=== PATIENT | male | born 1945 | race Caucasian/White ===

== ENCOUNTER 2017-11-05 18:08 | Inpatient (IN) | payer MEDICARE, BC ==
--- NOTE | 2017-11-05 18:13 | ED ---
General Adult HPI - General Stated complaint: FALL FROM STANDING Time Seen by Provider: 11/05/17 18:11 Source: RN notes reviewed, old records reviewed Limitations: altered mental status - History of Present Illness Initial comments: This is a 72-year-old male to the ER for evaluation. Patient comes in evaluation for severe respiratory distress and unresponsiveness. Patient has no history of significant COPD not on home O2. Patient significantly hypoxic and becoming more altered - Related Data Home Medications Medication Instructions Recorded Confirmed Albuterol Sulfate [Proair Hfa] 2 puff INHALATION RT-QID 02/05/15 02/06/15 Aspirin 81 mg PO DAILY 02/05/15 02/06/15 Cholecalciferol [Vitamin D3] 400 unit PO DAILY 02/05/15 02/06/15 Furosemide 20 mg PO DAILY 02/05/15 02/06/15 Lisinopril 20 mg PO DAILY 02/05/15 02/06/15 Fluticasone/Salmeterol [Advair 1 puff INHALATION RT-BID 02/06/15 02/06/15 250-50 Diskus] Ipratropium-Albuterol Nebulize 3 ml INHALATION RT-TID 02/06/15 02/06/15 [Duoneb 0.5 mg-3 mg/3 ml Soln] Previous Rx's Medication Instructions Recorded Ensure Complete 1 can PO TID-W/MEALS liquid 02/17/15 Levofloxacin [Levaquin] 750 mg PO DAILY #10 tab 02/17/15 predniSONE 0 mg PO DIRECTED #30 tab 02/17/15 Allergies Allergy/AdvReac Type Severity Reaction Status Date / Time No Known Allergies Allergy Verified 11/05/17 18:27 Review of Systems ROS Statement: Those systems with pertinent positive or pertinent negative responses have been documented in the HPI. ROS Other: All systems not noted in ROS Statement are negative. Past Medical History Past Medical History: COPD, Hypertension Additional Past Medical History / Comment(s): emphysema, gout History of Any Multi-Drug Resistant Organisms: None Reported Past Surgical History: Unable to Obtain Additional Past Surgical History / Comment(s): hernia 2015, carpel tunnel, heart cath in the past Past Psychological History: No Psychological Hx Reported Smoking Status: Current every day smoker Past Alcohol Use History: Occasional Past Drug Use History: None Reported - Past Family History Mother Family Medical History: Coronary Artery Disease (CAD), Hyperlipidemia, Hypertension General Exam General appearance: alert, anxious, lethargic, obtunded, in distress Head exam: Present: atraumatic, normocephalic, normal inspection Eye exam: Present: normal appearance, PERRL, EOMI. Absent: scleral icterus, conjunctival injection, periorbital swelling ENT exam: Present: normal exam, mucous membranes moist Neck exam: Present: normal inspection. Absent: tenderness, meningismus, lymphadenopathy Respiratory exam: Present: normal lung sounds bilaterally. Absent: respiratory distress, wheezes, rales, rhonchi, stridor Cardiovascular Exam: Present: regular rate, normal rhythm, normal heart sounds. Absent: systolic murmur, diastolic murmur, rubs, gallop, clicks GI/Abdominal exam: Present: soft, normal bowel sounds. Absent: distended, tenderness, guarding, rebound, rigid Extremities exam: Present: normal inspection, full ROM, normal capillary refill. Absent: tenderness, pedal edema, joint swelling, calf tenderness Back exam: Present: normal inspection Neurological exam: Present: alert, oriented X3, CN II-XII intact Psychiatric exam: Present: normal affect, normal mood Skin exam: Present: warm, dry, intact, normal color. Absent: rash Course Vital Signs 11/05/17 11/05/17 11/05/17 18:23 18:33 18:34 Temperature 98.8 F Pulse Rate 104 H 88 Respiratory 28 H 26 H 24 Rate Blood Pressure 103/51 O2 Sat by Pulse 83 L Oximetry 11/05/17 11/05/17 11/05/17 18:40 18:45 18:54 Temperature Pulse Rate 89 92 Respiratory 23 26 H Rate Blood Pressure 99/76 O2 Sat by Pulse 95 97 Oximetry 11/05/17 18:59 Temperature Pulse Rate 98 Respiratory 18 Rate Blood Pressure O2 Sat by Pulse Oximetry - Reevaluation(s) Reevaluation #1: 11/05/17 19:39 Patient was placed on BiPAP for one hour, no clinical improvement, more so clinical deterioration and decreased level of responsiveness, decision is made to intubate patient Reevaluation #2: 11/05/17 19:40 Spoke with family at length regarding patient's significant morbidity and prognosis, questions are answered EKG Findings - EKG Comments: EKG Findings:: EKG shows sinus rhythm rate of 98, VT 160, QRS 134, QTC 487 Medical Decision Making - Medical Decision Making 69 female the ER with acute respiratory failure significant COPD hypercapnic respiratory failure, patient be admitted for ICU - Lab Data Result diagrams: 11/05/17 18:29 11/05/17 18:29 Lab Results 11/05/17 11/05/17 11/05/17 Range/Units 18:20 18:29 18:29 WBC 10.8 H (3.8-10.6) k/uL RBC 4.88 (4.30-5.90) m/uL Hgb 13.8 (13.0-17.5) gm/dL Hct 46.4 (39.0-53.0) % MCV 95.1 (80.0-100.0) fL MCH 28.3 (25.0-35.0) pg MCHC 29.7 L (31.0-37.0) g/dL RDW 13.5 (11.5-15.5) % Plt Count 227 (150-450) k/uL Neutrophils % 79 % Lymphocytes % 10 % Monocytes % 6 % Eosinophils % 2 % Basophils % 1 % Neutrophils # 8.5 H (1.3-7.7) k/uL Lymphocytes # 1.1 (1.0-4.8) k/uL Monocytes # 0.6 (0-1.0) k/uL Eosinophils # 0.2 (0-0.7) k/uL Basophils # 0.1 (0-0.2) k/uL Hypochromasia Moderate PT (9.0-12.0) sec INR (<1.2) APTT (22.0-30.0) sec Sodium (137-145) mmol/L Potassium (3.5-5.1) mmol/L Chloride (98-107) mmol/L Carbon Dioxide (22-30) mmol/L Anion Gap mmol/L BUN (9-20) mg/dL Creatinine (0.66-1.25) mg/dL Est GFR (CKD-EPI)AfAm (>60 ml/min/1.73 sqM) Est GFR (CKD-EPI)NonAf (>60 ml/min/1.73 sqM) Glucose (74-99) mg/dL POC Glucose (mg/dL) 94 (75-99) mg/dL POC Glu [employer] Super[employer] ID Armen Harrell Calcium (8.4-10.2) mg/dL Magnesium (1.6-2.3) mg/dL Total Bilirubin (0.2-1.3) mg/dL AST (17-59) U/L ALT (21-72) U/L Alkaline Phosphatase (38-126) U/L Total Creatine Kinase 488 H (55-170) U/L CK-MB (CK-2) 12.5 H* (0.0-2.4) ng/mL CK-MB (CK-2) Rel Index 2.6 Troponin I 0.022 (0.000-0.034) ng/mL NT-Pro-B Natriuret Pep pg/mL Total Protein (6.3-8.2) g/dL Albumin (3.5-5.0) g/dL 11/05/17 11/05/17 11/05/17 Range/Units 18:29 18:29 18:29 WBC (3.8-10.6) k/uL RBC (4.30-5.90) m/uL Hgb (13.0-17.5) gm/dL Hct (39.0-53.0) % MCV (80.0-100.0) fL MCH (25.0-35.0) pg MCHC (31.0-37.0) g/dL RDW (11.5-15.5) % Plt Count (150-450) k/uL Neutrophils % % Lymphocytes % % Monocytes % % Eosinophils % % Basophils % % Neutrophils # (1.3-7.7) k/uL Lymphocytes # (1.0-4.8) k/uL Monocytes # (0-1.0) k/uL Eosinophils # (0-0.7) k/uL Basophils # (0-0.2) k/uL Hypochromasia PT 10.8 (9.0-12.0) sec INR 1.1 (<1.2) APTT 24.4 (22.0-30.0) sec Sodium 138 (137-145) mmol/L Potassium 4.7 (3.5-5.1) mmol/L Chloride 104 (98-107) mmol/L Carbon Dioxide 24 (22-30) mmol/L Anion Gap 10 mmol/L BUN 40 H (9-20) mg/dL Creatinine 1.60 H (0.66-1.25) mg/dL Est GFR (CKD-EPI)AfAm 49 (>60 ml/min/1.73 sqM) Est GFR (CKD-EPI)NonAf 42 (>60 ml/min/1.73 sqM) Glucose 105 H (74-99) mg/dL POC Glucose (mg/dL) (75-99) mg/dL POC Glu [employer] Supervisor ID Calcium 8.3 L (8.4-10.2) mg/dL Magnesium 1.8 (1.6-2.3) mg/dL Total Bilirubin 0.5 (0.2-1.3) mg/dL AST 49 (17-59) U/L ALT 47 (21-72) U/L Alkaline Phosphatase 48 (38-126) U/L Total Creatine Kinase (55-170) U/L CK-MB (CK-2) (0.0-2.4) ng/mL CK-MB (CK-2) Rel Index Troponin I (0.000-0.034) ng/mL NT-Pro-B Natriuret Pep 1050 pg/mL Total Protein 6.4 (6.3-8.2) g/dL Albumin 3.5 (3.5-5.0) g/dL - Radiology Data Radiology results: report reviewed (CT brain C-spine negative chest x-ray positive for pneumonia), image reviewed Critical Care Time Critical Care Time: Yes Total Critical Care Time: 31 Disposition Clinical Impression: Community acquired pneumonia, Acute exacerbation of chronic obstructive airways disease, Acute respiratory failure Disposition: ADMITTED IP TO THIS HOSP Condition: Critical Is patient prescribed a controlled substance at d/c from ED?: No Referrals: Gallito Chu MD [Primary Care Provider] - 1-2 days
[2017-11-05] MEDS ORDERED: ALBUTEROL NEBULIZED 2.5 MG/3 ML INHALATION STA (18:19)
[2017-11-05] MEDS ORDERED: SODIUM CHLORIDE 0.9% 1,000 ML IV STA (18:19)
[2017-11-05] MEDS ORDERED: IPRATROPIUM 0.5 MG/2.5 ML NEBU INHALATION STA (18:19)
[2017-11-05] MEDS ORDERED: methylPREDNISolone SOD SUCCI 125 MG/2 ML VIAL IV STA (18:19)
[2017-11-05] MEDS ORDERED: NALOXONE 0.4 MG/ML 10 ML VIAL IVP STA (18:20)
[2017-11-05 18:29] LABS: Glucose,Whole Blood 94 mg/dL (75-99)
[2017-11-05 18:49] LABS: Basophils # (A) 0.1 k/uL (0-0.2); Basophils % (A) 1 %; Eosinophils # (A) 0.2 k/uL (0-0.7); Eosinophils % (A) 2 %; HCT 46.4 % (39.0-53.0); HGB 13.8 gm/dL (13.0-17.5); Hypochromasia Moderate; Lymphocytes # (A) 1.1 k/uL (1.0-4.8); Lymphocytes % (A) 10 %; MCH 28.3 pg (25.0-35.0); MCHC 29.7 g/dL (31.0-37.0); MCV 95.1 fL (80.0-100.0); Mean Platelet Volume 7.9; Monocytes # (A) 0.6 k/uL (0-1.0); Monocytes % (A) 6 %; Neutrophils # (A) 8.5 k/uL (1.3-7.7); Neutrophils % (A) 79 %; Platelet Count 227 k/uL (150-450); RBC 4.88 m/uL (4.30-5.90); RDW 13.5 % (11.5-15.5); WBC 10.8 k/uL (3.8-10.6)
[2017-11-05 19:04] LABS: Albumin 3.5 g/dL (3.5-5.0); Potassium 4.7 mmol/L (3.5-5.1); Total Protein 6.4 g/dL (6.3-8.2)
[2017-11-05 19:05] LABS: Calcium 8.3 mg/dL (8.4-10.2); Magnesium 1.8 mg/dL (1.6-2.3); Total Bilirubin 0.5 mg/dL (0.2-1.3)
[2017-11-05] MEDS ORDERED: SUCCINYLCHOLINE CHLORIDE 100 MG/5 ML SYR IV STA (19:12)
[2017-11-05] MEDS ORDERED: KETAMINE 10 MG/ML 20 ML VIAL IV STA (19:12)
[2017-11-05 19:16] LABS: Troponin I 0.022 ng/mL (0.000-0.034)
--- NOTE | 2017-11-05 19:19 | CT ---
EXAMINATION TYPE: CT brain alessio wo con DATE OF EXAM: 11/05/2017 COMPARISON: 02/12/2015 HISTORY: Fall. CT DLP: 1356.7 mGycm, Automated exposure control for dose reduction was used. CONTRAST: Patient injected with 0 mL of Isovue 300. CT of the brain is performed utilizing 3 mm thick sections through the posterior fossa and 3 mm thick sections through the remaining calvarium. Study is performed within 24 hours of arrival to the hospital. No abnormal hyperdensity is present to suggest an acute intracranial hemorrhage. No mass lesion is evident. No acute infarcts are evident. Ventricles and sulci are appropriate for the patient age. Paranasal sinuses and mastoid air cells within the [id number] are clear. IMPRESSIONS: 1. Normal CT brain. CT cervical spine. COMPARISON: None CT of the cervical spine is performed in the axial plane at 2 mm thick sections. Reconstructed image s in the coronal, and sagittal plane are reviewed on the computer. No acute fractures are evident. There is straightening of the cervical spine. Slight kyphosis may be present which could be positiona l. There is mild narrowing of disc height. Vertebral body heights are preserved. Anterior vertebral body spurring is present C4-C6. No spinal canal stenosis is evident. Foraminal narrowing is present uncovertebral joint hypertrophy. IMPRESSIONS: 1. Mild degenerative changes including mild foraminal narrowing from uncovertebral joint hypertrophy. 2. No acute osseous abnormality.
[2017-11-05] MEDS ORDERED: SUCCINYLCHOLINE CHLORIDE VIAL 200 MG/10 ML VIAL IV STA (19:25)
[2017-11-05 19:26] LABS: INR 1.1 (<1.2); Partial Thromboplastin Time 24.4 sec (22.0-30.0); Prothrombin Time 10.8 sec (9.0-12.0)
[2017-11-05 19:31] LABS: Creatine Kinase MB 12.5 ng/mL (0.0-2.4)
--- NOTE | 2017-11-05 19:35 | XR ---
EXAMINATION TYPE: XR chest 1V portable DATE OF EXAM: 11/05/2017 COMPARISON: 02/13/2015 INDICATION: Short of breath TECHNIQUE: Single frontal view of the chest is obtained. FINDINGS: The heart size is normal. The pulmonary vasculature is normal. Bibasilar infiltrates are present. Correlate for atelectasis and pneumonia. IMPRESSION: 1. Bibasilar infiltrates. Follow-up is recommended. Correlate for atelectasis and pneumonia.
[2017-11-05] MEDS ORDERED: MORPHINE SULFATE 4 MG/ML SYRINGE IV PRN (19:36)
[2017-11-05] MEDS ORDERED: NALOXONE 0.4 MG/ML 1 ML VIAL IV PRN (19:36)
[2017-11-05] MEDS ORDERED: PROPOFOL 1,000 MG in EMPTY BAG 1 BAG IV ONE (19:38)
[2017-11-05] MEDS ORDERED: LEVOFLOXACIN 750MG-D5W PMX 750 MG in DEXTROSE/WATER 1 150ML.BAG IVPB STA (19:41)
[2017-11-05] MEDS ORDERED: PIPERACILLIN-TAZOBACTAM 3.375 GM in DEXTROSE/WATER 1 50ML.BAG IVPB STA (19:41)
[2017-11-05] MEDS ORDERED: SODIUM CHLORIDE 0.9% 500 ML IV STA (19:41)
[2017-11-05] MEDS ORDERED: SODIUM CHLORIDE 0.9% 2,000 ML IV STA (19:41)
--- NOTE | 2017-11-05 19:51 | XR ---
EXAMINATION TYPE: XR chest 1V portable DATE OF EXAM: 11/05/2017 COMPARISON: 11/05/2017 INDICATION: Pain TECHNIQUE: Single frontal view of the chest is obtained. FINDINGS: The heart size is normal. The pulmonary vasculature is prominent. Mild increased lung markings appear to be present diffusely. Correlate for pulmonary edema Endotracheal tube tip is above the juan. Nasogastric tube transverses the thorax with tip in the le ft upper quadrant of the abdomen. IMPRESSION: 1. Prominent pulmonary vascular markings with increased lung markings. Correlate for early pulmonary edema. 2. Lines and catheters discussed above
[2017-11-05 20:08] LABS: ABG Base Excess -3.7 mmol/L; ABG HCO3 26 mmol/L (21-25); ABG Oxygen Saturation 99.8 % (94-97); ABG PO2 >400 mmHg (83-108); ABG TCO2 29 mmol/L (19-24)
[2017-11-05 20:09] LABS: ABG PCO2 87 mmHg (35-45); ABG PH 7.09 (7.35-7.45)
[2017-11-05 21:03] LABS: Appearance,Urine Clear (Clear); Bilirubin,Urine Negative (Negative); Blood,Urine Negative (Negative); Color,Urine Yellow; Glucose,Urine (UA) Negative (Negative); Ketones,Urine Negative (Negative); Leukocyte Esterase,Urine Negative (Negative); Nitrite,Urine Negative (Negative); Protein,Urine Trace (Negative); Specific Gravity,Urine 1.016 (1.001-1.035); Urobilinogen,Urine <2.0 mg/dL (<2.0)
[2017-11-05] MEDS: IPRATROPIUM-ALBUTEROL 3 ML NEB INHALATION SCH (21:12)
[2017-11-05 21:45] LABS: Glucose,Whole Blood 95 mg/dL (75-99)
[2017-11-05] MEDS ORDERED: NOREPINEPHRIN 4 MG-0.9% NS PMX 4 MG/250 ML ML IV ONE (21:45)
[2017-11-05] MEDS: NOREPINEPHRINE 4 MG in DEXTROSE 5% IN WATER 250 ML IV SCH ×2 (21:50)
[2017-11-05] MEDS ORDERED: SODIUM CHLORIDE 0.9% 2,000 ML IV ONE (22:04)
[2017-11-05 22:08] LABS: ABG Base Excess -4.2 mmol/L; ABG HCO3 25 mmol/L (21-25); ABG Oxygen Saturation 97.5 % (94-97); ABG PO2 105 mmHg (83-108); ABG TCO2 27 mmol/L (19-24)
[2017-11-05 22:13] LABS: ABG PH 7.14 (7.35-7.45)
[2017-11-05 22:14] LABS: ABG PCO2 74 mmHg (35-45)
[2017-11-06] MEDS: methylPREDNISolone SOD SUCCI 125 MG/2 ML VIAL IV SCH ×4 (00:26→17:47)
[2017-11-06] MEDS: DEXTROSE 5%-0.45% NACL 1,000 ML IV SCH ×2 (00:26→09:09)
[2017-11-06] MEDS: PROPOFOL 1,000 MG in EMPTY BAG 1 BAG IV SCH ×3 (00:42→11:42)
[2017-11-06 04:42] LABS: Basophils % (A) 0 %; Eosinophils % (A) 0 %; HCT 44.4 % (39.0-53.0); HGB 13.5 gm/dL (13.0-17.5); Hypochromasia Moderate; Lymphocytes # (A) 0.4 k/uL (1.0-4.8); Lymphocytes % (A) 4 %; MCH 28.8 pg (25.0-35.0); MCHC 30.4 g/dL (31.0-37.0); MCV 94.5 fL (80.0-100.0); Mean Platelet Volume 7.7; Monocytes # (A) 0.3 k/uL (0-1.0); Monocytes % (A) 3 %; Neutrophils # (A) 10.4 k/uL (1.3-7.7); Neutrophils % (A) 93 %; Platelet Count 188 k/uL (150-450); RDW 13.7 % (11.5-15.5); WBC 11.2 k/uL (3.8-10.6)
[2017-11-06 04:44] LABS: ABG Base Excess 0.9 mmol/L; ABG HCO3 28 mmol/L (21-25); ABG Oxygen Saturation 95.6 % (94-97); ABG PCO2 61 mmHg (35-45); ABG PH 7.27 (7.35-7.45); ABG PO2 74 mmHg (83-108); ABG TCO2 30 mmol/L (19-24)
[2017-11-06 04:52] LABS: Calcium 7.8 mg/dL (8.4-10.2); Magnesium 1.7 mg/dL (1.6-2.3); Phosphorus 4.9 mg/dL (2.5-4.5); Potassium 4.1 mmol/L (3.5-5.1); Total Bilirubin 0.4 mg/dL (0.2-1.3); Total Protein 5.6 g/dL (6.3-8.2)
[2017-11-06] MEDS: MAGNESIUM SULFATE-D5W PMX 1 GM in DEXTROSE/WATER 1 100ML.BAG IVPB SCH ×2 (06:30→09:08)
--- NOTE | 2017-11-06 06:37 | XR ---
EXAMINATION TYPE: XR chest 1V portable DATE OF EXAM: 11/06/2017 HISTORY: Tube placement. REFERENCE: Previous study dated 11/05/2017. FINDINGS: The patient's ET tube and NG tube remain in place, unchanged in appearance. The lungs are overinflated. The heart is not enlarged. There are increased interstitial markings. The re is bibasilar atelectasis. IMPRESSION: 1. COPD. 2. INCREASED INTERSTITIAL MARKINGS APPEAR TO BE WORSENING. PLEASE CORRELATE FOR CHF.
[2017-11-06] MEDS: IPRATROPIUM-ALBUTEROL 3 ML NEB INHALATION SCH ×4 (07:44→19:54)
[2017-11-06] MEDS: PIPERACILLIN-TAZOBACTAM 3.375 GM in DEXTROSE/WATER 1 50ML.BAG IVPB SCH ×2 (08:50→15:22)
[2017-11-06] MEDS ORDERED: ENOXAPARIN 40 MG/0.4 ML SYRINGE SQ SCH (09:00)
[2017-11-06] MEDS: PANTOPRAZOLE 40 MG/10 ML VIAL IV SCH (09:10)
[2017-11-06] MEDS: CHLORHEXIDINE GLUCONATE 15 ML CUP MUCOUS MEM SCH ×2 (09:10→20:05)
[2017-11-06 11:41] LABS: Glucose,Whole Blood 129 mg/dL (75-99)
[2017-11-06] MEDS ORDERED: SODIUM CHLORIDE 0.9% 500 ML IV ONE (12:02)
--- NOTE | 2017-11-06 13:40 | P.HPIM ---
History of Present Illness H&P Date: 11/06/17 This is a 72 years old male patient of Dr. Chu present with past medical history of hypertension, unknown diagnosis of COPD was last seen in 2014 when patient was intubated for 48 hours with similar presentation of unresponsiveness and hypoxic. Patient was intubated during that time and was found to have pulmonary congestion on the chest x-ray and was treated for community-acquired pneumonia. Patient is brought in today by family as patient was not doing well for the past 1 week he was found to be increasingly weak and lethargic. EMS was called , patient was found to be hypoxic in the low 70s though responsive. On presentation to the ER, patient was found to be in severe respiratory distress and nearly unresponsive was placed on BiPAP for one of our with no improvement and finally he was intubated. Labs obtained suggest a pH of 7.14 CO2 74 CO2 27 pO2 105 and 60% FiO2, WBC 11.2, B UN is 37 creatinine 1.4 decreased from 1.6. Baseline creatinines appear to be 1.1-1.2. Lactic acid on admission was 2.9 brought down to 1.5 postfluid resuscitation with 4 L. Chest x-ray suggested by basilar infiltrates with signs of congestion concerning for pulmonary edema from the fluid resuscitation. Patient is currently mechanically ventilated on 50% FiO2 managed by Dr. Logan and Dr. Jefferson. And appears to be in COPD exacerbation and initiated on Solu-Medrol 60 every 6. He received a dose of levofloxacin in the ER and Zosyn was continued. Patient will be started on broad-spectrum antibiotic including Zosyn and cefepime for dual coverage. Echocardiogram will be obtained. Previous echocardiogram from 2015 suggestive of EF of 50-55% with no wall or valvular abnormality. Patient is currently on 2 mics per minute of norepinephrine, is sedated on propofol. Patient does comprehend and follows command off sedation but gets agitated and tries to remove the tube when sedation is weaned off. Blood culture and urine cultures sent Review of Systems ROS unobtainable: due to endotracheal tube Past Medical History Past Medical History: COPD, Hypertension Additional Past Medical History / Comment(s): emphysema, gout History of Any Multi-Drug Resistant Organisms: None Reported Past Surgical History: Unable to Obtain Additional Past Surgical History / Comment(s): hernia 2015, carpel tunnel, heart cath in the past (clean) Past Psychological History: No Psychological Hx Reported Smoking Status: Former smoker Past Alcohol Use History: Occasional Past Drug Use History: None Reported - Past Family History Mother Family Medical History: Coronary Artery Disease (CAD), Hyperlipidemia, Hypertension Medications and Allergies Home Medications Medication Instructions Recorded Confirmed Type Albuterol Sulfate [Proair Hfa] 2 puff INHALATION RT-QID PRN 02/05/15 11/06/17 History Aspirin 81 mg PO DAILY 02/05/15 11/06/17 History Furosemide 40 mg PO DAILY 02/05/15 11/06/17 History Lisinopril 20 mg PO DAILY 02/05/15 11/06/17 History Ipratropium-Albuterol Nebulize 3 ml INHALATION RT-QID 02/06/15 11/06/17 History [Duoneb 0.5 mg-3 mg/3 ml Soln] Budesonide [Pulmicort] 0.5 mg INHALATION RT-BID 11/06/17 11/06/17 History Cholecalciferol [Vitamin D3] 1,000 unit PO DAILY 11/06/17 11/06/17 History Montelukast [Singulair] 10 mg PO HS 11/06/17 11/06/17 History Ubidecarenone [Co Q-10] 100 mg PO DAILY 11/06/17 11/06/17 History Allergies Allergy/AdvReac Type Severity Reaction Status Date / Time No Known Allergies Allergy Verified 11/05/17 18:27 Physical Exam Vitals: Vital Signs Temp Pulse Resp BP Pulse Ox 11/06/17 13:00 57 L 15 100/53 98 11/06/17 12:45 62 26 H 97 11/06/17 12:30 68 16 98 11/06/17 12:15 98 15 98 11/06/17 12:00 97.7 F 60 18 98 11/06/17 11:45 59 L 16 98 11/06/17 11:30 59 L 27 H 96 11/06/17 11:19 59 L 11/06/17 11:15 57 L 16 100 11/06/17 11:08 58 L 11/06/17 11:00 56 L 15 98 11/06/17 10:45 61 15 98 11/06/17 10:30 61 20 98 11/06/17 10:15 64 19 98 08/05/18 10:00 62 16 98 08/05/18 09:45 65 16 98 /05/18 09:30 51 L 21 99 /05/18 09:15 57 L 15 98 05/18 09:00 63 15 122/68 97 /05/18 08:45 55 L 16 98 //18 08:30 53 L 15 100 /05/18 08:15 53 L 16 100 //18 08:00 97.9 F 54 L 18 115/67 100 05/18 07:55 56 L 08/05/18 07:45 63 15 98 /05/18 07:30 59 L 16 133/67 98 /05/18 07:15 57 L 15 132/62 98 05/18 07:00 61 16 132/62 98 11/06/18 06:45 60 15 98 11/06/18 06:30 60 19 116/60 99 05/18 06:15 59 L 15 99 05/18 06:00 56 L 16 116/61 99 05/18 05:45 59 L 16 99 05/18 05:30 58 L 16 110/61 99 /05/18 05:15 58 L 21 98 /05/18 05:00 62 14 97 05/18 04:45 59 L 16 99 05/18 04:30 66 35 H 100/61 99 /05/18 04:15 60 21 99 /05/18 04:00 97.6 F 67 16 119/64 99 /05/18 03:45 60 16 98 /05/18 03:30 72 16 119/61 96 /05/18 03:15 65 17 97 /05/18 03:00 65 16 114/57 96 /05/18 02:45 66 16 97 /05/18 02:30 75 16 107/57 97 /05/18 02:15 82 12 115/69 97 /05/18 02:00 70 16 145/57 97 08/05/18 01:50 79 15 131/55 96 /05/18 01:40 77 16 136/63 97 08/05/18 01:30 73 21 135/64 97 08/05/18 01:20 71 21 119/64 97 08/05/18 01:10 79 15 113/65 94 L 11/06/17 01:00 84 15 117/64 97 11/06/17 00:50 85 16 96/57 97 11/06/17 00:40 76 16 124/64 97 11/06/17 00:30 90 16 110/70 94 L 11/06/17 00:20 81 15 119/61 96 11/06/17 00:10 102 H 14 121/65 96 11/06/17 00:00 97.5 F L 100 15 119/66 96 11/05/17 23:50 99 12 123/60 98 11/05/17 23:40 85 16 122/63 99 11/05/17 23:30 84 26 H 129/60 99 11/05/17 23:20 84 26 H 131/61 100 11/05/17 23:10 90 17 139/69 99 11/05/17 23:00 90 20 137/69 100 11/05/17 22:50 90 34 H 100 11/05/17 22:49 91 36 H 131/63 100 11/05/17 22:40 87 15 127/64 100 11/05/17 22:30 116 H 12 131/69 100 11/05/17 22:20 115 H 16 115/64 100 11/05/17 22:10 114 H 16 82/47 100 11/05/17 22:00 68 16 73/40 100 11/05/17 21:50 94.2 F L 71 16 64/38 100 11/05/17 21:40 74 16 71/39 100 11/05/17 21:30 72 18 87/47 11/05/17 21:25 83 21 11/05/17 21:24 79 16 82/49 100 11/05/17 21:18 98.9 F 76 16 103/53 100 11/05/17 21:15 82 16 72/43 99 11/05/17 20:00 83 16 96/50 100 11/05/17 19:45 81 16 126/60 100 11/05/17 19:41 15 11/05/17 19:32 80 17 93/50 98 11/05/17 19:07 87 18 11/05/17 18:59 98 18 11/05/17 18:54 92 26 H 99/76 97 11/05/17 18:45 89 23 11/05/17 18:40 95 08/04/18 18:34 24 11/05/17 18:33 88 26 H 11/05/17 18:23 98.8 F 104 H 28 H 103/51 83 L Intake and Output 11/05/17 11/06/17 11/06/17 22:59 06:59 14:59 Intake Total 5 3011.250 121.686 Output Total 1111 1075 Balance 5 1900.250 -953.314 Intake: IV 2750 Dextrose 5%-0.45% NaCl 1, 510 000 ml @ 85 mls/hr IV . [id number] SONY Rx#:[id number] Levofloxacin 750Mg-D5w 150 Pmx 750 mg In Dextrose/ Water 1 150ml.bag @ 100 mls/hr IVPB ONCE STA Rx#: [id number] Piperacillin-Tazobactam 3 50 .375 gm In Dextrose/Water 1 50ml.bag @ 12.5 mls/hr IVPB Q8HR SONY Rx#: [id number] Sodium Chloride 0.9% 2, 2040 000 ml @ 999 mls/hr IV . Q2H1M STA Rx#:[id number] Intake, IV Titration 5 261.250 121.686 Amount Norepinephrine 4 mg In 5 161.25 51.000 Dextrose 5% in Water 250 ml @ Titrate IV .Q0M SONY Rx#:[id number] Propofol 1,000 mg In 100.000 70.686 Empty Bag 1 bag @ Titrate IV .Q0M SONY Rx#: [id number] Output: Gastric Drainage 650 350 Urine 461 725 Other: Voiding Method Indwelling Catheter Indwelling Catheter Indwelling Catheter Weight 93.5 kg 93.5 kg 93.5 kg ABP, PAP, CO, CI - Last 8 Hours Arterial Blood Pressure 103/56 Arterial Blood Pressure 91/54 Arterial Blood Pressure 90/52 Arterial Blood Pressure 87/55 Arterial Blood Pressure 97/54 Arterial Blood Pressure 104/57 Arterial Blood Pressure 120/50 Arterial Blood Pressure 102/58 Arterial Blood Pressure 100/54 Arterial Blood Pressure 92/53 Arterial Blood Pressure 89/57 Arterial Blood Pressure 110/62 Arterial Blood Pressure 109/60 Arterial Blood Pressure 116/66 Arterial Blood Pressure 140/61 Arterial Blood Pressure 114/59 Arterial Blood Pressure 103/55 Arterial Blood Pressure 120/61 Arterial Blood Pressure 107/55 Arterial Blood Pressure 118/66 Arterial Blood Pressure 109/55 Arterial Blood Pressure 90/47 Arterial Blood Pressure 109/56 Arterial Blood Pressure 113/59 Arterial Blood Pressure 114/59 Arterial Blood Pressure 107/59 Arterial Blood Pressure 95/50 Arterial Blood Pressure 107/56 Arterial Blood Pressure 103/53 Arterial Blood Pressure 109/56 Arterial Blood Pressure 108/57 - Constitutional General appearance: average body habitus, no acute distress (Intubated) - EENT Eyes: PERRLA, no photophobia Ears: bilateral: normal - Neck Neck: no lymphadenopathy Carotids: bilateral: upstroke normal - Respiratory Respiratory: bilateral: diminished, dullness, rales, rhonchi, negative: wheezing - Cardiovascular Rhythm: regular Heart sounds: normal: S1, S2 Abnormal Heart Sounds: no systolic murmur, no diastolic murmur, no rub, no click foot Peripheral Edema: bilateral: 1+ dorsalis pedis Peripheral Pulses: bilateral: Normal - Gastrointestinal General gastrointestinal: distended, normal bowel sounds, soft - Integumentary Integumentary: no calor, no cellulitis, no cyanotic - Musculoskeletal Could not be assessed due to sedation - Psychiatric Could not be assessed due to sedation Results CBC & Chem 7: 11/06/17 04:32 11/06/17 04:32 Labs: Abnormal Lab Results - Last 24 Hours (Table) 11/05/17 11/05/17 11/05/17 Range/Units 18:29 18:29 18:29 WBC 10.8 H (3.8-10.6) k/uL MCHC 29.7 L (31.0-37.0) g/dL Neutrophils # 8.5 H (1.3-7.7) k/uL Lymphocytes # (1.0-4.8) k/uL ABG pH (7.35-7.45) ABG pCO2 (35-45) mmHg ABG pO2 (83-108) mmHg ABG HCO3 (21-25) mmol/L ABG Total CO2 (19-24) mmol/L ABG O2 Saturation (94-97) % BUN 40 H (9-20) mg/dL Creatinine 1.60 H (0.66-1.25) mg/dL Glucose 105 H (74-99) mg/dL POC Glucose (mg/dL) (75-99) mg/dL Plasma Lactic Acid Ernie (0.7-2.0) mmol/L Calcium 8.3 L (8.4-10.2) mg/dL Phosphorus (2.5-4.5) mg/dL Total Creatine Kinase 488 H (55-170) U/L CK-MB (CK-2) 12.5 H* (0.0-2.4) ng/mL Total Protein (6.3-8.2) g/dL Albumin (3.5-5.0) g/dL Urine Protein (Negative) 11/05/17 11/05/17 11/05/17 Range/Units 19:48 19:50 20:03 WBC (3.8-10.6) k/uL MCHC (31.0-37.0) g/dL Neutrophils # (1.3-7.7) k/uL Lymphocytes # (1.0-4.8) k/uL ABG pH 7.09 L* (7.35-7.45) ABG pCO2 87 H* (35-45) mmHg ABG pO2 >400 H (83-108) mmHg ABG HCO3 26 H (21-25) mmol/L ABG Total CO2 29 H (19-24) mmol/L ABG O2 Saturation 99.8 H (94-97) % BUN (9-20) mg/dL Creatinine (0.66-1.25) mg/dL Glucose (74-99) mg/dL POC Glucose (mg/dL) (75-99) mg/dL Plasma Lactic Acid Ernie 2.9 H* (0.7-2.0) mmol/L Calcium (8.4-10.2) mg/dL Phosphorus (2.5-4.5) mg/dL Total Creatine Kinase (55-170) U/L CK-MB (CK-2) (0.0-2.4) ng/mL Total Protein (6.3-8.2) g/dL Albumin (3.5-5.0) g/dL Urine Protein Trace H (Negative) 11/05/17 11/06/17 11/06/17 Range/Units 22:05 04:32 04:32 WBC 11.2 H (3.8-10.6) k/uL MCHC 30.4 L (31.0-37.0) g/dL Neutrophils # 10.4 H (1.3-7.7) k/uL Lymphocytes # 0.4 L (1.0-4.8) k/uL ABG pH 7.14 L* (7.35-7.45) ABG pCO2 74 H* (35-45) mmHg ABG pO2 (83-108) mmHg ABG HCO3 (21-25) mmol/L ABG Total CO2 27 H (19-24) mmol/L ABG O2 Saturation 97.5 H (94-97) % BUN 37 H (9-20) mg/dL Creatinine 1.40 H (0.66-1.25) mg/dL Glucose 135 H (74-99) mg/dL POC Glucose (mg/dL) (75-99) mg/dL Plasma Lactic Acid Ernie (0.7-2.0) mmol/L Calcium 7.8 L (8.4-10.2) mg/dL Phosphorus 4.9 H (2.5-4.5) mg/dL Total Creatine Kinase (55-170) U/L CK-MB (CK-2) (0.0-2.4) ng/mL Total Protein 5.6 L (6.3-8.2) g/dL Albumin 3.0 L (3.5-5.0) g/dL Urine Protein (Negative) 11/06/17 11/06/17 Range/Units 04:45 11:31 WBC (3.8-10.6) k/uL MCHC (31.0-37.0) g/dL Neutrophils # (1.3-7.7) k/uL Lymphocytes # (1.0-4.8) k/uL ABG pH 7.27 L (7.35-7.45) ABG pCO2 61 H (35-45) mmHg ABG pO2 74 L (83-108) mmHg ABG HCO3 28 H (21-25) mmol/L ABG Total CO2 30 H (19-24) mmol/L ABG O2 Saturation (94-97) % BUN (9-20) mg/dL Creatinine (0.66-1.25) mg/dL Glucose (74-99) mg/dL POC Glucose (mg/dL) 129 H (75-99) mg/dL Plasma Lactic Acid Ernie (0.7-2.0) mmol/L Calcium (8.4-10.2) mg/dL Phosphorus (2.5-4.5) mg/dL Total Creatine Kinase (55-170) U/L CK-MB (CK-2) (0.0-2.4) ng/mL Total Protein (6.3-8.2) g/dL Albumin (3.5-5.0) g/dL Urine Protein (Negative) Microbiology - Last 24 Hours (Table) 11/05/17 20:24 Sputum Culture - Preliminary Sputum Thrombosis Risk Factor Assmnt - DVT/VTE Prophylaxis DVT/VTE Prophylaxis: Pharmacologic Prophylaxis ordered - Choose All That Apply Each Factor Represents 1 point: Abnormal pulmonary function (COPD), Sepsis (< 1month), Swollen legs (current) Each Risk Factor Represents 2 Points: Age 61-74 years Thrombosis Risk Factor Assessment Total Risk Factor Score: 5 Thrombosis Risk Factor Assessment Level: High Risk Assessment and Plan Plan: 1. Acute hypoxic hypercapnic respiratory failure secondary to COPD exacerbation with possibility of underlying community-acquired bilateral pneumonia. Will continue with broad-spectrum antibiotic with cefepime and Zosyn , currently mechanically ventilated and is being managed by Dr. Logan from critical care medicine. Patient currently is receiving IV Solu-Medrol nebulized treatments and Pulmicort and DuoNeb along with IV antibiotics Sputum and sputum cultures has been sent here some pulmonary edema noted on chest x-rays. his NT proBNP is normal. Aspiration precautions maintained. Currently on norepinephrine 2. Lactic acidosis likely secondary to septic shock. Status post 4 L IV fluids. Continue broad-spectrum IV antibiotics. Lactic acid improved. Hold further IV fluids. 3. Hypercarbic respiratory failure secondary to COPD underlying obstructive sleep apnea cannot be excluded he is echocardiogram did not reveal any right ventricular systolic pressure abnormalityIn 2014. Repeat echocardiogram. 4. COPD exacerbation currently on IV Solu-Medrol and nebulized treatments 5. SIRS with suspected bilateral early pneumonic infiltrates 6. Current tobacco dependency and is a current tobacco smoker 7. Hypertension currentlon norepinephrine hold antihypertensive medications 8. Gout history 9. VTE prophylaxis is provided with heparin subcu 10. GI prophylaxis IV Protonix X CODE STATUS full Prognosis extremely guarded. Family aware. If no improvement seen in the next 24-48 hours
[2017-11-06] MEDS ORDERED: CEFEPIME 1 GM in SODIUM CHLORIDE 0.9% 50 ML IVPB SCH (14:00)
[2017-11-06 14:16] LABS: ABG Base Excess 4.4 mmol/L; ABG HCO3 31 mmol/L (21-25); ABG PCO2 65 mmHg (35-45); ABG PH 7.29 (7.35-7.45); ABG PO2 88 mmHg (83-108); ABG TCO2 33 mmol/L (19-24)
--- NOTE | 2017-11-06 17:23 | P.CNPUL ---
History of Present Illness Consult date: 11/06/17 Reason for consult: dyspnea, cough, COPD, hypoxemia Chief complaint: Increased shortness of breath with lethargy and altered mental status History of present illness: This patient sees send Diane Pyle for primary care activity has a history of severe COPD emphysema has prior history of the intubation about 3 years ago due to acute hypoxic and hypercapnic respirator failure and secondary altered mental status related to that, patient was brought into the emergency department with increasing shortness of breath going on for almost a week patient has been becoming more progressively weak tired and developed severe hypercapnia as noted into the arterial blood gas that was performed in the emergency department pH dropped down to 7.14, patient was very lethargic and poorly responsive in the emergency department was eventually intubated and placed on respirator patient also started on broad-spectrum antibiotics during evaluation patient was a noted to have a OG tube has some coffee-ground material which recently had changed from clear however patient is on DVT prophylaxis, patient was arousable opens eyes and follows simple commands have place patient on CPAP 5 pressure support of 5 and for half an hour arterial blood gas was checked fairly adequate ventilation and oxygenation oxygenation was noted and patient was successfully extubated, postextubation patient and requested a no CODE STATUS and do not want to go back on respirator encased respiratory status worsened Review of Systems ROS unobtainable: due to endotracheal tube, due to mental status All systems: negative Past Medical History Past Medical History: COPD, Hypertension Additional Past Medical History / Comment(s): emphysema, gout History of Any Multi-Drug Resistant Organisms: None Reported Past Surgical History: Unable to Obtain Additional Past Surgical History / Comment(s): hernia 2015, carpel tunnel, heart cath in the past (clean) Past Psychological History: No Psychological Hx Reported Smoking Status: Former smoker Past Alcohol Use History: Occasional Past Drug Use History: None Reported - Past Family History Mother Family Medical History: Coronary Artery Disease (CAD), Hyperlipidemia, Hypertension Medications and Allergies Home Medications Medication Instructions Recorded Confirmed Type Albuterol Sulfate [Proair Hfa] 2 puff INHALATION RT-QID PRN 02/05/15 11/06/17 History Aspirin 81 mg PO DAILY 02/05/15 11/06/17 History Furosemide 40 mg PO DAILY 02/05/15 11/06/17 History Lisinopril 20 mg PO DAILY 02/05/15 11/06/17 History Ipratropium-Albuterol Nebulize 3 ml INHALATION RT-QID 02/06/15 11/06/17 History [Duoneb 0.5 mg-3 mg/3 ml Soln] Budesonide [Pulmicort] 0.5 mg INHALATION RT-BID 11/06/17 11/06/17 History Cholecalciferol [Vitamin D3] 1,000 unit PO DAILY 11/06/17 11/06/17 History Montelukast [Singulair] 10 mg PO HS 11/06/17 11/06/17 History Ubidecarenone [Co Q-10] 100 mg PO DAILY 11/06/17 11/06/17 History Allergies Allergy/AdvReac Type Severity Reaction Status Date / Time No Known Allergies Allergy Verified 11/05/17 18:27 Physical Exam Vitals: Vital Signs Temp Pulse Resp BP Pulse Ox 11/06/17 16:54 85 11/06/17 16:42 95 11/06/17 16:41 83 11/06/17 16:30 75 28 H 99/58 94 L 11/06/17 16:15 64 31 H 96/56 100 11/06/17 16:00 97.6 F 66 21 110/58 99 11/06/17 15:45 66 25 H 111/63 100 11/06/17 15:43 23 11/06/17 15:30 69 24 112/58 100 11/06/17 15:15 81 23 122/58 100 11/06/17 15:00 77 24 124/64 100 11/06/17 14:45 75 20 136/64 99 11/06/17 14:30 79 33 H 134/66 99 11/06/17 14:15 77 33 H 125/62 98 11/06/17 14:00 74 27 H 110/61 98 11/06/17 13:45 66 22 104/55 97 11/06/17 13:30 64 18 106/76 97 11/06/17 13:15 58 L 16 109/57 98 11/06/17 13:00 57 L 15 100/53 98 11/06/17 12:45 62 26 H 97 11/06/17 12:30 68 16 98 11/06/17 12:15 98 15 98 11/06/17 12:00 97.7 F 60 18 98 08/05/18 11:45 59 L 16 98 18 11:30 59 L 27 H 96 11/06/17 11:19 59 L 11/06/17 11:15 57 L 16 100 11/06/17 11:08 58 L 11/06/17 11:00 56 L 15 98 11/06/17 10:45 61 15 98 05/18 10:30 61 20 98 11/06/17 10:15 64 19 98 11/06/17 10:00 62 16 98 11/06/17 09:45 65 16 98 11/06/17 09:30 51 L 21 99 11/06/17 09:15 57 L 15 98 11/06/17 09:00 63 15 122/68 97 11/06/17 08:45 55 L 16 98 11/06/17 08:30 53 L 15 100 11/06/17 08:15 53 L 16 100 11/06/17 08:00 97.9 F 54 L 18 115/67 100 11/06/17 07:55 56 L 11/06/17 07:45 63 15 98 11/06/17 07:30 59 L 16 133/67 98 11/06/17 07:15 57 L 15 132/62 98 0518 07:00 61 16 132/62 98 05 06:45 60 15 98 18 06:30 60 19 116/60 99 05/18 06:15 59 L 15 99 05/18 06:00 56 L 16 116/61 99 0518 05:45 59 L 16 99 18 05:30 58 L 16 110/61 99 0805/18 05:15 58 L 21 98 0518 05:00 62 14 97 05/18 04:45 59 L 16 99 05/18 04:30 66 35 H 100/61 99 05/18 04:15 60 21 99 05/18 04:00 97.6 F 67 16 119/64 99 /05/18 03:45 60 16 98 /05/18 03:30 72 16 119/61 96 /05/18 03:15 65 17 97 0805/18 03:00 65 16 114/57 96 05/18 02:45 66 16 97 08/05/18 02:30 75 16 107/57 97 11/06/17 02:15 82 12 115/69 97 11/06/17 02:00 70 16 145/57 97 11/06/17 01:50 79 15 131/55 96 11/06/17 01:40 77 16 136/63 97 11/06/17 01:30 73 21 135/64 97 11/06/17 01:20 71 21 119/64 97 11/06/17 01:10 79 15 113/65 94 L 11/06/17 01:00 84 15 117/64 97 11/06/17 00:50 85 16 96/57 97 11/06/17 00:40 76 16 124/64 97 11/06/17 00:30 90 16 110/70 94 L 11/06/17 00:20 81 15 119/61 96 11/06/17 00:10 102 H 14 121/65 96 11/06/17 00:00 97.5 F L 100 15 119/66 96 11/05/17 23:50 99 12 123/60 98 11/05/17 23:40 85 16 122/63 99 11/05/17 23:30 84 26 H 129/60 99 11/05/17 23:20 84 26 H 131/61 100 11/05/17 23:10 90 17 139/69 99 11/05/17 23:00 90 20 137/69 100 11/05/17 22:50 90 34 H 100 11/05/17 22:49 91 36 H 131/63 100 11/05/17 22:40 87 15 127/64 100 11/05/17 22:30 116 H 12 131/69 100 11/05/17 22:20 115 H 16 115/64 100 11/05/17 22:10 114 H 16 82/47 100 11/05/17 22:00 68 16 73/40 100 11/05/17 21:50 94.2 F L 71 16 64/38 100 11/05/17 21:40 74 16 71/39 100 11/05/17 21:30 72 18 87/47 11/05/17 21:25 83 21 11/05/17 21:24 79 16 82/49 100 11/05/17 21:18 98.9 F 76 16 103/53 100 11/05/17 21:15 82 16 72/43 99 11/05/17 20:00 83 16 96/50 100 11/05/17 19:45 81 16 126/60 100 11/05/17 19:41 15 11/05/17 19:32 80 17 93/50 98 11/05/17 19:07 87 18 11/05/17 18:59 98 18 11/05/17 18:54 92 26 H 99/76 97 11/05/17 18:45 89 23 11/05/17 18:40 95 11/05/17 18:34 24 11/05/17 18:33 88 26 H 11/05/17 18:23 98.8 F 104 H 28 H 103/51 83 L Intake and Output 11/06/17 11/06/17 11/06/17 06:59 14:59 22:59 Intake Total 3011.250 161.797 98.75 Output Total 1111 1250 610 Balance 1900.250 -1088.203 -511.25 Intake: IV 2750 80 Dextrose 5%-0.45% NaCl 1, 510 80 000 ml @ 85 mls/hr IV . [id number] SONY Rx#:[id number] Levofloxacin 750Mg-D5w 150 Pmx 750 mg In Dextrose/ Water 1 150ml.bag @ 100 mls/hr IVPB ONCE STA Rx#: [id number] Piperacillin-Tazobactam 3 50 .375 gm In Dextrose/Water 1 50ml.bag @ 12.5 mls/hr IVPB Q8HR SONY Rx#: [id number] Sodium Chloride 0.9% 2, 2040 000 ml @ 999 mls/hr IV . Q2H1M STA Rx#:[id number] Intake, IV Titration 261.250 161.797 18.75 Amount Norepinephrine 4 mg In 161.25 51.000 18.75 Dextrose 5% in Water 250 ml @ Titrate IV .Q0M SONY Rx#:[id number] Propofol 1,000 mg In 100.000 110.797 Empty Bag 1 bag @ Titrate IV .Q0M SONY Rx#: [id number] Output: Gastric Drainage 650 350 350 Urine 461 900 260 Other: Voiding Method Indwelling Catheter Indwelling Catheter Indwelling Catheter Weight 93.5 kg 93.5 kg 93.5 kg ABP, PAP, CO, CI - Last 8 Hours Arterial Blood Pressure 97/56 Arterial Blood Pressure 94/54 Arterial Blood Pressure 93/55 Arterial Blood Pressure 91/54 Arterial Blood Pressure 110/60 Arterial Blood Pressure 112/56 Arterial Blood Pressure 97/56 Arterial Blood Pressure 114/56 Arterial Blood Pressure 117/60 Arterial Blood Pressure 119/59 Arterial Blood Pressure 110/58 Arterial Blood Pressure 85/47 Arterial Blood Pressure 100/59 Arterial Blood Pressure 106/61 Arterial Blood Pressure 103/56 Arterial Blood Pressure 91/54 Arterial Blood Pressure 90/52 Arterial Blood Pressure 87/55 Arterial Blood Pressure 97/54 Arterial Blood Pressure 104/57 Arterial Blood Pressure 120/50 Arterial Blood Pressure 102/58 Arterial Blood Pressure 100/54 Arterial Blood Pressure 92/53 Arterial Blood Pressure 89/57 Arterial Blood Pressure 110/62 Arterial Blood Pressure 109/60 Arterial Blood Pressure 116/66 Arterial Blood Pressure 140/61 Arterial Blood Pressure 114/59 - Constitutional General appearance: average body habitus, no acute distress (Intubated) - EENT Eyes: PERRLA, no photophobia Ears: bilateral: normal - Neck Neck: no lymphadenopathy Carotids: bilateral: upstroke normal - Respiratory Respiratory: bilateral: diminished, dullness, rales, rhonchi, negative: wheezing - Cardiovascular Rhythm: regular Heart sounds: normal: S1, S2 Abnormal Heart Sounds: no systolic murmur, no diastolic murmur, no rub, no click foot Peripheral Edema: bilateral: 1+ dorsalis pedis Peripheral Pulses: bilateral: Normal - Gastrointestinal General gastrointestinal: distended, normal bowel sounds, soft - Integumentary Integumentary: no calor, no cellulitis, no cyanotic - Musculoskeletal Could not be assessed due to sedation - Psychiatric Could not be assessed due to sedation Results - Laboratory Findings CBC and BMP: 11/06/17 04:32 11/06/17 04:32 ABG ABG pH 7.29 (7.35-7.45) L 11/06/17 13:57 ABG pCO2 65 mmHg (35-45) H 11/06/17 13:57 ABG pO2 88 mmHg (83-108) 11/06/17 13:57 ABG O2 Saturation 97.0 % (94-97) 11/06/17 13:57 PT/INR, D-dimer PT 10.8 sec (9.0-12.0) 11/05/17 18:29 INR 1.1 (<1.2) 11/05/17 18:29 Abnormal lab findings: Abnormal Labs 11/05/17 11/05/17 11/05/17 18:29 18:29 18:29 WBC 10.8 H MCHC 29.7 L Neutrophils # 8.5 H Lymphocytes # ABG pH ABG pCO2 ABG pO2 ABG HCO3 ABG Total CO2 ABG O2 Saturation BUN 40 H Creatinine 1.60 H Glucose 105 H POC Glucose (mg/dL) Plasma Lactic Acid Ernie Calcium 8.3 L Phosphorus Total Creatine Kinase 488 H CK-MB (CK-2) 12.5 H* Total Protein Albumin Urine Protein 11/05/17 11/05/17 11/05/17 19:48 19:50 20:03 WBC MCHC Neutrophils # Lymphocytes # ABG pH 7.09 L* ABG pCO2 87 H* ABG pO2 >400 H ABG HCO3 26 H ABG Total CO2 29 H ABG O2 Saturation 99.8 H BUN Creatinine Glucose POC Glucose (mg/dL) Plasma Lactic Acid Ernie 2.9 H* Calcium Phosphorus Total Creatine Kinase CK-MB (CK-2) Total Protein Albumin Urine Protein Trace H 11/05/17 11/06/17 11/06/17 22:05 04:32 04:32 WBC 11.2 H MCHC 30.4 L Neutrophils # 10.4 H Lymphocytes # 0.4 L ABG pH 7.14 L* ABG pCO2 74 H* ABG pO2 ABG HCO3 ABG Total CO2 27 H ABG O2 Saturation 97.5 H BUN 37 H Creatinine 1.40 H Glucose 135 H POC Glucose (mg/dL) Plasma Lactic Acid Ernie Calcium 7.8 L Phosphorus 4.9 H Total Creatine Kinase CK-MB (CK-2) Total Protein 5.6 L Albumin 3.0 L Urine Protein 11/06/17 11/06/17 11/06/17 04:45 11:31 13:57 WBC MCHC Neutrophils # Lymphocytes # ABG pH 7.27 L 7.29 L ABG pCO2 61 H 65 H ABG pO2 74 L ABG HCO3 28 H 31 H ABG Total CO2 30 H 33 H ABG O2 Saturation BUN Creatinine Glucose POC Glucose (mg/dL) 129 H Plasma Lactic Acid Ernie Calcium Phosphorus Total Creatine Kinase CK-MB (CK-2) Total Protein Albumin Urine Protein - Diagnostic Findings Chest x-ray: report reviewed, image reviewed (Sputum positive for gram-positive cocci as well as gram-negative bacilli) Assessment and Plan Assessment: Acute hypoxic and hypercapnic history failure Altered mental status related his significant hypercapnia and acute respiratory acidosis Advanced COPD emphysema with prior history of intubation Severe lactic acidosis related to severe sepsis responded well with broad- spectrum antibiotics patient did require vasopressors have a successfully able to wean tapered off Hypertension hypertensive cardiovascular disease currently severely hypotensive related to above however anticipated blood pressure will improve once patient is being further and extubated Advanced gout Plan: Ventilator has been adjusted will put patient on CPAP and pressure support weaning trial are done patient arterial blood gas on weaning as well as weaning parameters reviewed and successfully extubated Broad-spectrum antibiotics IV steroids and bronchodilator DVT and peptic ulcer disease prophylaxis BiPAP as needed orders have been given will use a IPAP of 15 and EPAP of 5 with oxygen to keep saturation around 88-90% Further recommendations pending plan of care as per clinical response of the patient Critical care time spent 75 minutes Time with Patient: Greater than 30
[2017-11-06] MEDS: NOREPINEPHRINE 4 MG in DEXTROSE 5% IN WATER 250 ML IV SCH ×2 (18:44)
[2017-11-06] MEDS: BUDESONIDE 0.5 MG/2 ML NEBU INHALATION SCH (19:54)
[2017-11-06] MEDS ORDERED: LEVOFLOXACIN 750MG-D5W PMX 750 MG in DEXTROSE/WATER 1 150ML.BAG IVPB SCH (20:00)
[2017-11-06] MEDS: MONTELUKAST 10 MG TAB PO SCH (20:06)
[2017-11-06] MEDS: HEPARIN SODIUM,PORCINE 5,000 UNIT/ML 1 ML VIAL SQ SCH (20:06)
--- NOTE | 2017-11-06 20:49 | CONS ---
CONSULTATION Chuy Elenar is a 72-year-old patient of mine who I actively following in the outpatient setting, who apparently came into the ED because of severe respiratory distress. He was also unresponsive, subsequently was seen in the ER and intubated. PAST MEDICAL HISTORY: Positive for severe asthma with COPD, history of coronary artery disease, previous catheterization in the past, history of obstructive sleep apnea for which he has been noncompliant with CPAP. FAMILY HISTORY: Positive for coronary artery disease, hyperlipidemia, hypertension. SOCIAL HISTORY: Patient is a smoker. Does not drink alcohol excessively. MEDICATIONS: Prior to admission were CoQ10, Singulair, lisinopril, albuterol with ipratropium, Lasix, vitamin D3, Pulmicort, aspirin, albuterol sulfate in the form of ProAir HFA. REVIEW OF SYSTEMS: Positive for obesity. ALLERGIES: Patient has no known drug allergies. PHYSICAL EXAMINATION: Patient was lying in bed. He was deeply sedated with propofol. He is on a ventilator with the ET tube in place. Respiratory rate is 23, blood pressure 122/58, O2 saturation is 99% on 50% FiO2. HEENT reveals pupils that are equal. G-tube in place. Chest reveals decreased breath sounds. Prolonged expiration. No clear wheeze. Cardiovascular system reveals an S1, S2. No S3, no S4. No murmurs. Abdomen is soft. There is trace to 1+ pedal edema. ABG showed a pH of 7.29, pCO2 of 65, PO2 of 88, bicarb of 31, O2 saturation of 97% on 50% FiO2. Sodium is 139, potassium 4.1, chloride 105, bicarb 28, BUN 37, creatinine 1.4. IMPRESSION: At this time: 1. Acute respiratory failure. 2. Chronic obstructive pulmonary disease with acute exacerbation. 3. Obstructive sleep apnea. 4. Severe asthma. 5. Metabolic encephalopathy. 6. Possible aspiration-type pneumonia. At this point in time from a pulmonary standpoint. Keep the patient on Levaquin and Zosyn, have him seen by ID. Keep him on bronchodilators and aerosolized steroids. GI and DVT prophylaxis. Add the aerosolized steroids as well as montelukast in the hope of decreasing his need for systemic steroids. His prognosis at this time is guarded. Would attempt at this point to continue to resuscitate him with some fluids and wean off the Levophed that he has been on only a small dose. MMODL / IJN: [id number] /
[2017-11-07] MEDS: PIPERACILLIN-TAZOBACTAM 3.375 GM in DEXTROSE/WATER 1 50ML.BAG IVPB SCH ×4 (00:46→23:33)
[2017-11-07] MEDS: methylPREDNISolone SOD SUCCI 125 MG/2 ML VIAL IV SCH ×2 (00:46→06:03)
[2017-11-07 04:33] LABS: Basophils % (A) 0 %; Eosinophils % (A) 0 %; HGB 12.8 gm/dL (13.0-17.5); Hypochromasia Slight; Lymphocytes # (A) 0.3 k/uL (1.0-4.8); Lymphocytes % (A) 3 %; MCH 28.8 pg (25.0-35.0); MCHC 30.6 g/dL (31.0-37.0); MCV 94.1 fL (80.0-100.0); Mean Platelet Volume 8.9; Monocytes # (A) 0.6 k/uL (0-1.0); Monocytes % (A) 6 %; Neutrophils # (A) 8.8 k/uL (1.3-7.7); Neutrophils % (A) 90 %; Platelet Count 186 k/uL (150-450); RBC 4.46 m/uL (4.30-5.90); RDW 13.8 % (11.5-15.5); WBC 9.7 k/uL (3.8-10.6)
[2017-11-07] MEDS: DEXTROSE 5%-0.45% NACL 1,000 ML IV SCH ×2 (04:40→08:36)
[2017-11-07 04:52] LABS: Calcium 8.1 mg/dL (8.4-10.2); Magnesium 2.4 mg/dL (1.6-2.3); Phosphorus 2.9 mg/dL (2.5-4.5); Potassium 4.2 mmol/L (3.5-5.1)
[2017-11-07] MEDS: IPRATROPIUM-ALBUTEROL 3 ML NEB INHALATION SCH ×4 (07:07→18:42)
[2017-11-07] MEDS: BUDESONIDE 0.5 MG/2 ML NEBU INHALATION SCH ×2 (07:07→18:43)
--- NOTE | 2017-11-07 07:41 | CONS ---
CONSULTATION DATE OF SERVICE: 11/06/2017. REASON FOR CONSULTATION: Pneumonia. HISTORY OF PRESENT ILLNESS: The patient is a 72-year-old male who presented to the ER at [facility] yesterday afternoon with increasing shortness of breath and respiratory distress. Apparently symptoms have been going on for a day prior to presentation to hospital. The patient was in significant respiratory distress on presentation that he ended up getting intubated. The patient did have initial chest x-ray and pneumonia. The patient did not have any high-grade fever on presentation. Though his white count was slightly elevated at 10.8 to 11.2. Patient did have a blood culture drawn as well as sputum. He has been started on broad-spectrum antibiotic in form of cefepime and Levaquin in addition to the Zosyn as the patient did require pressor support. As of this afternoon the patient seemed to have woken up and wanted to be extubated. He has been extubated and has been on a nasal cannula oxygen. The patient has been breathing more comfortably. The patient denies significant chest pain. He did have some cough bringing up a mild amount of sputum. No hemoptysis. No nausea, vomiting and no abdominal pain and no diarrhea. The patient denies any choking on the food. REVIEW OF SYSTEMS: Constitutional: Positive for weakness but no high-grade fever. Eyes: No complaint. ENT no complaint. Respiratory as per HPI. Cardiovascular: No complaint. Genitourinary no complaint. Gastrointestinal: No complaint. Musculoskeletal no complaint. INTEGUMENTARY: No complaint. PSYCHOLOGICAL: No complaint. Neurologic no complaint. PAST MEDICAL HISTORY: COPD, hypertension, gout. PAST SURGICAL HISTORY: Hernia repair and heart catheterization and carpal tunnel release. SOCIAL HISTORY: Remote history of smoking. No drinking or no drug use. FAMILY HISTORY: Mother has history of coronary artery disease. ALLERGIES: No known drug allergies. MEDICATIONS: Include the patient is currently on Zosyn, Protonix, Narcan, morphine, Singulair, Solu- Medrol, Levofloxacin, cefepime, Pulmicort, and DuoNeb. EXAMINATION: Blood pressure is 104/59 with a pulse of 89, temperature is 98. He is currently 99% on BiPAP. General description is an elderly male lying in bed in no distress. No tachypnea or accessory muscles of respiration use. HEENT: Shows no pallor or scleral icterus. Oral mucosa membranes dry. No pharyngeal erythema or thrush. Neck trachea central. No thyromegaly. Lungs unlabored breathing with decreased breath sounds in the bases. No wheeze or crackles. Heart: S1, S2. Regular rate and rhythm. ABDOMEN: Soft, no tenderness. No guarding or rigidity. Extremities: No edema of the feet. Skin examination: No rash or mass palpable. Neurological: Patient is awake, alert, oriented times two. Mood and affect normal. LABS: Hemoglobin 13.5, white count of 11.2 with a BUN of 37 and creatinine 1.40. Sputum culture currently pending. Chest x-ray report with bilateral basilar infiltrate. DIAGNOSTIC IMPRESSION AND PLAN: Patient with acute respiratory failure which is likely multifactorial in this patient likely component of pneumonia with question of possible community acquired gram negative pneumonia. The patient has been successfully extubated and currently off the pressor support which he did require on presentation to the hospital. His white count was significantly elevated and no clinical elevated lactic acid. PLAN: 1. We will keep the patient on Zosyn and Levaquin. 2. Discontinue the cefepime as no need for coverage. 3. Depending on his clinical response as well as culture we will adjust her medications further if needed. Thank you for this consultation. We will follow this patient along with you. MMODL / IJN: [id number] /
--- NOTE | 2017-11-07 07:51 | XR ---
EXAMINATION TYPE: XR chest 1V portable DATE OF EXAM: 11/07/2017 Comparison: 11/06/2017 Clinical History: 72 year-old male shortness of breath Findings: Interval extubation and removal of NG tube. Hyperinflation with flattened hemidiaphragms. Overall int erstitial density show improvement from prior. Small pleural effusions with left basilar opacity amelia in. Impression: 1. COPD with improvement in the previous CHF. Mild pulmonary vascular congestion remains. 2. Residual small left greater than right pleural effusions with adjacent patchy left basilar atelect asis and/or infiltrate.
--- NOTE | 2017-11-07 09:03 | P.PN ---
Subjective Progress Note Date: 11/07/17 (Critical care time 35 minutes) Principal diagnosis: Acute hypoxic respirator failure with significant hypercapnia, bilateral pneumonia, severe sepsis and septic shock, end-stage lung disease secondary due to severe COPD emphysema altered mental status related to hypercapnic history failure, severe lactic acidosis, hypertension hypertensive cardiovascular disease, advanced gout 11/07/2017, patient seen eval reexamined during the rounds clinically patient is doing slightly better more awake and alert breathing more comfortably no evidence of active bleeding has been seen patient has been started on by mouth, patient has a line which revealed hypotension she has been on D5 normal saline which is being switched to normal saline with the cough pressure systolic blood pressure on 100 and then will DC the A-line and likely would DC the levo fed drip as well, patient remains on high flow oxygen of 6 L sats are mid to low 90s , he did require BiPAP support overnight 16/01 tolerated very well with oxygen of 50% care plan discussed with the patient as well as the family and the staff at length likely once patient remains off of pressors with fluid resuscitation can be stepdown to selective, chest x-ray reviewed by basilar infiltrate as well as small effusion my his labs are reviewed BUN/creatinine is improved to 29 and 1.1 from yesterday, chest x-ray reviewed, and has noted a small bilateral pleural effusion betas basal atelectasis and pneumonia noted more so on the right side compared to the left side, patient remains on bronchodilators and broad-spectrum antibiotics and IV steroids will start tapering down the steroids which Levaquin to by mouth continue Zosyn for now, blood cultures no growth so far sputum however revealed gram-positive cocci in clusters with some rare gram-negative bacilli final ID hours pending This patient sees send Dr. Jerry Wills for primary care activity has a history of severe COPD emphysema, pt. has prior history of the intubation about 3 years ago due to acute hypoxic and hypercapnic respirator failure and secondary altered mental status related to that, patient was brought into the emergency department with increasing shortness of breath going on for almost a week patient has been becoming more progressively weak tired and developed severe hypercapnia as noted into the arterial blood gas that was performed in the emergency department pH dropped down to 7.14, patient was very lethargic and poorly responsive in the emergency department was eventually intubated and placed on respirator patient also started on broad-spectrum antibiotics during evaluation patient was a noted to have a OG tube has some coffee-ground material which recently had changed from clear however patient is on DVT prophylaxis, patient was arousable opens eyes and follows simple commands have place patient on CPAP 5 pressure support of 5 and for half an hour arterial blood gas was checked fairly adequate ventilation and oxygenation oxygenation was noted and patient was successfully extubated, postextubation patient and requested a no CODE STATUS and do not want to go back on respirator encased respiratory status worsened Objective - Vital Signs Vital signs: Vital Signs Temp 97.3 F L 11/07/17 04:00 Pulse 82 11/07/17 07:26 Resp 18 11/07/17 07:00 BP 116/64 11/07/17 07:00 Pulse Ox 98 11/07/17 07:00 Intake & Output 11/06/17 11/07/17 11/07/17 18:59 06:59 18:59 Intake Total 220.511 3661.624 26.25 Output Total 2009 1090 Balance -1560.453 423.624 26.25 Weight 93.5 kg 98.9 kg Intake: IV 255 1120 Dextrose 5%-0.45% NaCl 1, 255 1020 000 ml @ 85 mls/hr IV . [id number] [facility] Rx#:[id number] Levofloxacin 750Mg-D5w 100 Pmx 750 mg In Dextrose/ Water 1 150ml.bag @ 100 mls/hr IVPB ONCE [facility] Rx#: [id number] Intake, IV Titration 194.547 153.624 26.25 Amount Norepinephrine 4 mg In 83.750 153.624 26.25 Dextrose 5% in Water 250 ml @ Titrate IV .Q0M [facility] Rx#:[id number] Propofol 1,000 mg In 110.797 Empty Bag 1 bag @ Titrate IV .Q0M [facility] Rx#: [id number] Oral 240 Output: Gastric Drainage 700 Urine 1310 1090 Other: Voiding Method Indwelling Catheter Indwelling Catheter ABP, PAP, CO, CI - Last Documented Arterial Blood Pressure 110/53 - Exam - Constitutional General appearance: average body habitus, no acute distress on high flow 6 L oxygen - EENT Eyes: PERRLA, no photophobia Ears: bilateral: normal - Neck Neck: no lymphadenopathy Carotids: bilateral: upstroke normal - Respiratory Respiratory: bilateral: diminished, dullness, rales, rhonchi, fine expiratory wheezing on fours expiration - Cardiovascular Rhythm: regular Heart sounds: normal: S1, S2 Abnormal Heart Sounds: no systolic murmur, no diastolic murmur, no rub, no click Peripheral Edema: Trace bilateral lower extremity pedal edema noted Peripheral Pulses: bilateral: Normal - Gastrointestinal General gastrointestinal: distended, normal bowel sounds, soft - Integumentary Integumentary: no calor, no cellulitis, no cyanotic - Musculoskeletal Moving all 4 extremity - Psychiatric Awake and alert good eye contact and stable mood - Labs CBC & Chem 7: 11/07/17 04:25 11/07/17 04:25 Labs: Abnormal Lab Results - Last 24 Hours (Table) 11/06/17 11/06/17 11/07/17 Range/Units 11:31 13:57 04:25 Hgb 12.8 L (13.0-17.5) gm/dL MCHC 30.6 L (31.0-37.0) g/dL Neutrophils # 8.8 H (1.3-7.7) k/uL Lymphocytes # 0.3 L (1.0-4.8) k/uL ABG pH 7.29 L (7.35-7.45) ABG pCO2 65 H (35-45) mmHg ABG HCO3 31 H (21-25) mmol/L ABG Total CO2 33 H (19-24) mmol/L Carbon Dioxide (22-30) mmol/L BUN (9-20) mg/dL Glucose (74-99) mg/dL POC Glucose (mg/dL) 129 H (75-99) mg/dL Calcium (8.4-10.2) mg/dL Magnesium (1.6-2.3) mg/dL 11/07/17 Range/Units 04:25 Hgb (13.0-17.5) gm/dL MCHC (31.0-37.0) g/dL Neutrophils # (1.3-7.7) k/uL Lymphocytes # (1.0-4.8) k/uL ABG pH (7.35-7.45) ABG pCO2 (35-45) mmHg ABG HCO3 (21-25) mmol/L ABG Total CO2 (19-24) mmol/L Carbon Dioxide 33 H (22-30) mmol/L BUN 29 H (9-20) mg/dL Glucose 162 H (74-99) mg/dL POC Glucose (mg/dL) (75-99) mg/dL Calcium 8.1 L (8.4-10.2) mg/dL Magnesium 2.4 H (1.6-2.3) mg/dL Microbiology - Last 24 Hours (Table) 11/05/17 20:48 Blood Culture - Preliminary Blood No Growth after 24 hours 11/05/17 20:24 Gram Stain - Preliminary Sputum Sputum Culture - Preliminary Assessment and Plan Assessment: Acute hypoxic and hypercapnic history failure, successfully weaned and extubated however continued to require high flow oxygen Altered mental status related his significant hypercapnia and acute respiratory acidosis progressively improving Mixed bacterial and/or or gram-negative bilateral basal pneumonia Advanced COPD emphysema with prior history of intubation Severe lactic acidosis related to severe sepsis responded well with broad- spectrum antibiotics patient did require vasopressors have a successfully able to wean tapered off, currently on 2 mics of levo fed anticipated with adjustment of fluid will, off of it will also DC the A-line and Naranjo's catheter Hypertension hypertensive cardiovascular disease currently severely hypotensive related to above however anticipated blood pressure will improve as noted above Advanced gout Plan: Currently patient is on BiPAP each night and when necessary during the day otherwise on high flow oxygen and BiPAP setting at 15/10 with 50% oxygen Broad- spectrum antibiotics IV steroids and bronchodilator DVT and peptic ulcer disease prophylaxis BiPAP as needed orders have been given will use a IPAP of 15 and EPAP of 10 with oxygen to keep saturation around 88-90% Further recommendations pending plan of care as per clinical response of the patient Once patient off of vasopressors E line removed and did does not require for more than 6 hours can be downgraded to either selective R MedSurg with remote telemetry Consult PT OT to increase activity as tolerated Critical care time spent 35 minutes Time with Patient: Greater than 30
[2017-11-07] MEDS: LEVOFLOXACIN 750 MG TAB PO SCH (09:11)
[2017-11-07] MEDS: HEPARIN SODIUM,PORCINE 5,000 UNIT/ML 1 ML VIAL SQ SCH ×2 (09:11→20:26)
[2017-11-07] MEDS: SODIUM CHLORIDE 0.9% 1,000 ML IV SCH ×2 (09:11→20:28)
[2017-11-07] MEDS: PANTOPRAZOLE 40 MG/10 ML VIAL IV SCH (09:20)
--- NOTE | 2017-11-07 10:50 | ECHOF ---
Referral Reason:r/o CHF MEASUREMENTS -------- HEIGHT: 177.8 cm WEIGHT: 98.9 kg BP: 108/64 RVIDd: 3.4 cm (< 3.3) IVSd: 1.1 cm (0.6 - 1.1) LVIDd: 4.2 cm (3.9 - 5.3) LVPWd: 1.1 cm (0.6 - 1.1) IVSs: 1.4 cm LVIDs: 2.7 cm LVPWs: 1.4 cm LA Diam: 3.0 cm (2.7 - 3.8) LAESV Index (A-L): 15.40 ml/m Ao Diam: 3.7 cm (2.0 - 3.7) AV Cusp: 2.4 cm (1.5 - 2.6) MV EXCURSION: 23.232 mm (> 18.000) MV EF SLOPE: 33 mm/s (70 - 150) EPSS: 0.3 cm MV E Syed: 0.86 m/s MV DecT: 260 ms MV A Syed: 0.75 m/s MV E/A Ratio: 1.15 RAP: 5.00 mmHg RVSP: 39.79 mmHg FINDINGS -------- Sinus rhythm. This was a technically adequate study. The left ventricular size is normal. There is borderline concentric left ventricular hypertrophy. Overall left ventricular systolic function is normal with, an EF between 60 - 65 %. The right ventricle is mildly enlarged. Normal LA size by volume 22+/-6 ml/m2. The right atrium is normal in size. The aortic valve is trileaflet and appears structurally normal. The mitral valve leaflets are mildly thickened. Mild tricuspid regurgitation present. There is mild pulmonary hypertension. The right ventricular systolic pressure, as measured by Doppler, is 39.79mmHg. The pulmonic valve was not well visualized. The aortic root size is normal. Normal inferior vena cava with normal inspiratory collapse consistent with estimated right atrial pre ssure of 5 mmHg. The inferior vena cava is mildly dilated. There is no pericardial effusion. CONCLUSIONS -------- 1. Sinus rhythm. 2. This was a technically adequate study. 3. The left ventricular size is normal. 4. There is borderline concentric left ventricular hypertrophy. 5. Overall left ventricular systolic function is normal with, an EF between 60 - 65 %. 6. The right ventricle is mildly enlarged. 7. Normal LA size by volume 22+/-6 ml/m2. 8. The right atrium is normal in size. 9. The aortic valve is trileaflet and appears structurally normal. 10. The mitral valve leaflets are mildly thickened. 11. Mild tricuspid regurgitation present. 12. There is mild pulmonary hypertension. 13. The right ventricular systolic pressure, as measured by Doppler, is 39.79mmHg. 14. The pulmonic valve was not well visualized. 15. The aortic root size is normal. 16. Normal inferior vena cava with normal inspiratory collapse consistent with estimated right atrial pressure of 5 mmHg. 17. The inferior vena cava is mildly dilated. 18. There is no pericardial effusion. COUNTER INSTALLER: Amy Still RDCS
[2017-11-07 12:01] LABS: Glucose,Whole Blood 182 mg/dL (75-99)
--- NOTE | 2017-11-07 12:13 | P.PN ---
Subjective Progress Note Date: 11/07/17 HPI: King Viveros is a 72-year-old patient of mine who I actively follow in the outpatient setting, who apparently came into the ED because of severe respiratory distress. He was also unresponsive, subsequently was seen in the ER and intubated Interval history: 11/07/2017. Patient is being seen examined and evaluated today on rounds. He is resting up in bed on 6 L of supplemental oxygen via nasal cannula. Patient did utilizes BiPAP overnight. His blood cultures have been positive for gram- positive bacteria. He did have pressors running throughout the night and were weaned off today about 7:30 this morning. He has been hemodynamically stable. Afebrile. Infectious disease also on consult. He continues on nebulizer treatments and steroids. He has had a good appetite, good urinary output. No further complaints. Echocardiogram reviewed EF between 60 and 65%, RVSP 39.79 Objective - Vital Signs Vital signs: Vital Signs Temp 97.3 F L 11/07/17 04:00 Pulse 88 11/07/17 11:48 Resp 18 11/07/17 07:00 BP 116/64 11/07/17 07:00 Pulse Ox 98 11/07/17 07:00 Intake & Output 11/06/17 11/07/17 11/07/17 18:59 06:59 18:59 Intake Total 303.605 0777.624 26.25 Output Total 2009 1090 Balance -1560.453 423.624 26.25 Weight 93.5 kg 98.9 kg Intake: IV 255 1120 Dextrose 5%-0.45% NaCl 1, 255 1020 000 ml @ 85 mls/hr IV . [id number] [facility] Rx#:[id number] Levofloxacin 750Mg-D5w 100 Pmx 750 mg In Dextrose/ Water 1 150ml.bag @ 100 mls/hr IVPB ONCE [facility] Rx#: [id number] Intake, IV Titration 194.547 153.624 26.25 Amount Norepinephrine 4 mg In 83.750 153.624 26.25 Dextrose 5% in Water 250 ml @ Titrate IV .Q0M [facility] Rx#:[id number] Propofol 1,000 mg In 110.797 Empty Bag 1 bag @ Titrate IV .Q0M [facility] Rx#: [id number] Oral 240 Output: Gastric Drainage 700 Urine 1310 1090 Other: Voiding Method Indwelling Catheter Indwelling Catheter ABP, PAP, CO, CI - Last Documented Arterial Blood Pressure 110/53 - Exam GENERAL EXAM: Alert, comfortable in no apparent distress. HEAD: Normocephalic. EYES: Normal reaction of pupils, equal size. NOSE: Clear with pink turbinates. THROAT: No erythema or exudates. NECK: No masses, no JVD. CHEST: No chest wall deformity. LUNGS: Equal air entry with no crackles, wheeze, rhonchi or dullness. Prolonged expiration CVS: S1 and S2 normal with no audible mumurs, regular rhythm. ABDOMEN: No hepatosplenomegaly, normal bowel sounds, no guarding or rigidity. EXTREMITIES: +1 edema noted, pedal pulses palpable. CENTRAL NERVOUS SYSTEM: No focal deficits, tone is normal in all 4 extremities. - Labs CBC & Chem 7: 11/07/17 04:25 11/07/17 04:25 Labs: Abnormal Lab Results - Last 24 Hours (Table) 11/06/17 11/07/17 11/07/17 Range/Units 13:57 04:25 04:25 Hgb 12.8 L (13.0-17.5) gm/dL MCHC 30.6 L (31.0-37.0) g/dL Neutrophils # 8.8 H (1.3-7.7) k/uL Lymphocytes # 0.3 L (1.0-4.8) k/uL ABG pH 7.29 L (7.35-7.45) ABG pCO2 65 H (35-45) mmHg ABG HCO3 31 H (21-25) mmol/L ABG Total CO2 33 H (19-24) mmol/L Carbon Dioxide 33 H (22-30) mmol/L BUN 29 H (9-20) mg/dL Glucose 162 H (74-99) mg/dL POC Glucose (mg/dL) (75-99) mg/dL Calcium 8.1 L (8.4-10.2) mg/dL Magnesium 2.4 H (1.6-2.3) mg/dL 11/07/17 Range/Units 11:59 Hgb (13.0-17.5) gm/dL MCHC (31.0-37.0) g/dL Neutrophils # (1.3-7.7) k/uL Lymphocytes # (1.0-4.8) k/uL ABG pH (7.35-7.45) ABG pCO2 (35-45) mmHg ABG HCO3 (21-25) mmol/L ABG Total CO2 (19-24) mmol/L Carbon Dioxide (22-30) mmol/L BUN (9-20) mg/dL Glucose (74-99) mg/dL POC Glucose (mg/dL) 182 H (75-99) mg/dL Calcium (8.4-10.2) mg/dL Magnesium (1.6-2.3) mg/dL Microbiology - Last 24 Hours (Table) 11/05/17 20:48 Blood Culture - Preliminary Blood No Growth after 24 hours 11/05/17 20:24 Gram Stain - Preliminary Sputum Sputum Culture - Preliminary Assessment and Plan Assessment: Assessment Acute hypoxic respiratory failure Acute exacerbation of COPD JOSE MARIA Severe chronic persistent asthma with acute exacerbation Metabolic encephalopathy Possible aspiration type pneumonia Sepsis with septic shock Hypotension Plan Medications have been reviewed and will be continued as ordered. Antibiotics and steroids as ordered Pressors have been weaned off Infectious disease on consult Continue with pulmonary hygiene, coughing and deep breathing exercises, and supportive care. Supplemental oxygen to maintain oxygen saturations of 92% or better. Continue nebulizer treatments. BiPAP at night and when necessary GI and DVT prophylaxis. Increase activity as tolerated, PT and OT We will continue to monitor labs/results and adjust treatment as necessary. Further recommendations pending. I performed an examination of the patient and discussed their management with the nurse practitioner. I have reviewed the nurse practitioner's note and agree with the documented findings and plan of care.
--- NOTE | 2017-11-07 14:57 | P.PN ---
Subjective Progress Note Date: 11/07/17 This is a 72 years old male patient of Dr. Chu present with past medical history of hypertension, unknown diagnosis of COPD was last seen in 2014 when patient was intubated for 48 hours with similar presentation of unresponsiveness and hypoxic. Patient was intubated during that time and was found to have pulmonary congestion on the chest x-ray and was treated for community-acquired pneumonia. Patient is brought in today by family as patient was not doing well for the past 1 week he was found to be increasingly weak and lethargic. EMS was called , patient was found to be hypoxic in the low 70s though responsive. On presentation to the ER, patient was found to be in severe respiratory distress and nearly unresponsive was placed on BiPAP for one of our with no improvement and finally he was intubated. Labs obtained suggest a pH of 7.14 CO2 74 CO2 27 pO2 105 and 60% FiO2, WBC 11.2, B UN is 37 creatinine 1.4 decreased from 1.6. Baseline creatinines appear to be 1.1-1.2. Lactic acid on admission was 2.9 brought down to 1.5 postfluid resuscitation with 4 L. Chest x-ray suggested by basilar infiltrates with signs of congestion concerning for pulmonary edema from the fluid resuscitation. Patient is currently mechanically ventilated on 50% FiO2 managed by Dr. Logan and Dr. Jefferson. And appears to be in COPD exacerbation and initiated on Solu-Medrol 60 every 6. He received a dose of levofloxacin in the ER and Zosyn was continued. Patient will be started on broad-spectrum antibiotic including Zosyn and cefepime for dual coverage. Echocardiogram will be obtained. Previous echocardiogram from 2015 suggestive of EF of 50-55% with no wall or valvular abnormality. Patient is currently on 2 mics per minute of norepinephrine, is sedated on propofol. Patient does comprehend and follows command off sedation but gets agitated and tries to remove the tube when sedation is weaned off. Blood culture and urine cultures sent 11/07: Patient remains in intensive care unit and is currently in no CODE STATUS. Norepinephrine is currently on hold. He is now on 6 L nasal cannula. Patient denies having any shortness of breath. He does have cough but denies sputum production. He denies any chest pain or abdominal pain. He denies any focalized extremity weakness. His is at the bedside and states that he has not been feeling well for about a month and very short of breath for the past few days. Echocardiogram reveals EF of 60-65% with borderline concentric left ventricular hypertrophy, mild tricuspid regurgitation, mild pulmonary hypertension. Patient is followed by multiple consultants including Dr. NATALYA Jefferson from pulmonary medicine, Dr. Chavez from infectious disease. Patient has been continued on Zosyn and Levaquin. Chest x-ray reveals COPD with improvement in the previous CHF. Mild pulmonary vascular congestion remains. Residual small left greater than right pleural effusions with adjacent patchy left basilar atelectasis and/or infiltrate. Serum culture is showing Pseudomonas species. Blood cultures no growth after 24 hours. Patient has been afebrile. Objective - Vital Signs Vital signs: Vital Signs Temp 97.3 F L 11/07/17 04:00 Pulse 82 11/07/17 07:26 Resp 18 11/07/17 07:00 BP 116/64 11/07/17 07:00 Pulse Ox 98 11/07/17 07:00 Intake & Output 11/06/17 11/07/17 11/07/17 18:59 06:59 18:59 Intake Total 989.082 5548.624 26.25 Output Total 2009 1090 Balance -1560.453 423.624 26.25 Weight 93.5 kg 98.9 kg Intake: IV 255 1120 Dextrose 5%-0.45% NaCl 1, 255 1020 000 ml @ 85 mls/hr IV . [id number] [facility] Rx#:[id number] Levofloxacin 750Mg-D5w 100 Pmx 750 mg In Dextrose/ Water 1 150ml.bag @ 100 mls/hr IVPB ONCE [facility] Rx#: [id number] Intake, IV Titration 194.547 153.624 26.25 Amount Norepinephrine 4 mg In 83.750 153.624 26.25 Dextrose 5% in Water 250 ml @ Titrate IV .Q0M [facility] Rx#:[id number] Propofol 1,000 mg In 110.797 Empty Bag 1 bag @ Titrate IV .Q0M [facility] Rx#: [id number] Oral 240 Output: Gastric Drainage 700 Urine 1310 1090 Other: Voiding Method Indwelling Catheter Indwelling Catheter ABP, PAP, CO, CI - Last Documented Arterial Blood Pressure 110/53 - Exam General appearance: average body habitus, no acute distress - EENT Eyes: PERRLA, no photophobia Ears: bilateral: normal - Neck Neck: no lymphadenopathy Carotids: bilateral: upstroke normal - Respiratory Respiratory: bilateral: diminished, dullness, rales, rhonchi, negative: wheezing - Cardiovascular Rhythm: regular Heart sounds: normal: S1, S2 Abnormal Heart Sounds: no systolic murmur, no diastolic murmur, no rub, no click foot Peripheral Edema: bilateral: 1+ dorsalis pedis Peripheral Pulses: bilateral: Normal - Gastrointestinal General gastrointestinal: distended, normal bowel sounds, soft - Integumentary Integumentary: no calor, no cellulitis, no cyanotic - Musculoskeletal Generalized weakness. No focal neuro deficits - Psychiatric Awake and alert. - Labs CBC & Chem 7: 11/07/17 04:25 11/07/17 04:25 Labs: Abnormal Lab Results - Last 24 Hours (Table) 11/06/17 11/06/17 11/07/17 Range/Units 11:31 13:57 04:25 Hgb 12.8 L (13.0-17.5) gm/dL MCHC 30.6 L (31.0-37.0) g/dL Neutrophils # 8.8 H (1.3-7.7) k/uL Lymphocytes # 0.3 L (1.0-4.8) k/uL ABG pH 7.29 L (7.35-7.45) ABG pCO2 65 H (35-45) mmHg ABG HCO3 31 H (21-25) mmol/L ABG Total CO2 33 H (19-24) mmol/L Carbon Dioxide (22-30) mmol/L BUN (9-20) mg/dL Glucose (74-99) mg/dL POC Glucose (mg/dL) 129 H (75-99) mg/dL Calcium (8.4-10.2) mg/dL Magnesium (1.6-2.3) mg/dL 11/07/17 Range/Units 04:25 Hgb (13.0-17.5) gm/dL MCHC (31.0-37.0) g/dL Neutrophils # (1.3-7.7) k/uL Lymphocytes # (1.0-4.8) k/uL ABG pH (7.35-7.45) ABG pCO2 (35-45) mmHg ABG HCO3 (21-25) mmol/L ABG Total CO2 (19-24) mmol/L Carbon Dioxide 33 H (22-30) mmol/L BUN 29 H (9-20) mg/dL Glucose 162 H (74-99) mg/dL POC Glucose (mg/dL) (75-99) mg/dL Calcium 8.1 L (8.4-10.2) mg/dL Magnesium 2.4 H (1.6-2.3) mg/dL Microbiology - Last 24 Hours (Table) 11/05/17 20:48 Blood Culture - Preliminary Blood No Growth after 24 hours 11/05/17 20:24 Gram Stain - Preliminary Sputum Sputum Culture - Preliminary Assessment and Plan Plan: 1. Acute hypoxic hypercapnic respiratory failure secondary to COPD exacerbation with possibility of underlying community-acquired bilateral pneumonia. Will continue with broad-spectrum antibiotic with Levaquin and Zosyn , consult with Dr. Shakir gill. Patient is followed by Dr. NATALYA Jefferson/Dr. Logan. critical care medicine. Patient currently is receiving IV Solu-Medrol, nebulized treatments and Pulmicort and DuoNeb along with IV antibiotics Sputum and sputum cultures has been sent here some pulmonary edema noted on chest x-rays. proBNP is normal. Aspiration precautions maintained. Currently on norepinephrine 2. Lactic acidosis likely secondary to septic shock. Status post IV fluids. Continue broad-spectrum IV antibiotics. Lactic acid improved. Hold further IV fluids. 3. Hypercarbic respiratory failure secondary to COPD underlying obstructive sleep apnea cannot be excluded he is echocardiogram did not reveal any right ventricular systolic pressure abnormalityIn 2015. Repeat echocardiogram. 4. COPD exacerbation currently on IV Solu-Medrol and nebulized treatments 5. Sepsis with septic shock secondary to probable gram-negative pneumonia. Continue Levaquin and Zosyn. 6. Current tobacco dependency and is a current tobacco smoker 7. Hypertension off norepinephrine hold antihypertensive medications 8. Gout history 9. VTE prophylaxis is provided with heparin subcu 10. GI prophylaxis IV Protonix CODE STATUS: NO CODE Discharge plan: To be determined Impression and plan of care have been directed as dictated by the signing physician. Ann-Marie Ortiz nurse practitioner acting as scribe for signing physician.
[2017-11-07] MEDS: methylPREDNISolone SOD SUCCI 40 MG/ML 1 ML VIAL IV SCH (15:36)
[2017-11-07 20:26] LABS: Glucose,Whole Blood 180 mg/dL (75-99)
[2017-11-07] MEDS: MONTELUKAST 10 MG TAB PO SCH (20:27)
[2017-11-07] MEDS: INSULIN ASPART 100 UNIT/ML 1 ML 10 ML VIAL SQ SCH (20:30)
--- NOTE | 2017-11-07 23:23 | PN ---
PROGRESS NOTE DATE OF SERVICE: 11/07/2017 REASON FOR FOLLOWUP: Pneumonia. INTERVAL HISTORY: The patient is currently afebrile. He is hemodynamically stable. His FiO2 is currently stable. Has been tolerating his tube feeds and no diarrhea. EXAMINATION: Blood pressure is 105/48 with a pulse of 83, temperature 98.2. General description is an elderly male lying in bed in no distress. RESPIRATORY SYSTEM: Unlabored breathing, clear to auscultation anteriorly. HEART: S1, S2. Regular rate and rhythm. ABDOMEN: Soft, no tenderness. LABS: Hemoglobin is 12, white count 9.7. Sputum culture showing Pseudomonas species. Blood culture have been negative. DIAGNOSTIC IMPRESSION AND PLAN: The patient with acute respiratory failure, which is likely multifactorial in a patient with possible component of pneumonia. Sputum showing a Pseudomonas species. The patient currently covered with Zosyn and Levaquin and will be continued while waiting for the culture to finalize. Continue supportive care. MMODL / IJN: [id number] /
[2017-11-08] MEDS: methylPREDNISolone SOD SUCCI 40 MG/ML 1 ML VIAL IV SCH ×4 (00:29→23:21)
[2017-11-08 05:01] LABS: Basophils % (A) 0 %; Eosinophils % (A) 0 %; HCT 42.8 % (39.0-53.0); HGB 12.5 gm/dL (13.0-17.5); Hypochromasia Marked; Lymphocytes # (A) 0.5 k/uL (1.0-4.8); Lymphocytes % (A) 5 %; MCH 28.4 pg (25.0-35.0); MCHC 29.2 g/dL (31.0-37.0); MCV 97.1 fL (80.0-100.0); Mean Platelet Volume 7.8; Monocytes # (A) 0.8 k/uL (0-1.0); Monocytes % (A) 7 %; Neutrophils # (A) 9.5 k/uL (1.3-7.7); Neutrophils % (A) 87 %; Platelet Count 160 k/uL (150-450); RBC 4.41 m/uL (4.30-5.90); RDW 13.6 % (11.5-15.5); WBC 10.9 k/uL (3.8-10.6)
[2017-11-08] MEDS: SODIUM CHLORIDE 0.9% 1,000 ML IV SCH ×3 (05:01→23:21)
[2017-11-08 05:12] LABS: Calcium 8.3 mg/dL (8.4-10.2); Magnesium 2.5 mg/dL (1.6-2.3); Potassium 4.7 mmol/L (3.5-5.1)
[2017-11-08 07:09] LABS: Glucose,Whole Blood 144 mg/dL (75-99)
[2017-11-08] MEDS: INSULIN ASPART 100 UNIT/ML 1 ML 10 ML VIAL SQ SCH ×4 (07:14→21:50)
[2017-11-08] MEDS: IPRATROPIUM-ALBUTEROL 3 ML NEB INHALATION SCH ×4 (08:05→20:27)
[2017-11-08] MEDS: PANTOPRAZOLE 40 MG/10 ML VIAL IV SCH (08:06)
[2017-11-08] MEDS: HEPARIN SODIUM,PORCINE 5,000 UNIT/ML 1 ML VIAL SQ SCH ×2 (08:06→21:50)
[2017-11-08] MEDS: LEVOFLOXACIN 750 MG TAB PO SCH (08:06)
[2017-11-08] MEDS: PIPERACILLIN-TAZOBACTAM 3.375 GM in DEXTROSE/WATER 1 50ML.BAG IVPB SCH ×3 (08:06→23:34)
[2017-11-08] MEDS: BUDESONIDE 0.5 MG/2 ML NEBU INHALATION SCH ×2 (08:10→20:27)
--- NOTE | 2017-11-08 09:53 | P.PN ---
Subjective Progress Note Date: 11/08/17 HPI: King Viveros is a 72-year-old patient of mine who I actively follow in the outpatient setting, who apparently came into the ED because of severe respiratory distress. He was also unresponsive, subsequently was seen in the ER and intubated Interval history: 11/07/2017- Patient is being seen examined and evaluated today on rounds. He is resting up in bed on 6 L of supplemental oxygen via nasal cannula. Patient did utilizes BiPAP overnight. His blood cultures have been positive for gram- positive bacteria. He did have pressors running throughout the night and were weaned off today about 7:30 this morning. He has been hemodynamically stable. Afebrile. Infectious disease also on consult. He continues on nebulizer treatments and steroids. He has had a good appetite, good urinary output. No further complaints. Echocardiogram reviewed EF between 60 and 65%, RVSP 39.79 11/08/17- patient is being seen examined and evaluated today on rounds. He is resting up in bed on BiPAP. He was on 6 L of high flow oxygen this morning however did develop some shortness of breath and was put on 10 L of high flow. The patient then wanted to take a nap therefore he was transitioned to BiPAP for his neck. His sputum is growing Pseudomonas. Infectious disease follows him. White count is 12.9. He has been making good urine, has had a good appetite. He is afebrile, he had no overnight events. He has no further complaints. All labs and reports have been reviewed Objective - Vital Signs Vital signs: Vital Signs Temp 96.2 F L 11/08/17 08:00 Pulse 78 11/08/17 09:00 Resp 22 11/08/17 09:00 BP 119/61 11/08/17 09:00 Pulse Ox 100 11/08/17 09:00 Intake & Output 11/07/17 11/08/17 11/08/17 18:59 06:59 18:59 Intake Total 676.25 1600 200 Output Total 755 1300 265 Balance -78.75 300 -65 Weight 98.9 kg 100.3 kg Intake: IV 650 1200 200 Piperacillin-Tazobactam 3 50 .375 gm In Dextrose/Water 1 50ml.bag @ 12.5 mls/hr IVPB Q8HR [facility] Rx#: [id number] Sodium Chloride 0.9% 1, 600 1200 200 000 ml @ 100 mls/hr IV . Q10H [facility] Rx#:[id number] Intake, IV Titration 26.25 Amount Norepinephrine 4 mg In 26.25 Dextrose 5% in Water 250 ml @ Titrate IV .Q0M [facility] Rx#:[id number] Oral 200 Blood Product 200 Output: Urine 755 1300 265 Other: Voiding Method Indwelling Catheter Indwelling Catheter Indwelling Catheter ABP, PAP, CO, CI - Last Documented Arterial Blood Pressure 90/41 - Exam GENERAL EXAM: Alert, comfortable in no apparent distress. HEAD: Normocephalic. EYES: Normal reaction of pupils, equal size. NOSE: Clear with pink turbinates. THROAT: No erythema or exudates. NECK: No masses, no JVD. CHEST: No chest wall deformity. LUNGS: Equal air entry with no crackles, wheeze, rhonchi or dullness. Prolonged expiration CVS: S1 and S2 normal with no audible mumurs, regular rhythm. ABDOMEN: No hepatosplenomegaly, normal bowel sounds, no guarding or rigidity. EXTREMITIES: +1 edema noted, pedal pulses palpable. CENTRAL NERVOUS SYSTEM: No focal deficits, tone is normal in all 4 extremities. - Labs CBC & Chem 7: 11/08/17 04:22 11/08/17 04:22 Labs: Abnormal Lab Results - Last 24 Hours (Table) 11/07/17 11/07/17 11/08/17 Range/Units 11:59 20:25 04:22 WBC 10.9 H (3.8-10.6) k/uL Hgb 12.5 L (13.0-17.5) gm/dL MCHC 29.2 L (31.0-37.0) g/dL Neutrophils # 9.5 H (1.3-7.7) k/uL Lymphocytes # 0.5 L (1.0-4.8) k/uL Carbon Dioxide (22-30) mmol/L BUN (9-20) mg/dL Glucose (74-99) mg/dL POC Glucose (mg/dL) 182 H 180 H (75-99) mg/dL Calcium (8.4-10.2) mg/dL Magnesium (1.6-2.3) mg/dL 11/08/17 11/08/17 Range/Units 04:22 06:58 WBC (3.8-10.6) k/uL Hgb (13.0-17.5) gm/dL MCHC (31.0-37.0) g/dL Neutrophils # (1.3-7.7) k/uL Lymphocytes # (1.0-4.8) k/uL Carbon Dioxide 33 H (22-30) mmol/L BUN 31 H (9-20) mg/dL Glucose 130 H (74-99) mg/dL POC Glucose (mg/dL) 144 H (75-99) mg/dL Calcium 8.3 L (8.4-10.2) mg/dL Magnesium 2.5 H (1.6-2.3) mg/dL Microbiology - Last 24 Hours (Table) 11/05/17 20:48 Blood Culture - Preliminary Blood No Growth after 48 hours 11/05/17 20:24 Gram Stain - Preliminary Sputum Sputum Culture - Preliminary Pseudomonas spec Assessment and Plan Assessment: Assessment Acute hypoxic respiratory failure Acute exacerbation of COPD JOSE MARIA Severe chronic persistent asthma with acute exacerbation Metabolic encephalopathy Possible aspiration type pneumonia Sepsis with septic shock Hypotension Plan Medications have been reviewed and will be continued as ordered. Antibiotics and steroids as ordered Infectious disease on consult Continue with pulmonary hygiene, coughing and deep breathing exercises, and supportive care. Supplemental oxygen to maintain oxygen saturations of 92% or better. Continue nebulizer treatments. BiPAP at night, with naps and when necessary GI and DVT prophylaxis. Increase activity as tolerated, PT and OT We will continue to monitor labs/results and adjust treatment as necessary. Further recommendations pending. I performed an examination of the patient and discussed their management with the nurse practitioner. I have reviewed the nurse practitioner's note and agree with the documented findings and plan of care.
--- NOTE | 2017-11-08 10:57 | XR ---
EXAMINATION TYPE: XR chest 1V portable DATE OF EXAM: 11/08/2017 COMPARISON: 11/07/2017 INDICATION: Shortness of breath TECHNIQUE: Single frontal view of the chest is obtained. FINDINGS: The heart size is normal. The pulmonary vasculature is normal. Bibasilar infiltrates are present. Small bilateral pleural effusions may be present IMPRESSION: 1. Bibasilar infiltrates. Correlate for pneumonia. 2. Small bilateral pleural effusions. 3. Findings are worsening from comparison.
[2017-11-08] MEDS ORDERED: methylPREDNISolone SOD SUCCI 125 MG/2 ML VIAL IV STA (11:54)
[2017-11-08 12:20] LABS: Glucose,Whole Blood 131 mg/dL (75-99)
--- NOTE | 2017-11-08 12:39 | P.PN ---
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 altered mental status related to hypercapnic history failure, severe lactic acidosis, hypertension hypertensive cardiovascular disease, advanced gout 11/08/2017, patient seen eval reexamined during the rounds family is present at bedside care plan discussed with the staff as well as family at length patient currently on BiPAP and FiO2 is gradually being titrated down hemodynamic status is improved chest x-ray from today reviewed by basilar atelectasis versus infiltrate patient is on broad-spectrum antibiotics, sputum cultures are positive for Pseudomonas blood cultures no growth, review of the laboratory data reviewed white cell count is down to 10,900 with stable hemoglobin, will DC the Naranjo's catheter patient is being planned for transfer to the stepdown unit, would recommend to continue BiPAP machine each night and when necessary during the day and titrate oxygen down minimum of 88% 11/07/2017, patient seen eval reexamined during the rounds clinically patient is doing slightly better more awake and alert breathing more comfortably no evidence of active bleeding has been seen patient has been started on by mouth, patient has a line which revealed hypotension she has been on D5 normal saline which is being switched to normal saline with the cough pressure systolic blood pressure on 100 and then will DC the A-line and likely would DC the levo fed drip as well, patient remains on high flow oxygen of 6 L sats are mid to low 90s , he did require BiPAP support overnight 16/01 tolerated very well with oxygen of 50% care plan discussed with the patient as well as the family and the staff at length likely once patient remains off of pressors with fluid resuscitation can be stepdown to selective, chest x-ray reviewed by gold infiltrate as well as small effusion my his labs are reviewed BUN/creatinine is improved to 29 and 1.1 from yesterday, chest x-ray reviewed, and has noted a small bilateral pleural effusion betas basal atelectasis and pneumonia noted more so on the right side compared to the left side, patient remains on bronchodilators and broad-spectrum antibiotics and IV steroids will start tapering down the steroids which Levaquin to by mouth continue Zosyn for now, blood cultures no growth so far sputum however revealed gram-positive cocci in clusters with some rare gram-negative bacilli final ID hours pending This patient sees send Dr. Jerry Wills for primary care activity has a history of severe COPD emphysema, pt. has prior history of the intubation about 3 years ago due to acute hypoxic and hypercapnic respirator failure and secondary altered mental status related to that, patient was brought into the emergency department with increasing shortness of breath going on for almost a week patient has been becoming more progressively weak tired and developed severe hypercapnia as noted into the arterial blood gas that was performed in the emergency department pH dropped down to 7.14, patient was very lethargic and poorly responsive in the emergency department was eventually intubated and placed on respirator patient also started on broad-spectrum antibiotics during evaluation patient was a noted to have a OG tube has some coffee-ground material which recently had changed from clear however patient is on DVT prophylaxis, patient was arousable opens eyes and follows simple commands have place patient on CPAP 5 pressure support of 5 and for half an hour arterial blood gas was checked fairly adequate ventilation and oxygenation oxygenation was noted and patient was successfully extubated, postextubation patient and requested a no CODE STATUS and do not want to go back on respirator encased respiratory status worsened Objective - Vital Signs Vital signs: Vital Signs Temp 96.2 F L 11/08/17 12:00 Pulse 86 11/08/17 12:29 Resp 28 H 11/08/17 12:00 BP 103/62 11/08/17 12:00 Pulse Ox 99 11/08/17 12:00 Intake & Output 11/07/17 11/08/17 11/08/17 18:59 06:59 18:59 Intake Total 676.25 1600 650 Output Total 755 1300 550 Balance -78.75 300 100 Weight 98.9 kg 100.3 kg Intake: IV 650 1200 650 Piperacillin-Tazobactam 3 50 50 .375 gm In Dextrose/Water 1 50ml.bag @ 12.5 mls/hr IVPB Q8HR [facility] Rx#: [id number] Sodium Chloride 0.9% 1, 600 1200 600 000 ml @ 100 mls/hr IV . Q10H [facility] Rx#:[id number] Intake, IV Titration 26.25 Amount Norepinephrine 4 mg In 26.25 Dextrose 5% in Water 250 ml @ Titrate IV .Q0M [facility] Rx#:[id number] Oral 200 Blood Product 200 Output: Urine 755 1300 550 Other: Voiding Method Indwelling Catheter Indwelling Catheter Indwelling Catheter ABP, PAP, CO, CI - Last Documented Arterial Blood Pressure 90/41 - Exam - Constitutional General appearance: average body habitus, no acute distress on BiPAP with supplemental oxygen - EENT Eyes: PERRLA, no photophobia Ears: bilateral: normal - Neck Neck: no lymphadenopathy Carotids: bilateral: upstroke normal - Respiratory Respiratory: bilateral: diminished, dullness, rales, rhonchi, fine expiratory wheezing on fours expiration - Cardiovascular Rhythm: regular Heart sounds: normal: S1, S2 Abnormal Heart Sounds: no systolic murmur, no diastolic murmur, no rub, no click Peripheral Edema: Trace bilateral lower extremity pedal edema noted Peripheral Pulses: bilateral: Normal - Gastrointestinal General gastrointestinal: distended, normal bowel sounds, soft - Integumentary Integumentary: no calor, no cellulitis, no cyanotic - Musculoskeletal Moving all 4 extremity - Psychiatric Awake and alert good eye contact and stable mood - Labs CBC & Chem 7: 11/08/17 04:22 11/08/17 04:22 Labs: Abnormal Lab Results - Last 24 Hours (Table) 11/07/17 11/08/17 11/08/17 Range/Units 20:25 04:22 04:22 WBC 10.9 H (3.8-10.6) k/uL Hgb 12.5 L (13.0-17.5) gm/dL MCHC 29.2 L (31.0-37.0) g/dL Neutrophils # 9.5 H (1.3-7.7) k/uL Lymphocytes # 0.5 L (1.0-4.8) k/uL Carbon Dioxide 33 H (22-30) mmol/L BUN 31 H (9-20) mg/dL Glucose 130 H (74-99) mg/dL POC Glucose (mg/dL) 180 H (75-99) mg/dL Calcium 8.3 L (8.4-10.2) mg/dL Magnesium 2.5 H (1.6-2.3) mg/dL 11/08/17 11/08/17 Range/Units 06:58 12:19 WBC (3.8-10.6) k/uL Hgb (13.0-17.5) gm/dL MCHC (31.0-37.0) g/dL Neutrophils # (1.3-7.7) k/uL Lymphocytes # (1.0-4.8) k/uL Carbon Dioxide (22-30) mmol/L BUN (9-20) mg/dL Glucose (74-99) mg/dL POC Glucose (mg/dL) 144 H 131 H (75-99) mg/dL Calcium (8.4-10.2) mg/dL Magnesium (1.6-2.3) mg/dL Microbiology - Last 24 Hours (Table) 11/05/17 20:24 Gram Stain - Final Sputum Sputum Culture - Preliminary Pseudomonas aeruginosa 11/05/17 20:48 Blood Culture - Preliminary Blood No Growth after 48 hours Assessment and Plan Assessment: Acute hypoxic and hypercapnic history failure, successfully weaned and extubated however continued to require high flow oxygen, which is gradually being titrated down will aim for saturation are 80% of oxygen recommend to continue BiPAP each night and when necessary during the day with current setting Altered mental status related his significant hypercapnia and acute respiratory acidosis progressively improving Mixed bacterial and/or or gram-negative bilateral basal pneumonia Pseudomonas pneumonia Advanced COPD emphysema with prior history of intubation Severe lactic acidosis related to severe sepsis responded well with broad- spectrum antibiotics patient did require vasopressors have a successfully able to wean tapered off, currently on 2 mics of levo fed anticipated with adjustment of fluid will, off of it will also DC Naranjo's catheter Hypertension hypertensive cardiovascular disease currently severely hypotensive related to above however anticipated blood pressure will improve as noted above Advanced gout Plan: Currently patient is on BiPAP each night and when necessary during the day otherwise on high flow oxygen and BiPAP setting at 15/10 with 50% oxygen Broad- spectrum antibiotics IV steroids and bronchodilator DVT and peptic ulcer disease prophylaxis BiPAP as needed orders have been given will use a IPAP of 15 and EPAP of 10 with oxygen to keep saturation around 88-90% Further recommendations pending plan of care as per clinical response of the patient Once patient off of vasopressors E line removed and did does not require for more than 6 hours can be downgraded to either selective R MedSurg with remote telemetry Consult PT OT to increase activity as tolerated Patient can be moved out of the ICU from critical care standpoint we'll sign off , we'll be available as needed arise Time with Patient: Greater than 30
--- NOTE | 2017-11-08 15:52 | P.PN ---
Subjective Progress Note Date: 11/08/17 This is a 72 years old male patient of Dr. Chu present with past medical history of hypertension, unknown diagnosis of COPD was last seen in 2014 when patient was intubated for 48 hours with similar presentation of unresponsiveness and hypoxic. Patient was intubated during that time and was found to have pulmonary congestion on the chest x-ray and was treated for community-acquired pneumonia. Patient is brought in today by family as patient was not doing well for the past 1 week he was found to be increasingly weak and lethargic. EMS was called , patient was found to be hypoxic in the low 70s though responsive. On presentation to the ER, patient was found to be in severe respiratory distress and nearly unresponsive was placed on BiPAP for one of our with no improvement and finally he was intubated. Labs obtained suggest a pH of 7.14 CO2 74 CO2 27 pO2 105 and 60% FiO2, WBC 11.2, B UN is 37 creatinine 1.4 decreased from 1.6. Baseline creatinines appear to be 1.1-1.2. Lactic acid on admission was 2.9 brought down to 1.5 postfluid resuscitation with 4 L. Chest x-ray suggested by basilar infiltrates with signs of congestion concerning for pulmonary edema from the fluid resuscitation. Patient is currently mechanically ventilated on 50% FiO2 managed by Dr. Logan and Dr. Jefferson. And appears to be in COPD exacerbation and initiated on Solu-Medrol 60 every 6. He received a dose of levofloxacin in the ER and Zosyn was continued. Patient will be started on broad-spectrum antibiotic including Zosyn and cefepime for dual coverage. Echocardiogram will be obtained. Previous echocardiogram from 2015 suggestive of EF of 50-55% with no wall or valvular abnormality. Patient is currently on 2 mics per minute of norepinephrine, is sedated on propofol. Patient does comprehend and follows command off sedation but gets agitated and tries to remove the tube when sedation is weaned off. Blood culture and urine cultures sent 11/07: Patient remains in intensive care unit and is currently in no CODE STATUS. Norepinephrine is currently on hold. He is now on 6 L nasal cannula. Patient denies having any shortness of breath. He does have cough but denies sputum production. He denies any chest pain or abdominal pain. He denies any focalized extremity weakness. His is at the bedside and states that he has not been feeling well for about a month and very short of breath for the past few days. Echocardiogram reveals EF of 60-65% with borderline concentric left ventricular hypertrophy, mild tricuspid regurgitation, mild pulmonary hypertension. Patient is followed by multiple consultants including Dr. NATALYA Jefferson from pulmonary medicine, Dr. Chavez from infectious disease. Patient has been continued on Zosyn and Levaquin. Chest x-ray reveals COPD with improvement in the previous CHF. Mild pulmonary vascular congestion remains. Residual small left greater than right pleural effusions with adjacent patchy left basilar atelectasis and/or infiltrate. Serum culture is showing Pseudomonas species. Blood cultures no growth after 24 hours. Patient has been afebrile. 11/08: Patient has been using either high flow oxygen 10 L or BiPAP. His states he was feeling weak and not feeling well and he was placed back on BiPAP by nursing. His pulse ox is 99 200%. Patient's respirations are labored. ABGs been ordered. Hemoglobin is stable at 12.5. Creatinine is 1.16. Sputum cultures positive for Pseudomonas pansensitive and patient is currently on Zosyn and Levaquin. He is continued on Solu-Medrol which is a 40 mg IV every 8 hours and one additional dose of 60 added for today. Objective - Vital Signs Vital signs: Vital Signs Temp 96.2 F L 11/08/17 12:00 Pulse 88 11/08/17 12:00 Resp 28 H 11/08/17 12:00 BP 103/62 11/08/17 12:00 Pulse Ox 99 11/08/17 12:00 Intake & Output 11/07/17 11/08/17 11/08/17 18:59 06:59 18:59 Intake Total 676.25 1600 650 Output Total 755 1300 550 Balance -78.75 300 100 Weight 98.9 kg 100.3 kg Intake: IV 650 1200 650 Piperacillin-Tazobactam 3 50 50 .375 gm In Dextrose/Water 1 50ml.bag @ 12.5 mls/hr IVPB Q8HR [facility] Rx#: [id number] Sodium Chloride 0.9% 1, 600 1200 600 000 ml @ 100 mls/hr IV . Q10H [facility] Rx#:[id number] Intake, IV Titration 26.25 Amount Norepinephrine 4 mg In 26.25 Dextrose 5% in Water 250 ml @ Titrate IV .Q0M [facility] Rx#:[id number] Oral 200 Blood Product 200 Output: Urine 755 1300 550 Other: Voiding Method Indwelling Catheter Indwelling Catheter Indwelling Catheter ABP, PAP, CO, CI - Last Documented Arterial Blood Pressure 90/41 - Exam General appearance: average body habitus, mild acute distress - EENT Eyes: PERRLA, no photophobia Ears: bilateral: normal - Neck Neck: no lymphadenopathy Carotids: bilateral: upstroke normal - Respiratory Respiratory: bilateral: diminished, dullness, rales, rhonchi, negative: wheezing - Cardiovascular Rhythm: regular Heart sounds: normal: S1, S2 Abnormal Heart Sounds: no systolic murmur, no diastolic murmur, no rub, no click foot Peripheral Edema: bilateral: 1+ dorsalis pedis Peripheral Pulses: bilateral: Normal - Gastrointestinal General gastrointestinal: distended, normal bowel sounds, soft - Integumentary Integumentary: no calor, no cellulitis, no cyanotic - Musculoskeletal Generalized weakness. No focal neuro deficits - Psychiatric Awake and alert. - Labs CBC & Chem 7: 11/08/17 04:22 11/08/17 04:22 Labs: Abnormal Lab Results - Last 24 Hours (Table) 11/07/17 11/08/17 11/08/17 Range/Units 20:25 04:22 04:22 WBC 10.9 H (3.8-10.6) k/uL Hgb 12.5 L (13.0-17.5) gm/dL MCHC 29.2 L (31.0-37.0) g/dL Neutrophils # 9.5 H (1.3-7.7) k/uL Lymphocytes # 0.5 L (1.0-4.8) k/uL Carbon Dioxide 33 H (22-30) mmol/L BUN 31 H (9-20) mg/dL Glucose 130 H (74-99) mg/dL POC Glucose (mg/dL) 180 H (75-99) mg/dL Calcium 8.3 L (8.4-10.2) mg/dL Magnesium 2.5 H (1.6-2.3) mg/dL 11/08/17 Range/Units 06:58 WBC (3.8-10.6) k/uL Hgb (13.0-17.5) gm/dL MCHC (31.0-37.0) g/dL Neutrophils # (1.3-7.7) k/uL Lymphocytes # (1.0-4.8) k/uL Carbon Dioxide (22-30) mmol/L BUN (9-20) mg/dL Glucose (74-99) mg/dL POC Glucose (mg/dL) 144 H (75-99) mg/dL Calcium (8.4-10.2) mg/dL Magnesium (1.6-2.3) mg/dL Microbiology - Last 24 Hours (Table) 11/05/17 20:24 Gram Stain - Final Sputum Sputum Culture - Preliminary Pseudomonas aeruginosa 11/05/17 20:48 Blood Culture - Preliminary Blood No Growth after 48 hours Assessment and Plan Plan: 1. Acute hypoxic hypercapnic respiratory failure secondary to COPD exacerbation with pseudomonas pneumonia. Will continue with broad-spectrum antibiotic with Levaquin and Zosyn, consult with Dr. Aquilino gill. Patient is followed by Dr. NATALYA Jefferson/Dr. Logan. critical care medicine. Patient currently is receiving IV Solu-Medrol and additional dose given, nebulized treatments and Pulmicort and DuoNeb along with IV antibiotics Sputum and sputum cultures has been sent here some pulmonary edema noted on chest x-rays. proBNP is normal. Aspiration precautions maintained. Currently off norepinephrine. Plan to keep pulse ox between 88-90% 2. Lactic acidosis likely secondary to septic shock. Status post IV fluids. Continue broad-spectrum IV antibiotics. Lactic acid improved. 3. Hypercarbic respiratory failure secondary to COPD underlying obstructive sleep apnea cannot be excluded he is echocardiogram did not reveal any right ventricular systolic pressure abnormalityIn 2014. Repeat echocardiogram. 4. COPD exacerbation currently on IV Solu-Medrol and nebulized treatments 5. Sepsis with septic shock secondary to Pseudomonas pneumonia. Continue Levaquin and Zosyn. 6. Current tobacco dependency and is a current tobacco smoker 7. Hypertension off norepinephrine hold antihypertensive medications 8. Gout history 9. VTE prophylaxis is provided with heparin subcu 10. GI prophylaxis IV Protonix CODE STATUS: NO CODE Discharge plan: To be determined Impression and plan of care have been directed as dictated by the signing physician. Ann-Marie Ortiz nurse practitioner acting as scribe for signing physician.
[2017-11-08 17:11] LABS: Glucose,Whole Blood 122 mg/dL (75-99)
[2017-11-08 21:46] LABS: Glucose,Whole Blood 161 mg/dL (75-99)
[2017-11-08] MEDS: MONTELUKAST 10 MG TAB PO SCH (21:50)
--- NOTE | 2017-11-09 05:42 | PN ---
PROGRESS NOTE DATE OF SERVICE: 11/08/2017 REASON FOR FOLLOWUP: Pseudomonas pneumonia. INTERVAL HISTORY: The patient is afebrile. He has been breathing comfortably. Denies significant chest pain or cough. . No abdominal pain. No nausea, vomiting, or any diarrhea. PHYSICAL EXAMINATION: On examination, blood pressure 114/65 with a pulse of 76, temperature 98. He is 92% on 8 L nasal cannula. General description is an elderly male up in the bed in no distress. RESPIRATORY SYSTEM: Unlabored breathing with decreased breath sounds. No wheeze. HEART: S1, S2. Regular rate and rhythm. ABDOMEN: Soft, no tenderness. LABS: Hemoglobin is 12.5, white count 10.9. BUN of 31, creatinine 1.16. DIAGNOSTIC IMPRESSION AND PLAN: Patient with Pseudomonas aeruginosa pneumonia in a patient who did have acute respiratory failure. Patient is showing clinical improvement slowly. Will continue with Levaquin and Zosyn at this point, adjusting antibiotic further based on clinical response. Continue with supportive care. MMODL / IJN: [id number] /
[2017-11-09 06:00] LABS: Glucose,Whole Blood 95 mg/dL (75-99)
[2017-11-09] MEDS: INSULIN ASPART 100 UNIT/ML 1 ML 10 ML VIAL SQ SCH ×4 (06:01→21:33)
[2017-11-09] MEDS: IPRATROPIUM-ALBUTEROL 3 ML NEB INHALATION SCH ×4 (07:35→20:47)
[2017-11-09] MEDS: BUDESONIDE 0.5 MG/2 ML NEBU INHALATION SCH ×2 (07:35→20:47)
[2017-11-09] MEDS: methylPREDNISolone SOD SUCCI 40 MG/ML 1 ML VIAL IV SCH ×3 (09:37→23:24)
[2017-11-09] MEDS: PANTOPRAZOLE 40 MG/10 ML VIAL IV SCH (09:37)
[2017-11-09] MEDS: LEVOFLOXACIN 750 MG TAB PO SCH (09:37)
[2017-11-09] MEDS: HEPARIN SODIUM,PORCINE 5,000 UNIT/ML 1 ML VIAL SQ SCH ×2 (09:38→20:57)
[2017-11-09] MEDS ORDERED: FUROSEMIDE 10 MG/ML 10 ML VIAL IV STA ×2 (09:39→14:13)
--- NOTE | 2017-11-09 09:47 | P.PN ---
Subjective Progress Note Date: 11/09/17 HPI: King Viveros is a 72-year-old patient of mine who I actively follow in the outpatient setting, who apparently came into the ED because of severe respiratory distress. He was also unresponsive, subsequently was seen in the ER and intubated Interval history: 11/07/2017- Patient is being seen examined and evaluated today on rounds. He is resting up in bed on 6 L of supplemental oxygen via nasal cannula. Patient did utilizes BiPAP overnight. His blood cultures have been positive for gram- positive bacteria. He did have pressors running throughout the night and were weaned off today about 7:30 this morning. He has been hemodynamically stable. Afebrile. Infectious disease also on consult. He continues on nebulizer treatments and steroids. He has had a good appetite, good urinary output. No further complaints. Echocardiogram reviewed EF between 60 and 65%, RVSP 39.79 11/08/17- patient is being seen examined and evaluated today on rounds. He is resting up in bed on BiPAP. He was on 6 L of high flow oxygen this morning however did develop some shortness of breath and was put on 10 L of high flow. The patient then wanted to take a nap therefore he was transitioned to BiPAP for his neck. His sputum is growing Pseudomonas. Infectious disease follows him. White count is 12.9. He has been making good urine, has had a good appetite. He is afebrile, he had no overnight events. He has no further complaints. All labs and reports have been reviewed 11/09/17- patient is being seen examined and evaluated today on rounds. He is resting up in bed on BiPAP. Apparently the patient did utilizes BiPAP overnight he was trialed on 8 L of high flow oxygen this morning however he did get quite tachypnic and required being placed back on the BiPAP. We will get a stat chest x-ray. He does have some bibasilar crackles we'll also give him a 1 time dose of Lasix. Of note he also did receive an extra dose of Solu-Medrol yesterday. Objective - Vital Signs Vital signs: Vital Signs Temp 97.3 F L 11/09/17 04:05 Pulse 100 11/09/17 07:50 Resp 20 11/09/17 04:05 BP 100/62 11/09/17 04:05 Pulse Ox 98 11/09/17 04:05 Intake & Output 11/08/17 11/09/17 11/09/17 18:59 06:59 18:59 Intake Total 1150 Output Total 870 1100 Balance 280 -1100 Weight 100.3 kg 101.2 kg Intake: IV 1150 Piperacillin-Tazobactam 3 50 .375 gm In Dextrose/Water 1 50ml.bag @ 12.5 mls/hr IVPB Q8HR [facility] Rx#: [id number] Sodium Chloride 0.9% 1, 1100 000 ml @ 100 mls/hr IV . Q10H [facility] Rx#:[id number] Output: Urine 870 1100 Other: Voiding Method Indwelling Catheter Indwelling Catheter ABP, PAP, CO, CI - Last Documented Arterial Blood Pressure 90/41 - Exam GENERAL EXAM: Alert, comfortable in no apparent distress. HEAD: Normocephalic. EYES: Normal reaction of pupils, equal size. NOSE: Clear with pink turbinates. THROAT: No erythema or exudates. NECK: No masses, no JVD. CHEST: No chest wall deformity. LUNGS: Lungs noted to be diminished bilaterally with some expiratory wheezing and bibasilar crackles CVS: S1 and S2 normal with no audible mumurs, regular rhythm. ABDOMEN: No hepatosplenomegaly, normal bowel sounds, no guarding or rigidity. EXTREMITIES: +1-2 edema noted, pedal pulses palpable. CENTRAL NERVOUS SYSTEM: No focal deficits, tone is normal in all 4 extremities. - Labs CBC & Chem 7: 11/08/17 04:22 11/08/17 04:22 Labs: Abnormal Lab Results - Last 24 Hours (Table) 11/08/17 11/08/17 11/08/17 Range/Units 12:19 17:08 21:44 POC Glucose (mg/dL) 131 H 122 H 161 H (75-99) mg/dL Microbiology - Last 24 Hours (Table) 11/05/17 20:24 Gram Stain - Final Sputum Sputum Culture - Final Pseudomonas aeruginosa 11/05/17 20:48 Blood Culture - Preliminary Blood No Growth after 72 hours Assessment and Plan Assessment: Assessment Acute hypoxic respiratory failure Acute exacerbation of COPD JOSE MARIA Severe chronic persistent asthma with acute exacerbation Metabolic encephalopathy Pseudomonas pneumonia Sepsis with septic shock Hypotension Component of cor pulmonale Plan Medications have been reviewed and will be continued as ordered. Stat chest x-ray Lasix 1 dose now Antibiotics and steroids as ordered Infectious disease on consult Continue with pulmonary hygiene, coughing and deep breathing exercises, and supportive care. Supplemental oxygen to maintain oxygen saturations of 92% or better. Continue nebulizer treatments. BiPAP at night, with naps and when necessary GI and DVT prophylaxis. Increase activity as tolerated, PT and OT We will continue to monitor labs/results and adjust treatment as necessary. Further recommendations pending. I performed an examination of the patient and discussed their management with the nurse practitioner. I have reviewed the nurse practitioner's note and agree with the documented findings and plan of care.
--- NOTE | 2017-11-09 10:05 | XR ---
EXAMINATION TYPE: XR chest 1V portable DATE OF EXAM: 11/09/2017 Comparison: 11/08/2017 Clinical History: 72-year-old male SOB Findings: Heart mildly enlarged. Relative upper lung lucencies. Persistent interstitial densities with increasi ng patchy mid and lower lung densities. Small pleural effusions persist. Impression: 1. Correlate for CHF with slight interval worsening interstitial pulmonary edema. Background COPD. 2. Small pleural effusions with adjacent atelectasis and/or consolidation persists.
[2017-11-09 11:16] LABS: Basophils % (A) 0 %; Eosinophils % (A) 0 %; HCT 46.3 % (39.0-53.0); HGB 13.6 gm/dL (13.0-17.5); Hypochromasia Marked; Lymphocytes % (A) 8 %; MCH 29.2 pg (25.0-35.0); MCHC 29.4 g/dL (31.0-37.0); MCV 99.4 fL (80.0-100.0); Mean Platelet Volume 7.5; Monocytes % (A) 8 %; Neutrophils # (A) 10.2 k/uL (1.3-7.7); Neutrophils % (A) 82 %; Platelet Count 153 k/uL (150-450); RBC 4.65 m/uL (4.30-5.90); RDW 13.7 % (11.5-15.5); WBC 12.4 k/uL (3.8-10.6)
[2017-11-09 11:25] LABS: Albumin 2.8 g/dL (3.5-5.0); Calcium 8.4 mg/dL (8.4-10.2); Potassium 4.8 mmol/L (3.5-5.1); Total Bilirubin 0.3 mg/dL (0.2-1.3); Total Protein 5.4 g/dL (6.3-8.2)
--- NOTE | 2017-11-09 11:25 | CDI ---
Last Revision, March 2017 Documentation Clarification Form Date: 11/09/2017 11:10:29 AM From: Janae OharaAliceaNALINI, CCDS Admit Date: 11/05/2017 7:39:00 PM Patient Name: Chuy Viveros Visit Number: [id number] Discharge Date: ATTENTION: The Clinical Documentation Specialists (CDI) and [facility] Coding Staff appreciate your assistance in clarifying documentation. Please respond to the clarification below the line at the bottom and electronically sign. The CDI & [facility] Coding staff will review the response and follow-up if needed. Please note: Queries are made part of the Legal Health Record. If you have any questions, please contact the author of this message via ITS. Jose Nesbitt MD: 72 yo male, admit from ER with respiratory distress & unresponsiveness, hypoxic & altered mental status. Admitted with Acute hypoxic & hypercapnic respiratory failure secondary to COPD exacerbation with possible community acquired bilateral pneumonia. History/Risk Factors: Severe asthma with COPD, previous hospitalization requiring intubation; CAD, JOSE MARIA with noncompliant CPAP, Hyperlipidemia & Hypertension. Smoker. Clinical Indicators: VS: T 98.8, P 104^, R 28^ (SOB, labored), BP 103/51, PO 83 RA, put on BiPAP BNP: 1050 Echocardiogram Results 11/07: EF 60-65% systolic wnl, Mild TR, mild pulm hypertension. Chest X Ray 11/05: Bibasilar infiltrates, early pulmonary edema. 11/06: Correlate for CHF. 11/07: COPD w/improvement in previous CHF, mild pulmonary vascular congestion remains. 11/08: Small bilateral pleural effusions. 11/09: Correlate for CHF w/slight worsening pulmonary edema. Treatment: Albuterol INH, IV Solumedrol, IV fl 100, IV Levaquin, IV Zosyn, IV Lasix started 11/09 In your professional opinion, can you please clarify the acuity and type of CHF if known? Systolic Heart Failure: o Acute o Chronic o Acute on Chronic Diastolic Heart Failure: o Acute o Chronic o Acute on Chronic Systolic & Diastolic Heart Failure: o Acute o Chronic o Acute on Chronic Heart Failure Unable to Determine Other, please specify Please continue to document in your progress notes and discharge summary in order to capture severity of illness and risk of mortality. Include clinical findings that support your diagnosis. MTDD
[2017-11-09] MEDS: PIPERACILLIN-TAZOBACTAM 3.375 GM in DEXTROSE/WATER 1 50ML.BAG IVPB SCH ×3 (11:35→23:24)
[2017-11-09] MEDS: SODIUM CHLORIDE 0.9% 1,000 ML IV SCH (11:37)
[2017-11-09 11:48] LABS: Glucose,Whole Blood 86 mg/dL (75-99)
[2017-11-09 14:42] LABS: ABG Base Excess 5.7 mmol/L; ABG HCO3 34 mmol/L (21-25); ABG Oxygen Saturation 97.2 % (94-97); ABG PO2 86 mmHg (83-108); ABG TCO2 36 mmol/L (19-24)
[2017-11-09 14:51] LABS: ABG PCO2 86 mmHg (35-45)
[2017-11-09 16:25] LABS: Glucose,Whole Blood 109 mg/dL (75-99)
--- NOTE | 2017-11-09 16:35 | P.PN ---
Subjective Progress Note Date: 11/09/17 This is a 72 years old male patient of Dr. Chu present with past medical history of hypertension, unknown diagnosis of COPD was last seen in 2014 when patient was intubated for 48 hours with similar presentation of unresponsiveness and hypoxic. Patient was intubated during that time and was found to have pulmonary congestion on the chest x-ray and was treated for community-acquired pneumonia. Patient is brought in today by family as patient was not doing well for the past 1 week he was found to be increasingly weak and lethargic. EMS was called , patient was found to be hypoxic in the low 70s though responsive. On presentation to the ER, patient was found to be in severe respiratory distress and nearly unresponsive was placed on BiPAP for one of our with no improvement and finally he was intubated. Labs obtained suggest a pH of 7.14 CO2 74 CO2 27 pO2 105 and 60% FiO2, WBC 11.2, B UN is 37 creatinine 1.4 decreased from 1.6. Baseline creatinines appear to be 1.1-1.2. Lactic acid on admission was 2.9 brought down to 1.5 postfluid resuscitation with 4 L. Chest x-ray suggested by basilar infiltrates with signs of congestion concerning for pulmonary edema from the fluid resuscitation. Patient is currently mechanically ventilated on 50% FiO2 managed by Dr. Logan and Dr. Jefferson. And appears to be in COPD exacerbation and initiated on Solu-Medrol 60 every 6. He received a dose of levofloxacin in the ER and Zosyn was continued. Patient will be started on broad-spectrum antibiotic including Zosyn and cefepime for dual coverage. Echocardiogram will be obtained. Previous echocardiogram from 2015 suggestive of EF of 50-55% with no wall or valvular abnormality. Patient is currently on 2 mics per minute of norepinephrine, is sedated on propofol. Patient does comprehend and follows command off sedation but gets agitated and tries to remove the tube when sedation is weaned off. Blood culture and urine cultures sent 11/07: Patient remains in intensive care unit and is currently in no CODE STATUS. Norepinephrine is currently on hold. He is now on 6 L nasal cannula. Patient denies having any shortness of breath. He does have cough but denies sputum production. He denies any chest pain or abdominal pain. He denies any focalized extremity weakness. His is at the bedside and states that he has not been feeling well for about a month and very short of breath for the past few days. Echocardiogram reveals EF of 60-65% with borderline concentric left ventricular hypertrophy, mild tricuspid regurgitation, mild pulmonary hypertension. Patient is followed by multiple consultants including Dr. NATALYA Jefferson from pulmonary medicine, Dr. Chavez from infectious disease. Patient has been continued on Zosyn and Levaquin. Chest x-ray reveals COPD with improvement in the previous CHF. Mild pulmonary vascular congestion remains. Residual small left greater than right pleural effusions with adjacent patchy left basilar atelectasis and/or infiltrate. Serum culture is showing Pseudomonas species. Blood cultures no growth after 24 hours. Patient has been afebrile. 11/08: Patient has been using either high flow oxygen 10 L or BiPAP. His states he was feeling weak and not feeling well and he was placed back on BiPAP by nursing. His pulse ox is 99 200%. Patient's respirations are labored. ABGs been ordered. Hemoglobin is stable at 12.5. Creatinine is 1.16. Sputum cultures positive for Pseudomonas pansensitive and patient is currently on Zosyn and Levaquin. He is continued on Solu-Medrol which is a 40 mg IV every 8 hours and one additional dose of 60 added for today. 11/09: Patient has been transferred out of the intensive care unit. He remains on high flow oxygen at 8 L and pulse oxing 98%. Blood pressure is on the lower side. Repeat chest x-ray shows correlate for heart failure with slight interval worsening interstitial pulmonary edema. Background COPD. Small pleural effusions with adjacent atelectasis and or consolidation persists. Patient was given 1 dose of IV Lasix 60 mg this morning. We will stop IV fluids. A repeat dose of Lasix 60 mg this afternoon and patient will be started on 40 mg IV every 12 hours to start tonight. Patient was on O2 by nasal cannula for about one and half hours and had return to CPAP. Dr. Rolle is following. He is currently on Levaquin and Zosyn. Pseudomonas in the sputum. He remains on Solu-Medrol 40 mg IV every 8 hours. ABGs show pH 7.20, pCO2 86, pO2 86, bicarbonate of 34, total CO2 36, O2 saturation 97.2. Patient is to maintain pulse ox around 90% only. Objective - Vital Signs Vital signs: Vital Signs Temp 97.3 F L 11/09/17 04:05 Pulse 100 11/09/17 07:50 Resp 20 11/09/17 04:05 BP 100/62 11/09/17 04:05 Pulse Ox 98 11/09/17 04:05 Intake & Output 11/08/17 11/09/17 11/09/17 18:59 06:59 18:59 Intake Total 1150 Output Total 870 1100 Balance 280 -1100 Weight 100.3 kg 101.2 kg Intake: IV 1150 Piperacillin-Tazobactam 3 50 .375 gm In Dextrose/Water 1 50ml.bag @ 12.5 mls/hr IVPB Q8HR [facility] Rx#: [id number] Sodium Chloride 0.9% 1, 1100 000 ml @ 100 mls/hr IV . Q10H [facility] Rx#:[id number] Output: Urine 870 1100 Other: Voiding Method Indwelling Catheter Indwelling Catheter ABP, PAP, CO, CI - Last Documented Arterial Blood Pressure 90/41 - Exam General appearance: average body habitus, mild acute distress - EENT Eyes: PERRLA, no photophobia Ears: bilateral: normal - Neck Neck: no lymphadenopathy Carotids: bilateral: upstroke normal - Respiratory Respiratory: bilateral: diminished, dullness, rales, rhonchi, negative: wheezing - Cardiovascular Rhythm: regular Heart sounds: normal: S1, S2 Abnormal Heart Sounds: no systolic murmur, no diastolic murmur, no rub, no click foot Peripheral Edema: bilateral: 1+ dorsalis pedis Peripheral Pulses: bilateral: Normal - Gastrointestinal General gastrointestinal: distended, normal bowel sounds, soft - Integumentary Integumentary: no calor, no cellulitis, no cyanotic - Musculoskeletal Generalized weakness. No focal neuro deficits - Psychiatric Awake and alert. - Labs CBC & Chem 7: 11/09/17 10:33 11/09/17 10:33 Labs: Abnormal Lab Results - Last 24 Hours (Table) 11/08/17 11/08/17 11/08/17 Range/Units 12:19 17:08 21:44 POC Glucose (mg/dL) 131 H 122 H 161 H (75-99) mg/dL Microbiology - Last 24 Hours (Table) 11/05/17 20:24 Gram Stain - Final Sputum Sputum Culture - Final Pseudomonas aeruginosa 11/05/17 20:48 Blood Culture - Preliminary Blood No Growth after 72 hours Assessment and Plan Plan: 1. Acute hypoxic hypercapnic respiratory failure secondary to COPD exacerbation with pseudomonas pneumonia. Continue Levaquin and Zosyn, consult with Dr. Aquilino gill. Patient is followed by Dr. NATALYA Jefferson/Dr. Logan. critical care medicine. Patient currently is receiving IV Solu-Medrol and additional dose given, nebulized treatments and Pulmicort and DuoNeb along with IV antibiotics Sputum culture positive for Pseudomonas. Aspiration precautions maintained. Currently off norepinephrine. Plan to keep pulse ox between 88-90% 2. Lactic acidosis likely secondary to septic shock. Status post IV fluids. Continue broad-spectrum IV antibiotics. Lactic acid improved. 3. Hypercarbic respiratory failure secondary to COPD underlying obstructive sleep apnea cannot be excluded he is echocardiogram did not reveal any right ventricular systolic pressure abnormalityIn 2014. Repeat echocardiogram. 4. COPD exacerbation currently on IV Solu-Medrol and nebulized treatments 5. Sepsis with septic shock secondary to Pseudomonas pneumonia. Continue Levaquin and Zosyn. 6. Acute diastolic heart failure secondary to fluid overload. IV fluids stopped. Patient to receive 2 doses of Lasix 60 mg IV push then start 40 mg twice daily. 7. Current tobacco dependency and is a current tobacco smoker 8. Hypertension off norepinephrine hold antihypertensive medications 9. Gout history 10. VTE prophylaxis is provided with heparin subcu 11. GI prophylaxis IV Protonix CODE STATUS: FULL CODE Discharge plan: Home with [facility] Impression and plan of care have been directed as dictated by the signing physician. Ann-Marie Ortiz nurse practitioner acting as scribe for signing physician.
[2017-11-09] MEDS: MONTELUKAST 10 MG TAB PO SCH (20:57)
[2017-11-09 21:18] LABS: Glucose,Whole Blood 123 mg/dL (75-99)
[2017-11-09] MEDS: FUROSEMIDE 10 MG/ML 4 ML VIAL IV SCH (21:56)
--- NOTE | 2017-11-09 23:13 | PN ---
PROGRESS NOTE DATE OF SERVICE: 11/09/2017. REASON FOR FOLLOWUP: Pseudomonas pneumonia. INTERVAL HISTORY: The patient is currently afebrile. He has been breathing more comfortably. Denies significant chest pain. Cough is decreased in intensity. No abdominal pain. No diarrhea. EXAMINATION: Blood pressure is 141/82 with a pulse of 90, temperature 97. He is 97% on 2L nasal cannula. General description is an elderly male lying in bed in no distress. RESPIRATORY SYSTEM: Unlabored breathing with decreased intensity breath sounds in the base, with no wheeze. HEART: S1, S2. Regular rate and rhythm. ABDOMEN: Soft. No tenderness. LABS: Hemoglobin is 13, white count of 12.4. BUN of 38, creatinine 1.25. DIAGNOSTIC IMPRESSION AND PLAN: Patient with Pseudomonas aeruginosa pneumonia, currently on Zosyn that will be continued, watching his clinical course closely to determine discharge antibiotic. Continue with supportive care. MMODL / IJN: [id number] /
[2017-11-10 05:57] LABS: Glucose,Whole Blood 125 mg/dL (75-99)
[2017-11-10] MEDS: INSULIN ASPART 100 UNIT/ML 1 ML 10 ML VIAL SQ SCH ×3 (06:57→17:31)
[2017-11-10] MEDS: PIPERACILLIN-TAZOBACTAM 3.375 GM in DEXTROSE/WATER 1 50ML.BAG IVPB SCH ×2 (08:12→15:21)
[2017-11-10] MEDS: methylPREDNISolone SOD SUCCI 40 MG/ML 1 ML VIAL IV SCH ×2 (08:12→15:21)
[2017-11-10] MEDS: LEVOFLOXACIN 750 MG TAB PO SCH (08:13)
[2017-11-10] MEDS: HEPARIN SODIUM,PORCINE 5,000 UNIT/ML 1 ML VIAL SQ SCH ×2 (08:13→20:11)
[2017-11-10] MEDS: PANTOPRAZOLE 40 MG TABLET PO SCH (08:13)
[2017-11-10] MEDS: FUROSEMIDE 10 MG/ML 4 ML VIAL IV SCH ×2 (08:13→20:11)
[2017-11-10] MEDS: IPRATROPIUM-ALBUTEROL 3 ML NEB INHALATION SCH ×4 (08:31→19:52)
[2017-11-10] MEDS: BUDESONIDE 0.5 MG/2 ML NEBU INHALATION SCH (08:31)
[2017-11-10 10:10] LABS: Basophils % (A) 0 %; Eosinophils % (A) 0 %; HCT 46.6 % (39.0-53.0); HGB 14.1 gm/dL (13.0-17.5); Hypochromasia Marked; Lymphocytes # (A) 0.5 k/uL (1.0-4.8); Lymphocytes % (A) 5 %; MCH 29.3 pg (25.0-35.0); MCHC 30.2 g/dL (31.0-37.0); MCV 97.1 fL (80.0-100.0); Mean Platelet Volume 7.5; Monocytes # (A) 0.7 k/uL (0-1.0); Monocytes % (A) 8 %; Neutrophils # (A) 7.3 k/uL (1.3-7.7); Neutrophils % (A) 85 %; Platelet Count 139 k/uL (150-450); RDW 13.6 % (11.5-15.5); WBC 8.6 k/uL (3.8-10.6)
--- NOTE | 2017-11-10 10:13 | P.PN ---
Subjective Progress Note Date: 11/10/17 HPI: King Viveros is a 72-year-old patient of mine who I actively follow in the outpatient setting, who apparently came into the ED because of severe respiratory distress. He was also unresponsive, subsequently was seen in the ER and intubated Interval history: 11/07/2017- Patient is being seen examined and evaluated today on rounds. He is resting up in bed on 6 L of supplemental oxygen via nasal cannula. Patient did utilizes BiPAP overnight. His blood cultures have been positive for gram- positive bacteria. He did have pressors running throughout the night and were weaned off today about 7:30 this morning. He has been hemodynamically stable. Afebrile. Infectious disease also on consult. He continues on nebulizer treatments and steroids. He has had a good appetite, good urinary output. No further complaints. Echocardiogram reviewed EF between 60 and 65%, RVSP 39.79 11/08/17- patient is being seen examined and evaluated today on rounds. He is resting up in bed on BiPAP. He was on 6 L of high flow oxygen this morning however did develop some shortness of breath and was put on 10 L of high flow. The patient then wanted to take a nap therefore he was transitioned to BiPAP for his neck. His sputum is growing Pseudomonas. Infectious disease follows him. White count is 12.9. He has been making good urine, has had a good appetite. He is afebrile, he had no overnight events. He has no further complaints. All labs and reports have been reviewed 11/09/17- patient is being seen examined and evaluated today on rounds. He is resting up in bed on BiPAP. Apparently the patient did utilizes BiPAP overnight he was trialed on 8 L of high flow oxygen this morning however he did get quite tachypnic and required being placed back on the BiPAP. We will get a stat chest x-ray. He does have some bibasilar crackles we'll also give him a 1 time dose of Lasix. Of note he also did receive an extra dose of Solu-Medrol yesterday. 11/10/17- patient is being seen examined and evaluated today on the selective care unit. He is resting in bed sleeping on BiPAP. He is easily arousable. He states that he was on high flow nasal cannula for breakfast and tolerated that for a short period of time before wanting to go back on the BiPAP. The patient did receive 2 doses of Lasix 60 mg yesterday, he has had approximately 2000 ML's output in the last 24 hours. His current BiPAP settings are IPAP of 15 and EPAP of 10 with an FiO2 of 50%. He continues with antibiotics and steroids as well. Overall the patient states he feels slightly better today than yesterday. We will trial the patient off of the BiPAP again for lunchtime. Continue with gentle diuresis. Daily weights and monitor his I&O's Objective - Vital Signs Vital signs: Vital Signs Temp 97.5 F L 11/10/17 08:00 Pulse 100 11/10/17 08:55 Resp 30 H 11/10/17 08:00 BP 116/61 11/10/17 08:00 Pulse Ox 97 11/10/17 08:00 Intake & Output 11/09/17 11/10/17 11/10/17 18:59 06:59 18:59 Intake Total 135 750 0 Output Total 2150 850 300 Balance -2014 Weight 99 kg Intake: IV 750 Piperacillin-Tazobactam 3 50 .375 gm In Dextrose/Water 1 50ml.bag @ 12.5 mls/hr IVPB Q8HR SONY Rx#: [id number] Sodium Chloride 0.9% 1, 700 000 ml @ 100 mls/hr IV . Q10H SONY Rx#:[id number] Oral 135 0 Output: Urine 2150 850 300 Other: Voiding Method Indwelling Catheter Urinal Urinal # Voids 1 # Bowel Movements 0 ABP, PAP, CO, CI - Last Documented Arterial Blood Pressure 90/41 - Exam GENERAL EXAM: Alert, comfortable in no apparent distress. HEAD: Normocephalic. EYES: Normal reaction of pupils, equal size. NOSE: Clear with pink turbinates. THROAT: No erythema or exudates. NECK: No masses, no JVD. CHEST: No chest wall deformity. LUNGS: Lungs noted to be diminished bilaterally with some expiratory wheezing and bibasilar crackles, improving CVS: S1 and S2 normal with no audible mumurs, regular rhythm. ABDOMEN: No hepatosplenomegaly, normal bowel sounds, no guarding or rigidity. EXTREMITIES: +1-2 edema noted, pedal pulses palpable. CENTRAL NERVOUS SYSTEM: No focal deficits, tone is normal in all 4 extremities. - Labs CBC & Chem 7: 11/09/17 10:33 11/09/17 10:33 Labs: Abnormal Lab Results - Last 24 Hours (Table) 11/09/17 11/09/17 11/09/17 Range/Units 10:33 10:33 14:38 WBC 12.4 H (3.8-10.6) k/uL MCHC 29.4 L (31.0-37.0) g/dL Neutrophils # 10.2 H (1.3-7.7) k/uL ABG pH 7.20 L* (7.35-7.45) ABG pCO2 86 H* (35-45) mmHg ABG HCO3 34 H (21-25) mmol/L ABG Total CO2 36 H (19-24) mmol/L ABG O2 Saturation 97.2 H (94-97) % Carbon Dioxide 34 H (22-30) mmol/L BUN 38 H (9-20) mg/dL POC Glucose (mg/dL) (75-99) mg/dL Total Protein 5.4 L (6.3-8.2) g/dL Albumin 2.8 L (3.5-5.0) g/dL 11/09/17 11/09/17 11/10/17 Range/Units 16:24 20:57 05:56 WBC (3.8-10.6) k/uL MCHC (31.0-37.0) g/dL Neutrophils # (1.3-7.7) k/uL ABG pH (7.35-7.45) ABG pCO2 (35-45) mmHg ABG HCO3 (21-25) mmol/L ABG Total CO2 (19-24) mmol/L ABG O2 Saturation (94-97) % Carbon Dioxide (22-30) mmol/L BUN (9-20) mg/dL POC Glucose (mg/dL) 109 H 123 H 125 H (75-99) mg/dL Total Protein (6.3-8.2) g/dL Albumin (3.5-5.0) g/dL Microbiology - Last 24 Hours (Table) 11/05/17 20:48 Blood Culture - Preliminary Blood No Growth after 96 hours 11/05/17 20:24 Gram Stain - Final Sputum Sputum Culture - Final Pseudomonas aeruginosa Assessment and Plan Assessment: Assessment Acute hypoxic respiratory failure with hypercapnia Acute exacerbation of COPD JOSE MARIA Severe chronic persistent asthma with acute exacerbation Metabolic encephalopathy Pseudomonas pneumonia Sepsis with septic shock Hypotension Component of cor pulmonale Acute diastolic heart failure secondary to fluid overload Small bilateral pleural effusions Plan Medications have been reviewed and will be continued as ordered. Today's labs currently pending Gentle diuresis Lasix 40 mg every 12 hours Antibiotics and steroids as ordered Infectious disease on consult Continue with pulmonary hygiene, coughing and deep breathing exercises, and supportive care. Supplemental oxygen to maintain oxygen saturations of 92% or better. Continue nebulizer treatments. Pulmicort increased to 1 mg BiPAP at night, with naps and when necessary, wean FiO2 as tolerated GI and DVT prophylaxis. Increase activity as tolerated, PT and OT We will continue to monitor labs/results and adjust treatment as necessary. Further recommendations pending. I performed an examination of the patient and discussed their management with the nurse practitioner. I have reviewed the nurse practitioner's note and agree with the documented findings and plan of care.
[2017-11-10 10:17] LABS: Calcium 8.6 mg/dL (8.4-10.2); Potassium 4.3 mmol/L (3.5-5.1); Total Bilirubin 0.4 mg/dL (0.2-1.3); Total Protein 5.4 g/dL (6.3-8.2)
[2017-11-10 12:00] LABS: Glucose,Whole Blood 110 mg/dL (75-99)
--- NOTE | 2017-11-10 14:22 | P.PN ---
Subjective Progress Note Date: 11/10/17 This is a 72 years old male patient of Dr. Chu present with past medical history of hypertension, unknown diagnosis of COPD was last seen in 2014 when patient was intubated for 48 hours with similar presentation of unresponsiveness and hypoxic. Patient was intubated during that time and was found to have pulmonary congestion on the chest x-ray and was treated for community-acquired pneumonia. Patient is brought in today by family as patient was not doing well for the past 1 week he was found to be increasingly weak and lethargic. EMS was called , patient was found to be hypoxic in the low 70s though responsive. On presentation to the ER, patient was found to be in severe respiratory distress and nearly unresponsive was placed on BiPAP for one of our with no improvement and finally he was intubated. Labs obtained suggest a pH of 7.14 CO2 74 CO2 27 pO2 105 and 60% FiO2, WBC 11.2, B UN is 37 creatinine 1.4 decreased from 1.6. Baseline creatinines appear to be 1.1-1.2. Lactic acid on admission was 2.9 brought down to 1.5 postfluid resuscitation with 4 L. Chest x-ray suggested by basilar infiltrates with signs of congestion concerning for pulmonary edema from the fluid resuscitation. Patient is currently mechanically ventilated on 50% FiO2 managed by Dr. Logan and Dr. Jefferson. And appears to be in COPD exacerbation and initiated on Solu-Medrol 60 every 6. He received a dose of levofloxacin in the ER and Zosyn was continued. Patient will be started on broad-spectrum antibiotic including Zosyn and cefepime for dual coverage. Echocardiogram will be obtained. Previous echocardiogram from 2015 suggestive of EF of 50-55% with no wall or valvular abnormality. Patient is currently on 2 mics per minute of norepinephrine, is sedated on propofol. Patient does comprehend and follows command off sedation but gets agitated and tries to remove the tube when sedation is weaned off. Blood culture and urine cultures sent 11/07: Patient remains in intensive care unit and is currently in no CODE STATUS. Norepinephrine is currently on hold. He is now on 6 L nasal cannula. Patient denies having any shortness of breath. He does have cough but denies sputum production. He denies any chest pain or abdominal pain. He denies any focalized extremity weakness. His is at the bedside and states that he has not been feeling well for about a month and very short of breath for the past few days. Echocardiogram reveals EF of 60-65% with borderline concentric left ventricular hypertrophy, mild tricuspid regurgitation, mild pulmonary hypertension. Patient is followed by multiple consultants including Dr. NATALYA Jefferson from pulmonary medicine, Dr. Chavez from infectious disease. Patient has been continued on Zosyn and Levaquin. Chest x-ray reveals COPD with improvement in the previous CHF. Mild pulmonary vascular congestion remains. Residual small left greater than right pleural effusions with adjacent patchy left basilar atelectasis and/or infiltrate. Serum culture is showing Pseudomonas species. Blood cultures no growth after 24 hours. Patient has been afebrile. 11/08: Patient has been using either high flow oxygen 10 L or BiPAP. His states he was feeling weak and not feeling well and he was placed back on BiPAP by nursing. His pulse ox is 99 200%. Patient's respirations are labored. ABGs been ordered. Hemoglobin is stable at 12.5. Creatinine is 1.16. Sputum cultures positive for Pseudomonas pansensitive and patient is currently on Zosyn and Levaquin. He is continued on Solu-Medrol which is a 40 mg IV every 8 hours and one additional dose of 60 added for today. 11/09: Patient has been transferred out of the intensive care unit. He remains on high flow oxygen at 8 L and pulse oxing 98%. Blood pressure is on the lower side. Repeat chest x-ray shows correlate for heart failure with slight interval worsening interstitial pulmonary edema. Background COPD. Small pleural effusions with adjacent atelectasis and or consolidation persists. Patient was given 1 dose of IV Lasix 60 mg this morning. We will stop IV fluids. A repeat dose of Lasix 60 mg this afternoon and patient will be started on 40 mg IV every 12 hours to start tonight. Patient was on O2 by nasal cannula for about one and half hours and had return to CPAP. Dr. Rolle is following. He is currently on Levaquin and Zosyn. Pseudomonas in the sputum. He remains on Solu-Medrol 40 mg IV every 8 hours. ABGs show pH 7.20, pCO2 86, pO2 86, bicarbonate of 34, total CO2 36, O2 saturation 97.2. Patient is to maintain pulse ox around 90% only. 11/10: Patient is tolerating being off BiPAP for only about an hour and a half before meals. His CO2 this morning is 41. He was added and Lasix yesterday with good urine output and weight is down 2 kg. BUN is 44 and creatinine 1.40. We'll plan to continue Lasix 40 mg IV every 12 hours. Objective - Vital Signs Vital signs: Vital Signs Temp 97.5 F L 11/10/17 08:00 Pulse 100 11/10/17 08:55 Resp 30 H 11/10/17 08:00 BP 116/61 11/10/17 08:00 Pulse Ox 97 11/10/17 08:00 Intake & Output 11/09/17 11/10/17 11/10/17 18:59 06:59 18:59 Intake Total 135 750 0 Output Total 2150 850 300 Balance -2014 Weight 99 kg Intake: IV 750 Piperacillin-Tazobactam 3 50 .375 gm In Dextrose/Water 1 50ml.bag @ 12.5 mls/hr IVPB Q8HR SONY Rx#: [id number] Sodium Chloride 0.9% 1, 700 000 ml @ 100 mls/hr IV . Q10H SONY Rx#:[id number] Oral 135 0 Output: Urine 2150 850 300 Other: Voiding Method Indwelling Catheter Urinal Urinal # Voids 1 # Bowel Movements 0 ABP, PAP, CO, CI - Last Documented Arterial Blood Pressure 90/41 - Exam General appearance: average body habitus, mild acute distress - EENT Eyes: PERRLA, no photophobia Ears: bilateral: normal - Neck Neck: no lymphadenopathy Carotids: bilateral: upstroke normal - Respiratory Respiratory: bilateral: diminished, dullness, rales, rhonchi, negative: wheezing - Cardiovascular Rhythm: regular Heart sounds: normal: S1, S2 Abnormal Heart Sounds: no systolic murmur, no diastolic murmur, no rub, no click foot Peripheral Edema: bilateral: 1+ dorsalis pedis Peripheral Pulses: bilateral: Normal - Gastrointestinal General gastrointestinal: distended, normal bowel sounds, soft - Integumentary Integumentary: no calor, no cellulitis, no cyanotic - Musculoskeletal Generalized weakness. No focal neuro deficits - Psychiatric Awake and alert. - Labs CBC & Chem 7: 11/10/17 09:45 11/10/17 09:45 Labs: Abnormal Lab Results - Last 24 Hours (Table) 11/09/17 11/09/17 11/09/17 Range/Units 10:33 10:33 14:38 WBC 12.4 H (3.8-10.6) k/uL MCHC 29.4 L (31.0-37.0) g/dL Plt Count (150-450) k/uL Neutrophils # 10.2 H (1.3-7.7) k/uL Lymphocytes # (1.0-4.8) k/uL ABG pH 7.20 L* (7.35-7.45) ABG pCO2 86 H* (35-45) mmHg ABG HCO3 34 H (21-25) mmol/L ABG Total CO2 36 H (19-24) mmol/L ABG O2 Saturation 97.2 H (94-97) % Chloride (98-107) mmol/L Carbon Dioxide 34 H (22-30) mmol/L BUN 38 H (9-20) mg/dL Creatinine (0.66-1.25) mg/dL Glucose (74-99) mg/dL POC Glucose (mg/dL) (75-99) mg/dL Alkaline Phosphatase (38-126) U/L Total Protein 5.4 L (6.3-8.2) g/dL Albumin 2.8 L (3.5-5.0) g/dL 11/09/17 11/09/17 11/10/17 Range/Units 16:24 20:57 05:56 WBC (3.8-10.6) k/uL MCHC (31.0-37.0) g/dL Plt Count (150-450) k/uL Neutrophils # (1.3-7.7) k/uL Lymphocytes # (1.0-4.8) k/uL ABG pH (7.35-7.45) ABG pCO2 (35-45) mmHg ABG HCO3 (21-25) mmol/L ABG Total CO2 (19-24) mmol/L ABG O2 Saturation (94-97) % Chloride (98-107) mmol/L Carbon Dioxide (22-30) mmol/L BUN (9-20) mg/dL Creatinine (0.66-1.25) mg/dL Glucose (74-99) mg/dL POC Glucose (mg/dL) 109 H 123 H 125 H (75-99) mg/dL Alkaline Phosphatase (38-126) U/L Total Protein (6.3-8.2) g/dL Albumin (3.5-5.0) g/dL 11/10/17 11/10/17 Range/Units 09:45 09:45 WBC (3.8-10.6) k/uL MCHC 30.2 L (31.0-37.0) g/dL Plt Count 139 L (150-450) k/uL Neutrophils # (1.3-7.7) k/uL Lymphocytes # 0.5 L (1.0-4.8) k/uL ABG pH (7.35-7.45) ABG pCO2 (35-45) mmHg ABG HCO3 (21-25) mmol/L ABG Total CO2 (19-24) mmol/L ABG O2 Saturation (94-97) % Chloride 97 L (98-107) mmol/L Carbon Dioxide 41 H* (22-30) mmol/L BUN 44 H (9-20) mg/dL Creatinine 1.40 H (0.66-1.25) mg/dL Glucose 124 H (74-99) mg/dL POC Glucose (mg/dL) (75-99) mg/dL Alkaline Phosphatase 36 L (38-126) U/L Total Protein 5.4 L (6.3-8.2) g/dL Albumin 3.0 L (3.5-5.0) g/dL Microbiology - Last 24 Hours (Table) 11/05/17 20:48 Blood Culture - Preliminary Blood No Growth after 96 hours 11/05/17 20:24 Gram Stain - Final Sputum Sputum Culture - Final Pseudomonas aeruginosa Assessment and Plan Plan: 1. Acute hypoxic hypercapnic respiratory failure secondary to COPD exacerbation with pseudomonas pneumonia. Continue Levaquin and Zosyn, consult with Dr. Aquilino gill. Patient is followed by Dr. NATALYA Jefferson/Dr. Logan. critical care medicine. Patient currently is receiving IV Solu-Medrol and additional dose given, nebulized treatments and Pulmicort and DuoNeb along with IV antibiotics Sputum culture positive for Pseudomonas. Aspiration precautions maintained. Currently off norepinephrine. Plan to keep pulse ox between 88-90% 2. Lactic acidosis likely secondary to septic shock. Status post IV fluids. Continue broad-spectrum IV antibiotics. Lactic acid improved. 3. Hypercarbic respiratory failure secondary to COPD underlying obstructive sleep apnea cannot be excluded he is echocardiogram did not reveal any right ventricular systolic pressure abnormalityIn 2015. Repeat echocardiogram. 4. COPD exacerbation currently on IV Solu-Medrol and nebulized treatments 5. Sepsis with septic shock secondary to Pseudomonas pneumonia. Continue Levaquin and Zosyn. 6. Acute diastolic heart failure secondary to fluid overload. IV fluids stopped. Patient to receive 2 doses of Lasix 60 mg IV push then start 40 mg twice daily. 7. Current tobacco dependency and is a current tobacco smoker 8. Hypertension off norepinephrine hold antihypertensive medications 9. Gout history 10. VTE prophylaxis is provided with heparin subcu 11. GI prophylaxis IV Protonix CODE STATUS: FULL CODE Discharge plan: Home with [facility] care Impression and plan of care have been directed as dictated by the signing physician. Ann-Marie Ortiz nurse practitioner acting as scribe for signing physician.
--- NOTE | 2017-11-10 15:32 | PN ---
PROGRESS NOTE DATE OF SERVICE: 11/10/2017 REASON FOR FOLLOWUP: Pseudomonas aeruginosa pneumonia. INTERVAL HISTORY: The patient is currently afebrile. He seems to be breathing comfortably, but still requiring BiPAP. Denies having any chest pain. No abdominal pain and no diarrhea. PHYSICAL EXAMINATION: Blood pressure is 104/54 with a pulse of 90, temperature of 98. He is 96% on 8 L high- flow oxygen. General description is an elderly male, up in the bed in no distress. RESPIRATORY SYSTEM: Unlabored breathing with decreased breath sounds in the base, with no wheeze. HEART: S1, S2. Regular rate and rhythm. ABDOMEN: Soft, no tenderness. LABS: Hemoglobin is 14.1, white count of 8.6, BUN of 44, creatinine is 1.40. DIAGNOSTIC IMPRESSION AND PLAN: Patient with Pseudomonas aeruginosa pneumonia. Patient at this time will continue with Zosyn, will switch over the Levaquin to Cipro for better pseudomonas coverage and if the patient continues may be able to finish therapy with oral antibiotic. Continue supportive care. MMODL / IJN: [id number] /
[2017-11-10 17:03] LABS: Glucose,Whole Blood 154 mg/dL (75-99)
[2017-11-10] MEDS: BUDESONIDE 1 MG/2 ML NEBU INHALATION SCH (19:52)
[2017-11-10] MEDS: CIPROFLOXACIN HCL 500 MG TAB PO SCH (20:11)
[2017-11-10] MEDS: MONTELUKAST 10 MG TAB PO SCH (20:11)
[2017-11-10 21:09] LABS: Glucose,Whole Blood 162 mg/dL (75-99)
[2017-11-11] MEDS: PIPERACILLIN-TAZOBACTAM 3.375 GM in DEXTROSE/WATER 1 50ML.BAG IVPB SCH ×4 (00:43→23:13)
[2017-11-11] MEDS: methylPREDNISolone SOD SUCCI 40 MG/ML 1 ML VIAL IV SCH ×4 (00:44→23:13)
[2017-11-11] MEDS: INSULIN ASPART 100 UNIT/ML 1 ML 10 ML VIAL SQ SCH ×5 (00:44→21:01)
[2017-11-11 05:55] LABS: Glucose,Whole Blood 141 mg/dL (75-99)
[2017-11-11] MEDS: PANTOPRAZOLE 40 MG TABLET PO SCH (06:55)
[2017-11-11] MEDS: FUROSEMIDE 10 MG/ML 4 ML VIAL IV SCH ×2 (08:08→20:11)
[2017-11-11] MEDS: HEPARIN SODIUM,PORCINE 5,000 UNIT/ML 1 ML VIAL SQ SCH ×2 (08:09→20:11)
[2017-11-11] MEDS: CIPROFLOXACIN HCL 500 MG TAB PO SCH ×2 (08:09→20:11)
[2017-11-11] MEDS: IPRATROPIUM-ALBUTEROL 3 ML NEB INHALATION SCH ×4 (08:33→19:31)
[2017-11-11] MEDS: BUDESONIDE 1 MG/2 ML NEBU INHALATION SCH ×2 (08:33→19:31)
--- NOTE | 2017-11-11 09:36 | P.PN ---
Subjective Progress Note Date: 11/11/17 HPI: King Viveros is a 72-year-old patient of mine who I actively follow in the outpatient setting, who apparently came into the ED because of severe respiratory distress. He was also unresponsive, subsequently was seen in the ER and intubated Interval history: 11/07/2017- Patient is being seen examined and evaluated today on rounds. He is resting up in bed on 6 L of supplemental oxygen via nasal cannula. Patient did utilizes BiPAP overnight. His blood cultures have been positive for gram- positive bacteria. He did have pressors running throughout the night and were weaned off today about 7:30 this morning. He has been hemodynamically stable. Afebrile. Infectious disease also on consult. He continues on nebulizer treatments and steroids. He has had a good appetite, good urinary output. No further complaints. Echocardiogram reviewed EF between 60 and 65%, RVSP 39.79 11/08/17- patient is being seen examined and evaluated today on rounds. He is resting up in bed on BiPAP. He was on 6 L of high flow oxygen this morning however did develop some shortness of breath and was put on 10 L of high flow. The patient then wanted to take a nap therefore he was transitioned to BiPAP for his neck. His sputum is growing Pseudomonas. Infectious disease follows him. White count is 12.9. He has been making good urine, has had a good appetite. He is afebrile, he had no overnight events. He has no further complaints. All labs and reports have been reviewed 11/09/17- patient is being seen examined and evaluated today on rounds. He is resting up in bed on BiPAP. Apparently the patient did utilizes BiPAP overnight he was trialed on 8 L of high flow oxygen this morning however he did get quite tachypnic and required being placed back on the BiPAP. We will get a stat chest x-ray. He does have some bibasilar crackles we'll also give him a 1 time dose of Lasix. Of note he also did receive an extra dose of Solu-Medrol yesterday. 11/10/17- patient is being seen examined and evaluated today on the selective care unit. He is resting in bed sleeping on BiPAP. He is easily arousable. He states that he was on high flow nasal cannula for breakfast and tolerated that for a short period of time before wanting to go back on the BiPAP. The patient did receive 2 doses of Lasix 60 mg yesterday, he has had approximately 2000 ML's output in the last 24 hours. His current BiPAP settings are IPAP of 15 and EPAP of 10 with an FiO2 of 50%. He continues with antibiotics and steroids as well. Overall the patient states he feels slightly better today than yesterday. We will trial the patient off of the BiPAP again for lunchtime. Continue with gentle diuresis. Daily weights and monitor his I&O's 11/11/17-patient is being seen examined and evaluated today on rounds. He is resting up in bed on 7 L high flow nasal cannula. He states his breathing is at significant currently improving however is not at baseline. He has been responding well to the Lasix. Continue to wean down his oxygen as tolerated, increase activity as tolerated. Work with PT and OT. Objective - Vital Signs Vital signs: Vital Signs Temp 97.1 F L 11/11/17 08:00 Pulse 80 11/11/17 08:46 Resp 28 H 11/11/17 08:00 BP 111/61 11/11/17 08:00 Pulse Ox 96 11/11/17 08:00 Intake & Output 11/10/17 11/11/17 11/11/17 18:59 06:59 18:59 Intake Total 410 290 Output Total 1999 1250 600 Balance -1590 -960 -600 Weight 95.8 kg Intake: Intake, IV Titration 50 50 Amount Piperacillin-Tazobactam 3 50 50 .375 gm In Dextrose/Water 1 50ml.bag @ 12.5 mls/hr IVPB Q8HR [facility] Rx#: [id number] Oral 360 240 Output: Urine 1999 1250 600 Other: Voiding Method Urinal Urinal Urinal ABP, PAP, CO, CI - Last Documented Arterial Blood Pressure 90/41 - Exam GENERAL EXAM: Alert, comfortable in no apparent distress. HEAD: Normocephalic. EYES: Normal reaction of pupils, equal size. NOSE: Clear with pink turbinates. THROAT: No erythema or exudates. NECK: No masses, no JVD. CHEST: No chest wall deformity. LUNGS: Lungs noted to be diminished bilaterally with some expiratory wheezing, improving CVS: S1 and S2 normal with no audible mumurs, regular rhythm. ABDOMEN: No hepatosplenomegaly, normal bowel sounds, no guarding or rigidity. EXTREMITIES: +1-2 edema noted, pedal pulses palpable. CENTRAL NERVOUS SYSTEM: No focal deficits, tone is normal in all 4 extremities. - Labs CBC & Chem 7: 11/10/17 09:45 11/10/17 09:45 Labs: Abnormal Lab Results - Last 24 Hours (Table) 11/10/17 11/10/17 11/10/17 Range/Units 09:45 09:45 11:59 MCHC 30.2 L (31.0-37.0) g/dL Plt Count 139 L (150-450) k/uL Lymphocytes # 0.5 L (1.0-4.8) k/uL Chloride 97 L (98-107) mmol/L Carbon Dioxide 41 H* (22-30) mmol/L BUN 44 H (9-20) mg/dL Creatinine 1.40 H (0.66-1.25) mg/dL Glucose 124 H (74-99) mg/dL POC Glucose (mg/dL) 110 H (75-99) mg/dL Alkaline Phosphatase 36 L (38-126) U/L Total Protein 5.4 L (6.3-8.2) g/dL Albumin 3.0 L (3.5-5.0) g/dL 11/10/17 11/10/17 11/11/17 Range/Units 16:55 21:06 05:53 MCHC (31.0-37.0) g/dL Plt Count (150-450) k/uL Lymphocytes # (1.0-4.8) k/uL Chloride (98-107) mmol/L Carbon Dioxide (22-30) mmol/L BUN (9-20) mg/dL Creatinine (0.66-1.25) mg/dL Glucose (74-99) mg/dL POC Glucose (mg/dL) 154 H 162 H 141 H (75-99) mg/dL Alkaline Phosphatase (38-126) U/L Total Protein (6.3-8.2) g/dL Albumin (3.5-5.0) g/dL Microbiology - Last 24 Hours (Table) 11/05/17 20:48 Blood Culture - Preliminary Blood No Growth after 120 hours Assessment and Plan Assessment: Assessment Acute hypoxic respiratory failure with hypercapnia Acute exacerbation of COPD JOSE MARIA Severe chronic persistent asthma with acute exacerbation Metabolic encephalopathy Pseudomonas pneumonia Sepsis with septic shock Hypotension Component of cor pulmonale Acute diastolic heart failure secondary to fluid overload Small bilateral pleural effusions Plan Medications have been reviewed and will be continued as ordered. Gentle diuresis Lasix 40 mg every 12 hours Antibiotics and steroids as ordered Infectious disease on consult Continue with pulmonary hygiene, coughing and deep breathing exercises, and supportive care. Supplemental oxygen to maintain oxygen saturations of 92% or better. Continue nebulizer treatments. Pulmicort increased to 1 mg BiPAP at night, with naps and when necessary, wean FiO2 as tolerated GI and DVT prophylaxis. Initiate and encourage incentive spirometer Increase activity as tolerated, PT and OT We will continue to monitor labs/results and adjust treatment as necessary. Further recommendations pending. I performed an examination of the patient and discussed their management with the nurse practitioner. I have reviewed the nurse practitioner's note and agree with the documented findings and plan of care.
[2017-11-11 11:53] LABS: Glucose,Whole Blood 106 mg/dL (75-99)
[2017-11-11 12:03] LABS: Albumin 3.1 g/dL (3.5-5.0); Calcium 8.7 mg/dL (8.4-10.2); Potassium 4.4 mmol/L (3.5-5.1); Total Bilirubin 0.7 mg/dL (0.2-1.3); Total Protein 5.6 g/dL (6.3-8.2)
--- NOTE | 2017-11-11 14:36 | P.PN ---
Subjective Progress Note Date: 11/11/17 This is a 72 years old male patient of Dr. Chu present with past medical history of hypertension, unknown diagnosis of COPD was last seen in 2014 when patient was intubated for 48 hours with similar presentation of unresponsiveness and hypoxic. Patient was intubated during that time and was found to have pulmonary congestion on the chest x-ray and was treated for community-acquired pneumonia. Patient is brought in today by family as patient was not doing well for the past 1 week he was found to be increasingly weak and lethargic. EMS was called , patient was found to be hypoxic in the low 70s though responsive. On presentation to the ER, patient was found to be in severe respiratory distress and nearly unresponsive was placed on BiPAP for one of our with no improvement and finally he was intubated. Labs obtained suggest a pH of 7.14 CO2 74 CO2 27 pO2 105 and 60% FiO2, WBC 11.2, B UN is 37 creatinine 1.4 decreased from 1.6. Baseline creatinines appear to be 1.1-1.2. Lactic acid on admission was 2.9 brought down to 1.5 postfluid resuscitation with 4 L. Chest x-ray suggested by basilar infiltrates with signs of congestion concerning for pulmonary edema from the fluid resuscitation. Patient is currently mechanically ventilated on 50% FiO2 managed by Dr. Logan and Dr. Jefferson. And appears to be in COPD exacerbation and initiated on Solu-Medrol 60 every 6. He received a dose of levofloxacin in the ER and Zosyn was continued. Patient will be started on broad-spectrum antibiotic including Zosyn and cefepime for dual coverage. Echocardiogram will be obtained. Previous echocardiogram from 2015 suggestive of EF of 50-55% with no wall or valvular abnormality. Patient is currently on 2 mics per minute of norepinephrine, is sedated on propofol. Patient does comprehend and follows command off sedation but gets agitated and tries to remove the tube when sedation is weaned off. Blood culture and urine cultures sent 11/07: Patient remains in intensive care unit and is currently in no CODE STATUS. Norepinephrine is currently on hold. He is now on 6 L nasal cannula. Patient denies having any shortness of breath. He does have cough but denies sputum production. He denies any chest pain or abdominal pain. He denies any focalized extremity weakness. His is at the bedside and states that he has not been feeling well for about a month and very short of breath for the past few days. Echocardiogram reveals EF of 60-65% with borderline concentric left ventricular hypertrophy, mild tricuspid regurgitation, mild pulmonary hypertension. Patient is followed by multiple consultants including Dr. NATALYA Jefferson from pulmonary medicine, Dr. Chavez from infectious disease. Patient has been continued on Zosyn and Levaquin. Chest x-ray reveals COPD with improvement in the previous CHF. Mild pulmonary vascular congestion remains. Residual small left greater than right pleural effusions with adjacent patchy left basilar atelectasis and/or infiltrate. Serum culture is showing Pseudomonas species. Blood cultures no growth after 24 hours. Patient has been afebrile. 11/08: Patient has been using either high flow oxygen 10 L or BiPAP. His states he was feeling weak and not feeling well and he was placed back on BiPAP by nursing. His pulse ox is 99 200%. Patient's respirations are labored. ABGs been ordered. Hemoglobin is stable at 12.5. Creatinine is 1.16. Sputum cultures positive for Pseudomonas pansensitive and patient is currently on Zosyn and Levaquin. He is continued on Solu-Medrol which is a 40 mg IV every 8 hours and one additional dose of 60 added for today. 11/09: Patient has been transferred out of the intensive care unit. He remains on high flow oxygen at 8 L and pulse oxing 98%. Blood pressure is on the lower side. Repeat chest x-ray shows correlate for heart failure with slight interval worsening interstitial pulmonary edema. Background COPD. Small pleural effusions with adjacent atelectasis and or consolidation persists. Patient was given 1 dose of IV Lasix 60 mg this morning. We will stop IV fluids. A repeat dose of Lasix 60 mg this afternoon and patient will be started on 40 mg IV every 12 hours to start tonight. Patient was on O2 by nasal cannula for about one and half hours and had return to CPAP. Dr. Rolle is following. He is currently on Levaquin and Zosyn. Pseudomonas in the sputum. He remains on Solu-Medrol 40 mg IV every 8 hours. ABGs show pH 7.20, pCO2 86, pO2 86, bicarbonate of 34, total CO2 36, O2 saturation 97.2. Patient is to maintain pulse ox around 90% only. 11/10: Patient is tolerating being off BiPAP for only about an hour and a half before meals. His CO2 this morning is 41. He was added and Lasix yesterday with good urine output and weight is down 2 kg. BUN is 44 and creatinine 1.40. We'll plan to continue Lasix 40 mg IV every 12 hours. 11/11: Dr. Rolle has recommended continue Zosyn and switch Levaquin to ciprofloxacin. Patient has been afebrile. He has been on BiPAP alternating with high flow oxygen at 6-8 L. lungs sounds are improved today. Patient is hoping for discharge over the weekend. Most likely patient will be here until Tuesday. Patient does not have home oxygen which will be needed at discharge. Objective - Vital Signs Vital signs: Vital Signs Temp 97.1 F L 11/11/17 08:00 Pulse 80 11/11/17 08:46 Resp 28 H 11/11/17 08:00 BP 111/61 11/11/17 08:00 Pulse Ox 96 11/11/17 08:00 Intake & Output 11/10/17 11/11/17 11/11/17 18:59 06:59 18:59 Intake Total 410 290 Output Total 1999 1250 600 Balance -1590 -960 -600 Weight 95.8 kg Intake: Intake, IV Titration 50 50 Amount Piperacillin-Tazobactam 3 50 50 .375 gm In Dextrose/Water 1 50ml.bag @ 12.5 mls/hr IVPB Q8HR [facility] Rx#: [id number] Oral 360 240 Output: Urine 1999 1250 600 Other: Voiding Method Urinal Urinal Urinal ABP, PAP, CO, CI - Last Documented Arterial Blood Pressure 90/41 - Exam General appearance: average body habitus, mild acute distress - EENT Eyes: PERRLA, no photophobia Ears: bilateral: normal - Neck Neck: no lymphadenopathy Carotids: bilateral: upstroke normal - Respiratory Respiratory: bilateral: diminished, dullness, rales, rhonchi, negative: wheezing - Cardiovascular Rhythm: regular Heart sounds: normal: S1, S2 Abnormal Heart Sounds: no systolic murmur, no diastolic murmur, no rub, no click foot Peripheral Edema: bilateral: 1+ dorsalis pedis Peripheral Pulses: bilateral: Normal - Gastrointestinal General gastrointestinal: distended, normal bowel sounds, soft - Integumentary Integumentary: no calor, no cellulitis, no cyanotic - Musculoskeletal Generalized weakness. No focal neuro deficits - Psychiatric Awake and alert. - Labs CBC & Chem 7: 11/10/17 09:45 11/11/17 11:24 Labs: Abnormal Lab Results - Last 24 Hours (Table) 11/10/17 11/10/17 11/10/17 Range/Units 09:45 09:45 11:59 MCHC 30.2 L (31.0-37.0) g/dL Plt Count 139 L (150-450) k/uL Lymphocytes # 0.5 L (1.0-4.8) k/uL Chloride 97 L (98-107) mmol/L Carbon Dioxide 41 H* (22-30) mmol/L BUN 44 H (9-20) mg/dL Creatinine 1.40 H (0.66-1.25) mg/dL Glucose 124 H (74-99) mg/dL POC Glucose (mg/dL) 110 H (75-99) mg/dL Alkaline Phosphatase 36 L (38-126) U/L Total Protein 5.4 L (6.3-8.2) g/dL Albumin 3.0 L (3.5-5.0) g/dL 11/10/17 11/10/17 11/11/17 Range/Units 16:55 21:06 05:53 MCHC (31.0-37.0) g/dL Plt Count (150-450) k/uL Lymphocytes # (1.0-4.8) k/uL Chloride (98-107) mmol/L Carbon Dioxide (22-30) mmol/L BUN (9-20) mg/dL Creatinine (0.66-1.25) mg/dL Glucose (74-99) mg/dL POC Glucose (mg/dL) 154 H 162 H 141 H (75-99) mg/dL Alkaline Phosphatase (38-126) U/L Total Protein (6.3-8.2) g/dL Albumin (3.5-5.0) g/dL Microbiology - Last 24 Hours (Table) 11/05/17 20:48 Blood Culture - Preliminary Blood No Growth after 120 hours Assessment and Plan Plan: 1. Acute hypoxic hypercapnic respiratory failure secondary to COPD exacerbation with pseudomonas pneumonia. Continue ciprofloxacin and Zosyn, consult with Dr. Aquilino appreciated. Patient is followed by Dr. NATALYA Jefferson/Dr. Logan. critical care medicine. Patient currently is receiving IV Solu-Medrol and additional dose given, nebulized treatments and Pulmicort and DuoNeb along with IV antibiotics Sputum culture positive for Pseudomonas. Aspiration precautions maintained. Currently off norepinephrine. Plan to keep pulse ox between 88-90% 2. Lactic acidosis likely secondary to septic shock. Status post IV fluids. Continue broad-spectrum IV antibiotics. Lactic acid improved. 3. Hypercarbic respiratory failure secondary to COPD underlying obstructive sleep apnea cannot be excluded he is echocardiogram did not reveal any right ventricular systolic pressure abnormalityIn 2015. Repeat echocardiogram. 4. COPD exacerbation currently on IV Solu-Medrol and nebulized treatments 5. Sepsis with septic shock secondary to Pseudomonas pneumonia. Continue Levaquin and Zosyn. 6. Acute diastolic heart failure secondary to fluid overload. IV fluids stopped. Patient to receive 2 doses of Lasix 60 mg IV push then start 40 mg twice daily. 7. Current tobacco dependency and is a current tobacco smoker 8. Hypertension off norepinephrine hold antihypertensive medications 9. Gout history 10. VTE prophylaxis is provided with heparin subcu 11. GI prophylaxis IV Protonix 12. Chronic hypoxic, hypercapnic respiratory failure requiring home O2. Continue to monitor closer to discharge. CODE STATUS: FULL CODE Discharge plan: Home with [facility] Impression and plan of care have been directed as dictated by the signing physician. Ann-Marie Ortiz nurse practitioner acting as scribe for signing physician.
[2017-11-11 16:53] LABS: Glucose,Whole Blood 135 mg/dL (75-99)
[2017-11-11] MEDS: MONTELUKAST 10 MG TAB PO SCH (20:10)
[2017-11-11 20:51] LABS: Glucose,Whole Blood 120 mg/dL (75-99)
[2017-11-12 06:31] LABS: Glucose,Whole Blood 115 mg/dL (75-99)
[2017-11-12] MEDS: INSULIN ASPART 100 UNIT/ML 1 ML 10 ML VIAL SQ SCH ×4 (06:34→20:46)
[2017-11-12] MEDS: PANTOPRAZOLE 40 MG TABLET PO SCH (06:35)
[2017-11-12 06:44] LABS: Blood Urea Nitrogen 42 mg/dL (9-20); Calcium 8.4 mg/dL (8.4-10.2); Chloride 89 mmol/L (98-107); Glucose 131 mg/dL (74-99); Potassium 4.3 mmol/L (3.5-5.1); Sodium 137 mmol/L (137-145)
[2017-11-12 06:51] LABS: Anion Gap 0 mmol/L
[2017-11-12 06:52] LABS: Carbon Dioxide 48 mmol/L (22-30)
[2017-11-12 07:09] LABS: Glucose,Whole Blood 256 mg/dL (75-99)
--- NOTE | 2017-11-12 07:49 | PN ---
PROGRESS NOTE DATE OF SERVICE: 11/11/2017. REASON FOR FOLLOWUP: Pseudomonas aeruginosa pneumonia. INTERVAL HISTORY: The patient is currently afebrile. He seemed to be breathing slightly comfortably. Denies significant chest pain or cough. No abdominal pain and no diarrhea. EXAMINATION: Blood pressure is 114/63 with a pulse of 82, temperature of 97.4. He is 97% on 5 L nasal cannula. General description is an elderly male lying in bed in no distress. RESPIRATORY SYSTEM: Unlabored breathing. Decreased breath sounds. No wheeze. HEART: S1, S2. Regular rate and rhythm. ABDOMEN: Soft, no tenderness. LABS: BUN of 43, creatinine 1.04. DIAGNOSTIC IMPRESSION AND PLAN: Patient with Pseudomonas aeruginosa pneumonia for which the patient is currently covered with Zosyn and oral Cipro. That will be continued over the weekend. Hopefully finish therapy with oral antibiotics when he is stabilized for discharge. Continue supportive care. MMODL / IJN: [id number] /
[2017-11-12] MEDS: PIPERACILLIN-TAZOBACTAM 3.375 GM in DEXTROSE/WATER 1 50ML.BAG IVPB SCH ×3 (08:08→23:18)
[2017-11-12] MEDS: CIPROFLOXACIN HCL 500 MG TAB PO SCH ×2 (08:08→19:52)
[2017-11-12] MEDS: methylPREDNISolone SOD SUCCI 40 MG/ML 1 ML VIAL IV SCH (08:08)
[2017-11-12] MEDS: FUROSEMIDE 10 MG/ML 4 ML VIAL IV SCH (08:08)
[2017-11-12] MEDS: HEPARIN SODIUM,PORCINE 5,000 UNIT/ML 1 ML VIAL SQ SCH ×2 (08:09→19:52)
[2017-11-12] MEDS: IPRATROPIUM-ALBUTEROL 3 ML NEB INHALATION SCH ×4 (08:13→20:25)
[2017-11-12] MEDS: BUDESONIDE 1 MG/2 ML NEBU INHALATION SCH (08:13)
[2017-11-12] MEDS ORDERED: LEVOFLOXACIN 750 MG TAB PO SCH (09:00)
--- NOTE | 2017-11-12 09:31 | P.PN ---
Subjective Progress Note Date: 11/12/17 Principal diagnosis: Respiratory failure Patient continued to improve during this hospital stay and feels better since admission patient still in bed and stated that it's hard for him to ambulate in the room but was able to go to bathroom yesterday with little assistance. No major events reported by nursing staff. Patient is denying chest pain, shortness breath, nausea, vomiting, dumping, dizziness or lightheadedness Objective - Vital Signs Vital signs: Vital Signs Temp 97.4 F L 11/11/17 20:00 Pulse 88 11/12/17 08:27 Resp 24 11/12/17 04:00 BP 113/68 11/12/17 04:00 Pulse Ox 92 L 11/12/17 04:00 Intake & Output 11/11/17 11/12/17 11/12/17 18:59 06:59 18:59 Intake Total 260 240 Output Total 1100 500 600 Balance -840 -500 -360 Weight 95.8 kg 93.9 kg Intake: Oral 260 240 Output: Urine 1100 500 600 Other: Voiding Method Urinal Urinal ABP, PAP, CO, CI - Last Documented Arterial Blood Pressure 90/41 - Exam Gen.: in stated age, no acute distress Heart: Normal S1-S2 Lungs: Diminished bilaterally Abdomen: Soft, no tenderness, positive bowel sounds in all 4 quadrant no guarding or rebound Skin: No new rash, multiple bruises noted on his body Psych: Alert and oriented 3 Neuro: No focal deficit - Labs CBC & Chem 7: 11/10/17 09:45 11/12/17 06:10 Labs: Abnormal Lab Results - Last 24 Hours (Table) 11/11/17 11/11/17 11/11/17 Range/Units 11:24 11:49 16:41 Chloride 91 L (98-107) mmol/L Carbon Dioxide 45 H* (22-30) mmol/L BUN 43 H (9-20) mg/dL Glucose 113 H (74-99) mg/dL POC Glucose (mg/dL) 106 H 135 H (75-99) mg/dL Alkaline Phosphatase 36 L (38-126) U/L Total Protein 5.6 L (6.3-8.2) g/dL Albumin 3.1 L (3.5-5.0) g/dL 11/11/17 11/12/17 11/12/17 Range/Units 20:49 06:10 06:27 Chloride 89 L (98-107) mmol/L Carbon Dioxide 48 H* (22-30) mmol/L BUN 42 H (9-20) mg/dL Glucose 131 H (74-99) mg/dL POC Glucose (mg/dL) 120 H 115 H (75-99) mg/dL Alkaline Phosphatase (38-126) U/L Total Protein (6.3-8.2) g/dL Albumin (3.5-5.0) g/dL 11/12/17 Range/Units 07:08 Chloride (98-107) mmol/L Carbon Dioxide (22-30) mmol/L BUN (9-20) mg/dL Glucose (74-99) mg/dL POC Glucose (mg/dL) 256 H (75-99) mg/dL Alkaline Phosphatase (38-126) U/L Total Protein (6.3-8.2) g/dL Albumin (3.5-5.0) g/dL Microbiology - Last 24 Hours (Table) 11/05/17 20:48 Blood Culture - Final Blood No Growth after 144 hours Assessment and Plan Assessment: 1. Acute respiratory failure with hypoxia and hypercapnia. 2. COPD with exacerbation. 3. Pseudomonas pneumonia. Sensitive to Zosyn and Cipro 4. Recent sepsis. 5. Acute diastolic heart failure exacerbation. 6. Tobacco dependency. 7. Hypertension. 8. Gout. I have discussed the plan with patient and nursing staff at the bedside where we would like to consider switching patient's to oral Lasix and decrease his Solu-Medrol dose and hopefully switch him to oral steroids in the morning continue supportive care continue current antibiotics per infectious disease recommendation consult physical and neck patient no therapy regarding patient's debility and deconditioning and follow-up with the recommendation regarding discharge planning
[2017-11-12 11:24] LABS: Glucose,Whole Blood 106 mg/dL (75-99)
--- NOTE | 2017-11-12 13:07 | PN ---
PROGRESS NOTE He was seen on 11/12/2017. He is sitting up in a chair, mildly short of breath. He is doing better overall. PHYSICAL EXAMINATION: On physical examination, his respiratory rate is 20, pulse rate of 83, temperature 97.5, blood pressure 122/64, O2 saturation on 5 L by nasal cannula is 95%. HEENT reveals pupils are equal. Chest reveals decreased breath sounds with prolonged expiration. No wheeze. Cardiovascular system reveals an S1, S2. Abdomen is soft. There is trace pedal edema. Labs reveal sputum cultures are growing Pseudomonas. Electrolytes showed sodium 137, potassium 4.3, chloride 89, bicarb 48, BUN 42, creatinine 0.9. IMPRESSION AT THIS TIME: 1. Acute on chronic respiratory failure. 2. Pseudomonas pneumonia. 3. Chronic obstructive pulmonary disease with asthma with acute exacerbation. 4. Obstructive sleep apnea with CO2 retention. At this point in time, would continue BiPAP on him arrange for home BiPAP if able to and a sleep study as well. Switch him to oral steroids and oral diuretics. Increase his activity level. Discharge planning from a pulmonary standpoint in the next day or 2 would be appropriate. He is counseled regarding his condition. MMODL / IJN: [id number] /
[2017-11-12] MEDS: predniSONE 20 MG TAB PO SCH (17:29)
[2017-11-12] MEDS: FUROSEMIDE 40 MG TAB PO SCH (17:30)
[2017-11-12] MEDS: MONTELUKAST 10 MG TAB PO SCH (19:51)
[2017-11-12] MEDS: BUDESONIDE 0.5 MG/2 ML NEBU INHALATION SCH (20:27)
[2017-11-12 20:41] LABS: Glucose,Whole Blood 115 mg/dL (75-99)
[2017-11-13 06:09] LABS: Glucose,Whole Blood 118 mg/dL (75-99)
[2017-11-13] MEDS: INSULIN ASPART 100 UNIT/ML 1 ML 10 ML VIAL SQ SCH ×4 (06:10→21:04)
[2017-11-13 06:18] LABS: HCT 44.5 % (39.0-53.0); HGB 13.4 gm/dL (13.0-17.5); Hypochromasia Slight; MCH 28.7 pg (25.0-35.0); MCHC 30.1 g/dL (31.0-37.0); MCV 95.3 fL (80.0-100.0); Mean Platelet Volume 7.8; Platelet Count 137 k/uL (150-450); RBC 4.66 m/uL (4.30-5.90); RDW 13.6 % (11.5-15.5); WBC 11.5 k/uL (3.8-10.6)
[2017-11-13 06:32] LABS: Calcium 8.6 mg/dL (8.4-10.2); Potassium 4.2 mmol/L (3.5-5.1)
[2017-11-13] MEDS: PANTOPRAZOLE 40 MG TABLET PO SCH (07:00)
[2017-11-13] MEDS: FUROSEMIDE 40 MG TAB PO SCH ×2 (08:34→16:06)
[2017-11-13] MEDS: predniSONE 20 MG TAB PO SCH (08:34)
[2017-11-13] MEDS: CIPROFLOXACIN HCL 500 MG TAB PO SCH ×2 (08:35→21:06)
[2017-11-13] MEDS: HEPARIN SODIUM,PORCINE 5,000 UNIT/ML 1 ML VIAL SQ SCH ×2 (08:35→21:06)
[2017-11-13] MEDS: PIPERACILLIN-TAZOBACTAM 3.375 GM in DEXTROSE/WATER 1 50ML.BAG IVPB SCH ×2 (08:38→16:06)
[2017-11-13] MEDS: IPRATROPIUM-ALBUTEROL 3 ML NEB INHALATION SCH ×4 (08:42→21:18)
[2017-11-13] MEDS: BUDESONIDE 0.5 MG/2 ML NEBU INHALATION SCH ×2 (08:42→21:17)
[2017-11-13 11:48] LABS: Glucose,Whole Blood 209 mg/dL (75-99)
[2017-11-13 17:23] LABS: Glucose,Whole Blood 102 mg/dL (75-99)
--- NOTE | 2017-11-13 18:29 | PN ---
PROGRESS NOTE DATE OF SERVICE: 11/13/2017. He has been hemodynamically stable. He is less short of breath. PHYSICAL EXAMINATION: Respiratory rate is 20, pulse rate 85, he is afebrile. O2 saturation on 5 L by nasal cannula is 92%. HEENT is unremarkable. Chest reveals decreased breath sounds at bases. Cardiovascular system reveals an S1, S2. Abdomen is soft. There is no pedal edema. LABS: Reveal a sodium 137, potassium 4.2, chloride 85, bicarb 49, BUN 42, creatinine of 1.13. IMPRESSION: At this time: 1. Severe chronic obstructive pulmonary disease with acute exacerbation. 2. Obstructive sleep apnea, relatively untreated. 3. Pseudomonas pneumonia. 4. Acute on chronic respiratory failure. Continue BiPAP. Continue antibiotics. Increases activity level. I agree with possible discharge planning. Taper steroids. Continue him on diuretic at this time. MMODL / IJN: [id number] /
--- NOTE | 2017-11-13 18:57 | P.PN ---
Subjective Progress Note Date: 11/13/17 Principal diagnosis: Respiratory failure Patient seems to be improved overnight no major events reported by nursing staff. Patient is denying chest pain, shortness breath, nausea, vomiting, dumping, dizziness or lightheadedness Objective - Vital Signs Vital signs: Vital Signs Temp 97.5 F L 11/13/17 13:40 Pulse 92 11/13/17 16:59 Resp 20 11/13/17 15:21 BP 113/59 11/13/17 13:40 Pulse Ox 94 L 11/13/17 13:40 Intake & Output 11/12/17 11/13/17 11/13/17 18:59 06:59 18:59 Intake Total 1760 480 Output Total 2275 950 1200 Balance -515 -430 -041 Weight 92.714 kg Intake: Oral 1760 480 Output: Urine 2275 950 1200 Other: Voiding Method Urinal Urinal Urinal # Voids 1 ABP, PAP, CO, CI - Last Documented Arterial Blood Pressure 90/41 - Exam Gen.: in stated age, no acute distress Heart: Normal S1-S2 Lungs: Diminished bilaterally Abdomen: Soft, no tenderness, positive bowel sounds in all 4 quadrant no guarding or rebound Skin: No new rash, multiple bruises noted on his body Psych: Alert and oriented 3 Neuro: No focal deficit - Labs CBC & Chem 7: 11/13/17 05:49 11/13/17 05:49 Labs: Abnormal Lab Results - Last 24 Hours (Table) 11/12/17 11/13/17 11/13/17 Range/Units 20:40 05:49 05:49 WBC 11.5 H (3.8-10.6) k/uL MCHC 30.1 L (31.0-37.0) g/dL Plt Count 137 L (150-450) k/uL Chloride 85 L (98-107) mmol/L Carbon Dioxide 49 H* (22-30) mmol/L BUN 42 H (9-20) mg/dL Glucose 108 H (74-99) mg/dL POC Glucose (mg/dL) 115 H (75-99) mg/dL 11/13/17 11/13/17 11/13/17 Range/Units 06:08 11:36 17:22 WBC (3.8-10.6) k/uL MCHC (31.0-37.0) g/dL Plt Count (150-450) k/uL Chloride (98-107) mmol/L Carbon Dioxide (22-30) mmol/L BUN (9-20) mg/dL Glucose (74-99) mg/dL POC Glucose (mg/dL) 118 H 209 H 102 H (75-99) mg/dL Assessment and Plan Assessment: 1. Acute respiratory failure with hypoxia and hypercapnia. 2. COPD with exacerbation. 3. Pseudomonas pneumonia. Sensitive to Zosyn and Cipro 4. Recent sepsis. 5. Acute diastolic heart failure exacerbation. 6. Tobacco dependency. 7. Hypertension. 8. Gout. I have discussed the plan with patient and nursing staff at the bedside and patient was switched successfully to oral diuretics and will continue monitoring kidney function closely and repeat blood work in the morning and monitor vital signs closely continue supportive care continue current antibiotics per infectious disease recommendation consult physical and neck patient no therapy regarding patient's debility and deconditioning and follow- up with the recommendation regarding discharge planning
[2017-11-13 20:53] LABS: Glucose,Whole Blood 116 mg/dL (75-99)
[2017-11-13] MEDS: MONTELUKAST 10 MG TAB PO SCH (21:07)
[2017-11-14] MEDS: PIPERACILLIN-TAZOBACTAM 3.375 GM in DEXTROSE/WATER 1 50ML.BAG IVPB SCH ×4 (00:04→23:34)
[2017-11-14 07:06] LABS: Glucose,Whole Blood 83 mg/dL (75-99)
[2017-11-14] MEDS: BUDESONIDE 0.5 MG/2 ML NEBU INHALATION SCH ×2 (07:26→19:16)
[2017-11-14] MEDS: IPRATROPIUM-ALBUTEROL 3 ML NEB INHALATION SCH ×4 (07:28→19:16)
[2017-11-14] MEDS: INSULIN ASPART 100 UNIT/ML 1 ML 10 ML VIAL SQ SCH ×4 (07:41→20:29)
[2017-11-14] MEDS: predniSONE 20 MG TAB PO SCH (08:35)
[2017-11-14] MEDS: CIPROFLOXACIN HCL 500 MG TAB PO SCH ×2 (08:36→20:29)
[2017-11-14] MEDS: FUROSEMIDE 40 MG TAB PO SCH ×2 (08:36→16:48)
[2017-11-14] MEDS: HEPARIN SODIUM,PORCINE 5,000 UNIT/ML 1 ML VIAL SQ SCH ×2 (08:36→20:29)
[2017-11-14] MEDS: PANTOPRAZOLE 40 MG TABLET PO SCH (08:36)
--- NOTE | 2017-11-14 10:22 | P.PN ---
<Antonio Amayajessica Bello - Last Filed: 11/14/17 10:17> Subjective Progress Note Date: 11/14/17 HPI: King Viveros is a 72-year-old patient of mine who I actively follow in the outpatient setting, who apparently came into the ED because of severe respiratory distress. He was also unresponsive, subsequently was seen in the ER and intubated Interval history: 11/07/2017- Patient is being seen examined and evaluated today on rounds. He is resting up in bed on 6 L of supplemental oxygen via nasal cannula. Patient did utilizes BiPAP overnight. His blood cultures have been positive for gram- positive bacteria. He did have pressors running throughout the night and were weaned off today about 7:30 this morning. He has been hemodynamically stable. Afebrile. Infectious disease also on consult. He continues on nebulizer treatments and steroids. He has had a good appetite, good urinary output. No further complaints. Echocardiogram reviewed EF between 60 and 65%, RVSP 39.79 11/08/17- patient is being seen examined and evaluated today on rounds. He is resting up in bed on BiPAP. He was on 6 L of high flow oxygen this morning however did develop some shortness of breath and was put on 10 L of high flow. The patient then wanted to take a nap therefore he was transitioned to BiPAP for his neck. His sputum is growing Pseudomonas. Infectious disease follows him. White count is 12.9. He has been making good urine, has had a good appetite. He is afebrile, he had no overnight events. He has no further complaints. All labs and reports have been reviewed 11/09/17- patient is being seen examined and evaluated today on rounds. He is resting up in bed on BiPAP. Apparently the patient did utilizes BiPAP overnight he was trialed on 8 L of high flow oxygen this morning however he did get quite tachypnic and required being placed back on the BiPAP. We will get a stat chest x-ray. He does have some bibasilar crackles we'll also give him a 1 time dose of Lasix. Of note he also did receive an extra dose of Solu-Medrol yesterday. 11/10/17- patient is being seen examined and evaluated today on the selective care unit. He is resting in bed sleeping on BiPAP. He is easily arousable. He states that he was on high flow nasal cannula for breakfast and tolerated that for a short period of time before wanting to go back on the BiPAP. The patient did receive 2 doses of Lasix 60 mg yesterday, he has had approximately 2000 ML's output in the last 24 hours. His current BiPAP settings are IPAP of 15 and EPAP of 10 with an FiO2 of 50%. He continues with antibiotics and steroids as well. Overall the patient states he feels slightly better today than yesterday. We will trial the patient off of the BiPAP again for lunchtime. Continue with gentle diuresis. Daily weights and monitor his I&O's 11/11/17-patient is being seen examined and evaluated today on rounds. He is resting up in bed on 7 L high flow nasal cannula. He states his breathing is at significant currently improving however is not at baseline. He has been responding well to the Lasix. Continue to wean down his oxygen as tolerated, increase activity as tolerated. Work with PT and OT. 11/12/17-11/13/17- See dr NATALYA Wells note 11/14/17- patient is being seen examined and evaluated today on rounds. He is resting up in bed on 4 L of supplemental oxygen via nasal cannula. He states he did use the BiPAP for a few hours last night. He does have shortness of breath with exertion and activity. Denies any cough or congestion today. Has been using his breathing treatments which he says are helping him. Discharge planning underway. We will do a home oxygen evaluation prior to discharge as well as a nocturnal pulse ox to see if he qualifies for BiPAP. Objective - Vital Signs Vital signs: Vital Signs Temp 97.9 F 11/14/17 05:15 Pulse 76 11/14/17 07:40 Resp 16 11/14/17 05:15 BP 102/59 11/14/17 05:15 Pulse Ox 96 11/14/17 07:28 Intake & Output 11/13/17 11/14/17 11/14/17 18:59 06:59 18:59 Intake Total 480 Output Total 1200 Balance -720 Intake: Oral 480 Output: Urine 1200 Other: Voiding Method Urinal Urinal ABP, PAP, CO, CI - Last Documented Arterial Blood Pressure 90/41 - Exam GENERAL EXAM: Alert, comfortable in no apparent distress. HEAD: Normocephalic. EYES: Normal reaction of pupils, equal size. NOSE: Clear with pink turbinates. THROAT: No erythema or exudates. NECK: No masses, no JVD. CHEST: No chest wall deformity. LUNGS: Lungs noted to be diminished bilaterally CVS: S1 and S2 normal with no audible mumurs, regular rhythm. ABDOMEN: No hepatosplenomegaly, normal bowel sounds, no guarding or rigidity. EXTREMITIES: +1-2 edema noted, pedal pulses palpable. CENTRAL NERVOUS SYSTEM: No focal deficits, tone is normal in all 4 extremities. - Labs CBC & Chem 7: 11/13/17 05:49 11/13/17 05:49 Labs: Abnormal Lab Results - Last 24 Hours (Table) 11/13/17 11/13/17 11/13/17 Range/Units 11:36 17:22 20:48 POC Glucose (mg/dL) 209 H 102 H 116 H (75-99) mg/dL Assessment and Plan Assessment: Assessment Acute hypoxic respiratory failure with hypercapnia Acute exacerbation of COPD JOSE MARIA Severe chronic persistent asthma with acute exacerbation Metabolic encephalopathy Pseudomonas pneumonia Sepsis with septic shock Hypotension Component of cor pulmonale Acute diastolic heart failure secondary to fluid overload Small bilateral pleural effusions Plan Medications have been reviewed and will be continued as ordered. Home oxygen assessment prior to discharge Nocturnal oxygen assessment Gentle diuresis Antibiotics and steroids as ordered Infectious disease on consult Continue with pulmonary hygiene, coughing and deep breathing exercises, and supportive care. Supplemental oxygen to maintain oxygen saturations of 92% or better. Continue nebulizer treatments. Pulmicort increased to 1 mg BiPAP at night, with naps and when necessary, wean FiO2 as tolerated GI and DVT prophylaxis. Initiate and encourage incentive spirometer Increase activity as tolerated, PT and OT We will continue to monitor labs/results and adjust treatment as necessary. Discharge planning underway I performed an examination of the patient and discussed their management with the nurse practitioner. I have reviewed the nurse practitioner's note and agree with the documented findings and plan of care. <Jessica Vides - Last Filed: 11/14/17 14:55> Objective - Vital Signs Vital signs: Vital Signs Temp 97.9 F 11/14/17 05:15 Pulse 80 11/14/17 11:22 Resp 16 11/14/17 05:15 BP 102/59 11/14/17 05:15 Pulse Ox 83 L 08/13/18 10:21 Intake & Output 11/13/17 11/14/17 11/14/17 18:59 06:59 18:59 Intake Total 480 50 Output Total 1200 200 Balance -720 -150 Intake: IV 50 Piperacillin-Tazobactam 3 50 .375 gm In Dextrose/Water 1 50ml.bag @ 12.5 mls/hr IVPB Q8HR [facility] Rx#: [id number] Oral 480 Output: Urine 1200 200 Other: Voiding Method Urinal Urinal ABP, PAP, CO, CI - Last Documented Arterial Blood Pressure 90/41 - Labs CBC & Chem 7: 11/13/17 05:49 11/13/17 05:49 Labs: Abnormal Lab Results - Last 24 Hours (Table) 11/13/17 11/13/17 11/14/17 Range/Units 17:22 20:48 11:03 POC Glucose (mg/dL) 102 H 116 H 146 H (75-99) mg/dL Assessment and Plan Assessment: Patient seen and examined. Patient states his breathing is a little bit better since admission, but it's still not good. He did wear the bipap overnight for 2 hours. Continue ABX, steroid taper, Pulmicort, Lasix, Duonebs, Singulair. Will try to arrange for home bipap - AM ABG and overnight pulse ox. PT and OT. Encourage ambulation. ~Jessica Vides,
[2017-11-14 11:05] LABS: Glucose,Whole Blood 146 mg/dL (75-99)
--- NOTE | 2017-11-14 12:00 | PN ---
PROGRESS NOTE DATE OF SERVICE: 11/13/2017 REASON FOR FOLLOWUP: Pseudomonas pneumonia. INTERVAL HISTORY: The patient is afebrile. He has been breathing more comfortably. Denies significant chest pain. Occasional cough. No abdominal pain. No nausea, vomiting or diarrhea. PHYSICAL EXAMINATION: Blood pressure 115/72 with a pulse of 80, temperature 97.9. He is 95% on 4 L nasal cannula. General description is an elderly male up in the bed in no distress. RESPIRATORY SYSTEM: Unlabored breathing with decreased breath sounds. No wheeze. HEART: S1, S2. Regular rate and rhythm. ABDOMEN: Soft, no tenderness. LABS: Hemoglobin 13.4, white count 11.5. DIAGNOSTIC IMPRESSION AND PLAN: Patient with Pseudomonas aeruginosa pneumonia for which the patient received almost 9 days of IV antibiotic therapy in addition to oral antibiotic on discharge for short course with close outpatient followup. LORENL / GLON: [id number] /
[2017-11-14 15:18] VITALS: BMI 29.3
[2017-11-14 17:25] LABS: Glucose,Whole Blood 155 mg/dL (75-99)
[2017-11-14 20:14] LABS: Glucose,Whole Blood 135 mg/dL (75-99)
[2017-11-14] MEDS: MONTELUKAST 10 MG TAB PO SCH (20:29)
[2017-11-15 06:00] VITALS: BP 114/61; RESP 17; TEMP 98
[2017-11-15 06:50] LABS: Glucose,Whole Blood 81 mg/dL (75-99)
[2017-11-15 07:14] LABS: ABG PH 7.45 (7.35-7.45)
[2017-11-15 07:15] LABS: ABG HCO3 46 mmol/L (21-25); ABG PCO2 67 mmHg (35-45); ABG PO2 71 mmHg (83-108)
[2017-11-15] MEDS: INSULIN ASPART 100 UNIT/ML 1 ML 10 ML VIAL SQ SCH (07:33)
[2017-11-15] MEDS: predniSONE 20 MG TAB PO SCH (07:34)
[2017-11-15] MEDS: HEPARIN SODIUM,PORCINE 5,000 UNIT/ML 1 ML VIAL SQ SCH (07:34)
[2017-11-15] MEDS: FUROSEMIDE 40 MG TAB PO SCH (07:34)
[2017-11-15] MEDS: CIPROFLOXACIN HCL 500 MG TAB PO SCH (07:35)
[2017-11-15] MEDS: PANTOPRAZOLE 40 MG TABLET PO SCH (07:35)
[2017-11-15] MEDS: BUDESONIDE 0.5 MG/2 ML NEBU INHALATION SCH (08:07)
[2017-11-15] MEDS: IPRATROPIUM-ALBUTEROL 3 ML NEB INHALATION SCH ×2 (08:07→11:32)
--- NOTE | 2017-11-15 10:49 | PN ---
PROGRESS NOTE DATE OF SERVICE: 11/14/2017. REASON FOR FOLLOWUP: Pseudomonas pneumonia. INTERVAL HISTORY: The patient is afebrile this morning. He has been breathing more comfortably. Denies significant chest pain. Occasional cough. No abdominal pain or any diarrhea. PHYSICAL EXAMINATION: On examination, blood pressure 104/59 with a pulse of 93, temperature 98.1. He is 94% on 4 L nasal cannula. General description is an elderly male up in the bed in no distress. RESPIRATORY SYSTEM: Unlabored breathing, decreased intensity of breath sounds. No wheeze. HEART: S1, S2. Regular rate and rhythm. ABDOMEN: Soft, no tenderness. LABS: No new labs have been obtained today. DIAGNOSTIC IMPRESSION AND PLAN: Patient admitted to the hospital with difficulty breathing likely multifactorial with a component of pneumonia likely with sputum showing Pseudomonas aeruginosa received about 10 days of IV antibiotic therapy. We will finish therapy with oral Cipro for about a week with close outpatient followup. MMODL / IJN: [id number] / MTDD
--- NOTE | 2017-11-15 10:50 | P.PN ---
<Antonio Amayajessica Bello - Last Filed: 11/15/17 10:48> Subjective Progress Note Date: 11/15/17 HPI: King Viveros is a 72-year-old patient of mine who I actively follow in the outpatient setting, who apparently came into the ED because of severe respiratory distress. He was also unresponsive, subsequently was seen in the ER and intubated Interval history: 11/07/2017- Patient is being seen examined and evaluated today on rounds. He is resting up in bed on 6 L of supplemental oxygen via nasal cannula. Patient did utilizes BiPAP overnight. His blood cultures have been positive for gram- positive bacteria. He did have pressors running throughout the night and were weaned off today about 7:30 this morning. He has been hemodynamically stable. Afebrile. Infectious disease also on consult. He continues on nebulizer treatments and steroids. He has had a good appetite, good urinary output. No further complaints. Echocardiogram reviewed EF between 60 and 65%, RVSP 39.79 11/08/17- patient is being seen examined and evaluated today on rounds. He is resting up in bed on BiPAP. He was on 6 L of high flow oxygen this morning however did develop some shortness of breath and was put on 10 L of high flow. The patient then wanted to take a nap therefore he was transitioned to BiPAP for his neck. His sputum is growing Pseudomonas. Infectious disease follows him. White count is 12.9. He has been making good urine, has had a good appetite. He is afebrile, he had no overnight events. He has no further complaints. All labs and reports have been reviewed 11/09/17- patient is being seen examined and evaluated today on rounds. He is resting up in bed on BiPAP. Apparently the patient did utilizes BiPAP overnight he was trialed on 8 L of high flow oxygen this morning however he did get quite tachypnic and required being placed back on the BiPAP. We will get a stat chest x-ray. He does have some bibasilar crackles we'll also give him a 1 time dose of Lasix. Of note he also did receive an extra dose of Solu-Medrol yesterday. 11/10/17- patient is being seen examined and evaluated today on the selective care unit. He is resting in bed sleeping on BiPAP. He is easily arousable. He states that he was on high flow nasal cannula for breakfast and tolerated that for a short period of time before wanting to go back on the BiPAP. The patient did receive 2 doses of Lasix 60 mg yesterday, he has had approximately 2000 ML's output in the last 24 hours. His current BiPAP settings are IPAP of 15 and EPAP of 10 with an FiO2 of 50%. He continues with antibiotics and steroids as well. Overall the patient states he feels slightly better today than yesterday. We will trial the patient off of the BiPAP again for lunchtime. Continue with gentle diuresis. Daily weights and monitor his I&O's 11/11/17-patient is being seen examined and evaluated today on rounds. He is resting up in bed on 7 L high flow nasal cannula. He states his breathing is at significant currently improving however is not at baseline. He has been responding well to the Lasix. Continue to wean down his oxygen as tolerated, increase activity as tolerated. Work with PT and OT. 11/12/17-11/13/17- See dr NATALYA Wells note 11/14/17- patient is being seen examined and evaluated today on rounds. He is resting up in bed on 4 L of supplemental oxygen via nasal cannula. He states he did use the BiPAP for a few hours last night. He does have shortness of breath with exertion and activity. Denies any cough or congestion today. Has been using his breathing treatments which he says are helping him. Discharge planning underway. We will do a home oxygen evaluation prior to discharge as well as a nocturnal pulse ox to see if he qualifies for BiPAP. 11/15/17- patient is being seen examined and evaluated today on rounds. He is continuing on supplemental oxygen which will be ordered for home use as the patient does qualify for home oxygen. He did have a overnight nocturnal oxygen assessment in at this time does not qualify for BiPAP however we will set him up for an official sleep study in the outpatient setting. Patient states he is feeling much better. He feels that his breathing is closer to his baseline. He is afebrile no further complaints. Objective - Vital Signs Vital signs: Vital Signs Temp 98 F 11/15/17 05:00 Pulse 80 11/15/17 08:24 Resp 17 11/15/17 05:00 BP 114/61 11/15/17 05:00 Pulse Ox 72 L 11/15/17 09:13 Intake & Output 11/14/17 11/15/17 11/15/17 18:59 06:59 18:59 Intake Total 50 1170 Output Total 200 1500 Balance -150 -330 Weight 92.714 kg Intake: IV 50 40 Piperacillin-Tazobactam 3 50 40 .375 gm In Dextrose/Water 1 50ml.bag @ 12.5 mls/hr IVPB Q8HR [facility] Rx#: [id number] Oral 1130 Output: Urine 200 1500 Other: Voiding Method Urinal Urinal Urinal ABP, PAP, CO, CI - Last Documented Arterial Blood Pressure 90/41 - Exam GENERAL EXAM: Alert, comfortable in no apparent distress. HEAD: Normocephalic. EYES: Normal reaction of pupils, equal size. NOSE: Clear with pink turbinates. THROAT: No erythema or exudates. NECK: No masses, no JVD. CHEST: No chest wall deformity. LUNGS: Lungs noted to be diminished bilaterally CVS: S1 and S2 normal with no audible mumurs, regular rhythm. ABDOMEN: No hepatosplenomegaly, normal bowel sounds, no guarding or rigidity. EXTREMITIES: +1 edema noted, pedal pulses palpable. CENTRAL NERVOUS SYSTEM: No focal deficits, tone is normal in all 4 extremities. - Labs CBC & Chem 7: 11/13/17 05:49 11/13/17 05:49 Labs: Abnormal Lab Results - Last 24 Hours (Table) 11/14/17 11/14/17 11/14/17 Range/Units 11:03 17:23 20:12 ABG pCO2 (35-45) mmHg ABG pO2 (83-108) mmHg ABG HCO3 (21-25) mmol/L POC Glucose (mg/dL) 146 H 155 H 135 H (75-99) mg/dL 11/15/17 Range/Units 06:52 ABG pCO2 67 H (35-45) mmHg ABG pO2 71 L (83-108) mmHg ABG HCO3 46 H* (21-25) mmol/L POC Glucose (mg/dL) (75-99) mg/dL Assessment and Plan Assessment: Assessment Acute hypoxic respiratory failure with hypercapnia Acute exacerbation of COPD JOSE MARIA Severe chronic persistent asthma with acute exacerbation Metabolic encephalopathy Pseudomonas pneumonia Sepsis with septic shock Hypotension Component of cor pulmonale Acute diastolic heart failure secondary to fluid overload Small bilateral pleural effusions Plan Patient is cleared for discharge from a pulmonary standpoint Patient will be set up for a sleep study consultation in the outpatient setting Medications have been reviewed and will be continued as ordered. He does qualify for home oxygen Gentle diuresis Antibiotics and steroids as ordered Infectious disease on consult Continue with pulmonary hygiene, coughing and deep breathing exercises, and supportive care. Supplemental oxygen to maintain oxygen saturations of 92% or better. Continue nebulizer treatments. Pulmicort increased to 1 mg BiPAP at night, with naps and when necessary, wean FiO2 as tolerated GI and DVT prophylaxis. Initiate and encourage incentive spirometer Increase activity as tolerated, PT and OT We will continue to monitor labs/results and adjust treatment as necessary. Discharge planning underway I performed an examination of the patient and discussed their management with the nurse practitioner. I have reviewed the nurse practitioner's note and agree with the documented findings and plan of care. <Jessica Vides - Last Filed: 11/15/17 18:04> Objective - Vital Signs Vital signs: Vital Signs Temp 98 F 11/15/17 05:00 Pulse 80 11/15/17 11:44 Resp 17 11/15/17 05:00 BP 114/61 11/15/17 05:00 Pulse Ox 72 L 11/15/17 09:13 Intake & Output 11/14/17 11/15/17 11/15/17 18:59 06:59 18:59 Intake Total 50 1170 Output Total 200 1500 Balance -150 -330 Weight 92.714 kg Intake: IV 50 40 Piperacillin-Tazobactam 3 50 40 .375 gm In Dextrose/Water 1 50ml.bag @ 12.5 mls/hr IVPB Q8HR [facility] Rx#: [id number] Oral 1130 Output: Urine 200 1500 Other: Voiding Method Urinal Urinal Urinal ABP, PAP, CO, CI - Last Documented Arterial Blood Pressure 90/41 - Labs CBC & Chem 7: 11/13/17 05:49 11/13/17 05:49 Labs: Abnormal Lab Results - Last 24 Hours (Table) 11/14/17 11/15/17 Range/Units 20:12 06:52 ABG pCO2 67 H (35-45) mmHg ABG pO2 71 L (83-108) mmHg ABG HCO3 46 H* (21-25) mmol/L POC Glucose (mg/dL) 135 H (75-99) mg/dL
[2017-11-15 11:44] VITALS: PULSE 80
--- NOTE | 2017-11-15 13:15 | P.PN ---
Subjective Progress Note Date: 11/14/17 This is a 72 years old male patient of Dr. Chu present with past medical history of hypertension, unknown diagnosis of COPD was last seen in 2014 when patient was intubated for 48 hours with similar presentation of unresponsiveness and hypoxic. Patient was intubated during that time and was found to have pulmonary congestion on the chest x-ray and was treated for community-acquired pneumonia. Patient is brought in today by family as patient was not doing well for the past 1 week he was found to be increasingly weak and lethargic. EMS was called , patient was found to be hypoxic in the low 70s though responsive. On presentation to the ER, patient was found to be in severe respiratory distress and nearly unresponsive was placed on BiPAP for one of our with no improvement and finally he was intubated. Labs obtained suggest a pH of 7.14 CO2 74 CO2 27 pO2 105 and 60% FiO2, WBC 11.2, B UN is 37 creatinine 1.4 decreased from 1.6. Baseline creatinines appear to be 1.1-1.2. Lactic acid on admission was 2.9 brought down to 1.5 postfluid resuscitation with 4 L. Chest x-ray suggested by basilar infiltrates with signs of congestion concerning for pulmonary edema from the fluid resuscitation. Patient is currently mechanically ventilated on 50% FiO2 managed by Dr. Logan and Dr. Jefferson. And appears to be in COPD exacerbation and initiated on Solu-Medrol 60 every 6. He received a dose of levofloxacin in the ER and Zosyn was continued. Patient will be started on broad-spectrum antibiotic including Zosyn and cefepime for dual coverage. Echocardiogram will be obtained. Previous echocardiogram from 2015 suggestive of EF of 50-55% with no wall or valvular abnormality. Patient is currently on 2 mics per minute of norepinephrine, is sedated on propofol. Patient does comprehend and follows command off sedation but gets agitated and tries to remove the tube when sedation is weaned off. Blood culture and urine cultures sent 11/07: Patient remains in intensive care unit and is currently in no CODE STATUS. Norepinephrine is currently on hold. He is now on 6 L nasal cannula. Patient denies having any shortness of breath. He does have cough but denies sputum production. He denies any chest pain or abdominal pain. He denies any focalized extremity weakness. His is at the bedside and states that he has not been feeling well for about a month and very short of breath for the past few days. Echocardiogram reveals EF of 60-65% with borderline concentric left ventricular hypertrophy, mild tricuspid regurgitation, mild pulmonary hypertension. Patient is followed by multiple consultants including Dr. NATALYA Jefferson from pulmonary medicine, Dr. Chavez from infectious disease. Patient has been continued on Zosyn and Levaquin. Chest x-ray reveals COPD with improvement in the previous CHF. Mild pulmonary vascular congestion remains. Residual small left greater than right pleural effusions with adjacent patchy left basilar atelectasis and/or infiltrate. Serum culture is showing Pseudomonas species. Blood cultures no growth after 24 hours. Patient has been afebrile. 11/08: Patient has been using either high flow oxygen 10 L or BiPAP. His states he was feeling weak and not feeling well and he was placed back on BiPAP by nursing. His pulse ox is 99 200%. Patient's respirations are labored. ABGs been ordered. Hemoglobin is stable at 12.5. Creatinine is 1.16. Sputum cultures positive for Pseudomonas pansensitive and patient is currently on Zosyn and Levaquin. He is continued on Solu-Medrol which is a 40 mg IV every 8 hours and one additional dose of 60 added for today. 11/09: Patient has been transferred out of the intensive care unit. He remains on high flow oxygen at 8 L and pulse oxing 98%. Blood pressure is on the lower side. Repeat chest x-ray shows correlate for heart failure with slight interval worsening interstitial pulmonary edema. Background COPD. Small pleural effusions with adjacent atelectasis and or consolidation persists. Patient was given 1 dose of IV Lasix 60 mg this morning. We will stop IV fluids. A repeat dose of Lasix 60 mg this afternoon and patient will be started on 40 mg IV every 12 hours to start tonight. Patient was on O2 by nasal cannula for about one and half hours and had return to CPAP. Dr. Rolle is following. He is currently on Levaquin and Zosyn. Pseudomonas in the sputum. He remains on Solu-Medrol 40 mg IV every 8 hours. ABGs show pH 7.20, pCO2 86, pO2 86, bicarbonate of 34, total CO2 36, O2 saturation 97.2. Patient is to maintain pulse ox around 90% only. 11/10: Patient is tolerating being off BiPAP for only about an hour and a half before meals. His CO2 this morning is 41. He was added and Lasix yesterday with good urine output and weight is down 2 kg. BUN is 44 and creatinine 1.40. We'll plan to continue Lasix 40 mg IV every 12 hours. 11/11: Dr. Rolle has recommended continue Zosyn and switch Levaquin to ciprofloxacin. Patient has been afebrile. He has been on BiPAP alternating with high flow oxygen at 6-8 L. lungs sounds are improved today. Patient is hoping for discharge over the weekend. Most likely patient will be here until Tuesday. Patient does not have home oxygen which will be needed at discharge. 11/12: Patient continued to improve during this hospital stay and feels better since admission patient still in bed and stated that it's hard for him to ambulate in the room but was able to go to bathroom yesterday with little assistance. No major events reported by nursing staff. Patient is denying chest pain, shortness breath, nausea, vomiting, dumping, dizziness or lightheadedness 11/13: Patient seems to be improved overnight no major events reported by nursing staff. Patient is denying chest pain, shortness breath, nausea, vomiting, dumping, dizziness or lightheadedness 11/14: We would like patient to have BiPAP for nighttime. Currently his pulse ox is 96% on 3 L. A nighttime continuous pulse ox study will be ordered for tonight. Plan is to increase activity. He is currently on oral Lasix. Objective - Vital Signs Vital signs: Vital Signs Temp 97.3 F L 11/13/17 08:00 Pulse 102 H 11/13/17 13:36 Resp 20 11/13/17 08:00 BP 111/65 11/13/17 08:00 Pulse Ox 98 11/13/17 08:00 Intake & Output 11/12/17 11/13/17 11/13/17 18:59 06:59 18:59 Intake Total 1760 360 Output Total 2275 950 800 Balance -515 -950 -440 Weight 92.714 kg Intake: Oral 1760 360 Output: Urine 2275 950 800 Other: Voiding Method Urinal Urinal Urinal # Voids 1 ABP, PAP, CO, CI - Last Documented Arterial Blood Pressure 90/41 - Exam General appearance: average body habitus, mild acute distress - EENT Eyes: PERRLA, no photophobia Ears: bilateral: normal - Neck Neck: no lymphadenopathy Carotids: bilateral: upstroke normal - Respiratory Respiratory: bilateral: diminished, dullness, rales, rhonchi, negative: wheezing - Cardiovascular Rhythm: regular Heart sounds: normal: S1, S2 Abnormal Heart Sounds: no systolic murmur, no diastolic murmur, no rub, no click foot Peripheral Edema: bilateral: 1+ dorsalis pedis Peripheral Pulses: bilateral: Normal - Gastrointestinal General gastrointestinal: distended, normal bowel sounds, soft - Integumentary Integumentary: no calor, no cellulitis, no cyanotic - Musculoskeletal Generalized weakness. No focal neuro deficits - Psychiatric Awake and alert. - Labs CBC & Chem 7: 11/13/17 05:49 11/13/17 05:49 Labs: Abnormal Lab Results - Last 24 Hours (Table) 11/12/17 11/13/17 11/13/17 Range/Units 20:40 05:49 05:49 WBC 11.5 H (3.8-10.6) k/uL MCHC 30.1 L (31.0-37.0) g/dL Plt Count 137 L (150-450) k/uL Chloride 85 L (98-107) mmol/L Carbon Dioxide 49 H* (22-30) mmol/L BUN 42 H (9-20) mg/dL Glucose 108 H (74-99) mg/dL POC Glucose (mg/dL) 115 H (75-99) mg/dL 11/13/17 11/13/17 Range/Units 06:08 11:36 WBC (3.8-10.6) k/uL MCHC (31.0-37.0) g/dL Plt Count (150-450) k/uL Chloride (98-107) mmol/L Carbon Dioxide (22-30) mmol/L BUN (9-20) mg/dL Glucose (74-99) mg/dL POC Glucose (mg/dL) 118 H 209 H (75-99) mg/dL Assessment and Plan Plan: 1. Acute hypoxic hypercapnic respiratory failure secondary to COPD exacerbation with pseudomonas pneumonia. Continue ciprofloxacin and Zosyn, consult with Dr. Aquilino gill. Patient is followed by Dr. NATALYA Jefferson/Dr. Logan. critical care medicine. Patient currentlyoral prednisone, nebulized treatments and Pulmicort and DuoNeb along with IV antibiotics Sputum culture positive for Pseudomonas. Aspiration precautions maintained. Currently off norepinephrine. Plan to keep pulse ox between 88-90% 2. Lactic acidosis likely secondary to septic shock. Status post IV fluids. Continue broad-spectrum IV antibiotics. Lactic acid improved. 3. Hypercarbic respiratory failure secondary to COPD underlying obstructive sleep apnea cannot be excluded he is echocardiogram did not reveal any right ventricular systolic pressure abnormalityIn 2015. Repeat echocardiogram. Will order continuous pulse ox for tonight. 4. COPD exacerbation currently on prednisone and nebulized treatments 5. Sepsis with septic shock secondary to Pseudomonas pneumonia. Continue Levaquin and Zosyn. 6. Acute diastolic heart failure secondary to fluid overload. IV fluids stopped. Patient to receive 2 doses of Lasix 60 mg IV push then start 40 mg twice daily. Currently on Lasix 40 mg orally twice daily. 7. Current tobacco dependency and is a current tobacco smoker 8. Hypertension off norepinephrine hold antihypertensive medications 9. Gout history 10. VTE prophylaxis is provided with heparin subcu 11. GI prophylaxis IV Protonix 12. Chronic hypoxic, hypercapnic respiratory failure requiring home O2. Continue to monitor closer to discharge. CODE STATUS: FULL CODE Discharge plan: Home with [facility] Impression and plan of care have been directed as dictated by the signing physician. Ann-Marie Ortiz nurse practitioner acting as scribe for signing physician.
--- NOTE | 2017-11-15 13:18 | P.DS ---
Providers Date of admission: 11/05/17 19:39 Expected date of discharge: 11/15/17 Attending physician: Thanh Lopez Consults: 11/05/17 19:36 Consult Physician Routine Consulting Provider: Jonn Logan Consult Reason/Comments: known Do you want consulting provider notified?: Yes 11/06/17 12:00 Consult Physician Routine Consulting Provider: Mayco Jefferson Consult Reason/Comments: pulmonology Do you want consulting provider notified?: Already Contacted 11/06/17 15:03 Consult Physician Routine Consulting Provider: Malvin Rolle Consult Reason/Comments: infection Do you want consulting provider notified?: Yes [facility] Course: This is a 72 years old male patient of Dr. Chu present with past medical history of hypertension, unknown diagnosis of COPD was last seen in 2014 when patient was intubated for 48 hours with similar presentation of unresponsiveness and hypoxic. Patient was intubated during that time and was found to have pulmonary congestion on the chest x-ray and was treated for community-acquired pneumonia. Patient is brought in today by family as patient was not doing well for the past 1 week he was found to be increasingly weak and lethargic. EMS was called , patient was found to be hypoxic in the low 70s though responsive. On presentation to the ER, patient was found to be in severe respiratory distress and nearly unresponsive was placed on BiPAP for one of our with no improvement and finally he was intubated. Labs obtained suggest a pH of 7.14 CO2 74 CO2 27 pO2 105 and 60% FiO2, WBC 11.2, B UN is 37 creatinine 1.4 decreased from 1.6. Baseline creatinines appear to be 1.1-1.2. Lactic acid on admission was 2.9 brought down to 1.5 postfluid resuscitation with 4 L. Chest x-ray suggested by basilar infiltrates with signs of congestion concerning for pulmonary edema from the fluid resuscitation. Patient is currently mechanically ventilated on 50% FiO2 managed by Dr. Logan and Dr. Jefferson. And appears to be in COPD exacerbation and initiated on Solu-Medrol 60 every 6. He received a dose of levofloxacin in the ER and Zosyn was continued. Patient will be started on broad-spectrum antibiotic including Zosyn and cefepime for dual coverage. Echocardiogram will be obtained. Previous echocardiogram from 2015 suggestive of EF of 50-55% with no wall or valvular abnormality. Patient is currently on 2 mics per minute of norepinephrine, is sedated on propofol. Patient does comprehend and follows command off sedation but gets agitated and tries to remove the tube when sedation is weaned off. Blood culture and urine cultures sent 11/07: Patient remains in intensive care unit and is currently in no CODE STATUS. Norepinephrine is currently on hold. He is now on 6 L nasal cannula. Patient denies having any shortness of breath. He does have cough but denies sputum production. He denies any chest pain or abdominal pain. He denies any focalized extremity weakness. His is at the bedside and states that he has not been feeling well for about a month and very short of breath for the past few days. Echocardiogram reveals EF of 60-65% with borderline concentric left ventricular hypertrophy, mild tricuspid regurgitation, mild pulmonary hypertension. Patient is followed by multiple consultants including Dr. NATALYA Jefferson from pulmonary medicine, Dr. Chavez from infectious disease. Patient has been continued on Zosyn and Levaquin. Chest x-ray reveals COPD with improvement in the previous CHF. Mild pulmonary vascular congestion remains. Residual small left greater than right pleural effusions with adjacent patchy left basilar atelectasis and/or infiltrate. Serum culture is showing Pseudomonas species. Blood cultures no growth after 24 hours. Patient has been afebrile. 11/08: Patient has been using either high flow oxygen 10 L or BiPAP. His states he was feeling weak and not feeling well and he was placed back on BiPAP by nursing. His pulse ox is 99 200%. Patient's respirations are labored. ABGs been ordered. Hemoglobin is stable at 12.5. Creatinine is 1.16. Sputum cultures positive for Pseudomonas pansensitive and patient is currently on Zosyn and Levaquin. He is continued on Solu-Medrol which is a 40 mg IV every 8 hours and one additional dose of 60 added for today. 11/09: Patient has been transferred out of the intensive care unit. He remains on high flow oxygen at 8 L and pulse oxing 98%. Blood pressure is on the lower side. Repeat chest x-ray shows correlate for heart failure with slight interval worsening interstitial pulmonary edema. Background COPD. Small pleural effusions with adjacent atelectasis and or consolidation persists. Patient was given 1 dose of IV Lasix 60 mg this morning. We will stop IV fluids. A repeat dose of Lasix 60 mg this afternoon and patient will be started on 40 mg IV every 12 hours to start tonight. Patient was on O2 by nasal cannula for about one and half hours and had return to CPAP. Dr. Rolle is following. He is currently on Levaquin and Zosyn. Pseudomonas in the sputum. He remains on Solu-Medrol 40 mg IV every 8 hours. ABGs show pH 7.20, pCO2 86, pO2 86, bicarbonate of 34, total CO2 36, O2 saturation 97.2. Patient is to maintain pulse ox around 90% only. 11/10: Patient is tolerating being off BiPAP for only about an hour and a half before meals. His CO2 this morning is 41. He was added and Lasix yesterday with good urine output and weight is down 2 kg. BUN is 44 and creatinine 1.40. We'll plan to continue Lasix 40 mg IV every 12 hours. 11/11: Dr. Rolle has recommended continue Zosyn and switch Levaquin to ciprofloxacin. Patient has been afebrile. He has been on BiPAP alternating with high flow oxygen at 6-8 L. lungs sounds are improved today. Patient is hoping for discharge over the weekend. Most likely patient will be here until Tuesday. Patient does not have home oxygen which will be needed at discharge. 11/12: Patient continued to improve during this hospital stay and feels better since admission patient still in bed and stated that it's hard for him to ambulate in the room but was able to go to bathroom yesterday with little assistance. No major events reported by nursing staff. Patient is denying chest pain, shortness breath, nausea, vomiting, dumping, dizziness or lightheadedness 11/13: Patient seems to be improved overnight no major events reported by nursing staff. Patient is denying chest pain, shortness breath, nausea, vomiting, dumping, dizziness or lightheadedness 11/14: We would like patient to have BiPAP for nighttime. Currently his pulse ox is 96% on 3 L. A nighttime continuous pulse ox study will be ordered for tonight. Plan is to increase activity. He is currently on oral Lasix. 11/15: Patient underwent continuous pulse ox monitor last evening for possible BiPAP but he did not qualify. Patient will be set up with home oxygen. Patient 's pulse ox dropped to 72% with minimal activity. Patient will be discharged home today in stable condition. Patient to follow-up in the next couple days for appointment regarding sleep study. Discharge diagnoses: 1. Acute hypoxic hypercapnic respiratory failure secondary to COPD exacerbation with pseudomonas pneumonia. 2. Lactic acidosis likely secondary to septic shock. 3. Hypercarbic respiratory failure secondary to COPD underlying obstructive sleep apnea cannot be excluded 4. COPD exacerbation 5. Sepsis with septic shock secondary to Pseudomonas pneumonia. 6. Acute diastolic heart failure secondary to fluid overload. 7. Current tobacco dependency and is a current tobacco smoker 8. Hypertension 9. Gout history 10. Chronic hypoxic, hypercapnic respiratory failure requiring home O2. Discharge plan: Home [facility] Impression and plan of care have been directed as dictated by the signing physician. Ann-Marie Ortiz nurse practitioner acting as scribe for signing physician. Patient Condition at Discharge: Good Plan - Discharge Summary Discharge Rx Participant: No New Discharge Prescriptions: New Furosemide [Lasix] 40 mg PO BID@0900,1600 #60 tab predniSONE 0 mg PO DIRECTED #40 tab Ciprofloxacin HCl [Cipro] 500 mg PO Q12HR #14 tablet Continue Albuterol Sulfate [Proair Hfa] 2 puff INHALATION RT-QID PRN PRN Reason: Shortness Of Breath Aspirin 81 mg PO DAILY Ipratropium-Albuterol Nebulize [Duoneb 0.5 mg-3 mg/3 ml Soln] 3 ml INHALATION RT-QID Budesonide [Pulmicort] 0.5 mg INHALATION RT-BID Ubidecarenone [Co Q-10] 100 mg PO DAILY Montelukast [Singulair] 10 mg PO HS Cholecalciferol [Vitamin D3] 1,000 unit PO DAILY Discontinued Lisinopril 20 mg PO DAILY Furosemide 40 mg PO DAILY Discharge Medication List Albuterol Sulfate [Proair Hfa] 2 puff INHALATION RT-QID PRN 02/05/15 [History] Aspirin 81 mg PO DAILY 02/05/15 [History] Ipratropium-Albuterol Nebulize [Duoneb 0.5 mg-3 mg/3 ml Soln] 3 ml INHALATION RT -QID 02/06/15 [History] Budesonide [Pulmicort] 0.5 mg INHALATION RT-BID 11/06/17 [History] Cholecalciferol [Vitamin D3] 1,000 unit PO DAILY 11/06/17 [History] Montelukast [Singulair] 10 mg PO HS 11/06/17 [History] Ubidecarenone [Co Q-10] 100 mg PO DAILY 11/06/17 [History] Ciprofloxacin HCl [Cipro] 500 mg PO Q12HR #14 tablet 11/15/17 [Rx] Furosemide [Lasix] 40 mg PO BID@0900,1600 #60 tab 11/15/17 [Rx] predniSONE 0 mg PO DIRECTED #40 tab 11/15/17 [Rx] Follow up Appointment(s)/Referral(s): Irina Amaya NPC [Nurse Practitioner] - 1 Week (for sleep study consult) Jessica Vides DO [Doctor of Osteopathic Medicine] - 11/18/17 9:30 am (*One appointment needs to be made for 1-2 days after discharge- this is regarding follow-up for sleep study -___11/18/17 09:30 am *Another appt. needs to be made for one week after discharge for hospital follow -up - __11/25/17_10:30 am) [facility], [NON-STAFF] - 1 Week Gallito Chu MD [Primary Care Provider] - 11/21/17 1:00 pm (Tuesday) Patient Instructions/Handouts: Ciprofloxacin (By mouth), Furosemide (By mouth) , Prednisone (By mouth), COPD (Chronic Obstructive Pulmonary Disease) (DC), Community Acquired Pneumonia (DC) Activity/Diet/Wound Care/Special Instructions: Follow up with Irina Amaya NP for sleep study consult [facility] will supply your home o2 - they will deliver a tank to your room - when you get home call and they will deliver the rest of your equipment to your room. Discharge Disposition: HOME WITH HOME HEALTH SERVICES
--- NOTE | 2017-11-15 18:37 | PN ---
PROGRESS NOTE DATE OF SERVICE: 11/15/2017 REASON FOR FOLLOWUP: Pseudomonas aeruginosa pneumonia. INTERVAL HISTORY: The patient is currently afebrile. He seems to be breathing more comfortably. Denies significant chest pain. Occasional cough. No abdominal pain and no diarrhea. PHYSICAL EXAMINATION: His blood pressure is 114/61 with a pulse of 84, temperature 98. He is 97% on 4 L nasal cannula. General description is an elderly male up in the bed in no distress. RESPIRATORY SYSTEM: Unlabored breathing with decreased breath sounds at the bases. No wheeze. HEART: S1, S2. Regular rate and rhythm. ABDOMEN: Soft. No tenderness. EXTREMITIES: No edema of the feet. LABS: No new labs have been obtained today. DIAGNOSTIC IMPRESSION AND PLAN: Patient with Pseudomonas aeruginosa pneumonia, for which the patient has received more than 10 days of IV antibiotic therapy. He will be able to finish therapy with oral Cipro for another week. Discussed with the nurse practitioner for the primary team. Continue with supportive care. MMODL / IJN: [id number] /
== END 2017-11-15 11:55 | disposition home health service (06) | DRG 871 ==
LOC: EC 18:08 → 6ICU 19:39 → 6SEL 11-08 18:09 → 5MS5E 11-13 13:28
PROVIDERS: ADMIT Internal Medicine; ATTEND Internal Medicine
PROC: 0BH18EZ Insertion of Endotracheal Airway into Trachea, Via Natural or Artificial Opening Endoscopic (ICD-10-PCS; principal; 2017-11-05)
PROC: 5A1935Z Respiratory Ventilation, Less than 24 Consecutive Hours (ICD-10-PCS; principal; 2017-11-05)
DX: A41.52 Sepsis due to Pseudomonas (principal); G93.41 Metabolic encephalopathy; I50.33 Acute on chronic diastolic (congestive) heart failure; J15.1 Pneumonia due to Pseudomonas; J96.21 Acute and chronic respiratory failure with hypoxia; J96.22 Acute and chronic respiratory failure with hypercapnia; R65.21 Severe sepsis with septic shock; E87.2 Acidosis; J45.51 Severe persistent asthma with (acute) exacerbation; J98.11 Atelectasis; F17.200 Nicotine dependence, unspecified, uncomplicated; G47.33 Obstructive sleep apnea (adult) (pediatric); Z99.89 Dependence on other enabling machines and devices; I07.1 Rheumatic tricuspid insufficiency; I11.0 Hypertensive heart disease with heart failure; I25.10 Atherosclerotic heart disease of native coronary artery without angina pectoris; I27.29 Other secondary pulmonary hypertension; I27.81 Cor pulmonale (chronic); J43.9 Emphysema, unspecified; M10.9 Gout, unspecified; W18.30XA Fall on same level, unspecified, initial encounter; Z79.82 Long term (current) use of aspirin; Z82.49 Family history of ischemic heart disease and other diseases of the circulatory system; Z91.19 Patient's noncompliance with other medical treatment and regimen; Z99.81 Dependence on supplemental oxygen; Z79.899 Other long term (current) drug therapy; Z79.51 Long term (current) use of inhaled steroids
CPT/HCPCS: 31500; 36415; 36569; 36600; 43753; 51702; 70450; 71045; 72125; 76937; 80048; 80053; 81003; 82550; 82553; 82805; 83605; 83735; 83880; 84100; 84484; 85025; 85027; 85610; 85730; 87040; 87070; 87077; 87186; 87205; 93005; 93306; 94002; 94003; 94640; 94660; 94760; 94762; 96361; 96365; 96375; 99291

== ENCOUNTER 2017-12-31 17:59 | Inpatient (IN) | payer MEDICARE, BC ==
[2017-12-31] MEDS ORDERED: ALBUTEROL NEBULIZED 2.5 MG/3 ML INHALATION STA (18:11)
[2017-12-31] MEDS ORDERED: IPRATROPIUM 0.5 MG/2.5 ML NEBU INHALATION STA (18:11)
[2017-12-31] MEDS ORDERED: methylPREDNISolone SOD SUCCI 125 MG/2 ML VIAL IV STA (18:11)
[2017-12-31] MEDS ORDERED: SODIUM CHLORIDE 0.9% 1,000 ML IV STA (18:11)
[2017-12-31 19:23] LABS: Basophils # (A) 0.1 k/uL (0-0.2); Basophils % (A) 1 %; Eosinophils # (A) 0.3 k/uL (0-0.7); Eosinophils % (A) 2 %; HCT 44.8 % (39.0-53.0); HGB 13.4 gm/dL (13.0-17.5); Hypochromasia Marked; Lymphocytes # (A) 1.1 k/uL (1.0-4.8); Lymphocytes % (A) 9 %; MCH 28.1 pg (25.0-35.0); MCV 93.5 fL (80.0-100.0); Mean Platelet Volume 6.7; Monocytes # (A) 0.6 k/uL (0-1.0); Monocytes % (A) 5 %; Neutrophils # (A) 9.6 k/uL (1.3-7.7); Neutrophils % (A) 81 %; Platelet Count 310 k/uL (150-450); RBC 4.79 m/uL (4.30-5.90); RDW 13.2 % (11.5-15.5); WBC 11.8 k/uL (3.8-10.6)
--- NOTE | 2017-12-31 19:24 | ED ---
General Adult HPI - General Chief complaint: Shortness of Breath Stated complaint: SARIKA Time Seen by Provider: 12/31/17 18:02 Source: patient, RN notes reviewed, old records reviewed Mode of arrival: EMS Limitations: no limitations - History of Present Illness Initial comments: This is a 72-year-old male to the ER for evaluation. Patient resents today for evaluation regards to shortness of breath severe shortness of breath history of COPD and heart disease. Patient comes in with 2-3 days of shortness of breath fever chills. Patient's worsening symptoms get progressively worse his breathing is looking worse patient is denying any chest pain. No travel history no sick contacts. Patient does have recent hospital admission - Related Data Home Medications Medication Instructions Recorded Confirmed Albuterol Sulfate [Proair Hfa] 2 puff INHALATION RT-QID PRN 02/05/15 12/31/17 Aspirin 81 mg PO DAILY 02/05/15 12/31/17 Ipratropium-Albuterol Nebulize 3 ml INHALATION RT-QID 02/06/15 12/31/17 [Duoneb 0.5 mg-3 mg/3 ml Soln] Budesonide [Pulmicort] 0.5 mg INHALATION RT-BID 11/06/17 12/31/17 Cholecalciferol [Vitamin D3] 1,000 unit PO DAILY 11/06/17 12/31/17 Montelukast [Singulair] 10 mg PO HS 11/06/17 12/31/17 Ubidecarenone [Co Q-10] 100 mg PO DAILY 11/06/17 12/31/17 Previous Rx's Medication Instructions Recorded Furosemide [Lasix] 40 mg PO BID@0900,1600 #60 tab 11/15/17 Allergies Allergy/AdvReac Type Severity Reaction Status Date / Time No Known Allergies Allergy Verified 12/31/17 18:27 Review of Systems ROS Statement: Those systems with pertinent positive or pertinent negative responses have been documented in the HPI. ROS Other: All systems not noted in ROS Statement are negative. Past Medical History Past Medical History: COPD, Hypertension Additional Past Medical History / Comment(s): emphysema, gout History of Any Multi-Drug Resistant Organisms: None Reported Past Surgical History: Unable to Obtain Additional Past Surgical History / Comment(s): hernia 2015, carpel tunnel, heart cath in the past (clean) Past Psychological History: No Psychological Hx Reported Smoking Status: Former smoker Past Alcohol Use History: Occasional Past Drug Use History: None Reported - Past Family History Mother Family Medical History: Coronary Artery Disease (CAD), Hyperlipidemia, Hypertension General Exam Limitations: no limitations General appearance: alert, anxious, in distress Head exam: Present: atraumatic, normocephalic, normal inspection Eye exam: Present: normal appearance, PERRL, EOMI. Absent: scleral icterus, conjunctival injection, periorbital swelling ENT exam: Present: normal exam, mucous membranes moist Neck exam: Present: normal inspection. Absent: tenderness, meningismus, lymphadenopathy Respiratory exam: Present: respiratory distress, wheezes, accessory muscle use, decreased breath sounds, prolonged expiratory. Absent: rales, rhonchi, stridor Cardiovascular Exam: Present: normal rhythm, tachycardia, normal heart sounds. Absent: systolic murmur, diastolic murmur, rubs, gallop, clicks GI/Abdominal exam: Present: soft, normal bowel sounds. Absent: distended, tenderness, guarding, rebound, rigid Extremities exam: Present: normal inspection, full ROM, normal capillary refill. Absent: tenderness, pedal edema, joint swelling, calf tenderness Back exam: Present: normal inspection Neurological exam: Present: alert, oriented X3, CN II-XII intact Psychiatric exam: Present: normal affect, normal mood Skin exam: Present: warm, dry, intact, normal color. Absent: rash Course Vital Signs 12/31/17 12/31/17 12/31/17 18:09 18:26 19:02 Temperature 96.9 F L Pulse Rate 113 H 101 H Respiratory 28 H 29 H Rate Blood Pressure 156/81 O2 Sat by Pulse 93 L Oximetry 12/31/17 12/31/17 12/31/17 19:11 19:17 19:40 Temperature Pulse Rate 102 H 101 H 103 H Respiratory 22 Rate Blood Pressure 132/88 O2 Sat by Pulse 98 Oximetry - Reevaluation(s) Reevaluation #1: 12/31/17 20:16 Patient has minimal to mild improvement with breathing treatment Reevaluation #2: 12/31/17 20:16 Patient's medical record here in the ER is reviewed EKG Findings - EKG Comments: EKG Findings:: EKG shows sinus tachycardia rate of 109, OH 160, QRS 134, QTC 452 Medical Decision Making - Medical Decision Making 69 female the ER for evaluation patient's presented for evaluation shortness of breath increased shortness of breath. Patient has elevated troponin no chest pain no EKG changes. Patient will be admitted for evaluation breathing treatments steroids and IV antibiotics in regards to pneumonia - Lab Data Result diagrams: 12/31/17 18:49 12/31/17 18:49 Lab Results 12/31/17 12/31/17 12/31/17 Range/Units 18:49 18:49 18:49 WBC 11.8 H (3.8-10.6) k/uL RBC 4.79 (4.30-5.90) m/uL Hgb 13.4 (13.0-17.5) gm/dL Hct 44.8 (39.0-53.0) % MCV 93.5 (80.0-100.0) fL MCH 28.1 (25.0-35.0) pg MCHC 30.0 L (31.0-37.0) g/dL RDW 13.2 (11.5-15.5) % Plt Count 310 (150-450) k/uL Neutrophils % 81 % Lymphocytes % 9 % Monocytes % 5 % Eosinophils % 2 % Basophils % 1 % Neutrophils # 9.6 H (1.3-7.7) k/uL Lymphocytes # 1.1 (1.0-4.8) k/uL Monocytes # 0.6 (0-1.0) k/uL Eosinophils # 0.3 (0-0.7) k/uL Basophils # 0.1 (0-0.2) k/uL Hypochromasia Marked PT (9.0-12.0) sec INR (<1.2) APTT (22.0-30.0) sec Sodium 140 (137-145) mmol/L Potassium 4.6 (3.5-5.1) mmol/L Chloride 93 L (98-107) mmol/L Carbon Dioxide 38 H (22-30) mmol/L Anion Gap 9 mmol/L BUN 15 (9-20) mg/dL Creatinine 0.94 (0.66-1.25) mg/dL Est GFR (CKD-EPI)AfAm >90 (>60 ml/min/1.73 sqM) Est GFR (CKD-EPI)NonAf 81 (>60 ml/min/1.73 sqM) Glucose 110 H (74-99) mg/dL Calcium 9.1 (8.4-10.2) mg/dL Magnesium 2.1 (1.6-2.3) mg/dL Total Bilirubin 0.3 (0.2-1.3) mg/dL AST 28 (17-59) U/L ALT 26 (21-72) U/L Alkaline Phosphatase 63 (38-126) U/L Total Creatine Kinase 40 L (55-170) U/L CK-MB (CK-2) 2.3 (0.0-2.4) ng/mL CK-MB (CK-2) Rel Index 5.8 Troponin I 0.039 H* (0.000-0.034) ng/mL NT-Pro-B Natriuret Pep pg/mL Total Protein 7.5 (6.3-8.2) g/dL Albumin 3.8 (3.5-5.0) g/dL 12/31/17 12/31/17 Range/Units 18:49 18:49 WBC (3.8-10.6) k/uL RBC (4.30-5.90) m/uL Hgb (13.0-17.5) gm/dL Hct (39.0-53.0) % MCV (80.0-100.0) fL MCH (25.0-35.0) pg MCHC (31.0-37.0) g/dL RDW (11.5-15.5) % Plt Count (150-450) k/uL Neutrophils % % Lymphocytes % % Monocytes % % Eosinophils % % Basophils % % Neutrophils # (1.3-7.7) k/uL Lymphocytes # (1.0-4.8) k/uL Monocytes # (0-1.0) k/uL Eosinophils # (0-0.7) k/uL Basophils # (0-0.2) k/uL Hypochromasia PT 9.7 (9.0-12.0) sec INR 1.0 (<1.2) APTT 24.0 (22.0-30.0) sec Sodium (137-145) mmol/L Potassium (3.5-5.1) mmol/L Chloride (98-107) mmol/L Carbon Dioxide (22-30) mmol/L Anion Gap mmol/L BUN (9-20) mg/dL Creatinine (0.66-1.25) mg/dL Est GFR (CKD-EPI)AfAm (>60 ml/min/1.73 sqM) Est GFR (CKD-EPI)NonAf (>60 ml/min/1.73 sqM) Glucose (74-99) mg/dL Calcium (8.4-10.2) mg/dL Magnesium (1.6-2.3) mg/dL Total Bilirubin (0.2-1.3) mg/dL AST (17-59) U/L ALT (21-72) U/L Alkaline Phosphatase (38-126) U/L Total Creatine Kinase (55-170) U/L CK-MB (CK-2) (0.0-2.4) ng/mL CK-MB (CK-2) Rel Index Troponin I (0.000-0.034) ng/mL NT-Pro-B Natriuret Pep 212 pg/mL Total Protein (6.3-8.2) g/dL Albumin (3.5-5.0) g/dL - Radiology Data Radiology results: report reviewed (Chest x-ray is positive for pneumonia), image reviewed Critical Care Time Critical Care Time: Yes Total Critical Care Time: 31 Disposition Clinical Impression: Acute exacerbation of chronic obstructive airways disease, Nosocomial pneumonia , Hypoxia, Elevated troponin Disposition: ADMITTED IP TO THIS HOSP Condition: Fair Is patient prescribed a controlled substance at d/c from ED?: No Referrals: Gallito Chu MD [Primary Care Provider] - 1-2 days
[2017-12-31 19:31] LABS: Prothrombin Time 9.7 sec (9.0-12.0)
[2017-12-31 19:33] LABS: ALT 26 U/L (21-72); AST 28 U/L (17-59); Albumin 3.8 g/dL (3.5-5.0); Alkaline Phosphatase 63 U/L (38-126); Anion Gap 9 mmol/L; Blood Urea Nitrogen 15 mg/dL (9-20); Calcium 9.1 mg/dL (8.4-10.2); Carbon Dioxide 38 mmol/L (22-30); Chloride 93 mmol/L (98-107); Glucose 110 mg/dL (74-99); Magnesium 2.1 mg/dL (1.6-2.3); Potassium 4.6 mmol/L (3.5-5.1); Sodium 140 mmol/L (137-145); Total Bilirubin 0.3 mg/dL (0.2-1.3); Total Protein 7.5 g/dL (6.3-8.2)
[2017-12-31 19:50] LABS: Creatine Kinase MB 2.3 ng/mL (0.0-2.4)
[2017-12-31 19:57] LABS: Troponin I 0.039 ng/mL (0.000-0.034)
--- NOTE | 2017-12-31 20:09 | XR ---
EXAMINATION TYPE: XR chest 2V DATE OF EXAM: 12/31/2017 COMPARISON: 11/09/2017 INDICATION: Difficulty breathing COPD TECHNIQUE: Frontal and lateral views of the chest are obtained. FINDINGS: The heart size is normal. The pulmonary vasculature is normal. Hyperinflation flattening the diaphragms compatible COPD. Mild infiltrate is present at the lung base s. Correlate for atelectasis. Mild bibasilar pneumonia could be considered. IMPRESSION: 1. Bibasilar infiltrates. Correlate for atelectasis or pneumonia.
[2017-12-31] MEDS ORDERED: LEVOFLOXACIN 750MG-D5W PMX 750 MG in DEXTROSE/WATER 1 150ML.BAG IVPB STA (20:13)
[2017-12-31] MEDS ORDERED: ASPIRIN 81 MG PO STA (20:13)
[2017-12-31] MEDS ORDERED: NITROGLYCERIN SL TABS 0.4 MG TAB SUBLINGUAL PRN (20:13)
[2017-12-31] MEDS ORDERED: PNEUMONIA PROTOCOL UTILIZED 1 EACH MISC PO PRN (20:13)
[2017-12-31] MEDS ORDERED: PIPERACILLIN-TAZOBACTAM 3.375 GM in DEXTROSE/WATER 1 50ML.BAG IVPB STA (20:13)
[2017-12-31 21:39] VITALS: BMI 29.2
[2017-12-31] MEDS: SODIUM CHLORIDE 0.9% 1,000 ML IV SCH (21:47)
[2017-12-31] MEDS: MONTELUKAST 10 MG TAB PO SCH (22:21)
[2018-01-01] MEDS: methylPREDNISolone SOD SUCCI 125 MG/2 ML VIAL IV SCH ×5 (00:44→23:24)
[2018-01-01] MEDS: ALBUTEROL NEBULIZED 2.5 MG/3 ML INHALATION PRN (01:05)
[2018-01-01 03:28] LABS: Troponin I 0.126 ng/mL (0.000-0.034)
[2018-01-01] MEDS ORDERED: diphenhydrAMINE 50 MG/ML 1 ML VIAL IVP PRN (05:01)
--- NOTE | 2018-01-01 05:54 | XR ---
EXAMINATION TYPE: XR chest 1V portable DATE OF EXAM: 01/01/2018 COMPARISON: 12/31/2017 HISTORY: Difficulty breathing TECHNIQUE: Single frontal view of the chest is obtained. FINDINGS: There is coarsening of the interstitial pulmonary markings. There is no gross heart failur e. There is some flattening of the diaphragm. There are chest leads. There is probably a small infilt rate at the right lung base. IMPRESSION: COPD. Pulmonary fibrotic changes. Possible new small infiltrate at the right lung base c ompared to yesterday.
[2018-01-01 06:44] LABS: Cholesterol 155 mg/dL (<200); HDL Cholesterol 43 mg/dL (40-60); LDL Cholesterol,Calculated 98 mg/dL (0-99); Triglycerides 70 mg/dL (<150)
[2018-01-01 07:02] LABS: Creatine Kinase MB 3.1 ng/mL (0.0-2.4); Troponin I 0.124 ng/mL (0.000-0.034)
[2018-01-01] MEDS: SODIUM CHLORIDE 0.9% 1,000 ML IV SCH (07:55)
[2018-01-01] MEDS: IPRATROPIUM-ALBUTEROL 3 ML NEB INHALATION SCH ×4 (07:58→21:13)
[2018-01-01] MEDS: BUDESONIDE 0.5 MG/2 ML NEBU INHALATION SCH ×2 (07:58→21:13)
[2018-01-01] MEDS ORDERED: PIPERACILLIN-TAZOBACTAM 3.375 GM in DEXTROSE/WATER 1 50ML.BAG IVPB SCH (08:00)
[2018-01-01] MEDS: CHOLECALCIFEROL 1,000 UNIT TAB PO SCH (08:05)
[2018-01-01] MEDS: FUROSEMIDE 40 MG TAB PO SCH ×2 (08:05→15:41)
[2018-01-01] MEDS ORDERED: NON-FORMULARY DRUG (Ubidecarenone [Co Q-10] 100 MG) PO SCH (09:00)
[2018-01-01] MEDS ORDERED: ASPIRIN 81 MG PO SCH (09:00)
[2018-01-01] MEDS ORDERED: ASPIRIN 325 MG TAB PO SCH (09:00)
[2018-01-01] MEDS ORDERED: ENOXAPARIN 40 MG/0.4 ML SYRINGE SQ SCH (09:00)
[2018-01-01] MEDS: ASPIRIN 81 MG PO SCH (10:15)
--- NOTE | 2018-01-01 11:29 | CONS ---
CONSULTATION HISTORY: Chuy is a 72-year-old history of COPD, who is admitted to hospital with COPD exacerbation and Cardiology has been consulted because of mild elevation in his troponin. The patient's predominant symptom is in the form of shortness of breath. It is mild to moderate in intensity, has been going on for 2 to 3 days, and is associated with some fever and chills. He was diagnosed with pneumonia and COPD exacerbation and was admitted to hospital for the same. At the time of my evaluation this morning, he appears comfortable at rest. He appears somewhat short of breath, but does not seem to be in respiratory distress. His EKG shows sinus tachycardia with right bundle branch block and nonspecific ST-T wave changes. The chest x-ray showed bibasilar infiltrate. His labs show that his troponins have all been in the alexis zone at 0.03, 0.1 and 0.1. PAST MEDICAL HISTORY: Significant for COPD. MEDICATIONS: 1. DuoNeb. 2. Lasix 40 b.i.d. 3. Vitamin D 3. 4. Pulmicort. 5. Aspirin. ALLERGIES: There are no known drug allergies. FAMILY HISTORY: Negative for premature coronary artery disease. SOCIAL HISTORY: Negative for current smoking. He drinks alcohol occasionally. There is no history of drug abuse. EXAM: Comfortable at rest. Afebrile. Vital signs are stable. Chest exam reveals bilateral rhonchi. Heart exam reveals first and second heart sounds. No gallop. No murmur. Abdomen is soft, nontender. Exam of extremities reveals bilateral mild edema. Peripheral pulses are felt. ASSESSMENT: 1. Troponin elevation. 2. Chronic obstructive pulmonary disease exacerbation with pneumonia. PLAN: The troponin elevation could be due to some mild non ST-segment elevation SC or could be related to supply-demand mismatch in the setting of acute systemic illness. I will treat him with aspirin. Hold off on any beta blockers at this time. Obtain a 2D echo to evaluate his LV function and wall motion. I reviewed his lipid profile, his LDL cholesterol is around 98, HDL is 43. When the respiratory status becomes stable, we may consider doing a stress test on him to evaluate for ischemia. MMODL / IJN: [id number] /
--- NOTE | 2018-01-01 11:31 | P.HPIM ---
History of Present Illness H&P Date: 01/01/18 This is a 72 years old male patient of Dr. Chu, Dr. Jefferson present with past medical history of hypertension, COPD 4 L dependent, diastolic heart failure, current tobacco dependency, hypertension, history of gout was last admitted in 2014 when patient was intubated for 48 hours after found unresponsiveness and hypoxic at home. He was last admitted 11/2017 for COPD exacerbation requiring mechanical intubation for 24 hours and prolonged stay in the hospital for difficult weaning from BIPAP due to hypercarbic hypoxic respiratory failure . Patient comes in to the ER for worsening shortness of breathfor the past 2-3 days associated with fever and chills. He denies any productive sputum or change in the colorof sputum. No travel history or sick contact was given. Patient was last admitted a month ago for his worsening COPD exacerbation with acute diastolic heart failure. X-ray in the ER suggest a new infiltrate in the right lung base with pulmonary fibrotic changes and COPD. Labs suggested leukocytosis of 11.1, chloride 93, Carbon dioxide 38, glucose 110, troponin 0.039--- 0.126 0.124. EKG was obtained which suggested nonspecific T-wave changes with right bundle branch block patient had a recent echocardiogram done a month ago which had EF of 60-65% with Mild pulmonary hypertension. Patient received IV antibiotics in the form of levofloxacin and Zosyn but presented in hives with itching after the completion of Zosyn. Zosyn. Patient was continued on levofloxacin. Patient continues to have shortness of breath with increased requirement of oxygen, pulmonary consult placed. Cardiology to assess for mild troponinemia. Review of Systems Constitutional: Endorses chills, endorses fever, Denies lethargy, Denies malaise , Denies poor appetite, Denies weakness, Denies weight loss Eyes: denies decreased vision, denies diplopia, denies discharge, denies pain Ears: deny: decreased hearing Ears, nose, mouth and throat: Denies dental pain, Denies headache, Denies nasal discharge, Denies nose pain Cardiovascular: Denies chest pain, Denies decreased exercise tolerance, Denies edema, Denies high blood pressure, Denies irregular heart beat, Denies palpitations, Denies paroxysmal nocturnal dyspnea, Denies rapid heart beat, endorses shortness of breath Respiratory: Denies congestion, Denies cough, Denies cough with sputum, endorses dyspnea, endorses home oxygen, Denies wheezing Gastrointestinal: Denies abdominal pain, Denies change in bowel habits, Denies coffee ground emesis, Denies early satiety, Denies excessive gas, Denies heartburn, Denies hematemesis, Denies hematochezia, Denies loss of appetite, Denies nausea, Denies vomiting Genitourinary: Denies dysuria, Denies flank pain, Denies kidney stones, Denies menorrhagia, Denies urgency, Denies urinary frequency Musculoskeletal: Denies gait dysfunction, Denies limitation of motion, Denies morning stiffness, Denies muscle cramps Integumentary: Denies rash, Denies wounds, Denies brittle nails, Denies change in hair/nails, Denies darkening of skin Neurological: Denies balance difficulties, Denies change in speech, Denies double vision, Denies gait dysfunction, Denies loss of vision, Denies motor disturbance, Denies numbness, Denies paralysis, Denies paresthesias, Denies seizures Psychiatric: Denies anxiety, Denies depression Endocrine: Denies excessive sweating, Denies excessive thirst, Denies high blood sugars, Denies palpitations Hematologic/Lymphatic: Denies easy bruising, Denies lymphadenopathy Past Medical History Past Medical History: COPD, Hypertension Additional Past Medical History / Comment(s): emphysema, gout. wears home 02. History of Any Multi-Drug Resistant Organisms: None Reported Past Surgical History: Unable to Obtain Additional Past Surgical History / Comment(s): hernia 2015, carpel tunnel, heart cath in the past (clean) Past Anesthesia/Blood Transfusion Reactions: No Reported Reaction Past Psychological History: No Psychological Hx Reported Smoking Status: Former smoker Past Alcohol Use History: Occasional Additional Past Alcohol Use History / Comment(s): quit smoking 3 ywars ago. pt drinks alcohol at home couple times a week. Past Drug Use History: None Reported - Past Family History Mother Family Medical History: Coronary Artery Disease (CAD), Hyperlipidemia, Hypertension Medications and Allergies Home Medications Medication Instructions Recorded Confirmed Type Albuterol Sulfate [Proair Hfa] 2 puff INHALATION RT-QID PRN 02/05/15 12/31/17 History Aspirin 81 mg PO DAILY 02/05/15 12/31/17 History Ipratropium-Albuterol Nebulize 3 ml INHALATION RT-QID 02/06/15 12/31/17 History [Duoneb 0.5 mg-3 mg/3 ml Soln] Budesonide [Pulmicort] 0.5 mg INHALATION RT-BID 11/06/17 12/31/17 History Cholecalciferol [Vitamin D3] 1,000 unit PO DAILY 11/06/17 12/31/17 History Montelukast [Singulair] 10 mg PO HS 11/06/17 12/31/17 History Ubidecarenone [Co Q-10] 100 mg PO DAILY 11/06/17 12/31/17 History Furosemide [Lasix] 40 mg PO BID@0900,1600 #60 tab 11/15/17 12/31/17 Rx Allergies Allergy/AdvReac Type Severity Reaction Status Date / Time No Known Allergies Allergy Verified 12/31/17 18:27 Physical Exam Vitals: Vital Signs Temp Pulse Pulse Resp BP BP Pulse Ox 01/01/18 08:12 72 16 01/01/18 08:00 97.3 F L 81 16 110/56 96 01/01/18 07:58 68 16 96 01/01/18 04:16 16 01/01/18 04:00 97.6 F 98 16 147/75 92 L 01/01/18 01:14 67 01/01/18 01:07 67 01/01/18 00:46 98.3 F 105 H 112/66 92 L 12/31/17 22:22 18 12/31/17 21:26 96.9 F L 100 18 103/57 96 12/31/17 20:35 102 H 20 144/68 97 12/31/17 20:00 104 H 20 144/80 95 12/31/17 19:40 103 H 12/31/17 19:17 101 H 12/31/17 19:11 102 H 22 132/88 98 12/31/17 19:02 101 H 12/31/17 18:26 29 H 12/31/17 18:09 96.9 F L 113 H 28 H 156/81 93 L Intake and Output 12/31/17 01/01/18 01/01/18 22:59 06:59 14:59 Intake Total 118 Output Total 50 Balance -50 118 Intake: Oral 118 Output: Urine 50 Other: Voiding Method Urinal Urinal Urinal # Voids 1 1 Weight 92.533 kg 92.533 kg - Constitutional General appearance: cooperative, no acute distress, obese - EENT Eyes: anicteric sclerae, PERRLA, normal appearance ENT: hearing grossly normal - Neck Neck: no lymphadenopathy, normal ROM, no other, no rigidity, no stridor, no thyromegaly - Respiratory Respiratory: bilateral: Decreased breath sounds with fine crackles at bases - Cardiovascular Rhythm: regular Heart sounds: normal: S1, S2 Abnormal Heart Sounds: no systolic murmur, no diastolic murmur, no rub, no S3 Gallop, no S4 Gallop - Gastrointestinal General gastrointestinal: normal bowel sounds, soft - Integumentary Integumentary: no rash - Neurologic Neurologic: CNII-XII intact - Musculoskeletal Musculoskeletal: gait normal, strength equal bilaterally - Psychiatric Psychiatric: A&O x's 3, appropriate affect Results CBC & Chem 7: 12/31/17 18:49 12/31/17 18:49 Labs: Abnormal Lab Results - Last 24 Hours (Table) 12/31/17 12/31/17 12/31/17 Range/Units 18:49 18:49 18:49 WBC 11.8 H (3.8-10.6) k/uL MCHC 30.0 L (31.0-37.0) g/dL Neutrophils # 9.6 H (1.3-7.7) k/uL Chloride 93 L (98-107) mmol/L Carbon Dioxide 38 H (22-30) mmol/L Glucose 110 H (74-99) mg/dL Total Creatine Kinase 40 L (55-170) U/L CK-MB (CK-2) (0.0-2.4) ng/mL Troponin I 0.039 H* (0.000-0.034) ng/mL 01/01/18 01/01/18 Range/Units 01:47 06:10 WBC (3.8-10.6) k/uL MCHC (31.0-37.0) g/dL Neutrophils # (1.3-7.7) k/uL Chloride (98-107) mmol/L Carbon Dioxide (22-30) mmol/L Glucose (74-99) mg/dL Total Creatine Kinase 48 L 53 L (55-170) U/L CK-MB (CK-2) 3.0 H 3.1 H (0.0-2.4) ng/mL Troponin I 0.126 H* 0.124 H* (0.000-0.034) ng/mL Thrombosis Risk Factor Assmnt - DVT/VTE Prophylaxis DVT/VTE Prophylaxis: Pharmacologic Prophylaxis ordered - Choose All That Apply Any of the Below Risk Factors Present?: Yes Each Factor Represents 1 point: Abnormal pulmonary function (COPD), Obesity ( BMI >25), Serious lung disease incl. pneumonia (< 1month) Each Risk Factor Represents 2 Points: Age 61-74 years Other congenital or acquired thrombophilia - If yes, enter type in comment: No Thrombosis Risk Factor Assessment Total Risk Factor Score: 5 Thrombosis Risk Factor Assessment Level: High Risk Assessment and Plan Plan: 1. Acute hypoxic hypercapnic respiratory failure secondary to COPD exacerbation with possibility of underlying healthcare associated pneumonia. Will continue with broad-spectrum antibiotic with levofloxacin. Zosyn stopped due to ALLERGY. Patient is currently on 5 L of oxygen. Continue Solu-Medrol 60 every 6, Pulmicort twice daily, sputum culture, incentive spirometry, DuoNeb as needed for shortness of breath his NT proBNP is normal. 2. Acute sepsis likely secondary to healthcare associated pneumonia. Continue levofloxacin 750 mg po daily. Sputum cultures and blood culture ordered 3. Mild troponinemia community to sepsis. Cardiology consult for abnormal T- wave changes and right bundle branch block repeat echocardiogram 4. COPD exacerbation currently on IV Solu-Medrol and nebulized treatments. Continue Singulair 5. Current tobacco dependency and is a current tobacco smoker. Patient counseled about tobacco cessation. Nicotine patch ordered 7. Diastolic heart failure continue Lasix 40 mg twice a day. 8. Gout history, stable 9. VTE prophylaxis is provided with heparin subcu 10. GI prophylaxis Pepcid 20 mg by mouth daily CODE STATUS full
[2018-01-01] MEDS: INSULIN ASPART 100 UNIT/ML 1 ML 10 ML VIAL SQ SCH ×3 (15:38→21:48)
[2018-01-01 16:48] LABS: Glucose,Whole Blood 148 mg/dL (75-99)
--- NOTE | 2018-01-01 20:11 | CONS ---
CONSULTATION Chuy Viveros is a 72-year-old male who presented to the ED with increasing shortness of breath of about 1 weeks duration. He had recently been treated for COPD exacerbation with steroids and antibiotics. Transiently improved and then again started to work. He denied any fever but may have had chills. He was seen in the ER and subsequently admitted for further evaluation and management. PAST MEDICAL HISTORY: Past medical history is positive for asthma, COPD, chronic respiratory failure for which he has previously required BiPAP, recent acute respiratory failure for which he had been on the ventilator, history of hypertension, gout, pulmonary fibrosis, congestive heart failure. MEDICATIONS: Prior to admission were albuterol, ipratropium with the albuterol, Pulmicort, Singulair, Co Q10, Lasix, vitamin D3. FAMILY HISTORY: Reviewed, not contributory. SOCIAL HISTORY: Patient used to smoke cigarettes about 2 packs of cigarettes per day. Used to work for [employer] and used to be a diesel mechanic helper. PHYSICAL EXAMINATION: He is sitting up in bed. His respiratory rate is 20, pulse rate of 74, temperature 97.1, blood pressure 122/68, O2 saturation on 4 L by nasal cannula is 95%. HEENT: Pupils are equal, mild prominence of the jugular veins. Chest reveals decreased breath sounds. Scattered crackles at the bases, prolonged expiration. Wheeze only on forced expiration. Abdomen is soft. There is 2+ pedal edema. LABS: Reveal white count of 11.4, hemoglobin of 13.4, sodium 140, potassium 4.6, chloride 93, bicarb 38, BUN 15. Chest x-ray shows lower zone interstitial prominence cannot rule out a right lower zone early pneumonia. IMPRESSION: At this time: 1. Asthma with chronic obstructive pulmonary disease with acute exacerbation. 2. Pulmonary fibrosis in the lower zones. 3. Possible pneumonia early. 4. Congestive heart failure and cor pulmonale. At this point in time, continue him on Levaquin, keep him on bronchodilators, aerosolized steroids, IV steroids, montelukast, may benefit from gentle diuresis. I agree with oral Lasix for now but may require IV Lasix depending upon his response. He is counseled regarding his condition and this approach. MMODL / IJN: [id number] /
[2018-01-01] MEDS: guaiFENesin 600 MG TABLET.ER PO SCH (20:12)
[2018-01-01] MEDS: HEPARIN SODIUM,PORCINE 5,000 UNIT/ML 1 ML VIAL SQ SCH (20:13)
[2018-01-01] MEDS: MONTELUKAST 10 MG TAB PO SCH (20:13)
[2018-01-01] MEDS ORDERED: LEVOFLOXACIN 750MG-D5W PMX 750 MG in DEXTROSE/WATER 1 150ML.BAG IVPB SCH (21:00)
[2018-01-01 21:04] LABS: Glucose,Whole Blood 118 mg/dL (75-99)
[2018-01-02] MEDS: ALBUTEROL NEBULIZED 2.5 MG/3 ML INHALATION PRN (01:31)
[2018-01-02] MEDS: methylPREDNISolone SOD SUCCI 125 MG/2 ML VIAL IV SCH (05:48)
[2018-01-02 06:17] LABS: Glucose,Whole Blood 139 mg/dL (75-99)
[2018-01-02] MEDS: INSULIN ASPART 100 UNIT/ML 1 ML 10 ML VIAL SQ SCH ×4 (06:25→20:57)
[2018-01-02 07:27] LABS: Basophils % (A) 0 %; Eosinophils % (A) 0 %; HCT 40.2 % (39.0-53.0); HGB 12.4 gm/dL (13.0-17.5); Hypochromasia Moderate; Lymphocytes # (A) 0.7 k/uL (1.0-4.8); Lymphocytes % (A) 5 %; MCH 28.3 pg (25.0-35.0); MCHC 30.9 g/dL (31.0-37.0); MCV 91.7 fL (80.0-100.0); Mean Platelet Volume 7.1; Monocytes # (A) 0.6 k/uL (0-1.0); Monocytes % (A) 4 %; Neutrophils # (A) 12.4 k/uL (1.3-7.7); Neutrophils % (A) 90 %; Platelet Count 291 k/uL (150-450); RBC 4.39 m/uL (4.30-5.90); RDW 13.2 % (11.5-15.5); WBC 13.8 k/uL (3.8-10.6)
[2018-01-02] MEDS: BUDESONIDE 0.5 MG/2 ML NEBU INHALATION SCH ×2 (07:36→19:46)
[2018-01-02] MEDS: IPRATROPIUM-ALBUTEROL 3 ML NEB INHALATION SCH ×4 (07:36→19:46)
[2018-01-02 07:41] LABS: Albumin 3.4 g/dL (3.5-5.0); Calcium 9.4 mg/dL (8.4-10.2); Total Bilirubin 0.3 mg/dL (0.2-1.3); Total Protein 6.9 g/dL (6.3-8.2)
[2018-01-02] MEDS: HEPARIN SODIUM,PORCINE 5,000 UNIT/ML 1 ML VIAL SQ SCH ×2 (08:24→20:01)
[2018-01-02] MEDS: guaiFENesin 600 MG TABLET.ER PO SCH ×2 (08:24→20:01)
[2018-01-02] MEDS: FAMOTIDINE 20 MG TAB PO SCH (08:25)
[2018-01-02] MEDS: FUROSEMIDE 40 MG TAB PO SCH ×2 (08:25→16:20)
[2018-01-02] MEDS: CHOLECALCIFEROL 1,000 UNIT TAB PO SCH (08:25)
[2018-01-02] MEDS: ASPIRIN 81 MG PO SCH (08:25)
[2018-01-02 09:27] LABS: Hemoglobin A1C 5.8 % (4.0-6.0)
--- NOTE | 2018-01-02 10:30 | P.PN ---
Subjective Progress Note Date: 01/02/18 HPI: Chuy Viveros is a 72-year-old male who presented to the ED with increasing shortness of breath for about one week's duration. He had recently been treated for COPD exacerbation with steroids and antibiotics. Transient is recently improved and then again started to wheeze. He denied any fever but may have had some chills. He is seen in the ER and subsequently admitted for further evaluation and management Interval history: 01/02/2018patient is being seen examined and evaluated today on rounds. He is resting up in bed on 4 L of supplemental oxygen via nasal cannula. The patient does utilize home oxygen at 4 L at all times as well. His chest x-ray was reviewed and does show COPD, pulmonary fibrosis and possible new infiltrate in the right lower base. He continues on breathing treatments, antibiotics and steroids. Echocardiogram is pending. Still needs sputum culture. Objective - Vital Signs Vital signs: Vital Signs Temp 96.5 F L 01/02/18 08:00 Pulse 94 01/02/18 08:00 Resp 24 01/02/18 08:00 BP 136/65 01/02/18 08:00 Pulse Ox 98 01/02/18 08:00 Intake & Output 01/01/18 01/02/18 01/02/18 18:59 06:59 18:59 Intake Total 658 125 Output Total 500 1500 Balance 158 -1500 125 Weight 92.3 kg Intake: Intake, IV Titration 120 Amount Sodium Chloride 0.9% 1, 120 000 ml @ 100 mls/hr IV . Q10H STA Rx#:[id number] Oral 538 125 Output: Urine 500 1500 Other: Voiding Method Urinal Urinal # Voids 1 - Exam GENERAL EXAM: Alert, active, comfortable in no apparent distress. HEAD: Normocephalic. EYES: Normal reaction of pupils, equal size. NOSE: Clear with pink turbinates. THROAT: No erythema or exudates. NECK: No masses, no JVD. CHEST: No chest wall deformity. LUNGS: Equal air entry with decreased breath sounds at the bilateral bases. Faint expiratory wheeze. CVS: S1 and S2 normal with no audible mumurs, regular rhythm. ABDOMEN: No hepatosplenomegaly, normal bowel sounds, no guarding or rigidity. EXTREMITIES: +1 edema noted, pedal pulses palpable. CENTRAL NERVOUS SYSTEM: No focal deficits, tone is normal in all 4 extremities. - Labs CBC & Chem 7: 01/02/18 06:31 01/02/18 06:31 Labs: Abnormal Lab Results - Last 24 Hours (Table) 01/01/18 01/01/18 01/02/18 Range/Units 16:16 20:58 06:13 WBC (3.8-10.6) k/uL Hgb (13.0-17.5) gm/dL MCHC (31.0-37.0) g/dL Neutrophils # (1.3-7.7) k/uL Lymphocytes # (1.0-4.8) k/uL Carbon Dioxide (22-30) mmol/L BUN (9-20) mg/dL Glucose (74-99) mg/dL POC Glucose (mg/dL) 148 H 118 H 139 H (75-99) mg/dL Albumin (3.5-5.0) g/dL 01/02/18 01/02/18 Range/Units 06:31 06:31 WBC 13.8 H (3.8-10.6) k/uL Hgb 12.4 L (13.0-17.5) gm/dL MCHC 30.9 L (31.0-37.0) g/dL Neutrophils # 12.4 H (1.3-7.7) k/uL Lymphocytes # 0.7 L (1.0-4.8) k/uL Carbon Dioxide 36 H (22-30) mmol/L BUN 28 H (9-20) mg/dL Glucose 135 H (74-99) mg/dL POC Glucose (mg/dL) (75-99) mg/dL Albumin 3.4 L (3.5-5.0) g/dL Microbiology - Last 24 Hours (Table) 12/31/17 20:27 Blood Culture - Preliminary Blood No Growth after 24 hours Assessment and Plan Assessment: Assessment Possible early pneumonia, suspect mixed bacterial Acute on chronic hypoxic respiratory failure requiring supplemental oxygen Acute exacerbation of COPD Acute exacerbation of chronic persistent severe asthma Congestive heart Failure and cor pulmonale Pulmonary fibrosis in the lower zones Plan Medications have been reviewed and will be continued as ordered. Continue with antibiotics, IV steroids have been tapered Echocardiogram pending Obtain sputum culture Initiate and encourage incentive spirometer Continue with pulmonary hygiene, coughing and deep breathing exercises, and supportive care. Supplemental oxygen to maintain oxygen saturations of 92% or better. Continue nebulizer treatments. Continue with gentle diuresis GI and DVT prophylaxis. Increase activity as tolerated We will continue to monitor labs/results and adjust treatment as necessary. Further recommendations pending. I performed an examination of the patient and discussed their management with the nurse practitioner. I have reviewed the nurse practitioner's note and agree with the documented findings and plan of care.
--- NOTE | 2018-01-02 11:06 | P.PN ---
Subjective Progress Note Date: 01/02/18 This is a 72-year-old gentleman with history of COPD, admitted to the hospital with COPD exacerbation and pneumonia. Cardiology consultation was requested because of mild abnormality in his troponin. Echocardiogram with Doppler study was performed this morning and is yet pending. Overall the patient does state he feeling considerably better today. Continues to have cough however nonproductive. Denies any chest pain, breathing overall stable. Blood pressure 136/60 with a heart rate in the 90s, 98% on 4 L of oxygen. White blood cell count 13.8, hemoglobin 12.4, platelet count 291. Sodium 141, potassium 5.0, BUN 28, creatinine 1.0. Objective - Vital Signs Vital signs: Vital Signs Temp 96.5 F L 01/02/18 08:00 Pulse 84 01/02/18 10:59 Resp 24 01/02/18 08:00 BP 136/65 01/02/18 08:00 Pulse Ox 98 01/02/18 08:00 Intake & Output 01/01/18 01/02/18 01/02/18 18:59 06:59 18:59 Intake Total 658 125 Output Total 500 1500 200 Balance 158 -1500 -75 Weight 92.3 kg Intake: Intake, IV Titration 120 Amount Sodium Chloride 0.9% 1, 120 000 ml @ 100 mls/hr IV . Q10H STA Rx#:[id number] Oral 538 125 Output: Urine 500 1500 200 Other: Voiding Method Urinal Urinal Urinal # Voids 1 - Exam PHYSICAL EXAMINATION: GENERAL: 72-year-old gentleman in no acute distress at the time of my examination HEENT: Head is atraumatic, normocephalic. Pupils equal, round. Sclera anicteric. Conjunctiva are clear. Mucous membranes of the mouth are moist. Neck is supple. There is no elevated jugular venous pressure.No carotid bruit is heard. HEART EXAMINATION: Heart S1, S2 normal. No murmur or gallop heard. CHEST EXAMINATION: Lungs reveal coarse crackles bilaterally with some fine expiratory wheezes. ABDOMEN: Soft, obese, nontender. Bowel sounds are heard. No organomegaly noted. EXTREMITIES: 2+ peripheral pulses with trace evidence of peripheral edema and no calf tenderness noted. NEUROLOGIC patient is awake, alert and oriented X3. . - Labs CBC & Chem 7: 01/02/18 06:31 01/02/18 06:31 Labs: Abnormal Lab Results - Last 24 Hours (Table) 01/01/18 01/01/18 01/02/18 Range/Units 16:16 20:58 06:13 WBC (3.8-10.6) k/uL Hgb (13.0-17.5) gm/dL MCHC (31.0-37.0) g/dL Neutrophils # (1.3-7.7) k/uL Lymphocytes # (1.0-4.8) k/uL Carbon Dioxide (22-30) mmol/L BUN (9-20) mg/dL Glucose (74-99) mg/dL POC Glucose (mg/dL) 148 H 118 H 139 H (75-99) mg/dL Albumin (3.5-5.0) g/dL 01/02/18 01/02/18 Range/Units 06:31 06:31 WBC 13.8 H (3.8-10.6) k/uL Hgb 12.4 L (13.0-17.5) gm/dL MCHC 30.9 L (31.0-37.0) g/dL Neutrophils # 12.4 H (1.3-7.7) k/uL Lymphocytes # 0.7 L (1.0-4.8) k/uL Carbon Dioxide 36 H (22-30) mmol/L BUN 28 H (9-20) mg/dL Glucose 135 H (74-99) mg/dL POC Glucose (mg/dL) (75-99) mg/dL Albumin 3.4 L (3.5-5.0) g/dL Microbiology - Last 24 Hours (Table) 12/31/17 20:27 Blood Culture - Preliminary Blood No Growth after 24 hours Assessment and Plan Plan: Assessment and plan #1 acute respiratory failure secondary to COPD exacerbation and possible underlying healthcare associated pneumonia. #2 abnormality in troponin, not consistent with acute coronary syndrome, likely secondary to supply and demand mismatch. #3 nicotine dependence Plan We will review the echocardiogram with Doppler study that was performed this morning, if normal we'll follow this patient with you now on an as-needed basis only but please don't hesitate to call with any questions. DNP note has been reviewed, I agree with a documented findings and plan of care. Patient was seen and examined.
[2018-01-02] MEDS: methylPREDNISolone SOD SUCCI 40 MG/ML 1 ML VIAL IV SCH ×3 (11:07→22:55)
[2018-01-02 12:00] LABS: Glucose,Whole Blood 182 mg/dL (75-99)
--- NOTE | 2018-01-02 12:41 | ECHOF ---
Referral Reason:troponin elevation MEASUREMENTS -------- HEIGHT: 182.9 cm WEIGHT: 92.1 kg BP: 116/61 IVSd: 1.1 cm (0.6 - 1.1) LVIDd: 4.1 cm (3.9 - 5.3) LVPWd: 1.2 cm (0.6 - 1.1) IVSs: 1.8 cm LVIDs: 2.0 cm LVPWs: 1.6 cm Ao Diam: 3.8 cm (2.0 - 3.7) AV Cusp: 2.5 cm (1.5 - 2.6) LA Diam: 3.2 cm (2.7 - 3.8) MV EXCURSION: 20.694 mm (> 18.000) MV EF SLOPE: 78 mm/s (70 - 150) EPSS: 0.5 cm MV E Syed: 1.10 m/s MV DecT: 174 ms MV A Syed: 0.99 m/s MV E/A Ratio: 1.12 RAP: 15.00 mmHg RVSP: 33.47 mmHg FINDINGS -------- Sinus rhythm. Resting tachycardia (HR>100bpm). This was a technically adequate study. The left ventricular size is normal. There is mild concentric left ventricular hypertrophy. Overa ll left ventricular systolic function is normal with, an EF between 55 - 60 %. The right ventricle is normal in size and function. The left atrium is normal in size. The right atrium is normal in size. The aortic valve is trileaflet, and appears structurally normal. No aortic stenosis or regurgitation. Mild mitral annular calcification present. Mild mitral regurgitation is present. Trace tricuspid regurgitation present. There is no evidence of pulmonary hypertension. The right ventricular systolic pressure, as measured by Doppler, is 33.47mmHg. There is no pulmonic regurgitation present. The aortic root size is normal. The inferior vena cava is mildly dilated. There is no pericardial effusion. CONCLUSIONS -------- 1. Sinus rhythm. 2. Resting tachycardia (HR>100bpm). 3. This was a technically adequate study. 4. The left ventricular size is normal. 5. There is mild concentric left ventricular hypertrophy. 6. Overall left ventricular systolic function is normal with, an EF between 55 - 60 %. 7. The left atrium is normal in size. 8. The aortic valve is trileaflet, and appears structurally normal. No aortic stenosis or regurgitati on. 9. Mild mitral annular calcification present. 10. Mild mitral regurgitation is present. 11. Trace tricuspid regurgitation present. 12. There is no evidence of pulmonary hypertension. 13. There is no pulmonic regurgitation present. 14. The aortic root size is normal. 15. The inferior vena cava is mildly dilated. 16. There is no pericardial effusion. [employer]ERILE PROCESSING TECHNICIAN: Indy Echeverria RDCS
--- NOTE | 2018-01-02 13:18 | P.PN ---
Subjective Progress Note Date: 01/02/18 This is a 72 years old male patient of Dr. Chu, Dr. Jefferson present with past medical history of hypertension, COPD 4 L dependent, diastolic heart failure, current tobacco dependency, hypertension, history of gout was last admitted in 2014 when patient was intubated for 48 hours after found unresponsiveness and hypoxic at home. He was last admitted 11/2017 for COPD exacerbation requiring mechanical intubation for 24 hours and prolonged stay in the hospital for difficult weaning from BIPAP due to hypercarbic hypoxic respiratory failure . Patient comes in to the ER for worsening shortness of breathfor the past 2-3 days associated with fever and chills. He denies any productive sputum or change in the colorof sputum. No travel history or sick contact was given. Patient was last admitted a month ago for his worsening COPD exacerbation with acute diastolic heart failure. X-ray in the ER suggest a new infiltrate in the right lung base with pulmonary fibrotic changes and COPD. Labs suggested leukocytosis of 11.1, chloride 93, Carbon dioxide 38, glucose 110, troponin 0.039--- 0.126 0.124. EKG was obtained which suggested nonspecific T-wave changes with right bundle branch block patient had a recent echocardiogram done a month ago which had EF of 60-65% with Mild pulmonary hypertension. Patient received IV antibiotics in the form of levofloxacin and Zosyn but presented in hives with itching after the completion of Zosyn. Zosyn. Patient was continued on levofloxacin. Patient continues to have shortness of breath with increased requirement of oxygen, pulmonary consult placed. Cardiology to assess for mild troponinemia. 01/02: Patient's breathing status is stable and he feels better right now. He states he had a rough night due to difficulty breathing. He denies having any chest pain, abdominal pain. No nausea, vomiting or diarrhea. During the night his O2 was increased from 4 L to 5 L. He does state that he has obstructive sleep apnea and unable to tolerate CPAP. Solu-Medrol will be decreased to 40 mg every 8 hours. Pro-calcitonin added. Echocardiogram reveals EF of 55-60% with mild concentric left ventricular hypertrophy, mild mitral regurgitation, trace tricuspid regurgitation, no pulmonary hypertension. Patient is followed by cardiology and acute coronary syndrome ruled out and cardiology is following on an as-needed basis. Pulmonary medicine, Dr. NATALYA Jefferson/Dr. Vides following the patient. Objective - Vital Signs Vital signs: Vital Signs Temp 97.2 F L 01/02/18 03:58 Pulse 88 01/02/18 07:53 Resp 15 01/02/18 03:58 BP 116/61 01/02/18 03:58 Pulse Ox 96 01/02/18 07:39 Intake & Output 01/01/18 01/02/18 01/02/18 18:59 06:59 18:59 Intake Total 658 125 Output Total 500 1500 Balance 158 -1500 125 Weight 92.3 kg Intake: Intake, IV Titration 120 Amount Sodium Chloride 0.9% 1, 120 000 ml @ 100 mls/hr IV . Q10H STA Rx#:[id number] Oral 538 125 Output: Urine 500 1500 Other: Voiding Method Urinal Urinal # Voids 1 - Exam General appearance: cooperative, no acute distress, obese - EENT Eyes: anicteric sclerae, PERRLA, normal appearance ENT: hearing grossly normal - Neck Neck: no lymphadenopathy, normal ROM, no other, no rigidity, no stridor, no thyromegaly - Respiratory Respiratory: bilateral: Decreased breath sounds with fine crackles at bases - Cardiovascular Rhythm: regular Heart sounds: normal: S1, S2 Abnormal Heart Sounds: no systolic murmur, no diastolic murmur, no rub, no S3 Gallop, no S4 Gallop - Gastrointestinal General gastrointestinal: normal bowel sounds, soft - Integumentary Integumentary: no rash - Neurologic Neurologic: CNII-XII intact - Musculoskeletal Musculoskeletal: gait normal, strength equal bilaterally - Psychiatric Psychiatric: A&O x's 3, appropriate affect - Labs CBC & Chem 7: 01/02/18 06:31 01/02/18 06:31 Labs: Abnormal Lab Results - Last 24 Hours (Table) 01/01/18 01/01/18 01/02/18 Range/Units 16:16 20:58 06:13 WBC (3.8-10.6) k/uL Hgb (13.0-17.5) gm/dL MCHC (31.0-37.0) g/dL Neutrophils # (1.3-7.7) k/uL Lymphocytes # (1.0-4.8) k/uL Carbon Dioxide (22-30) mmol/L BUN (9-20) mg/dL Glucose (74-99) mg/dL POC Glucose (mg/dL) 148 H 118 H 139 H (75-99) mg/dL Albumin (3.5-5.0) g/dL 01/02/18 01/02/18 Range/Units 06:31 06:31 WBC 13.8 H (3.8-10.6) k/uL Hgb 12.4 L (13.0-17.5) gm/dL MCHC 30.9 L (31.0-37.0) g/dL Neutrophils # 12.4 H (1.3-7.7) k/uL Lymphocytes # 0.7 L (1.0-4.8) k/uL Carbon Dioxide 36 H (22-30) mmol/L BUN 28 H (9-20) mg/dL Glucose 135 H (74-99) mg/dL POC Glucose (mg/dL) (75-99) mg/dL Albumin 3.4 L (3.5-5.0) g/dL Microbiology - Last 24 Hours (Table) 12/31/17 20:27 Blood Culture - Preliminary Blood No Growth after 24 hours Assessment and Plan Plan: 1. Acute hypoxic hypercapnic respiratory failure secondary to COPD exacerbation with possibility of underlying healthcare associated pneumonia. Continue DuoNeb treatments, Levaquin, Solu-Medrol decreased to 40 mg IV every 8 hours, Pulmicort. Patient is currently on 5 L of oxygen. Pulmonary and cardiology consults appreciated. 2. Acute sepsis likely secondary to healthcare associated pneumonia. Continue levofloxacin 750 mg po daily. Sputum cultures and blood culture ordered 3. Mild troponinemia secondary to sepsis. Cardiology has ruled out acute coronary syndrome. 4. COPD exacerbation currently on IV Solu-Medrol and nebulized treatments. Continue Singulair 5. Current tobacco dependency and is a current tobacco smoker. Patient counseled about tobacco cessation. Nicotine patch ordered 7. Chronic diastolic heart failure continue Lasix 40 mg twice a day. 8. Gout history, stable 9. VTE prophylaxis is provided with heparin subcu 10. GI prophylaxis Pepcid 20 mg by mouth daily CODE STATUS full Discharge plan: Most likely home with homecare Impression and plan of care have been directed as dictated by the signing physician. Ann-Marie Ortiz nurse practitioner acting as scribe for signing physician.
[2018-01-02 16:59] LABS: Glucose,Whole Blood 119 mg/dL (75-99)
[2018-01-02] MEDS: MONTELUKAST 10 MG TAB PO SCH (20:01)
[2018-01-02] MEDS: LEVOFLOXACIN 750 MG TAB PO SCH (20:01)
[2018-01-02 20:44] LABS: Glucose,Whole Blood 148 mg/dL (75-99)
[2018-01-03 06:05] LABS: Glucose,Whole Blood 152 mg/dL (75-99)
[2018-01-03] MEDS: INSULIN ASPART 100 UNIT/ML 1 ML 10 ML VIAL SQ SCH ×3 (06:35→21:04)
[2018-01-03 06:46] LABS: Basophils % (A) 0 %; Eosinophils % (A) 0 %; HCT 39.6 % (39.0-53.0); Hypochromasia Moderate; Lymphocytes # (A) 0.6 k/uL (1.0-4.8); Lymphocytes % (A) 4 %; MCH 27.8 pg (25.0-35.0); MCHC 30.4 g/dL (31.0-37.0); MCV 91.5 fL (80.0-100.0); Mean Platelet Volume 7.3; Monocytes # (A) 0.7 k/uL (0-1.0); Monocytes % (A) 5 %; Neutrophils # (A) 12.6 k/uL (1.3-7.7); Neutrophils % (A) 90 %; Platelet Count 264 k/uL (150-450); RBC 4.33 m/uL (4.30-5.90); RDW 13.3 % (11.5-15.5)
[2018-01-03 06:57] LABS: ALT 24 U/L (21-72); AST 20 U/L (17-59); Albumin 3.2 g/dL (3.5-5.0); Alkaline Phosphatase 45 U/L (38-126); Anion Gap 5 mmol/L; Blood Urea Nitrogen 34 mg/dL (9-20); Calcium 9.2 mg/dL (8.4-10.2); Carbon Dioxide 38 mmol/L (22-30); Chloride 96 mmol/L (98-107); Glucose 126 mg/dL (74-99); Potassium 4.6 mmol/L (3.5-5.1); Sodium 139 mmol/L (137-145); Total Bilirubin 0.3 mg/dL (0.2-1.3); Total Protein 6.4 g/dL (6.3-8.2)
[2018-01-03] MEDS: BUDESONIDE 0.5 MG/2 ML NEBU INHALATION SCH (07:47)
[2018-01-03] MEDS: IPRATROPIUM-ALBUTEROL 3 ML NEB INHALATION SCH ×4 (07:47→19:48)
[2018-01-03] MEDS: guaiFENesin 600 MG TABLET.ER PO SCH ×2 (08:27→21:01)
[2018-01-03] MEDS: methylPREDNISolone SOD SUCCI 40 MG/ML 1 ML VIAL IV SCH (08:27)
[2018-01-03] MEDS: FUROSEMIDE 40 MG TAB PO SCH ×2 (08:28→16:18)
[2018-01-03] MEDS: FAMOTIDINE 20 MG TAB PO SCH (08:28)
[2018-01-03] MEDS: CHOLECALCIFEROL 1,000 UNIT TAB PO SCH (08:28)
[2018-01-03] MEDS: ASPIRIN 81 MG PO SCH (08:28)
[2018-01-03] MEDS: HEPARIN SODIUM,PORCINE 5,000 UNIT/ML 1 ML VIAL SQ SCH ×2 (08:28→21:03)
--- NOTE | 2018-01-03 10:58 | P.PN ---
<Irina Amaya E - Last Filed: 01/03/18 10:53> Subjective Progress Note Date: 01/03/18 HPI: Chuy Vivreos is a 72-year-old male who presented to the ED with increasing shortness of breath for about one week's duration. He had recently been treated for COPD exacerbation with steroids and antibiotics. Transient is recently improved and then again started to wheeze. He denied any fever but may have had some chills. He is seen in the ER and subsequently admitted for further evaluation and management Interval history: 01/02/2018patient is being seen examined and evaluated today on rounds. He is resting up in bed on 4 L of supplemental oxygen via nasal cannula. The patient does utilize home oxygen at 4 L at all times as well. His chest x-ray was reviewed and does show COPD, pulmonary fibrosis and possible new infiltrate in the right lower base. He continues on breathing treatments, antibiotics and steroids. Echocardiogram is pending. Still needs sputum culture. 01/03/18- patient being seen examined and evaluated today on rounds. He is resting up on 4 L of supplemental oxygen via nasal cannula. He did have an echocardiogram yesterday which did reveal an EF of 55-60% with RVSP of 34.47 mmHg. He has been using his incentive spirometer and flutter valve. His steroids have been tapered down. His breathing is slightly improving. at bedside, updated on POC. Objective - Vital Signs Vital signs: Vital Signs Temp 97.6 F 01/03/18 08:00 Pulse 90 01/03/18 08:09 Resp 18 01/03/18 08:00 BP 136/74 01/03/18 08:00 Pulse Ox 96 01/03/18 08:00 Intake & Output 01/02/18 01/03/18 01/03/18 18:59 06:59 18:59 Intake Total 485 10 Output Total 500 1200 Balance -15 -1190 Weight 91.9 kg Intake: IV 10 0.9 10 Oral 485 Output: Urine 500 1200 Other: Voiding Method Urinal Urinal Urinal # Bowel Movements 1 - Exam GENERAL EXAM: Alert, active, comfortable in no apparent distress. HEAD: Normocephalic. EYES: Normal reaction of pupils, equal size. NOSE: Clear with pink turbinates. THROAT: No erythema or exudates. NECK: No masses, no JVD. CHEST: No chest wall deformity. LUNGS: Equal air entry with decreased breath sounds at the bilateral bases. Faint expiratory wheeze. CVS: S1 and S2 normal with no audible mumurs, regular rhythm. ABDOMEN: No hepatosplenomegaly, normal bowel sounds, no guarding or rigidity. EXTREMITIES: +1 edema noted, pedal pulses palpable. CENTRAL NERVOUS SYSTEM: No focal deficits, tone is normal in all 4 extremities. - Labs CBC & Chem 7: 01/03/18 06:23 01/03/18 06:23 Labs: Abnormal Lab Results - Last 24 Hours (Table) 01/02/18 01/02/18 01/02/18 Range/Units 06:31 11:57 16:46 WBC (3.8-10.6) k/uL Hgb (13.0-17.5) gm/dL MCHC (31.0-37.0) g/dL Neutrophils # (1.3-7.7) k/uL Lymphocytes # (1.0-4.8) k/uL Chloride (98-107) mmol/L Carbon Dioxide (22-30) mmol/L BUN (9-20) mg/dL Glucose (74-99) mg/dL POC Glucose (mg/dL) 182 H 119 H (75-99) mg/dL Albumin (3.5-5.0) g/dL Procalcitonin 0.12 H (0.02-0.09) ng/mL 01/02/18 01/03/18 01/03/18 Range/Units 20:42 06:04 06:23 WBC 14.0 H (3.8-10.6) k/uL Hgb 12.0 L (13.0-17.5) gm/dL MCHC 30.4 L (31.0-37.0) g/dL Neutrophils # 12.6 H (1.3-7.7) k/uL Lymphocytes # 0.6 L (1.0-4.8) k/uL Chloride (98-107) mmol/L Carbon Dioxide (22-30) mmol/L BUN (9-20) mg/dL Glucose (74-99) mg/dL POC Glucose (mg/dL) 148 H 152 H (75-99) mg/dL Albumin (3.5-5.0) g/dL Procalcitonin (0.02-0.09) ng/mL 01/03/18 Range/Units 06:23 WBC (3.8-10.6) k/uL Hgb (13.0-17.5) gm/dL MCHC (31.0-37.0) g/dL Neutrophils # (1.3-7.7) k/uL Lymphocytes # (1.0-4.8) k/uL Chloride 96 L (98-107) mmol/L Carbon Dioxide 38 H (22-30) mmol/L BUN 34 H (9-20) mg/dL Glucose 126 H (74-99) mg/dL POC Glucose (mg/dL) (75-99) mg/dL Albumin 3.2 L (3.5-5.0) g/dL Procalcitonin (0.02-0.09) ng/mL Microbiology - Last 24 Hours (Table) 12/31/17 20:27 Blood Culture - Preliminary Blood No Growth after 48 hours Assessment and Plan Assessment: Assessment Possible early pneumonia, suspect mixed bacterial Acute on chronic hypoxic respiratory failure requiring supplemental oxygen Acute exacerbation of COPD Acute exacerbation of chronic persistent severe asthma Congestive heart Failure and cor pulmonale Pulmonary fibrosis in the lower zones Plan Medications have been reviewed and will be continued as ordered. Continue with antibiotics, IV steroids have been tapered Will switch to oral steroids Echocardiogram reviewed, EF 55-60%, RVSP 33.47 Obtain sputum culture Initiate and encourage incentive spirometer, and flutter valve Continue with pulmonary hygiene, coughing and deep breathing exercises, and supportive care. Supplemental oxygen to maintain oxygen saturations of 92% or better. Continue nebulizer treatments. Continue with gentle diuresis GI and DVT prophylaxis. Increase activity as tolerated We will continue to monitor labs/results and adjust treatment as necessary. Further recommendations pending. I performed an examination of the patient and discussed their management with the nurse practitioner. I have reviewed the nurse practitioner's note and agree with the documented findings and plan of care. <Jessica Vides - Last Filed: 01/03/18 11:10> Objective - Vital Signs Vital signs: Vital Signs Temp 97.6 F 01/03/18 08:00 Pulse 90 01/03/18 08:09 Resp 18 01/03/18 08:00 BP 136/74 01/03/18 08:00 Pulse Ox 96 01/03/18 08:00 Intake & Output 01/02/18 01/03/18 01/03/18 18:59 06:59 18:59 Intake Total 485 10 Output Total 500 1200 Balance -15 -1190 Weight 91.9 kg Intake: IV 10 0.9 10 Oral 485 Output: Urine 500 1200 Other: Voiding Method Urinal Urinal Urinal # Bowel Movements 1 - Labs CBC & Chem 7: 01/03/18 06:23 01/03/18 06:23 Labs: Abnormal Lab Results - Last 24 Hours (Table) 01/02/18 01/02/18 01/02/18 Range/Units 06:31 11:57 16:46 WBC (3.8-10.6) k/uL Hgb (13.0-17.5) gm/dL MCHC (31.0-37.0) g/dL Neutrophils # (1.3-7.7) k/uL Lymphocytes # (1.0-4.8) k/uL Chloride (98-107) mmol/L Carbon Dioxide (22-30) mmol/L BUN (9-20) mg/dL Glucose (74-99) mg/dL POC Glucose (mg/dL) 182 H 119 H (75-99) mg/dL Albumin (3.5-5.0) g/dL Procalcitonin 0.12 H (0.02-0.09) ng/mL 01/02/18 01/03/18 01/03/18 Range/Units 20:42 06:04 06:23 WBC 14.0 H (3.8-10.6) k/uL Hgb 12.0 L (13.0-17.5) gm/dL MCHC 30.4 L (31.0-37.0) g/dL Neutrophils # 12.6 H (1.3-7.7) k/uL Lymphocytes # 0.6 L (1.0-4.8) k/uL Chloride (98-107) mmol/L Carbon Dioxide (22-30) mmol/L BUN (9-20) mg/dL Glucose (74-99) mg/dL POC Glucose (mg/dL) 148 H 152 H (75-99) mg/dL Albumin (3.5-5.0) g/dL Procalcitonin (0.02-0.09) ng/mL 01/03/18 Range/Units 06:23 WBC (3.8-10.6) k/uL Hgb (13.0-17.5) gm/dL MCHC (31.0-37.0) g/dL Neutrophils # (1.3-7.7) k/uL Lymphocytes # (1.0-4.8) k/uL Chloride 96 L (98-107) mmol/L Carbon Dioxide 38 H (22-30) mmol/L BUN 34 H (9-20) mg/dL Glucose 126 H (74-99) mg/dL POC Glucose (mg/dL) (75-99) mg/dL Albumin 3.2 L (3.5-5.0) g/dL Procalcitonin (0.02-0.09) ng/mL Microbiology - Last 24 Hours (Table) 12/31/17 20:27 Blood Culture - Preliminary Blood No Growth after 48 hours Assessment and Plan Assessment: Patient seen and examined. Patient states his breathing is a little bit better. Plan is for discharge home tomorrow. Patient will be changed to oral prednisone. He is to follow-up in the pulmonary office next week. ~Jessica Vides DO
[2018-01-03 12:09] LABS: Glucose,Whole Blood 122 mg/dL (75-99)
--- NOTE | 2018-01-03 12:20 | P.PN ---
Subjective Progress Note Date: 01/03/18 This is a 72 years old male patient of Dr. Chu, Dr. Jefferson present with past medical history of hypertension, COPD 4 L dependent, diastolic heart failure, current tobacco dependency, hypertension, history of gout was last admitted in 2014 when patient was intubated for 48 hours after found unresponsiveness and hypoxic at home. He was last admitted 11/2017 for COPD exacerbation requiring mechanical intubation for 24 hours and prolonged stay in the hospital for difficult weaning from BIPAP due to hypercarbic hypoxic respiratory failure . Patient comes in to the ER for worsening shortness of breathfor the past 2-3 days associated with fever and chills. He denies any productive sputum or change in the colorof sputum. No travel history or sick contact was given. Patient was last admitted a month ago for his worsening COPD exacerbation with acute diastolic heart failure. X-ray in the ER suggest a new infiltrate in the right lung base with pulmonary fibrotic changes and COPD. Labs suggested leukocytosis of 11.1, chloride 93, Carbon dioxide 38, glucose 110, troponin 0.039--- 0.126 0.124. EKG was obtained which suggested nonspecific T-wave changes with right bundle branch block patient had a recent echocardiogram done a month ago which had EF of 60-65% with Mild pulmonary hypertension. Patient received IV antibiotics in the form of levofloxacin and Zosyn but presented in hives with itching after the completion of Zosyn. Zosyn. Patient was continued on levofloxacin. Patient continues to have shortness of breath with increased requirement of oxygen, pulmonary consult placed. Cardiology to assess for mild troponinemia. 01/02: Patient's breathing status is stable and he feels better right now. He states he had a rough night due to difficulty breathing. He denies having any chest pain, abdominal pain. No nausea, vomiting or diarrhea. During the night his O2 was increased from 4 L to 5 L. He does state that he has obstructive sleep apnea and unable to tolerate CPAP. Solu-Medrol will be decreased to 40 mg every 8 hours. Pro-calcitonin added. Echocardiogram reveals EF of 55-60% with mild concentric left ventricular hypertrophy, mild mitral regurgitation, trace tricuspid regurgitation, no pulmonary hypertension. Patient is followed by cardiology and acute coronary syndrome ruled out and cardiology is following on an as-needed basis. Pulmonary medicine, Dr. NATALYA Jefferson/Dr. Vides following the patient. 01/03: Patient's breathing status is improving. He is on 4 L nasal cannula which is his baseline and pulse oxing 96%. Solu-Medrol will be switched over to oral prednisone for tomorrow. Consult with PT added. is concerned that he is only walk to the doorway which patient states is his baseline due to shortness of breath. Patient will be monitored overnight and plan for discharge home tomorrow. Patient will be transferred to [facility] floor today. Objective - Vital Signs Vital signs: Vital Signs Temp 97.6 F 01/03/18 08:00 Pulse 90 01/03/18 08:09 Resp 18 01/03/18 08:00 BP 136/74 01/03/18 08:00 Pulse Ox 96 01/03/18 08:00 Intake & Output 01/02/18 01/03/18 01/03/18 18:59 06:59 18:59 Intake Total 485 10 Output Total 500 1200 Balance -15 -1190 Weight 91.9 kg Intake: IV 10 0.9 10 Oral 485 Output: Urine 500 1200 Other: Voiding Method Urinal Urinal # Bowel Movements 1 - Exam General appearance: cooperative, no acute distress, obese - EENT Eyes: anicteric sclerae, PERRLA, normal appearance ENT: hearing grossly normal - Neck Neck: no lymphadenopathy, normal ROM, no other, no rigidity, no stridor, no thyromegaly - Respiratory Respiratory: bilateral: Decreased breath sounds - Cardiovascular Rhythm: regular Heart sounds: normal: S1, S2 Abnormal Heart Sounds: no systolic murmur, no diastolic murmur, no rub, no S3 Gallop, no S4 Gallop - Gastrointestinal General gastrointestinal: normal bowel sounds, soft - Integumentary Integumentary: no rash - Neurologic Neurologic: CNII-XII intact - Musculoskeletal Musculoskeletal: gait normal, strength equal bilaterally - Psychiatric Psychiatric: A&O x's 3, appropriate affect - Labs CBC & Chem 7: 01/03/18 06:23 01/03/18 06:23 Labs: Abnormal Lab Results - Last 24 Hours (Table) 01/02/18 01/02/18 01/02/18 Range/Units 06:31 11:57 16:46 WBC (3.8-10.6) k/uL Hgb (13.0-17.5) gm/dL MCHC (31.0-37.0) g/dL Neutrophils # (1.3-7.7) k/uL Lymphocytes # (1.0-4.8) k/uL Chloride (98-107) mmol/L Carbon Dioxide (22-30) mmol/L BUN (9-20) mg/dL Glucose (74-99) mg/dL POC Glucose (mg/dL) 182 H 119 H (75-99) mg/dL Albumin (3.5-5.0) g/dL Procalcitonin 0.12 H (0.02-0.09) ng/mL 01/02/18 01/03/18 01/03/18 Range/Units 20:42 06:04 06:23 WBC 14.0 H (3.8-10.6) k/uL Hgb 12.0 L (13.0-17.5) gm/dL MCHC 30.4 L (31.0-37.0) g/dL Neutrophils # 12.6 H (1.3-7.7) k/uL Lymphocytes # 0.6 L (1.0-4.8) k/uL Chloride (98-107) mmol/L Carbon Dioxide (22-30) mmol/L BUN (9-20) mg/dL Glucose (74-99) mg/dL POC Glucose (mg/dL) 148 H 152 H (75-99) mg/dL Albumin (3.5-5.0) g/dL Procalcitonin (0.02-0.09) ng/mL 01/03/18 Range/Units 06:23 WBC (3.8-10.6) k/uL Hgb (13.0-17.5) gm/dL MCHC (31.0-37.0) g/dL Neutrophils # (1.3-7.7) k/uL Lymphocytes # (1.0-4.8) k/uL Chloride 96 L (98-107) mmol/L Carbon Dioxide 38 H (22-30) mmol/L BUN 34 H (9-20) mg/dL Glucose 126 H (74-99) mg/dL POC Glucose (mg/dL) (75-99) mg/dL Albumin 3.2 L (3.5-5.0) g/dL Procalcitonin (0.02-0.09) ng/mL Microbiology - Last 24 Hours (Table) 12/31/17 20:27 Blood Culture - Preliminary Blood No Growth after 48 hours Assessment and Plan Plan: 1. Acute hypoxic hypercapnic respiratory failure secondary to COPD exacerbation with possibility of underlying healthcare associated pneumonia. Continue DuoNeb treatments, Levaquin, Solu-Medrol changed to prednisone, Pulmicort. Patient is currently on 4 L of oxygen. Pulmonary and cardiology consults appreciated. 2. Acute sepsis likely secondary to healthcare associated pneumonia. Continue levofloxacin 750 mg po daily. Sputum cultures and blood culture ordered 3. Mild troponinemia secondary to sepsis. Cardiology has ruled out acute coronary syndrome. 4. COPD exacerbation currently on IV Solu-Medrol and nebulized treatments. Continue Singulair 5. Current tobacco dependency and is a current tobacco smoker. Patient counseled about tobacco cessation. Nicotine patch ordered 7. Chronic diastolic heart failure continue Lasix 40 mg twice a day. 8. Gout history, stable 9. VTE prophylaxis is provided with heparin subcu 10. GI prophylaxis Pepcid 20 mg by mouth daily CODE STATUS full Discharge plan: Most likely home with homecare on Tuesday Impression and plan of care have been directed as dictated by the signing physician. Ann-Marie Ortiz nurse practitioner acting as scribe for signing physician.
[2018-01-03 17:25] LABS: Glucose,Whole Blood 112 mg/dL (75-99)
[2018-01-03] MEDS: BUDESONIDE 1 MG/2 ML NEBU INHALATION SCH (19:48)
[2018-01-03 20:47] LABS: Glucose,Whole Blood 141 mg/dL (75-99)
[2018-01-03] MEDS: MONTELUKAST 10 MG TAB PO SCH (21:00)
[2018-01-03] MEDS: LEVOFLOXACIN 750 MG TAB PO SCH (21:01)
[2018-01-03 23:25] VITALS: RESP 20
[2018-01-04 06:06] LABS: Glucose,Whole Blood 115 mg/dL (75-99)
[2018-01-04] MEDS: INSULIN ASPART 100 UNIT/ML 1 ML 10 ML VIAL SQ SCH (06:15)
[2018-01-04 06:37] LABS: Basophils % (A) 0 %; Eosinophils # (A) 0.1 k/uL (0-0.7); Eosinophils % (A) 1 %; HCT 38.6 % (39.0-53.0); HGB 11.6 gm/dL (13.0-17.5); Hypochromasia Moderate; Lymphocytes # (A) 1.5 k/uL (1.0-4.8); Lymphocytes % (A) 13 %; MCH 27.8 pg (25.0-35.0); MCHC 30.2 g/dL (31.0-37.0); MCV 92.1 fL (80.0-100.0); Mean Platelet Volume 7.3; Monocytes # (A) 0.9 k/uL (0-1.0); Monocytes % (A) 8 %; Neutrophils # (A) 9.3 k/uL (1.3-7.7); Neutrophils % (A) 77 %; Platelet Count 221 k/uL (150-450); RBC 4.19 m/uL (4.30-5.90); RDW 13.3 % (11.5-15.5)
[2018-01-04 07:15] LABS: Albumin 2.8 g/dL (3.5-5.0); Calcium 8.9 mg/dL (8.4-10.2); Potassium 4.3 mmol/L (3.5-5.1); Total Bilirubin 0.3 mg/dL (0.2-1.3); Total Protein 5.8 g/dL (6.3-8.2)
[2018-01-04] MEDS: IPRATROPIUM-ALBUTEROL 3 ML NEB INHALATION SCH (07:55)
[2018-01-04] MEDS: BUDESONIDE 1 MG/2 ML NEBU INHALATION SCH (07:55)
[2018-01-04] MEDS: CHOLECALCIFEROL 1,000 UNIT TAB PO SCH (08:17)
[2018-01-04] MEDS: guaiFENesin 600 MG TABLET.ER PO SCH (08:17)
[2018-01-04] MEDS: FAMOTIDINE 20 MG TAB PO SCH (08:17)
[2018-01-04] MEDS: HEPARIN SODIUM,PORCINE 5,000 UNIT/ML 1 ML VIAL SQ SCH (08:17)
[2018-01-04] MEDS: ASPIRIN 81 MG PO SCH (08:17)
[2018-01-04] MEDS: FUROSEMIDE 40 MG TAB PO SCH (08:17)
[2018-01-04 08:32] VITALS: BP 153/75; PULSE 79; TEMP 96
[2018-01-04] MEDS ORDERED: predniSONE 20 MG TAB PO SCH (09:00)
--- NOTE | 2018-01-04 10:13 | P.PN ---
<Irina Amaya E - Last Filed: 01/04/18 10:12> Subjective Progress Note Date: 01/04/18 HPI: Chuy Viveros is a 72-year-old male who presented to the ED with increasing shortness of breath for about one week's duration. He had recently been treated for COPD exacerbation with steroids and antibiotics. Transient is recently improved and then again started to wheeze. He denied any fever but may have had some chills. He is seen in the ER and subsequently admitted for further evaluation and management Interval history: 01/02/2018patient is being seen examined and evaluated today on rounds. He is resting up in bed on 4 L of supplemental oxygen via nasal cannula. The patient does utilize home oxygen at 4 L at all times as well. His chest x-ray was reviewed and does show COPD, pulmonary fibrosis and possible new infiltrate in the right lower base. He continues on breathing treatments, antibiotics and steroids. Echocardiogram is pending. Still needs sputum culture. 01/03/18- patient being seen examined and evaluated today on rounds. He is resting up on 4 L of supplemental oxygen via nasal cannula. He did have an echocardiogram yesterday which did reveal an EF of 55-60% with RVSP of 34.47 mmHg. He has been using his incentive spirometer and flutter valve. His steroids have been tapered down. His breathing is slightly improving. at bedside, updated on POC. 01/04/18- patient is being seen examined and evaluated today on rounds. He is resting up on 4 L of supplemental oxygen which is his baseline. His breathing overall is at his baseline. He does occasionally have a cough but no sputum production. Denies any fevers or chills. He is on oral antibiotics and oral steroids. Discharge planning underway. Objective - Vital Signs Vital signs: Vital Signs Temp 96.0 F L 01/04/18 08:00 Pulse 84 01/04/18 08:09 Resp 20 01/04/18 08:00 BP 153/75 01/04/18 08:00 Pulse Ox 98 01/04/18 08:00 Intake & Output 01/03/18 01/04/18 01/04/18 18:59 06:59 18:59 Intake Total 10 240 Output Total 300 825 400 Balance -300 -815 -160 Weight 92.9 kg Intake: IV 10 0.9 10 Oral 240 Output: Urine 300 825 400 Other: Voiding Method Urinal Urinal # Voids 1 1 - Exam GENERAL EXAM: Alert, active, comfortable in no apparent distress. HEAD: Normocephalic. EYES: Normal reaction of pupils, equal size. NOSE: Clear with pink turbinates. THROAT: No erythema or exudates. NECK: No masses, no JVD. CHEST: No chest wall deformity. LUNGS: Equal air entry with decreased breath sounds at the bilateral bases. Faint expiratory wheeze. CVS: S1 and S2 normal with no audible mumurs, regular rhythm. ABDOMEN: No hepatosplenomegaly, normal bowel sounds, no guarding or rigidity. EXTREMITIES: +1 edema noted, pedal pulses palpable. CENTRAL NERVOUS SYSTEM: No focal deficits, tone is normal in all 4 extremities. - Labs CBC & Chem 7: 01/04/18 06:27 01/04/18 06:27 Labs: Abnormal Lab Results - Last 24 Hours (Table) 01/03/18 01/03/18 01/03/18 Range/Units 11:39 16:58 20:45 WBC (3.8-10.6) k/uL RBC (4.30-5.90) m/uL Hgb (13.0-17.5) gm/dL Hct (39.0-53.0) % MCHC (31.0-37.0) g/dL Neutrophils # (1.3-7.7) k/uL Chloride (98-107) mmol/L Carbon Dioxide (22-30) mmol/L BUN (9-20) mg/dL POC Glucose (mg/dL) 122 H 112 H 141 H (75-99) mg/dL Alkaline Phosphatase (38-126) U/L Total Protein (6.3-8.2) g/dL Albumin (3.5-5.0) g/dL 01/04/18 01/04/18 01/04/18 Range/Units 06:05 06:27 06:27 WBC 12.0 H (3.8-10.6) k/uL RBC 4.19 L (4.30-5.90) m/uL Hgb 11.6 L (13.0-17.5) gm/dL Hct 38.6 L (39.0-53.0) % MCHC 30.2 L (31.0-37.0) g/dL Neutrophils # 9.3 H (1.3-7.7) k/uL Chloride 97 L (98-107) mmol/L Carbon Dioxide 38 H (22-30) mmol/L BUN 37 H (9-20) mg/dL POC Glucose (mg/dL) 115 H (75-99) mg/dL Alkaline Phosphatase 37 L (38-126) U/L Total Protein 5.8 L (6.3-8.2) g/dL Albumin 2.8 L (3.5-5.0) g/dL Microbiology - Last 24 Hours (Table) 12/31/17 20:27 Blood Culture - Preliminary Blood No Growth after 72 hours Assessment and Plan Assessment: Assessment Possible early pneumonia, suspect mixed bacterial Acute on chronic hypoxic respiratory failure requiring supplemental oxygen Acute exacerbation of COPD Acute exacerbation of chronic persistent severe asthma Congestive heart Failure and cor pulmonale 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 Continue with antibiotics, steroids have been tapered Echocardiogram reviewed, EF 55-60%, RVSP 33.47 Obtain sputum culture Initiate and encourage incentive spirometer, and flutter valve Continue with pulmonary hygiene, coughing and deep breathing exercises, and supportive care. Supplemental oxygen to maintain oxygen saturations of 92% or better. Continue nebulizer treatments. Continue with gentle diuresis GI and DVT prophylaxis. Increase activity as tolerated We will continue to monitor labs/results and adjust treatment as necessary. Further recommendations pending. I performed an examination of the patient and discussed their management with the nurse practitioner. I have reviewed the nurse practitioner's note and agree with the documented findings and plan of care. <Jessica Vides A - Last Filed: 01/04/18 10:25> Objective - Vital Signs Vital signs: Vital Signs Temp 96.0 F L 01/04/18 08:00 Pulse 84 01/04/18 08:09 Resp 20 01/04/18 08:00 BP 153/75 01/04/18 08:00 Pulse Ox 98 01/04/18 08:00 Intake & Output 01/03/18 01/04/18 01/04/18 18:59 06:59 18:59 Intake Total 10 240 Output Total 300 825 400 Balance -300 -815 -160 Weight 92.9 kg Intake: IV 10 0.9 10 Oral 240 Output: Urine 300 825 400 Other: Voiding Method Urinal Urinal # Voids 1 1 - Labs CBC & Chem 7: 01/04/18 06:27 01/04/18 06:27 Labs: Abnormal Lab Results - Last 24 Hours (Table) 01/03/18 01/03/18 01/03/18 Range/Units 11:39 16:58 20:45 WBC (3.8-10.6) k/uL RBC (4.30-5.90) m/uL Hgb (13.0-17.5) gm/dL Hct (39.0-53.0) % MCHC (31.0-37.0) g/dL Neutrophils # (1.3-7.7) k/uL Chloride (98-107) mmol/L Carbon Dioxide (22-30) mmol/L BUN (9-20) mg/dL POC Glucose (mg/dL) 122 H 112 H 141 H (75-99) mg/dL Alkaline Phosphatase (38-126) U/L Total Protein (6.3-8.2) g/dL Albumin (3.5-5.0) g/dL 01/04/18 01/04/18 01/04/18 Range/Units 06:05 06:27 06:27 WBC 12.0 H (3.8-10.6) k/uL RBC 4.19 L (4.30-5.90) m/uL Hgb 11.6 L (13.0-17.5) gm/dL Hct 38.6 L (39.0-53.0) % MCHC 30.2 L (31.0-37.0) g/dL Neutrophils # 9.3 H (1.3-7.7) k/uL Chloride 97 L (98-107) mmol/L Carbon Dioxide 38 H (22-30) mmol/L BUN 37 H (9-20) mg/dL POC Glucose (mg/dL) 115 H (75-99) mg/dL Alkaline Phosphatase 37 L (38-126) U/L Total Protein 5.8 L (6.3-8.2) g/dL Albumin 2.8 L (3.5-5.0) g/dL Microbiology - Last 24 Hours (Table) 12/31/17 20:27 Blood Culture - Preliminary Blood No Growth after 72 hours Assessment and Plan Assessment: Patient seen and examined. Patient states his breathing is better and he feels ready to go home. He is coughing up denies phlegm production. He denies fevers and chills. He does have home O2 and nebulizer already. OK to DC from pulmonary standpoint. Follow up next week in pulmonary office. ~Jessica Vides DO
--- NOTE | 2018-01-04 11:59 | P.PN ---
Subjective Progress Note Date: 01/04/18 This is a 72-year-old gentleman with history of COPD, admitted to the hospital with COPD exacerbation and pneumonia. Cardiology consultation was requested because of mild abnormality in his troponin. Echocardiogram with Doppler study was performed this morning and is yet pending. Overall the patient does state he feeling considerably better today. Continues to have cough however nonproductive. Denies any chest pain, breathing overall stable. Blood pressure 136/60 with a heart rate in the 90s, 98% on 4 L of oxygen. White blood cell count 13.8, hemoglobin 12.4, platelet count 291. Sodium 141, potassium 5.0, BUN 28, creatinine 1.0. 01/04/2018 Patient seen and examined this morning, doing well overall. Echocardiogram with Doppler study revealed a normal left ventricular systolic function. Hemodynamically stable. Objective - Vital Signs Vital signs: Vital Signs Temp 96.0 F L 01/04/18 08:00 Pulse 84 01/04/18 08:09 Resp 20 01/04/18 08:00 BP 153/75 01/04/18 08:00 Pulse Ox 98 01/04/18 08:00 Intake & Output 01/03/18 01/04/18 01/04/18 18:59 06:59 18:59 Intake Total 10 240 Output Total 300 825 400 Balance -300 -815 -160 Weight 92.9 kg Intake: IV 10 0.9 10 Oral 240 Output: Urine 300 825 400 Other: Voiding Method Urinal Urinal # Voids 1 1 - Exam PHYSICAL EXAMINATION: GENERAL: 72-year-old gentleman in no acute distress at the time of my examination HEENT: Head is atraumatic, normocephalic. Pupils equal, round. Sclera anicteric. Conjunctiva are clear. Mucous membranes of the mouth are moist. Neck is supple. There is no elevated jugular venous pressure.No carotid bruit is heard. HEART EXAMINATION: Heart S1, S2 normal. No murmur or gallop heard. CHEST EXAMINATION: Lungs reveal coarse crackles bilaterally with some fine expiratory wheezes. ABDOMEN: Soft, obese, nontender. Bowel sounds are heard. No organomegaly noted. EXTREMITIES: 2+ peripheral pulses with trace evidence of peripheral edema and no calf tenderness noted. NEUROLOGIC patient is awake, alert and oriented X3. . - Labs CBC & Chem 7: 01/04/18 06:27 01/04/18 06:27 Labs: Abnormal Lab Results - Last 24 Hours (Table) 01/03/18 01/03/18 01/03/18 Range/Units 11:39 16:58 20:45 WBC (3.8-10.6) k/uL RBC (4.30-5.90) m/uL Hgb (13.0-17.5) gm/dL Hct (39.0-53.0) % MCHC (31.0-37.0) g/dL Neutrophils # (1.3-7.7) k/uL Chloride (98-107) mmol/L Carbon Dioxide (22-30) mmol/L BUN (9-20) mg/dL POC Glucose (mg/dL) 122 H 112 H 141 H (75-99) mg/dL Alkaline Phosphatase (38-126) U/L Total Protein (6.3-8.2) g/dL Albumin (3.5-5.0) g/dL 01/04/18 01/04/18 01/04/18 Range/Units 06:05 06:27 06:27 WBC 12.0 H (3.8-10.6) k/uL RBC 4.19 L (4.30-5.90) m/uL Hgb 11.6 L (13.0-17.5) gm/dL Hct 38.6 L (39.0-53.0) % MCHC 30.2 L (31.0-37.0) g/dL Neutrophils # 9.3 H (1.3-7.7) k/uL Chloride 97 L (98-107) mmol/L Carbon Dioxide 38 H (22-30) mmol/L BUN 37 H (9-20) mg/dL POC Glucose (mg/dL) 115 H (75-99) mg/dL Alkaline Phosphatase 37 L (38-126) U/L Total Protein 5.8 L (6.3-8.2) g/dL Albumin 2.8 L (3.5-5.0) g/dL Microbiology - Last 24 Hours (Table) 12/31/17 20:27 Blood Culture - Preliminary Blood No Growth after 72 hours Assessment and Plan Plan: Assessment and plan #1 acute respiratory failure secondary to COPD exacerbation and possible underlying healthcare associated pneumonia. #2 abnormality in troponin, not consistent with acute coronary syndrome, likely secondary to supply and demand mismatch. #3 nicotine dependence Plan Echocardiogram with Doppler study was reviewed which revealed a normal left ventricular systolic function. From cardiology's perspective, patient may be able to be discharged once cleared by primary. [facility]. We will follow him along with you now on an as- needed basis only, please don't hesitate to call if you have any questions at all. DNP note has been reviewed, I agree with a documented findings and plan of care. Patient was seen and examined.
--- NOTE | 2018-01-04 13:17 | P.DS ---
Providers Date of admission: 12/31/17 20:14 Expected date of discharge: 01/04/18 Attending physician: Thanh Lopez Consults: 12/31/17 20:14 Consult Physician Urgent Consulting Provider: Beatriz Mcpherson Consult Reason/Comments: elevTrop Do you want consulting provider notified?: Yes 01/01/18 09:22 Consult Physician Routine Consulting Provider: Jessica Vides Consult Reason/Comments: COPD Do you want consulting provider notified?: Yes Primary care physician: Gallito Chu [place] Hospital Course: This is a 72 years old male patient of Dr. Chu, Dr. Jefferson present with past medical history of hypertension, COPD 4 L dependent, diastolic heart failure, current tobacco dependency, hypertension, history of gout was last admitted in 2014 when patient was intubated for 48 hours after found unresponsiveness and hypoxic at home. He was last admitted 11/2017 for COPD exacerbation requiring mechanical intubation for 24 hours and prolonged stay in the hospital for difficult weaning from BIPAP due to hypercarbic hypoxic respiratory failure . Patient comes in to the ER for worsening shortness of breathfor the past 2-3 days associated with fever and chills. He denies any productive sputum or change in the colorof sputum. No travel history or sick contact was given. Patient was last admitted a month ago for his worsening COPD exacerbation with acute diastolic heart failure. X-ray in the ER suggest a new infiltrate in the right lung base with pulmonary fibrotic changes and COPD. Labs suggested leukocytosis of 11.1, chloride 93, Carbon dioxide 38, glucose 110, troponin 0.039--- 0.126 0.124. EKG was obtained which suggested nonspecific T-wave changes with right bundle branch block patient had a recent echocardiogram done a month ago which had EF of 60-65% with Mild pulmonary hypertension. Patient received IV antibiotics in the form of levofloxacin and Zosyn but presented in hives with itching after the completion of Zosyn. Zosyn. Patient was continued on levofloxacin. Patient continues to have shortness of breath with increased requirement of oxygen, pulmonary consult placed. Cardiology to assess for mild troponinemia. 01/02: Patient's breathing status is stable and he feels better right now. He states he had a rough night due to difficulty breathing. He denies having any chest pain, abdominal pain. No nausea, vomiting or diarrhea. During the night his O2 was increased from 4 L to 5 L. He does state that he has obstructive sleep apnea and unable to tolerate CPAP. Solu-Medrol will be decreased to 40 mg every 8 hours. Pro-calcitonin added. Echocardiogram reveals EF of 55-60% with mild concentric left ventricular hypertrophy, mild mitral regurgitation, trace tricuspid regurgitation, no pulmonary hypertension. Patient is followed by cardiology and acute coronary syndrome ruled out and cardiology is following on an as-needed basis. Pulmonary medicine, Dr. NATALYA Jefferson/Dr. Vides following the patient. 01/03: Patient's breathing status is improving. He is on 4 L nasal cannula which is his baseline and pulse oxing 96%. Solu-Medrol will be switched over to oral prednisone for tomorrow. Consult with PT added. is concerned that he is only walk to the doorway which patient states is his baseline due to shortness of breath. Patient will be monitored overnight and plan for discharge home tomorrow. Patient will be transferred to [facility] floor today. 01/04: Patient's respiratory status is stable. Pulse ox is 98% on 4 L. White count is at 12, creatinine 1. Blood culture showing no growth after 72 hours. Patient has been cleared by pulmonary medicine and cardiology for discharge. Patient will be discharged home today in stable condition. Discharge diagnoses: 1. Acute hypoxic hypercapnic respiratory failure secondary to COPD exacerbation with possible gram-negative pneumonia. 2. Acute sepsis secondary possible gram-negative pneumonia. 3. Mild troponinemia secondary to sepsis. 4. COPD exacerbation 5. Current tobacco dependency and is a current tobacco smoker. 6. Chronic diastolic heart failure 7. Gout history, stable Discharge plan: home with [facility] Impression and plan of care have been directed as dictated by the signing physician. Ann-Marie Ortiz nurse practitioner acting as scribe for signing physician. Patient Condition at Discharge: Good Plan - Discharge Summary Discharge Rx Participant: No New Discharge Prescriptions: New Levofloxacin [Levaquin] 750 mg PO HS #3 tab predniSONE 0 mg PO DIRECTED #40 tab Continue Albuterol Sulfate [Proair Hfa] 2 puff INHALATION RT-QID PRN PRN Reason: Shortness Of Breath Aspirin 81 mg PO DAILY Ipratropium-Albuterol Nebulize [Duoneb 0.5 mg-3 mg/3 ml Soln] 3 ml INHALATION RT-QID Budesonide [Pulmicort] 0.5 mg INHALATION RT-BID Ubidecarenone [Co Q-10] 100 mg PO DAILY Montelukast [Singulair] 10 mg PO HS Cholecalciferol [Vitamin D3] 1,000 unit PO DAILY Furosemide [Lasix] 40 mg PO BID@0900,1600 #60 tab Discharge Medication List Albuterol Sulfate [Proair Hfa] 2 puff INHALATION RT-QID PRN 02/05/15 [History] Aspirin 81 mg PO DAILY 02/05/15 [History] Ipratropium-Albuterol Nebulize [Duoneb 0.5 mg-3 mg/3 ml Soln] 3 ml INHALATION RT -QID 02/06/15 [History] Budesonide [Pulmicort] 0.5 mg INHALATION RT-BID 11/06/17 [History] Cholecalciferol [Vitamin D3] 1,000 unit PO DAILY 11/06/17 [History] Montelukast [Singulair] 10 mg PO HS 11/06/17 [History] Ubidecarenone [Co Q-10] 100 mg PO DAILY 11/06/17 [History] Furosemide [Lasix] 40 mg PO BID@0900,1600 #60 tab 11/15/17 [Rx] Levofloxacin [Levaquin] 750 mg PO HS #3 tab 01/04/18 [Rx] predniSONE 0 mg PO DIRECTED #40 tab 01/04/18 [Rx] Follow up Appointment(s)/Referral(s): Jessica Vides DO [Doctor of Osteopathic Medicine] - 01/05/18 10:15 am ([id number] office. Please keep previous follow up appointment.) [facility], [NON-STAFF] - Jeremy Pelayo MD [STAFF PHYSICIAN] - 01/30/18 3:15 pm (Tuesday) Gallito Chu MD [Primary Care Provider] - 01/10/18 10:30 am (Tuesday) Patient Instructions/Handouts: COPD (Chronic Obstructive Pulmonary Disease) (DC ) Discharge Disposition: HOME WITH HOME HEALTH SERVICES
== END 2018-01-04 11:11 | disposition home health service (06) | DRG 871 ==
LOC: EC 17:59 → 6SEL 20:14
PROVIDERS: ADMIT Internal Medicine; ATTEND Internal Medicine
DX: A41.50 Gram-negative sepsis, unspecified (principal); J96.21 Acute and chronic respiratory failure with hypoxia; J96.22 Acute and chronic respiratory failure with hypercapnia; J15.6 Pneumonia due to other Gram-negative bacteria; J45.51 Severe persistent asthma with (acute) exacerbation; I50.32 Chronic diastolic (congestive) heart failure; I11.0 Hypertensive heart disease with heart failure; I27.81 Cor pulmonale (chronic); J43.9 Emphysema, unspecified; J84.10 Pulmonary fibrosis, unspecified; I45.10 Unspecified right bundle-branch block; I34.0 Nonrheumatic mitral (valve) insufficiency; G47.33 Obstructive sleep apnea (adult) (pediatric); R77.8 Other specified abnormalities of plasma proteins; Y95 Nosocomial condition; Z79.82 Long term (current) use of aspirin; Z79.51 Long term (current) use of inhaled steroids; Z79.899 Other long term (current) drug therapy; Z87.39 Personal history of other diseases of the musculoskeletal system and connective tissue; Z87.891 Personal history of nicotine dependence; Z82.49 Family history of ischemic heart disease and other diseases of the circulatory system; Z83.49 Family history of other endocrine, nutritional and metabolic diseases
CPT/HCPCS: 36415; 71045; 71046; 80053; 80061; 82550; 82553; 83036; 83735; 83880; 84145; 84484; 85025; 85610; 85730; 87040; 93005; 93306; 94640; 94644; 94667; 94760; 96361; 96365; 96375; 99291

== ENCOUNTER 2020-11-02 02:57 | Inpatient (IN) | payer MEDICARE, BC ==
[2020-11-02] MEDS ORDERED: MORPHINE SULFATE 4 MG/ML SYRINGE IM STA (04:25)
--- NOTE | 2020-11-02 04:47 | XR ---
EXAMINATION TYPE: XR femur RT DATE OF EXAM: 11/02/2020 COMPARISON: NONE HISTORY: Thigh pain TECHNIQUE: 4 views FINDINGS: There is mild acetabular spurring. Hip joint is anatomic. There is some spurring on the pat gayathri. There is vascular calcification. Knee joint is not well seen on these projections. IMPRESSION: No acute abnormality of the right femur.
--- NOTE | 2020-11-02 04:48 | XR ---
EXAMINATION TYPE: XR pelvis AP view DATE OF EXAM: 11/02/2020 COMPARISON: NONE HISTORY: Pain TECHNIQUE: 2 views FINDINGS: Pelvic ring is intact. Proximal femurs are intact. I see no bony destructive process. Sacro iliac joints appear intact. There is mild right acetabular spurring. IMPRESSION: No acute abnormality of the pelvis.
[2020-11-02] MEDS ORDERED: ORPHENADRINE 30 MG/ML 2 ML VIAL IM STA (05:39)
[2020-11-02] MEDS ORDERED: HYDROmorphone 0.5 MG/0.5 ML SYRINGE IM STA (05:39)
[2020-11-02 07:08] LABS: Basophils # (A) 0.2 k/uL (0-0.2); Basophils % (A) 1 %; Eosinophils # (A) 0.5 k/uL (0-0.7); Eosinophils % (A) 3 %; HCT 36.2 % (39.0-53.0); HGB 10.9 gm/dL (13.0-17.5); Hypochromasia Marked; Lymphocytes % (A) 10 %; MCH 25.9 pg (25.0-35.0); MCV 86.2 fL (80.0-100.0); Mean Platelet Volume 7.7; Monocytes # (A) 0.9 k/uL (0-1.0); Monocytes % (A) 5 %; Neutrophils # (A) 15.2 k/uL (1.3-7.7); Neutrophils % (A) 80 %; Platelet Count 331 k/uL (150-450); RDW 14.9 % (11.5-15.5)
[2020-11-02 07:19] LABS: Albumin 3.1 g/dL (3.5-5.0); Magnesium 2.2 mg/dL (1.6-2.3); Potassium 4.3 mmol/L (3.5-5.1); Total Bilirubin 0.3 mg/dL (0.2-1.3); Total Protein 5.8 g/dL (6.3-8.2)
--- NOTE | 2020-11-02 07:26 | ED ---
Lower Extremity Injury HPI - General Chief Complaint: Extremity Injury, Lower Stated Complaint: Fall Time Seen by Provider: 11/02/20 03:32 Source: patient, EMS Mode of arrival: EMS Limitations: no limitations - History of Present Illness Initial Comments: This patient is a 75-year-old man who presents to be evaluated for right leg pain. The patient states that the symptoms came on a few hours ago. He was attempting to ambulate at his home. He reached over to pick up operator something from the floor and then felt an intense spasm develop in his right leg and he fell to the ground. Since that time he has not been able to get up due to pain. Patient denies falling onto his leg or hip. He has a sensation that the pain is due to muscle spasm. Pain does seem to come in waves. It is made worse by moving. Pain is better with remaining still. Denies weakness or numbness of the leg. No change in bladder or bowel function. No back pain. MD Complaint: leg injury -: hour(s) Injury: Thigh: Right Type of Injury: other Place: home Severity: severe Improves With: nothing Worsens With: movement Context: fall - Related Data Home Medications Medication Instructions Recorded Confirmed Albuterol Sulfate [Proair Hfa] 2 puff INHALATION RT-QID PRN 02/05/15 12/31/17 Aspirin 81 mg PO DAILY 02/05/15 12/31/17 Ipratropium-Albuterol Nebulize 3 ml INHALATION RT-QID 02/06/15 12/31/17 [Duoneb 0.5 mg-3 mg/3 ml Soln] Budesonide [Pulmicort] 0.5 mg INHALATION RT-BID 11/06/17 12/31/17 Cholecalciferol [Vitamin D3 (25 1,000 unit PO DAILY 11/06/17 12/31/17 Mcg = 1000 Iu)] Montelukast [Singulair] 10 mg PO HS 11/06/17 12/31/17 Ubidecarenone [Co Q-10] 100 mg PO DAILY 11/06/17 12/31/17 Previous Rx's Medication Instructions Recorded Furosemide [Lasix] 40 mg PO BID@0900,1600 #60 tab 11/15/17 Levofloxacin [Levaquin] 750 mg PO HS #3 tab 01/04/18 predniSONE 0 mg PO DIRECTED #40 tab 01/04/18 Allergies Allergy/AdvReac Type Severity Reaction Status Date / Time No Known Allergies Allergy Verified 12/31/17 18:27 Review of Systems ROS Statement: Those systems with pertinent positive or pertinent negative responses have been documented in the HPI. ROS Other: All systems not noted in ROS Statement are negative. Constitutional: Denies: fever, chills Respiratory: Reports: dyspnea (Chronic). Denies: cough, wheezes Cardiovascular: Denies: chest pain, palpitations, syncope Gastrointestinal: Denies: abdominal pain, vomiting, diarrhea Genitourinary: Denies: dysuria, hematuria Musculoskeletal: Denies: back pain Skin: Denies: rash Neurological: Denies: headache, weakness, numbness Past Medical History Past Medical History: COPD, Hypertension Additional Past Medical History / Comment(s): emphysema, gout. wears home 02. History of Any Multi-Drug Resistant Organisms: None Reported Past Surgical History: Unable to Obtain Additional Past Surgical History / Comment(s): hernia 2015, carpel tunnel, heart cath in the past (clean) Past Anesthesia/Blood Transfusion Reactions: No Reported Reaction Past Psychological History: No Psychological Hx Reported Smoking Status: Former smoker Past Alcohol Use History: Occasional Past Drug Use History: None Reported - Past Family History Mother Family Medical History: Coronary Artery Disease (CAD), Hyperlipidemia, Hypertension General Exam Limitations: no limitations General appearance: alert, in no apparent distress Head exam: Present: atraumatic, normocephalic Eye exam: Present: normal appearance. Absent: scleral icterus, conjunctival injection Neck exam: Present: normal inspection, full ROM Respiratory exam: Present: wheezes. Absent: respiratory distress, rales, rhonchi Cardiovascular Exam: Present: regular rate, normal rhythm, normal heart sounds. Absent: systolic murmur, diastolic murmur, rubs, gallop GI/Abdominal exam: Present: soft. Absent: distended, tenderness, guarding, rebound Extremities exam: Present: normal inspection, normal capillary refill. Absent: full ROM, tenderness, pedal edema, calf tenderness Back exam: Present: normal inspection. Absent: CVA tenderness (R), CVA tenderne ss (L) Neurological exam: Present: alert. Absent: motor sensory deficit Skin exam: Present: warm, dry, intact, normal color. Absent: rash Course Vital Signs 11/02/20 03:02 Temperature 98 F Pulse Rate 87 Respiratory 18 Rate Blood Pressure 124/64 O2 Sat by Pulse 95 Oximetry Medical Decision Making - Medical Decision Making Patient is 75-year-old man with right leg pain after a ground-level fall. The patient continues to have pain despite analgesic. We were not able to hit him up and ambulate. In addition, the patient has some underlying dyspnea which worsened when he attempted to stand and bear weight. It appears patient will require placement for rehabilitation stint. - Lab Data Result diagrams: 11/02/20 06:50 11/02/20 06:50 Lab Results 11/02/20 11/02/20 Range/Units 06:50 06:50 WBC 19.0 H (3.8-10.6) k/uL RBC 4.20 L (4.30-5.90) m/uL Hgb 10.9 L (13.0-17.5) gm/dL Hct 36.2 L (39.0-53.0) % MCV 86.2 (80.0-100.0) fL MCH 25.9 (25.0-35.0) pg MCHC 30.0 L (31.0-37.0) g/dL RDW 14.9 (11.5-15.5) % Plt Count 331 (150-450) k/uL MPV 7.7 Neutrophils % 80 % Lymphocytes % 10 % Monocytes % 5 % Eosinophils % 3 % Basophils % 1 % Neutrophils # 15.2 H (1.3-7.7) k/uL Lymphocytes # 2.0 (1.0-4.8) k/uL Monocytes # 0.9 (0-1.0) k/uL Eosinophils # 0.5 (0-0.7) k/uL Basophils # 0.2 (0-0.2) k/uL Hypochromasia Marked Sodium 138 (137-145) mmol/L Potassium 4.3 (3.5-5.1) mmol/L Chloride 95 L (98-107) mmol/L Carbon Dioxide 38 H (22-30) mmol/L Anion Gap 5 mmol/L BUN 51 H (9-20) mg/dL Creatinine 1.40 H (0.66-1.25) mg/dL Est GFR (CKD-EPI)AfAm 56 (>60 ml/min/1.73 sqM) Est GFR (CKD-EPI)NonAf 49 (>60 ml/min/1.73 sqM) Glucose 143 H (74-99) mg/dL Calcium 9.0 (8.4-10.2) mg/dL Magnesium 2.2 (1.6-2.3) mg/dL Total Bilirubin 0.3 (0.2-1.3) mg/dL AST 24 (17-59) U/L ALT 27 (4-49) U/L Alkaline Phosphatase 54 (38-126) U/L Total Protein 5.8 L (6.3-8.2) g/dL Albumin 3.1 L (3.5-5.0) g/dL - EKG Data -: EKG Interpreted by [place] EKG shows normal: sinus rhythm, intervals (NY interval 154 ms, QTC 440 ms, both normal. QRS duration 134 ms, prolonged consistent with the right bundle-branch block.), QRS complexes (Right bundle-branch block pattern) Rate: normal (Rate 88 bpm) Interpretation: other (Possible old septal infarct.) Disposition Clinical Impression: Right leg injury, Dyspnea Disposition: ADMITTED IP TO THIS HOSP Condition: Fair Is patient prescribed a controlled substance at d/c from ED?: No Referrals: Gallito Chu MD [Primary Care Provider] - 1-2 days
--- NOTE | 2020-11-02 07:27 | XR ---
EXAMINATION TYPE: XR chest 2V DATE OF EXAM: 11/02/2020 COMPARISON: 01/01/2018 TECHNIQUE: PA and lateral views submitted. HISTORY: Difficulty breathing FINDINGS: Diffuse interstitial pattern stable with cardiomegaly and underlying COPD. No sizable pneumothorax. A therosclerotic change aorta. Hypertrophic and degenerative change of the spine. IMPRESSION: 1. Bilateral infiltrate and COPD correlate for chronic interstitial lung disease.
[2020-11-02] MEDS ORDERED: NALOXONE 0.4 MG/ML 1 ML VIAL IV PRN (08:20)
[2020-11-02] MEDS ORDERED: ACETAMINOPHEN TAB 325 MG TAB PO PRN ×2 (08:20→15:11)
[2020-11-02] MEDS ORDERED: ALBUTEROL NEBULIZED 2.5 MG/3 ML INHALATION PRN (08:21)
[2020-11-02] MEDS: FUROSEMIDE 40 MG TAB PO SCH ×2 (09:35→16:27)
[2020-11-02] MEDS: ASPIRIN 81 MG PO SCH (09:35)
[2020-11-02] MEDS ORDERED: BACLOFEN 10 MG TAB PO PRN (11:18)
[2020-11-02] MEDS: IPRATROPIUM-ALBUTEROL 3 ML NEB INHALATION SCH ×3 (11:23→18:24)
[2020-11-02] MEDS ORDERED: predniSONE 10 MG TAB PO SCH (11:30)
[2020-11-02 11:58] LABS: C Reactive Protein 0.7 mg/dL (<1.0)
[2020-11-02] MEDS: NON FORMULARY DRUG (Ubidecarenone [Co Q-10] 100 MG Capsule) PO SCH (15:11)
[2020-11-02] MEDS ORDERED: ONDANSETRON 4 MG/2 ML VIAL IVP PRN (15:11)
[2020-11-02] MEDS ORDERED: MORPHINE SULFATE 2 MG/ML SYRINGE IVP PRN (15:11)
--- NOTE | 2020-11-02 15:14 | P.HPIM ---
History of Present Illness H&P Date: 11/02/20 This is a 75 years old male patient of Dr. Chu present with past medical history of hypertension, COPD, wears 3 L of oxygen with diastolic CHF was last seen in 2018. Patient has history of intubation for 48 hours with presentation of unresponsiveness and hypoxia. Patient was intubated again in 2018 when patient was found to be unresponsive and short of breath. Patient was treated for diastolic CHF, COPD and Pseudomonas pneumonia. Echocardiogram obtained at that time suggested EF of 60-65% with borderline concentric left ventricular hypertrophy mild tricuspid regurgitation and mild pulmonary hypertension. Patient also has sleep apnea but is noncompliant with CPAP. Carmen ent was brought in as he was complaining of significant right leg pain for the past week. According to the patient was unable to move due to extreme weakness and has been sitting in recliner all day. He was seen in tripod position and having shortness of breath. Since patient's spasm in the right leg did not improve and patient had a fall patient was brought to the ER. He was unable able to ambulate in in the ER and was hypoxic to the low 80s on ambulation. On evaluation in the ER patient was noted to be short of breath at rest. He denies any cough or chest pain. Vitals in the ER suggested afebrile pulse of 97 respiratory rate 22 but blood pressure 117/69. Patient has a leukocytosis of 19 hemoglobin 10.9 which is patient's baseline, chloride 95 bicarb 38 BUN 51 creatinine 1.4 patient's baseline is 1. Chest x-ray suggestive of chronic infiltrate and COPD suggestive of chronic interstitial lung disease. EKG normal sinus rhythm. ROS Constitutional: Denies chills, Denies fever, increased weakness lethargy and poor appetite Eyes: denies decreased vision, denies diplopia, denies discharge, denies pain Ears: deny: decreased hearing Ears, nose, mouth and throat: Denies dental pain, Denies headache, Denies nasal discharge, Denies nose pain Cardiovascular: Denies chest pain, endorses decreased exercise tolerance, Denies edema, Denies high blood pressure, Denies irregular heart beat, Denies palpitations, Denies paroxysmal nocturnal dyspnea, Denies rapid heart beat, endorses shortness of breath Respiratory: Denies congestion, Denies cough, endorses cough with sputum, endorses dyspnea, endorses home oxygen, Denies wheezing Gastrointestinal: Denies abdominal pain, Denies change in bowel habits, Denies coffee ground emesis, Denies early satiety, Denies excessive gas, Denies heartburn, Denies hematemesis, Denies hematochezia, Denies loss of appetite, Denies nausea, Denies vomiting Genitourinary: Denies dysuria, Denies flank pain, Denies kidney stones, Denies menorrhagia, Denies urgency, Denies urinary frequency Musculoskeletal: Denies gait dysfunction, Denies limitation of motion, Denies morning stiffness, Denies muscle cramps Integumentary: Denies rash, Denies wounds, Denies brittle nails, Denies change in hair/nails, Denies darkening of skin Neurological: Denies balance difficulties, Denies change in speech, Denies double vision, Denies gait dysfunction, Denies loss of vision, Denies motor disturbance, Denies numbness, Denies paralysis, Denies paresthesias, Denies seizures Psychiatric: Denies anxiety, Denies depression Endocrine: Denies excessive sweating, Denies excessive thirst, Denies high blood sugars, Denies palpitations Hematologic/Lymphatic: Denies easy bruising, Denies lymphadenopathy Social history Patient quit smoking 3 years ago. Drinks alcohol couple times a week. Lives with his denies using a walker or cane at home. He wears 3 L of oxygen at all times. He has sleep apnea but does not wear CPAP Family history Mother has history of coronary artery disease, hypertension hyperlipidemia Father history of brain tumor Patient had a brother and a sister who has , medical history not known Physical exam - Constitutional General appearance: cooperative, mild acute distress, obese - EENT Eyes: anicteric sclerae, PERRLA, normal appearance ENT: hearing grossly normal - Neck Neck: no lymphadenopathy, normal ROM, no other, no rigidity, no stridor, no thyromegaly, fat pad in the back of the neck - Respiratory Respiratory: bilateral: Decreased air entry with fine crackles at the bases - Cardiovascular Rhythm: regular Heart sounds: normal: S1, S2 Abnormal Heart Sounds: no systolic murmur, no diastolic murmur, no rub, no S3 Gallop, no S4 Gallop, no click, no other - Gastrointestinal General gastrointestinal: normal bowel sounds, soft nontender - Integumentary Integumentary: no rash chronic dermatitis of the lower extremity - Neurologic Neurologic: CNII-XII intact no gross motor or sensory deficit - Musculoskeletal Musculoskeletal: gait could not be assessed due to weakness, strength equal bilaterally - Psychiatric Psychiatric: A&O x's 3, appropriate affect Assessment and plan 1. Acute hypoxic hypercapnic respiratory failure secondary to COPD exacerbation with interstitial lung disease. DuoNeb as needed for shortness of breath. Pulmicort twice a day. Lower levofloxacin 750 daily at bedtime. Continue Solu-Medrol 60 every 6, Pulmicort twice daily, sputum culture, incentive spirometry, DuoNeb as needed for shortness of breath his NT proBNP is normal. 2. Generalized weakness with debility PTOT consult placed. Patient may need rehab placement due to increased weakness . Fall precautions 3. Acute right leg spasm. Baclofen 10 mg 3 times a day. PTOT consulted. 4. History of sleep apnea with chronic CO2 retention. Patient could not tolerate CPAP and has does not radiated 5. Current tobacco dependency and is a current tobacco smoker. Patient counseled about tobacco cessation. Nicotine patch ordered 5. Diastolic heart failure continue Lasix 40 mg twice a day. DAMON monitoring daily weight. 6. Gout history, stable 7. Chronic CO2 retention secondary to sleep apnea. Patient is noncompliant with CPAP 8. VTE prophylaxis is provided with heparin subcu 9. GI prophylaxis Pepcid 20 mg by mouth daily 10. CODE STATUS full 11 disposition patient needs to be in the hospital at least 1-2 inpatient at rest is Past Medical History Past Medical History: COPD, Hypertension Additional Past Medical History / Comment(s): emphysema, gout. wears home 02. History of Any Multi-Drug Resistant Organisms: None Reported Past Surgical History: Unable to Obtain Additional Past Surgical History / Comment(s): hernia 2015, carpel tunnel, heart cath in the past (clean) Past Anesthesia/Blood Transfusion Reactions: No Reported Reaction Past Psychological History: No Psychological Hx Reported Smoking Status: Former smoker Past Alcohol Use History: Occasional Past Drug Use History: None Reported - Past Family History Mother Family Medical History: Coronary Artery Disease (CAD), Hyperlipidemia, Hyper tension Medications and Allergies Home Medications Medication Instructions Recorded Confirmed Type Aspirin 81 mg PO DAILY 02/05/15 11/02/20 History Ipratropium-Albuterol Nebulize 3 ml INHALATION RT-QID 02/06/15 11/02/20 History [Duoneb 0.5 mg-3 mg/3 ml Soln] Budesonide [Pulmicort] 0.5 mg INHALATION RT-BID 11/06/17 11/02/20 History Cholecalciferol [Vitamin D3 (25 1,000 unit PO DAILY 11/06/17 11/02/20 History Mcg = 1000 Iu)] Montelukast [Singulair] 10 mg PO HS 11/06/17 11/02/20 History Ubidecarenone [Co Q-10] 100 mg PO DAILY 11/06/17 11/02/20 History Furosemide [Lasix] 40 mg PO BID@0900,1600 #60 tab 11/15/17 11/02/20 Rx Albuterol Sulfate [Ventolin HFA] 1 - 2 puff INHALATION RT-Q6H PRN 11/02/20 11/02/20 History Formoterol Fumarate [Perforomist] 20 mcg INHALATION RT-BID 11/02/20 11/02/20 History predniSONE 10 mg PO DAILY 11/02/20 11/02/20 History Allergies Allergy/AdvReac Type Severity Reaction Status Date / Time No Known Allergies Allergy Verified 12/31/17 18:27 Physical Exam Vitals: Vital Signs Temp Pulse Resp BP Pulse Ox 11/02/20 11:24 86 18 98 11/02/20 07:43 86 24 123/83 98 11/02/20 03:02 98 F 87 18 124/64 95 Intake and Output 11/01/20 11/02/20 11/02/20 22:59 06:59 14:59 Other: Weight 104.326 kg Results CBC & Chem 7: 11/02/20 06:50 11/02/20 06:50 Labs: Abnormal Lab Results - Last 24 Hours (Table) 11/02/20 11/02/20 Range/Units 06:50 06:50 WBC 19.0 H (3.8-10.6) k/uL RBC 4.20 L (4.30-5.90) m/uL Hgb 10.9 L (13.0-17.5) gm/dL Hct 36.2 L (39.0-53.0) % MCHC 30.0 L (31.0-37.0) g/dL Neutrophils # 15.2 H (1.3-7.7) k/uL Chloride 95 L (98-107) mmol/L Carbon Dioxide 38 H (22-30) mmol/L BUN 51 H (9-20) mg/dL Creatinine 1.40 H (0.66-1.25) mg/dL Glucose 143 H (74-99) mg/dL Total Protein 5.8 L (6.3-8.2) g/dL Albumin 3.1 L (3.5-5.0) g/dL
[2020-11-02] MEDS: methylPREDNISolone SOD SUCCI 125 MG/2 ML VIAL IV SCH ×2 (16:29)
[2020-11-02] MEDS: FORMOTEROL FUMARATE 20 MCG/2 ML NEBU INHALATION SCH (18:24)
[2020-11-02] MEDS: BUDESONIDE 1 MG/2 ML NEBU INHALATION SCH (18:24)
[2020-11-02] MEDS ORDERED: BUDESONIDE 0.5 MG/2 ML NEBU INHALATION SCH (20:00)
[2020-11-02] MEDS: MONTELUKAST 10 MG TAB PO SCH (20:53)
[2020-11-02] MEDS: HEPARIN SODIUM,PORCINE/PF 5,000 UNIT/0.5 ML SYRINGE SQ SCH (20:53)
[2020-11-02] MEDS: guaiFENesin 600 MG TABLET.ER PO SCH (20:53)
[2020-11-02] MEDS ORDERED: LEVOFLOXACIN 750 MG TAB PO SCH (21:00)
[2020-11-02 21:09] LABS: Glucose,Whole Blood 150 mg/dL (75-99)
[2020-11-03] MEDS: methylPREDNISolone SOD SUCCI 125 MG/2 ML VIAL IV SCH ×2 (00:01→05:22)
[2020-11-03 06:47] LABS: Glucose,Whole Blood 155 mg/dL (75-99)
[2020-11-03 07:33] LABS: Basophils % (A) 0 %; Eosinophils % (A) 0 %; HCT 29.3 % (39.0-53.0); Hypochromasia Marked; Lymphocytes # (A) 0.4 k/uL (1.0-4.8); Lymphocytes % (A) 3 %; MCH 26.7 pg (25.0-35.0); MCHC 31.1 g/dL (31.0-37.0); MCV 85.7 fL (80.0-100.0); Mean Platelet Volume 8.1; Monocytes # (A) 0.4 k/uL (0-1.0); Monocytes % (A) 3 %; Neutrophils # (A) 12.5 k/uL (1.3-7.7); Neutrophils % (A) 93 %; Platelet Count 245 k/uL (150-450); RBC 3.42 m/uL (4.30-5.90); WBC 13.4 k/uL (3.8-10.6)
[2020-11-03 07:46] LABS: ALT 22 U/L (4-49); AST 19 U/L (17-59); African American GFR (CKD) 41 (>60 ml/min/1.73 sqM); Albumin/Globulin Ratio 1.2; Alkaline Phosphatase 44 U/L (38-126); Anion Gap 7 mmol/L; Blood Urea Nitrogen 62 mg/dL (9-20); C Reactive Protein 7.1 mg/dL (<1.0); Calcium 8.6 mg/dL (8.4-10.2); Carbon Dioxide 37 mmol/L (22-30); Chloride 91 mmol/L (98-107); Globulin 2.6 g/dL; Glucose 135 mg/dL (74-99); Non-African American GFR(CKD) 35 (>60 ml/min/1.73 sqM); Potassium 4.8 mmol/L (3.5-5.1); Sodium 135 mmol/L (137-145); Total Bilirubin 0.3 mg/dL (0.2-1.3); Total Protein 5.6 g/dL (6.3-8.2)
[2020-11-03 07:53] LABS: HGB 9.1 gm/dL (13.0-17.5)
[2020-11-03] MEDS: FORMOTEROL FUMARATE 20 MCG/2 ML NEBU INHALATION SCH ×2 (07:59→20:39)
[2020-11-03] MEDS: BUDESONIDE 1 MG/2 ML NEBU INHALATION SCH ×2 (07:59→20:39)
[2020-11-03] MEDS: IPRATROPIUM-ALBUTEROL 3 ML NEB INHALATION SCH ×4 (07:59→20:39)
[2020-11-03] MEDS: NON FORMULARY DRUG (Ubidecarenone [Co Q-10] 100 MG Capsule) PO SCH (08:54)
[2020-11-03] MEDS: guaiFENesin 600 MG TABLET.ER PO SCH ×2 (08:55→20:19)
[2020-11-03] MEDS: HEPARIN SODIUM,PORCINE/PF 5,000 UNIT/0.5 ML SYRINGE SQ SCH ×2 (08:55→20:19)
[2020-11-03] MEDS: ASPIRIN 81 MG PO SCH (08:55)
[2020-11-03] MEDS: FUROSEMIDE 40 MG TAB PO SCH ×2 (08:55→17:19)
[2020-11-03] MEDS ORDERED: predniSONE 20 MG TAB PO SCH (09:00)
[2020-11-03 11:34] LABS: Glucose,Whole Blood 166 mg/dL (75-99)
[2020-11-03] MEDS: AMMONIUM LACTATE 12% LOTION 225 GM BTL TOPICAL SCH ×2 (12:26→20:20)
[2020-11-03] MEDS: INSULIN ASPART (NovoLOG) 100 UNIT/ML VIAL SQ SCH ×3 (12:27→20:19)
[2020-11-03] MEDS: predniSONE 10 MG TAB PO SCH (12:27)
--- NOTE | 2020-11-03 12:50 | P.PN ---
Subjective Progress Note Date: 11/03/20 This is a 75-year-old male patient of Dr. Chu present with past medical history of hypertension, COPD, wears 3 L of oxygen with diastolic CHF was last seen in 2018. Patient has history of intubation for 48 hours with presentation of unresponsiveness and hypoxia. Patient was intubated again in 2018 when patient was found to be unresponsive and short of breath. Patient was treated for diastolic CHF, COPD and Pseudomonas pneumonia. Echocardiogram obtained at that time suggested EF of 60-65% with borderline concentric left ventricular hypertrophy mild tricuspid regurgitation and mild pulmonary hypertension. Patient also has sleep apnea but is noncompliant with CPAP. Patient was brought in as he was complaining of significant right leg pain for the past week. According to the patient was unable to move due to extreme weakness and has been sitting in recliner all day. He was seen in tripod position and having shortness of breath. Since patient's spasm in the right leg did not improve and patient had a fall patient was brought to the ER. He was unable able to ambulate in in the ER and was hypoxic to the low 80s on ambulation. On evaluation in the ER patient was noted to be short of breath at rest. He denies any cough or chest pain. Vitals in the ER suggested afebrile pulse of 97 respiratory rate 22 but blood pressure 117/69. Patient has a leukocytosis of 19 hemoglobin 10.9 which is patient's baseline, chloride 95 bicarb 38 BUN 51 creatinine 1.4 patient's baseline is 1. Chest x-ray suggestive of chronic infiltrate and COPD suggestive of chronic interstitial lung disease. EKG normal sinus rhythm. 11/03: Chest CT ordered for today. Pulmonary medicine on consult. Patient has been afebrile, HR 86, BP 118/61, PO 92 % on 4L n/c. WBC 13.4, HGB 9.1, PLT 245. Sodium 135, potassium 4.8, chloride 91, CO2 37, BUN 62, Creatinine 1.83. CBG 150-166. Patient is on home O2 at 3.5L. He states is has chronic shortness of breath. Echocardiogram ordered. ROS Constitutional: Denies chills, Denies fever, increased weakness lethargy and poor appetite Eyes: denies decreased vision, denies diplopia, denies discharge, denies pain Ears: deny: decreased hearing Ears, nose, mouth and throat: Denies dental pain, Denies headache, Denies nasal discharge, Denies nose pain Cardiovascular: Denies chest pain, endorses decreased exercise tolerance, Denies edema, Denies high blood pressure, Denies irregular heart beat, Denies palpitations, Denies paroxysmal nocturnal dyspnea, Denies rapid heart beat, endorses shortness of breath Respiratory: Denies congestion, Denies cough, endorses chronic cough with sputum, endorses chronic dyspnea, endorses home oxygen, Denies wheezing Gastrointestinal: Denies abdominal pain, Denies change in bowel habits, Denies coffee ground emesis, Denies early satiety, Denies excessive gas, Denies heartburn, Denies hematemesis, Denies hematochezia, Denies loss of appetite, Denies nausea, Denies vomiting Genitourinary: Denies dysuria, Denies flank pain, Denies kidney stones, Denies menorrhagia, Denies urgency, Denies urinary frequency Musculoskeletal: Denies gait dysfunction, Denies limitation of motion, Denies morning stiffness, Denies muscle cramps Integumentary: Denies rash, Denies wounds, Denies brittle nails, Denies change in hair/nails, Denies darkening of skin Neurological: Denies balance difficulties, Denies change in speech, Denies double vision, Denies gait dysfunction, Denies loss of vision, Denies motor disturbance, Denies numbness, Denies paralysis, Denies paresthesias, Denies seizures Psychiatric: Denies anxiety, Denies depression Endocrine: Denies excessive sweating, Denies excessive thirst, Denies high blood sugars, Denies palpitations Hematologic/Lymphatic: Denies easy bruising, Denies lymphadenopathy Physical exam - Constitutional General appearance: cooperative, mild distress, obese - EENT Eyes: anicteric sclerae, PERRLA, normal appearance ENT: hearing grossly normal - Neck Neck: no lymphadenopathy, normal ROM, no other, no rigidity, no stridor, no thyromegaly, fat pad in the back of the neck - Respiratory Respiratory: bilateral: Decreased air entry with fine crackles at the bases - Cardiovascular Rhythm: regular Heart sounds: normal: S1, S2 Abnormal Heart Sounds: no systolic murmur, no diastolic murmur, no rub, no S3 Gallop, no S4 Gallop, no click, no other - Gastrointestinal General gastrointestinal: normal bowel sounds, soft nontender - Integumentary Integumentary: no rash chronic dermatitis of the lower extremity - Neurologic Neurologic: CNII-XII intact no gross motor or sensory deficit - Musculoskeletal Musculoskeletal: gait could not be assessed due to weakness, strength equal bilaterally - Psychiatric Psychiatric: A&O x's 3, appropriate affect Assessment and plan 1. Acute hypoxic hypercapnic respiratory failure secondary to COPD exacerbation with interstitial lung disease. DuoNeb as needed for shortness of breath. Pulmicort 1mg twice a day. levofloxacin 750 daily at bedtime. Continue Solu- Medrol 60 every 6, Pulmicort twice daily, sputum culture, incentive spirometry, DuoNeb as needed for shortness of breath his NT proBNP is normal. Pulmonary consult. Echocardiogram. 2. Generalized weakness with debility PTOT consult placed. Patient may need rehab placement due to increased weakness . Fall precautions 3. Acute right leg spasm. Baclofen 10 mg 3 times a day. PTOT consulted. 4. History of sleep apnea with chronic CO2 retention. Patient could not tolerate CPAP and has does not radiated 5. Current tobacco dependency and is a current tobacco smoker. Patient counseled about tobacco cessation. Nicotine patch ordered 5. Diastolic heart failure continue Lasix 40 mg twice a day. DAMON monitoring daily weight. 6. Gout history, stable 7. Chronic CO2 retention secondary to sleep apnea. Patient is noncompliant with CPAP 8. VTE prophylaxis is provided with heparin subcu 9. GI prophylaxis Pepcid 20 mg by mouth daily 10. CODE STATUS full Discharge plan To be determined. PT and OT. Impression and plan of care have been directed as dictated by the signing physician. Ann-Marie Ortiz nurse practitioner acting as scribe for signing physician. Objective - Vital Signs Vital signs: Vital Signs Temp 98.2 F 11/03/20 07:42 Pulse 96 11/03/20 08:25 Resp 18 11/03/20 07:42 BP 118/61 11/03/20 07:42 Pulse Ox 92 L 11/03/20 07:42 Intake & Output 11/02/20 11/03/20 11/03/20 18:59 06:59 18:59 Output Total 1200 Balance -1200 Weight 104.326 kg Output: Urine 1200 Other: Voiding Method Urinal # Voids 1 1 - Labs CBC & Chem 7: 11/03/20 07:05 11/03/20 07:05 Labs: Abnormal Lab Results - Last 24 Hours (Table) 11/02/20 11/02/20 11/02/20 Range/Units 06:50 06:50 21:04 WBC (3.8-10.6) k/uL RBC (4.30-5.90) m/uL Hgb (13.0-17.5) gm/dL Hct (39.0-53.0) % Neutrophils # (1.3-7.7) k/uL Lymphocytes # (1.0-4.8) k/uL Sodium (137-145) mmol/L Chloride (98-107) mmol/L Carbon Dioxide (22-30) mmol/L BUN (9-20) mg/dL Creatinine (0.66-1.25) mg/dL Glucose (74-99) mg/dL POC Glucose (mg/dL) 150 H (75-99) mg/dL Creatine Kinase 32 L (55-170) U/L C-Reactive Protein (<1.0) mg/dL Total Protein (6.3-8.2) g/dL Albumin (3.5-5.0) g/dL Procalcitonin 0.12 H (0.02-0.09) ng/mL 11/03/20 11/03/20 11/03/20 Range/Units 06:45 07:05 07:05 WBC 13.4 H (3.8-10.6) k/uL RBC 3.42 L (4.30-5.90) m/uL Hgb 9.1 L D (13.0-17.5) gm/dL Hct 29.3 L (39.0-53.0) % Neutrophils # 12.5 H (1.3-7.7) k/uL Lymphocytes # 0.4 L (1.0-4.8) k/uL Sodium 135 L (137-145) mmol/L Chloride 91 L (98-107) mmol/L Carbon Dioxide 37 H (22-30) mmol/L BUN 62 H (9-20) mg/dL Creatinine 1.83 H (0.66-1.25) mg/dL Glucose 135 H (74-99) mg/dL POC Glucose (mg/dL) 155 H (75-99) mg/dL Creatine Kinase (55-170) U/L C-Reactive Protein 7.1 H (<1.0) mg/dL Total Protein 5.6 L (6.3-8.2) g/dL Albumin 3.0 L (3.5-5.0) g/dL Procalcitonin (0.02-0.09) ng/mL
--- NOTE | 2020-11-03 13:06 | ECHOF ---
Referral Reason:LVF MEASUREMENTS -------- HEIGHT: 177.8 cm WEIGHT: 104.3 kg BP: 118/61 RVIDd: 3.6 cm (< 3.3) IVSd: 1.4 cm (0.6 - 1.1) LVIDd: 4.3 cm (3.9 - 5.3) LVPWd: 1.4 cm (0.6 - 1.1) IVSs: 2.0 cm LVIDs: 2.5 cm LVPWs: 1.7 cm LA Diam: 3.4 cm (2.7 - 3.8) Ao Diam: 3.9 cm (2.0 - 3.7) AV Cusp: 2.5 cm (1.5 - 2.6) MV EXCURSION: 20.304 mm (> 18.000) MV EF SLOPE: 75 mm/s (70 - 150) EPSS: 0.8 cm MV E Syed: 0.58 m/s MV DecT: 300 ms MV A Syed: 0.70 m/s MV E/A Ratio: 0.84 RAP: 5.00 mmHg RVSP: 23.88 mmHg FINDINGS -------- Sinus rhythm. This was a technically adequate study. The left ventricular size is normal. There is moderate concentric left ventricular hypertrophy. O verall left ventricular systolic function is normal with, an EF between 55 - 60 %. The right ventricle is mildly enlarged. The left atrial size is normal. The right atrial size is normal. Interatrial and interventricular septum intact. The aortic valve is trileaflet, and appears structurally normal. No aortic stenosis or regurgitation. The mitral valve is normal. Mild mitral annular calcification present. Mild mitral regurgitation is present. The tricuspid valve appears structurally normal. Mild tricuspid regurgitation present. Right vent ricular systolic pressure is normal at < 35 mmHg. The pulmonic valve was not well visualized. The aortic root is dilated measuring 3.9cm. Normal inferior vena cava with normal inspiratory collapse consistent with estimated right atrial pre ssure of 5 mmHg. The inferior vena cava is mildly dilated. There is no pericardial effusion. CONCLUSIONS -------- 1. There is moderate concentric left ventricular hypertrophy. 2. Overall left ventricular systolic function is normal with, an EF between 55 - 60 %. 3. The right ventricle is mildly enlarged. 4. The left atrial size is normal. 5. The aortic valve is trileaflet, and appears structurally normal. No aortic stenosis or regurgitati on. 6. Mild mitral annular calcification present. 7. Mild mitral regurgitation is present. 8. Mild tricuspid regurgitation present. 9. The aortic root is dilated measuring 3.9cm. 10. There is no pericardial effusion. CHILD CUSTODY EVALUATOR: Amy Still RDCS
--- NOTE | 2020-11-03 13:13 | CT ---
EXAMINATION TYPE: CT chest wo con DATE OF EXAM: 11/03/2020 COMPARISON: None HISTORY: Pulmonary fibrosis CT DLP: 543.6 mGycm, Automated exposure control for dose reduction was used. CONTRAST: None TECHNIQUE: Axial images were obtained at 1 mm thick sections at 10 mm intervals. This will limit po rtions of the examination which may not be visualized within the [id number]. Images were obtained in the supine view FINDINGS: Portion of the thyroid visualized is normal. Emphysematous changes are present bilaterally. No bronchiectasis is evident. No suspicious increased lung markings suggest pulmonary fibrosis. There is a 1.1 cm pleural-based density at the cardiophrenic angle at the left base. Series 201 image 20. Follow-up is recommended. A pleural-based area of increased densities at the left cardiophrenic angle along the mediastinal border measuring 1.8 cm. Series 201 image 21. No enlarged mediastinal or hilar adenopathy is evident. The ascending aorta diameter at the level o f the main pulmonary artery is 3.8 cm. The main pulmonary artery diameter at the bifurcation is 3.[address] sections are obtained through the upper abdomen. There are a few right renal cysts present . IMPRESSIONS: 1. Couple pleural-based densities at the bilateral lung bases. Additional workup with standard CT aleah st is recommended. 2. Emphysematous changes. 3. Findings typically associated with pulmonary fibrosis not radiographically apparent.
--- NOTE | 2020-11-03 14:07 | P.CNPUL ---
History of Present Illness Consult date: 11/03/20 Requesting physician: Jose Dunbar Reason for consult: other Chief complaint: Falls at home, chronic COPD History of present illness: This is a 75-year-old white male patient with history of advanced COPD, stage IV, on home oxygen for last 3 years, former smoker, who used to follow with Dr. Garcia Jefferson in the past however has not seen him in the last 2 years. Patient states he had a falling out with Dr. Garcia Jefferson and decided not to follow with him for pulmonary services anymore. His pulmonary conditions are being treated by his PCP Dr. Jerry Chu. His other medical history is significant for hypertension, chronic diastolic CHF, previous history of pneumonia related to Pseudomonas, obstructive sleep apnea and the patient has been noncompliant with his CPAP, history of gout, chronic hypoxic and hypercapnic respiratory failure related to COPD. 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 Patient denied falling onto his leg or hip. His pain was made worse by movement. he denied any weakness or numbness in his leg, no complaints of back pain. X-ray of the right femur and his pelvis showed no acute abnormality. He denied having any shortness of breath, denied having any cough congestion, or fever. His chest x-ray on admission showed bilateral infiltrates form of diffuse interstitial pattern, cardiomegaly and underlying COPD. EKG showed normal sinus rhythm. Reviewing his previous chest x-rays from 2018 the interstitial pulmonary markings were noted back then suggesting possibility of pulmonary fibrotic changes. His changes were evident on the chest x-ray as far back as 2014. Admission blood work has been reviewed showing white blood cell count of 19, hemoglobin is 10.9, sodium of 138, potassium is 4.3, chloride is 95, CO2 is 38, BUN is 51, creatinine is 1.4, lactic acid is 1.4, LFTs were within normal limits, troponin was less than 0.012, proBNP was 171, pro calcitonin level was negative at 0.12. He states his breathing is unchanged. The reasons he was admitted to the hospital is because of the fall. At home he is on a maintenance dose of prednisone 10 mg daily, DuoNeb, Singulair, Pulmicort and Perforomist Review of Systems All systems: negative Constitutional: Reports weakness, Denies chills, Denies fever Eyes: denies blurred vision, denies pain Ears, nose, mouth and throat: Denies headache, Denies sore throat Cardiovascular: Denies chest pain, Denies shortness of breath Respiratory: Reports dyspnea, Reports home oxygen, Reports respiratory infections, Denies cough Gastrointestinal: Denies abdominal pain, Denies diarrhea, Denies nausea, Denies vomiting Musculoskeletal: Denies myalgias Integumentary: Denies pruritus, Denies rash Neurological: Denies numbness, Denies weakness Psychiatric: Denies anxiety, Denies depression Endocrine: Denies fatigue, Denies weight change Past Medical History Past Medical History: COPD, Hypertension Additional Past Medical History / Comment(s): emphysema, gout. wears home 02. History of Any Multi-Drug Resistant Organisms: None Reported Past Surgical History: Unable to Obtain Additional Past Surgical History / Comment(s): hernia 2015, carpel tunnel, heart cath in the past (clean) Past Anesthesia/Blood Transfusion Reactions: No Reported Reaction Past Psychological History: No Psychological Hx Reported Smoking Status: Former smoker Past Alcohol Use History: Occasional Past Drug Use History: None Reported - Past Family History Mother Family Medical History: Coronary Artery Disease (CAD), Hyperlipidemia, Hypertension Medications and Allergies Home Medications Medication Instructions Recorded Confirmed Type Aspirin 81 mg PO DAILY 02/05/15 11/02/20 History Ipratropium-Albuterol Nebulize 3 ml INHALATION RT-QID 02/06/15 11/02/20 History [Duoneb 0.5 mg-3 mg/3 ml Soln] Budesonide [Pulmicort] 0.5 mg INHALATION RT-BID 11/06/17 11/02/20 History Cholecalciferol [Vitamin D3 (25 1,000 unit PO DAILY 11/06/17 11/02/20 History Mcg = 1000 Iu)] Montelukast [Singulair] 10 mg PO HS 11/06/17 11/02/20 History Ubidecarenone [Co Q-10] 100 mg PO DAILY 11/06/17 11/02/20 History Furosemide [Lasix] 40 mg PO BID@0900,1600 #60 tab 11/15/17 11/02/20 Rx Albuterol Sulfate [Ventolin HFA] 1 - 2 puff INHALATION RT-Q6H PRN 11/02/20 11/02/20 History Formoterol Fumarate [Perforomist] 20 mcg INHALATION RT-BID 11/02/20 11/02/20 History predniSONE 10 mg PO DAILY 11/02/20 11/02/20 History Allergies Allergy/AdvReac Type Severity Reaction Status Date / Time No Known Allergies Allergy Verified 12/31/17 18:27 Physical Exam Vitals: Vital Signs Temp Pulse Pulse Resp BP BP Pulse Ox 11/03/20 11:42 88 11/03/20 11:33 84 11/03/20 08:25 96 11/03/20 08:16 90 11/03/20 08:15 90 11/03/20 08:02 86 11/03/20 07:42 98.2 F 78 18 118/61 92 L 11/03/20 02:50 98.2 F 72 17 134/74 92 L 11/02/20 20:27 97.5 F L 86 18 122/67 95 11/02/20 20:05 86 18 11/02/20 18:53 79 11/02/20 18:44 79 11/02/20 18:25 77 18 11/02/20 15:47 98 F 72 20 133/78 98 11/02/20 15:40 91 18 11/02/20 15:30 94 18 11/02/20 14:53 97 22 117/69 95 Intake and Output 11/02/20 11/03/20 11/03/20 22:59 06:59 14:59 Output Total 600 600 Balance -600 -600 Output: Urine 600 600 Other: Voiding Method Urinal Urinal # Voids 1 1 Weight 104.326 kg GENERAL EXAM: Alert, very pleasant, 75-year-old white male, on 4 L of oxygen with a pulse ox of 92% comfortable in no apparent distress. HEAD: Normocephalic/atraumatic. EYES: Normal reaction of pupils, equal size. Conjunctiva pink, sclera white. NOSE: Clear with pink turbinates. THROAT: No erythema or exudates. NECK: No masses, no JVD, no thyroid enlargement, no adenopathy. CHEST: No chest wall deformity. Symmetrical expansion. LUNGS: Equal air entry with diminished breath sounds CVS: Regular rate and rhythm, normal S1 and S2, no gallops, no murmurs, no rubs ABDOMEN: Soft, nontender. No hepatosplenomegaly, normal bowel sounds, no guarding or rigidity. EXTREMITIES: No clubbing, no edema, no cyanosis, 2+ pulses and upper and lower extremities. MUSCULOSKELETAL: Muscle strength and tone normal. SPINE: No scoliosis or deformity SKIN: No rashes CENTRAL NERVOUS SYSTEM: Alert and oriented -3. No focal deficits, tone is normal in all 4 extremities. PSYCHIATRIC: Alert and oriented -3. Appropriate affect. Intact judgment and insight. Results - Laboratory Findings CBC and BMP: 11/03/20 07:05 11/03/20 07:05 Abnormal lab findings: Abnormal Labs 11/02/20 11/02/20 11/02/20 06:50 06:50 06:50 WBC 19.0 H RBC 4.20 L Hgb 10.9 L Hct 36.2 L MCHC 30.0 L Neutrophils # 15.2 H Lymphocytes # Sodium Chloride 95 L Carbon Dioxide 38 H BUN 51 H Creatinine 1.40 H Glucose 143 H POC Glucose (mg/dL) Creatine Kinase 32 L C-Reactive Protein Total Protein 5.8 L Albumin 3.1 L Procalcitonin 11/02/20 11/02/20 11/03/20 06:50 21:04 06:45 WBC RBC Hgb Hct MCHC Neutrophils # Lymphocytes # Sodium Chloride Carbon Dioxide BUN Creatinine Glucose POC Glucose (mg/dL) 150 H 155 H Creatine Kinase C-Reactive Protein Total Protein Albumin Procalcitonin 0.12 H 11/03/20 11/03/20 11/03/20 07:05 07:05 11:31 WBC 13.4 H RBC 3.42 L Hgb 9.1 L D Hct 29.3 L MCHC Neutrophils # 12.5 H Lymphocytes # 0.4 L Sodium 135 L Chloride 91 L Carbon Dioxide 37 H BUN 62 H Creatinine 1.83 H Glucose 135 H POC Glucose (mg/dL) 166 H Creatine Kinase C-Reactive Protein 7.1 H Total Protein 5.6 L Albumin 3.0 L Procalcitonin - Diagnostic Findings Chest x-ray: report reviewed, image reviewed CT scan - chest: report reviewed, image reviewed Additional studies: EKG reviewed, echocardiogram reviewed Assessment and Plan Plan: Assessment: #1. Chronic obstructive pulmonary disease, currently stable. #2. Chronic hypoxic respiratory failure related to advanced COPD, stage IV, us uaana wears 3 L of oxygen at home #3. Current and ongoing history of smoking #4. A fall at home, without injury #5. Interstitial prominence seen on the chest x-ray, high resolution CT chest did not show evidence of fibrosis, and showed mainly emphysematous changes #6. History of sleep apnea, patient was intolerant to CPAP #7. Chronic diastolic CHF #8. History of gout Plan: Continue current medical treatment Patient's COPD is stable High resolution CT has been reviewed No evidence of pulmonary fibrosis Patient's breathing seems to be at baseline No need for IV steroids, we'll switch the patient back to his home dose prednisone Continue nebulized bronchodilators We'll need outpatient follow-up with Dr. Lemos in the office in 7-10 days I performed a history & physical examination of the patient and discussed their management with my nurse practitioner, Soha Reina. I reviewed the nurse practitioner's note and agree with the documented findings and plan of care. Lung sounds are positive for diminished breath sounds throughout the lung root. The findings and the impression was discussed with the patient. I attest to the documentation by the nurse practitioner. Time with Patient: Greater than 30
[2020-11-03 16:42] LABS: Glucose,Whole Blood 146 mg/dL (75-99)
[2020-11-03 19:40] LABS: Glucose,Whole Blood 145 mg/dL (75-99)
[2020-11-03] MEDS: MONTELUKAST 10 MG TAB PO SCH (20:19)
[2020-11-04 06:55] LABS: Glucose,Whole Blood 122 mg/dL (75-99)
[2020-11-04] MEDS: INSULIN ASPART (NovoLOG) 100 UNIT/ML VIAL SQ SCH ×2 (07:20→11:59)
[2020-11-04] MEDS: BUDESONIDE 1 MG/2 ML NEBU INHALATION SCH (07:57)
[2020-11-04] MEDS: FORMOTEROL FUMARATE 20 MCG/2 ML NEBU INHALATION SCH (07:57)
[2020-11-04] MEDS: IPRATROPIUM-ALBUTEROL 3 ML NEB INHALATION SCH ×3 (07:57→15:25)
[2020-11-04] MEDS: HEPARIN SODIUM,PORCINE/PF 5,000 UNIT/0.5 ML SYRINGE SQ SCH (09:48)
[2020-11-04] MEDS: predniSONE 10 MG TAB PO SCH (09:48)
[2020-11-04] MEDS: FUROSEMIDE 40 MG TAB PO SCH ×2 (09:48→15:18)
[2020-11-04] MEDS: guaiFENesin 600 MG TABLET.ER PO SCH (09:48)
[2020-11-04] MEDS: ASPIRIN 81 MG PO SCH (09:48)
[2020-11-04] MEDS: AMMONIUM LACTATE 12% LOTION 225 GM BTL TOPICAL SCH (09:57)
[2020-11-04] MEDS: NON FORMULARY DRUG (Ubidecarenone [Co Q-10] 100 MG Capsule) PO SCH (10:00)
--- NOTE | 2020-11-04 11:11 | P.PN ---
Subjective Progress Note Date: 11/04/20 Principal diagnosis: Chronic COPD, stable, falls at home This is a 75-year-old white male patient with history of advanced COPD, stage IV, on home oxygen for last 3 years, former smoker, who used to follow with Dr. Garcia Jefferson in the past however has not seen him in the last 2 years. Patient states he had a falling out with Dr. Garcia Jefferson and decided not to follow with him for pulmonary services anymore. His pulmonary conditions are being treated by his PCP Dr. Jerry Chu. His other medical history is significant for hypertension, chronic diastolic CHF, previous history of pneumonia related to Pseudomonas, obstructive sleep apnea and the patient has been noncompliant with his CPAP, history of gout, chronic hypoxic and hypercapnic respiratory failure related to COPD. 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 Patient denied falling onto his leg or hip. H is pain was made worse by movement. he denied any weakness or numbness in his leg, no complaints of back pain. X-ray of the right femur and his pelvis showed no acute abnormality. He denied having any shortness of breath, denied having any cough congestion, or fever. His chest x-ray on admission showed bilateral infiltrates form of diffuse interstitial pattern, cardiomegaly and underlying COPD. EKG showed normal sinus rhythm. Reviewing his previous chest x-rays from 2018 the interstitial pulmonary markings were noted back then suggesting possibility of pulmonary fibrotic changes. His changes were evident on the chest x-ray as far back as 2014. Admission blood work has been reviewed showing white blood cell count of 19, hemoglobin is 10.9, sodium of 138, potassium is 4.3, chloride is 95, CO2 is 38, BUN is 51, creatinine is 1.4, lactic acid is 1.4, LFTs were within normal limits, troponin was less than 0.012, proBNP was 171, pro calcitonin level was negative at 0.12. He states his breathing is unchanged. The reasons he was admitted to the hospital is because of the fall. At home he is on a maintenance dose of prednisone 10 mg daily, DuoNeb, Singulair, Pulmicort and Perforomist. On 11/04/2020 patient seen in follow-up on medical surgical floor, he is resting in bed, he denies any worsening dyspnea, his breathing has been stable, he is on 4 L of oxygen with a pulse ox of 92%, no cough, no wheezing. His had stable vitals. No new labs or chest x-rays today. We reviewed his high resolution CT chest obtained yesterday which showed emphysematous changes, but no findings of pulmonary fibrosis were not seen. Patient is still having some discomfort involving his right hip, his had done x-rays of the his right femur and pelvis were negative for any fractures. Today he is having x-ray of the lumbar spine. On physical exam he is breathing comfortably, she is on his home nebulized treatments including Pulmicort and Perforomist, DuoNeb, he is on Levaquin, he is on his home dose prednisone. Objective - Vital Signs Vital signs: Vital Signs Temp 97.7 F 11/04/20 07:23 Pulse 88 11/04/20 08:12 Resp 16 11/04/20 07:23 BP 113/62 11/04/20 07:23 Pulse Ox 92 L 11/04/20 08:02 Intake & Output 11/03/20 11/04/20 11/04/20 18:59 06:59 18:59 Output Total 1000 1200 Balance -1000 -1200 Output: Urine 1000 1200 Other: Voiding Method Urinal # Voids 1 - Exam GENERAL EXAM: Alert, very pleasant, 75-year-old white male, on 4 L of oxygen with a pulse ox of 92% comfortable in no apparent distress. HEAD: Normocephalic/atraumatic. EYES: Normal reaction of pupils, equal size. Conjunctiva pink, sclera white. NOSE: Clear with pink turbinates. THROAT: No erythema or exudates. NECK: No masses, no JVD, no thyroid enlargement, no adenopathy. CHEST: No chest wall deformity. Symmetrical expansion. LUNGS: Equal air entry with diminished breath sounds CVS: Regular rate and rhythm, normal S1 and S2, no gallops, no murmurs, no rubs ABDOMEN: Soft, nontender. No hepatosplenomegaly, normal bowel sounds, no guarding or rigidity. EXTREMITIES: No clubbing, no edema, no cyanosis, 2+ pulses and upper and lower extremities. MUSCULOSKELETAL: Muscle strength and tone normal. SPINE: No scoliosis or deformity SKIN: No rashes CENTRAL NERVOUS SYSTEM: Alert and oriented -3. No focal deficits, tone is normal in all 4 extremities. PSYCHIATRIC: Alert and oriented -3. Appropriate affect. Intact judgment and insight. - Labs CBC & Chem 7: 11/03/20 07:05 11/03/20 07:05 Labs: Abnormal Lab Results - Last 24 Hours (Table) 11/03/20 11/03/20 11/03/20 Range/Units 11:31 16:40 19:39 POC Glucose (mg/dL) 166 H 146 H 145 H (75-99) mg/dL 11/04/20 Range/Units 06:54 POC Glucose (mg/dL) 122 H (75-99) mg/dL Assessment and Plan Plan: Assessment: #1. Chronic obstructive pulmonary disease, currently stable. #2. Chronic hypoxic respiratory failure related to advanced COPD, stage IV, usually wears 3 L of oxygen at home #3. Current and ongoing history of smoking #4. A fall at home, without injury #5. Interstitial prominence seen on the chest x-ray, high resolution CT chest did not show evidence of fibrosis, and showed mainly emphysematous changes #6. History of sleep apnea, patient was intolerant to CPAP #7. Chronic diastolic CHF #8. History of gout Plan: CT of the chest has been reviewed showing no evidence of pulmonary fibrosis Patient is stable from pulmonary perspective, his breathing is at its baseline Continue current nebulized bronchodilators Continue home dose prednisone 10 mg daily Patient is stable for discharge from pulmonary perspective, but he is still undergoing evaluation for his hip pain He can follow up with Dr. Davalos in the office in 7-10 days I performed a history & physical examination of the patient and discussed their management with my nurse practitioner, Soha Reina. I reviewed the nurse practitioner's note and agree with the documented findings and plan of care. Lung sounds are positive for diminished breath sounds throughout the lung root. The findings and the impression was discussed with the patient. I attest to the documentation by the nurse practitioner. Time with Patient: Less than 30
[2020-11-04 11:57] LABS: Glucose,Whole Blood 115 mg/dL (75-99)
--- NOTE | 2020-11-04 12:32 | P.DS ---
Providers Date of admission: 11/02/20 08:20 Expected date of discharge: 11/04/20 Attending physician: Jose Dunbar MD Consults: 11/02/20 15:14 Consult Physician Routine Consulting Provider: Taz Ledesma Consult Reason/Comments: COPD exacerbation Do you want consulting provider notified?: Yes Primary care physician: Gallito Chu [facility] Course: This is a 75-year-old male patient of Dr. Chu present with past medical history of hypertension, COPD, wears 3 L of oxygen with diastolic CHF was last seen in 2018. Patient has history of intubation for 48 hours with presentation of unresponsiveness and hypoxia. Patient was intubated again in 2018 when patient was found to be unresponsive and short of breath. Patient was treated for diastolic CHF, COPD and Pseudomonas pneumonia. Echocardiogram obtained at that time suggested EF of 60-65% with borderline concentric left ventricular hypertrophy mild tricuspid regurgitation and mild pulmonary hyp ertension. Patient also has sleep apnea but is noncompliant with CPAP. Patient was brought in as he was complaining of significant right leg pain for the past week. According to the patient was unable to move due to extreme weakness and has been sitting in recliner all day. He was seen in tripod position and having shortness of breath. Since patient's spasm in the right leg did not improve and patient had a fall patient was brought to the ER. He was unable able to ambulate in in the ER and was hypoxic to the low 80s on ambulation. On evaluation in the ER patient was noted to be short of breath at rest. He denies any cough or chest pain. Vitals in the ER suggested afebrile pulse of 97 respiratory rate 22 but blood pressure 117/69. Patient has a leukocytosis of 19 hemoglobin 10.9 which is patient's baseline, chloride 95 bicarb 38 BUN 51 creatinine 1.4 patient's baseline is 1. Chest x-ray suggestive of chronic infiltrate and COPD suggestive of chronic interstitial lung disease. EKG normal sinus rhythm. 11/03: Chest CT ordered for today. Pulmonary medicine on consult. Patient has been afebrile, HR 86, BP 118/61, PO 92 % on 4L n/c. WBC 13.4, HGB 9.1, PLT 245. Sodium 135, potassium 4.8, chloride 91, CO2 37, BUN 62, Creatinine 1.83. CBG 150-166. Patient is on home O2 at 3.5L. He states is has chronic shortness of breath. Echocardiogram ordered. 11/04: Patient has been afebrile, heart rate 84, blood pressure 113/62, pulse ox 90-92% on 4 L nasal cannula. Capillary blood glucose running between 115-146. Patient is complaining of pain in the posterior right leg and lumbar x-rays ordered. Breathing status is stable and patient appears to be at baseline. Patient has been seen by pulmonary medicine with recommendations for outpatient follow-up with Dr. Lemos. His IV Solu-Medrol was transitioned to oral prednisone at his home dose yesterday. He was cleared for discharge yesterday by pulmonary medicine. CT of the chest revealed couple pleural based densities at the bilateral lung bases. Recommend standard CT chest for further workup. Emphysematous changes. Findings typically associated with pulmonary fibrosis not apparent. Echocardiogram reveals EF of 55-60% with moderate concentric left ventricular hypertrophy, mild mitral regurgitation, mild tricuspid regurgitation, aortic root dilated at 3.9 cm. No aortic stenosis or regurgitation. Patient has been evaluated by physical therapy and occupational therapy with recommendations for subacute rehab. Patient will be discharged to subacute rehab once arrangements are completed. Discharge Diagnoses 1. Acute hypoxic hypercapnic respiratory failure secondary to COPD exacerbation with interstitial lung disease. 2. Generalized weakness with debility. 3. Acute right leg spasm. 4. History of sleep apnea with chronic CO2 retention. 5. Chronic diastolic heart failure. 6. Chronic gout. 7. Chronic CO2 retention secondary to sleep apnea. Patient is noncompliant with CPAP Discharge plan Subacute rehab. Impression and plan of care have been directed as dictated by the signing physician. Ann-Marie Ortiz nurse practitioner acting as scribe for signing physician. Patient Condition at Discharge: Fair Plan - Discharge Summary New Discharge Prescriptions: New Baclofen [Lioresal] 10 mg PO TID PRN #90 tab PRN Reason: Muscle Spasm Continue Aspirin 81 mg PO DAILY Ipratropium-Albuterol Nebulize [Duoneb 0.5 mg-3 mg/3 ml Soln] 3 ml INHALATION RT-QID Budesonide [Pulmicort] 0.5 mg INHALATION RT-BID Ubidecarenone [Co Q-10] 100 mg PO DAILY Montelukast [Singulair] 10 mg PO HS Cholecalciferol [Vitamin D3 (25 Mcg = 1000 Iu)] 1,000 unit PO DAILY Furosemide [Lasix] 40 mg PO BID@0900,1600 #60 tab Albuterol Sulfate [Ventolin HFA] 1 - 2 puff INHALATION RT-Q6H PRN PRN Reason: Shortness Of Breath Formoterol Fumarate [Perforomist] 20 mcg INHALATION RT-BID predniSONE 10 mg PO DAILY Discharge Medication List Aspirin 81 mg PO DAILY 02/05/15 [History] Ipratropium-Albuterol Nebulize [Duoneb 0.5 mg-3 mg/3 ml Soln] 3 ml INHALATION RT-QID 02/06/15 [History] Budesonide [Pulmicort] 0.5 mg INHALATION RT-BID 11/06/17 [History] Cholecalciferol [Vitamin D3 (25 Mcg = 1000 Iu)] 1,000 unit PO DAILY 11/06/17 [History] Montelukast [Singulair] 10 mg PO HS 11/06/17 [History] Ubidecarenone [Co Q-10] 100 mg PO DAILY 11/06/17 [History] Furosemide [Lasix] 40 mg PO BID@0900,1600 #60 tab 11/15/17 [Rx] Albuterol Sulfate [Ventolin HFA] 1 - 2 puff INHALATION RT-Q6H PRN 11/02/20 [History] Formoterol Fumarate [Perforomist] 20 mcg INHALATION RT-BID 11/02/20 [History] predniSONE 10 mg PO DAILY 11/02/20 [History] Baclofen [Lioresal] 10 mg PO TID PRN #90 tab 11/04/20 [Rx] Follow up Appointment(s)/Referral(s): Desmond Lemos MD [STAFF PHYSICIAN] - 1 Week [facility], [NON-STAFF] - Gallito Chu MD [Primary Care Provider] - 1 Week Discharge Disposition: HOME WITH HOME HEALTH SERVICES
[2020-11-04 14:31] VITALS: BP 158/74; RESP 17; TEMP 98.4
[2020-11-04 15:35] VITALS: PULSE 96
[2020-11-04] MEDS ORDERED: LEVOFLOXACIN 750 MG TAB PO SCH (22:00)
== END 2020-11-04 15:54 | disposition home health service (06) | DRG 190 ==
LOC: EC 02:57 → 4SSUR 08:20
PROVIDERS: ADMIT Internal Medicine; ATTEND Internal Medicine
DX: J44.1 Chronic obstructive pulmonary disease with (acute) exacerbation (principal); J96.21 Acute and chronic respiratory failure with hypoxia; J96.22 Acute and chronic respiratory failure with hypercapnia; E87.2 Acidosis; I50.32 Chronic diastolic (congestive) heart failure; J84.9 Interstitial pulmonary disease, unspecified; M1A.9XX0 Chronic gout, unspecified, without tophus (tophi); Z79.51 Long term (current) use of inhaled steroids; Z79.82 Long term (current) use of aspirin; Z79.899 Other long term (current) drug therapy; Z82.49 Family history of ischemic heart disease and other diseases of the circulatory system; Z83.438 Family history of other disorder of lipoprotein metabolism and other lipidemia; Z87.01 Personal history of pneumonia (recurrent); Y92.009 Unspecified place in unspecified non-institutional (private) residence as the place of occurrence of the external cause; Z99.81 Dependence on supplemental oxygen; W18.30XA Fall on same level, unspecified, initial encounter; Z91.19 Patient's noncompliance with other medical treatment and regimen; I11.0 Hypertensive heart disease with heart failure; F17.200 Nicotine dependence, unspecified, uncomplicated; D72.829 Elevated white blood cell count, unspecified; G47.33 Obstructive sleep apnea (adult) (pediatric); M62.838 Other muscle spasm; J43.9 Emphysema, unspecified
CPT/HCPCS: 36415; 71046; 71250; 72170; 80053; 82550; 83605; 83735; 83880; 84145; 84484; 85025; 86140; 93005; 93306; 94640; 94760; 96372; 99285

== ENCOUNTER 2020-11-07 13:04 | Inpatient (IN) | payer MEDICARE, BC ==
[2020-11-07 13:07] LABS: Glucose,Whole Blood 135 mg/dL (75-99)
[2020-11-07 13:33] LABS: ABG PO2 255 mmHg (83-108); Allen Test Performed? Yes
[2020-11-07 13:35] LABS: ABG PH 7.13 (7.35-7.45)
[2020-11-07 13:36] LABS: ABG Oxygen Saturation 99.7 % (94-97); ABG PCO2 >120 mmHg (35-45)
[2020-11-07 13:45] LABS: HCT 31.5 % (39.0-53.0); Hypochromasia Marked; MCH 25.1 pg (25.0-35.0); MCHC 28.7 g/dL (31.0-37.0); MCV 87.6 fL (80.0-100.0); Mean Platelet Volume 8.2; Platelet Count 353 k/uL (150-450); RDW 14.9 % (11.5-15.5); WBC 27.2 k/uL (3.8-10.6)
--- NOTE | 2020-11-07 13:48 | XR ---
EXAMINATION TYPE: XR chest 1V portable DATE OF EXAM: 11/07/2020 COMPARISON: 11/02/2020 INDICATION: Altered mental status, unresponsive TECHNIQUE: Single frontal view of the chest is obtained. FINDINGS: The heart size is normal. The pulmonary vasculature is normal. Right lower lobe infiltrate is present. Correlate for pneumonia and aspiration pneumonia. IMPRESSION: 1. Right lower lobe infiltrate. Correlate for pneumonia or aspiration pneumonia.
[2020-11-07 13:53] LABS: VBG PH 7.28 (7.31-7.41)
[2020-11-07 14:22] LABS: INR 0.9 (<1.2); Partial Thromboplastin Time 23.1 sec (22.0-30.0); Prothrombin Time 10.1 sec (9.0-12.0)
[2020-11-07 14:26] LABS: Appearance,Urine Cloudy (Clear); Bilirubin,Urine Negative (Negative); Blood,Urine Negative (Negative); Color,Urine Yellow; Glucose,Urine (UA) Negative (Negative); Granular Casts,Urine 3 /lpf (0); Hyaline Casts,Urine 24 /lpf (0-2); Ketones,Urine Negative (Negative); Leukocyte Esterase,Urine Negative (Negative); Mucus,Urine Few /hpf; Nitrite,Urine Negative (Negative); Protein,Urine Trace (Negative); RBC,Urine 1 /hpf (0-5); Specific Gravity,Urine 1.013 (1.001-1.035); Squamous Epithelial Cell,Urine 1 /hpf (0-4); Urobilinogen,Urine <2.0 mg/dL (<2.0); WBC,Urine 1 /hpf (0-5)
[2020-11-07 14:36] LABS: Amphetamine Screen,Urine Not Detected (NotDetected); Barbiturate Screen,Urine Not Detected (NotDetected); Benzodiazepines Screen,Urine Not Detected (NotDetected); Cocaine Screen,Urine Not Detected (NotDetected); Methadone Screen, Urine Not Detected (NotDetected); Opiate Screen,Urine Not Detected (NotDetected); Oxycodone Screen, Urine Not Detected (NotDetected); Phencyclidine Screen,Urine Not Detected (NotDetected); Tricyclic Antidepressant,Urine Not Detected (NotDetected); Urn Cannabinoid Scrn Not Detected (NotDetected)
[2020-11-07 14:40] LABS: Albumin 3.3 g/dL (3.5-5.0); Calcium 8.7 mg/dL (8.4-10.2); Potassium 4.8 mmol/L (3.5-5.1); Total Bilirubin 1.4 mg/dL (0.2-1.3); Total Protein 6.1 g/dL (6.3-8.2)
[2020-11-07] MEDS ORDERED: VANCOMYCIN IV PER PHARMACY 1 EACH MISC MISCELLANE PRN (14:40)
[2020-11-07] MEDS ORDERED: NALOXONE 0.4 MG/ML 1 ML VIAL IV PRN (14:42)
--- NOTE | 2020-11-07 14:42 | ED ---
Altered Mental Status HPI - General Chief Complaint: Altered Mental Status Stated Complaint: unresponsive Source: EMS Mode of arrival: EMS Limitations: altered mental status, physical limitation - History of Present Illness Initial Comments: 75-year-old male with history of COPD, hypertension presents to the emergency department with altered mental status. Patient is coming from [facility]. He was last noted well at exam. states he got a call from his facility [facility] he had fallen onto the ground. reports that he frequently will get down on the floor on his hands and knees when he can't breathe. She was adamant that the patient did not fall and therefore EMS was not called. Later on the day the patient was having increased respirations and hypoxia. Patient became altered and therefore they transferred him to the hospital. Patient's history reports that he should wear a CPAP at night however is not compliant. agrees that he does not wear one. He normally wears 2 L of oxygen at all times. There is no report of any fevers, chills or cough. No covid exposure. She is not complaining of any chest pain. He does have a history of CHF with a normal EF. The remainder of the HPI is limited - Related Data Home Medications Medication Instructions Recorded Confirmed Aspirin 81 mg PO DAILY 02/05/15 11/07/20 Ipratropium-Albuterol Nebulize 3 ml INHALATION RT-QID 02/06/15 11/07/20 [Duoneb 0.5 mg-3 mg/3 ml Soln] Budesonide [Pulmicort] 0.5 mg INHALATION RT-BID 11/06/17 11/07/20 Montelukast [Singulair] 10 mg PO HS 11/06/17 11/07/20 Ubidecarenone [Co Q-10] 100 mg PO DAILY 11/06/17 11/07/20 Albuterol Sulfate [Ventolin HFA] 2 puff INHALATION RT-Q6H PRN 11/02/20 11/07/20 Formoterol Fumarate [Perforomist] 20 mcg INHALATION RT-BID 11/02/20 11/07/20 predniSONE 10 mg PO DAILY 11/02/20 11/07/20 Baclofen [Lioresal] 10 mg PO TID@0900,1300,2100 11/07/20 11/07/20 Cholecalciferol [Vitamin D3 (25 25 mcg PO DAILY 11/07/20 11/07/20 Mcg = 1000 Iu)] Previous Rx's Medication Instructions Recorded Furosemide [Lasix] 40 mg PO BID@0900,1600 #60 tab 11/15/17 Allergies Allergy/AdvReac Type Severity Reaction Status Date / Time No Known Allergies Allergy Verified 11/07/20 13:42 Review of Systems ROS Statement: Those systems with pertinent positive or pertinent negative responses have been documented in the HPI. ROS Other: All systems not noted in ROS Statement are negative. Past Medical History Past Medical History: COPD, Hypertension Additional Past Medical History / Comment(s): emphysema, gout. wears home 02. History of Any Multi-Drug Resistant Organisms: None Reported Past Surgical History: Unable to Obtain Additional Past Surgical History / Comment(s): hernia 2015, carpel tunnel, heart cath in the past (clean) Past Anesthesia/Blood Transfusion Reactions: No Reported Reaction Past Psychological History: No Psychological Hx Reported Smoking Status: Former smoker Past Alcohol Use History: Occasional Past Drug Use History: None Reported - Past Family History Mother Family Medical History: Coronary Artery Disease (CAD), Hyperlipidemia, Hypertension General Exam Limitations: altered mental status, physical limitation Course Vital Signs 11/07/20 11/07/20 11/07/20 13:05 13:15 13:19 Temperature 97.9 F Pulse Rate 88 82 Pulse Rate [ Pulse Oximetery ] Respiratory 44 H 42 H 42 H Rate Blood Pressure 130/65 123/64 Blood Pressure [Right Arm] O2 Sat by Pulse 99 100 Oximetry 11/07/20 11/07/20 11/07/20 13:40 15:21 16:01 Temperature Pulse Rate 83 79 73 Pulse Rate [ Pulse Oximetery ] Respiratory 20 27 H 24 Rate Blood Pressure 121/59 126/77 123/68 Blood Pressure [Right Arm] O2 Sat by Pulse 100 97 98 Oximetry 11/07/20 16:50 Temperature 97.6 F Pulse Rate Pulse Rate [ 78 Pulse Oximetery ] Respiratory 28 H Rate Blood Pressure Blood Pressure 119/62 [Right Arm] O2 Sat by Pulse 100 Oximetry - Reevaluation(s) Reevaluation #1: Patients mentation markedly improved. Does arouse and open his eyes. Is able to answer yes no questions. Appears comfortable on the BiPAP 11/07/20 15:16 Medical Decision Making - Medical Decision Making Upon arrival patient is placed in a trauma 2. He is obtunded at this time and therefore history cannot be obtained. IV is established. Laboratory studies are conducted. ABG is obtained on the patient which demonstrates a CO2 of greater than 120. PCO2 of 255. Patient will localize to pain. We do attempt BiPAP for which the patient does tolerate well and becomes alert approximately 15 minutes after placement. Laboratories is reviewed. White count 27.2. Troponin 0.049. Blood cultures obtained. Patient given dose of Zosyn. Patient be admitted with pulmonology consult. Spoke with Dr. Tellez who ageed to admit the patient. - Lab Data Result diagrams: 11/07/20 13:24 11/07/20 13:24 Lab Results 11/07/20 11/07/20 11/07/20 Range/Units 13:05 13:10 13:24 WBC 27.2 H (3.8-10.6) k/uL RBC 3.60 L (4.30-5.90) m/uL Hgb 9.0 L (13.0-17.5) gm/dL Hct 31.5 L (39.0-53.0) % MCV 87.6 (80.0-100.0) fL MCH 25.1 (25.0-35.0) pg MCHC 28.7 L (31.0-37.0) g/dL RDW 14.9 (11.5-15.5) % Plt Count 353 (150-450) k/uL MPV 8.2 Neutrophils % Not Reportable Neutrophils % (Manual) 86 % Band Neuts % (Manual) 1 % Lymphocytes % Not Reportable Lymphocytes % (Manual) 3 % Monocytes % Not Reportable Monocytes % (Manual) 10 % Eosinophils % Not Reportable Basophils % Not Reportable Metamyelocytes % 1 % Myelocytes % 1 % Neutrophils # Not Reportable Neutrophils # (Manual) 23.60 H (1.3-7.7) k/uL Lymphocytes # Not Reportable Lymphocytes # (Manual) 0.82 L (1.0-4.8) k/uL Monocytes # Not Reportable Monocytes # (Manual) 2.72 H (0-1.0) k/uL Eosinophils # Not Reportable Basophils # Not Reportable Metamyelocytes # (Man) 0.27 H (0) k/uL Myelocytes # (Manual) 0.27 H (0) k/uL Nucleated RBCs 0 (0-0) /100 WBC Manual Slide Review Performed Hypochromasia Marked PT (9.0-12.0) sec INR (<1.2) APTT (22.0-30.0) sec Sample Site L radial ABG pH 7.13 L* (7.35-7.45) ABG pCO2 >120 H* (35-45) mmHg ABG pO2 255 H (83-108) mmHg ABG O2 Saturation 99.7 H (94-97) % Carmelo Test Yes VBG pH (7.31-7.41) VBG pCO2 (37-51) mmHg VBG HCO3 (24-28) mmol/L FiO2 100 % Sodium (137-145) mmol/L Potassium (3.5-5.1) mmol/L Chloride (98-107) mmol/L Carbon Dioxide (22-30) mmol/L Anion Gap mmol/L BUN (9-20) mg/dL Creatinine (0.66-1.25) mg/dL Est GFR (CKD-EPI)AfAm (>60 ml/min/1.73 sqM) Est GFR (CKD-EPI)NonAf (>60 ml/min/1.73 sqM) Glucose (74-99) mg/dL POC Glucose (mg/dL) 135 H (75-99) mg/dL POC Glu Four Slide Operator ID Vibha Stinson Plasma Lactic Acid Ernie (0.7-2.0) mmol/L Calcium (8.4-10.2) mg/dL Total Bilirubin (0.2-1.3) mg/dL AST (17-59) U/L ALT (4-49) U/L Alkaline Phosphatase (38-126) U/L Ammonia (<30) umol/L Creatine Kinase (55-170) U/L Troponin I (0.000-0.034) ng/mL NT-Pro-B Natriuret Pep pg/mL Total Protein (6.3-8.2) g/dL Albumin (3.5-5.0) g/dL Urine Color Urine Appearance (Clear) Urine pH (5.0-8.0) Ur Specific [place] (1.001-1.035) Urine Protein (Negative) Urine Glucose (UA) (Negative) Urine Ketones (Negative) Urine Blood (Negative) Urine Nitrite (Negative) Urine Bilirubin (Negative) Urine Urobilinogen (<2.0) mg/dL Ur Leukocyte Esterase (Negative) Urine RBC (0-5) /hpf Urine WBC (0-5) /hpf Ur Squamous Epith Cells (0-4) /hpf Hyaline Casts (0-2) /lpf Granular Casts (0) /lpf Urine Mucus (None) /hpf Urine Opiates Screen (NotDetected) Ur Oxycodone Screen (NotDetected) Urine Methadone Screen (NotDetected) Ur Propoxyphene Screen (NotDetected) Ur Barbiturates Screen (NotDetected) U Tricyclic Antidepress (NotDetected) Ur Phencyclidine Scrn (NotDetected) Ur Amphetamines Screen (NotDetected) U Methamphetamines Scrn (NotDetected) U Benzodiazepines Scrn (NotDetected) Urine Cocaine Screen (NotDetected) U Marijuana (THC) Screen (NotDetected) 11/07/20 11/07/20 11/07/20 Range/Units 13:24 13:24 13:24 WBC (3.8-10.6) k/uL RBC (4.30-5.90) m/uL Hgb (13.0-17.5) gm/dL Hct (39.0-53.0) % MCV (80.0-100.0) fL MCH (25.0-35.0) pg MCHC (31.0-37.0) g/dL RDW (11.5-15.5) % Plt Count (150-450) k/uL MPV Neutrophils % Neutrophils % (Manual) % Band Neuts % (Manual) % Lymphocytes % Lymphocytes % (Manual) % Monocytes % Monocytes % (Manual) % Eosinophils % Basophils % Metamyelocytes % % Myelocytes % % Neutrophils # Neutrophils # (Manual) (1.3-7.7) k/uL Lymphocytes # Lymphocytes # (Manual) (1.0-4.8) k/uL Monocytes # Monocytes # (Manual) (0-1.0) k/uL Eosinophils # Basophils # Metamyelocytes # (Man) (0) k/uL Myelocytes # (Manual) (0) k/uL Nucleated RBCs (0-0) /100 WBC Manual Slide Review Hypochromasia PT 10.1 (9.0-12.0) sec INR 0.9 (<1.2) APTT 23.1 (22.0-30.0) sec Sample Site ABG pH (7.35-7.45) ABG pCO2 (35-45) mmHg ABG pO2 (83-108) mmHg ABG O2 Saturation (94-97) % Carmelo Test VBG pH (7.31-7.41) VBG pCO2 (37-51) mmHg VBG HCO3 (24-28) mmol/L FiO2 % Sodium 138 (137-145) mmol/L Potassium 4.8 (3.5-5.1) mmol/L Chloride 91 L (98-107) mmol/L Carbon Dioxide 40 H (22-30) mmol/L Anion Gap 7 mmol/L BUN 77 H (9-20) mg/dL Creatinine 1.99 H (0.66-1.25) mg/dL Est GFR (CKD-EPI)AfAm 37 (>60 ml/min/1.73 sqM) Est GFR (CKD-EPI)NonAf 32 (>60 ml/min/1.73 sqM) Glucose 132 H (74-99) mg/dL POC Glucose (mg/dL) (75-99) mg/dL POC Glu Four Slide Operator ID Plasma Lactic Acid Ernie (0.7-2.0) mmol/L Calcium 8.7 (8.4-10.2) mg/dL Total Bilirubin 1.4 H (0.2-1.3) mg/dL AST 25 (17-59) U/L ALT 23 (4-49) U/L Alkaline Phosphatase 52 (38-126) U/L Ammonia (<30) umol/L Creatine Kinase 32 L (55-170) U/L Troponin I (0.000-0.034) ng/mL NT-Pro-B Natriuret Pep pg/mL Total Protein 6.1 L (6.3-8.2) g/dL Albumin 3.3 L (3.5-5.0) g/dL Urine Color Yellow Urine Appearance Cloudy (Clear) Urine pH 5.0 (5.0-8.0) Ur Specific [place] 1.013 (1.001-1.035) Urine Protein Trace H (Negative) Urine Glucose (UA) Negative (Negative) Urine Ketones Negative (Negative) Urine Blood Negative (Negative) Urine Nitrite Negative (Negative) Urine Bilirubin Negative (Negative) Urine Urobilinogen <2.0 (<2.0) mg/dL Ur Leukocyte Esterase Negative (Negative) Urine RBC 1 (0-5) /hpf Urine WBC 1 (0-5) /hpf Ur Squamous Epith Cells 1 (0-4) /hpf Hyaline Casts 24 H (0-2) /lpf Granular Casts 3 (0) /lpf Urine Mucus Few H (None) /hpf Urine Opiates Screen Not Detected (NotDetected) Ur Oxycodone Screen Not Detected (NotDetected) Urine Methadone Screen Not Detected (NotDetected) Ur Propoxyphene Screen Not Detected (NotDetected) Ur Barbiturates Screen Not Detected (NotDetected) U Tricyclic Antidepress Not Detected (NotDetected) Ur Phencyclidine Scrn Not Detected (NotDetected) Ur Amphetamines Screen Not Detected (NotDetected) U Methamphetamines Scrn Not Detected (NotDetected) U Benzodiazepines Scrn Not Detected (NotDetected) Urine Cocaine Screen Not Detected (NotDetected) U Marijuana (THC) Screen Not Detected (NotDetected) 11/07/20 11/07/20 11/07/20 Range/Units 13:24 13:24 13:24 WBC (3.8-10.6) k/uL RBC (4.30-5.90) m/uL Hgb (13.0-17.5) gm/dL Hct (39.0-53.0) % MCV (80.0-100.0) fL MCH (25.0-35.0) pg MCHC (31.0-37.0) g/dL RDW (11.5-15.5) % Plt Count (150-450) k/uL MPV Neutrophils % Neutrophils % (Manual) % Band Neuts % (Manual) % Lymphocytes % Lymphocytes % (Manual) % Monocytes % Monocytes % (Manual) % Eosinophils % Basophils % Metamyelocytes % % Myelocytes % % Neutrophils # Neutrophils # (Manual) (1.3-7.7) k/uL Lymphocytes # Lymphocytes # (Manual) (1.0-4.8) k/uL Monocytes # Monocytes # (Manual) (0-1.0) k/uL Eosinophils # Basophils # Metamyelocytes # (Man) (0) k/uL Myelocytes # (Manual) (0) k/uL Nucleated RBCs (0-0) /100 WBC Manual Slide Review Hypochromasia PT (9.0-12.0) sec INR (<1.2) APTT (22.0-30.0) sec Sample Site ABG pH (7.35-7.45) ABG pCO2 (35-45) mmHg ABG pO2 (83-108) mmHg ABG O2 Saturation (94-97) % Carmelo Test VBG pH 7.28 L (7.31-7.41) VBG pCO2 87 H* (37-51) mmHg VBG HCO3 39 H (24-28) mmol/L FiO2 % Sodium (137-145) mmol/L Potassium (3.5-5.1) mmol/L Chloride (98-107) mmol/L Carbon Dioxide (22-30) mmol/L Anion Gap mmol/L BUN (9-20) mg/dL Creatinine (0.66-1.25) mg/dL Est GFR (CKD-EPI)AfAm (>60 ml/min/1.73 sqM) Est GFR (CKD-EPI)NonAf (>60 ml/min/1.73 sqM) Glucose (74-99) mg/dL POC Glucose (mg/dL) (75-99) mg/dL POC Glu Four Slide Operator ID Plasma Lactic Acid Ernie 1.0 (0.7-2.0) mmol/L Calcium (8.4-10.2) mg/dL Total Bilirubin (0.2-1.3) mg/dL AST (17-59) U/L ALT (4-49) U/L Alkaline Phosphatase (38-126) U/L Ammonia 11 (<30) umol/L Creatine Kinase (55-170) U/L Troponin I 0.049 H* (0.000-0.034) ng/mL NT-Pro-B Natriuret Pep pg/mL Total Protein (6.3-8.2) g/dL Albumin (3.5-5.0) g/dL Urine Color Urine Appearance (Clear) Urine pH (5.0-8.0) Ur Specific [place] (1.001-1.035) Urine Protein (Negative) Urine Glucose (UA) (Negative) Urine Ketones (Negative) Urine Blood (Negative) Urine Nitrite (Negative) Urine Bilirubin (Negative) Urine Urobilinogen (<2.0) mg/dL Ur Leukocyte Esterase (Negative) Urine RBC (0-5) /hpf Urine WBC (0-5) /hpf Ur Squamous Epith Cells (0-4) /hpf Hyaline Casts (0-2) /lpf Granular Casts (0) /lpf Urine Mucus (None) /hpf Urine Opiates Screen (NotDetected) Ur Oxycodone Screen (NotDetected) Urine Methadone Screen (NotDetected) Ur Propoxyphene Screen (NotDetected) Ur Barbiturates Screen (NotDetected) U Tricyclic Antidepress (NotDetected) Ur Phencyclidine Scrn (NotDetected) Ur Amphetamines Screen (NotDetected) U Methamphetamines Scrn (NotDetected) U Benzodiazepines Scrn (NotDetected) Urine Cocaine Screen (NotDetected) U Marijuana (THC) Screen (NotDetected) 11/07/20 Range/Units 13:24 WBC (3.8-10.6) k/uL RBC (4.30-5.90) m/uL Hgb (13.0-17.5) gm/dL Hct (39.0-53.0) % MCV (80.0-100.0) fL MCH (25.0-35.0) pg MCHC (31.0-37.0) g/dL RDW (11.5-15.5) % Plt Count (150-450) k/uL MPV Neutrophils % Neutrophils % (Manual) % Band Neuts % (Manual) % Lymphocytes % Lymphocytes % (Manual) % Monocytes % Monocytes % (Manual) % Eosinophils % Basophils % Metamyelocytes % % Myelocytes % % Neutrophils # Neutrophils # (Manual) (1.3-7.7) k/uL Lymphocytes # Lymphocytes # (Manual) (1.0-4.8) k/uL Monocytes # Monocytes # (Manual) (0-1.0) k/uL Eosinophils # Basophils # Metamyelocytes # (Man) (0) k/uL Myelocytes # (Manual) (0) k/uL Nucleated RBCs (0-0) /100 WBC Manual Slide Review Hypochromasia PT (9.0-12.0) sec INR (<1.2) APTT (22.0-30.0) sec Sample Site ABG pH (7.35-7.45) ABG pCO2 (35-45) mmHg ABG pO2 (83-108) mmHg ABG O2 Saturation (94-97) % Carmelo Test VBG pH (7.31-7.41) VBG pCO2 (37-51) mmHg VBG HCO3 (24-28) mmol/L FiO2 % Sodium (137-145) mmol/L Potassium (3.5-5.1) mmol/L Chloride (98-107) mmol/L Carbon Dioxide (22-30) mmol/L Anion Gap mmol/L BUN (9-20) mg/dL Creatinine (0.66-1.25) mg/dL Est GFR (CKD-EPI)AfAm (>60 ml/min/1.73 sqM) Est GFR (CKD-EPI)NonAf (>60 ml/min/1.73 sqM) Glucose (74-99) mg/dL POC Glucose (mg/dL) (75-99) mg/dL POC Glu Four Slide Operator ID Plasma Lactic Acid Ernie (0.7-2.0) mmol/L Calcium (8.4-10.2) mg/dL Total Bilirubin (0.2-1.3) mg/dL AST (17-59) U/L ALT (4-49) U/L Alkaline Phosphatase (38-126) U/L Ammonia (<30) umol/L Creatine Kinase (55-170) U/L Troponin I (0.000-0.034) ng/mL NT-Pro-B Natriuret Pep 2640 pg/mL Total Protein (6.3-8.2) g/dL Albumin (3.5-5.0) g/dL Urine Color Urine Appearance (Clear) Urine pH (5.0-8.0) Ur Specific [place] (1.001-1.035) Urine Protein (Negative) Urine Glucose (UA) (Negative) Urine Ketones (Negative) Urine Blood (Negative) Urine Nitrite (Negative) Urine Bilirubin (Negative) Urine Urobilinogen (<2.0) mg/dL Ur Leukocyte Esterase (Negative) Urine RBC (0-5) /hpf Urine WBC (0-5) /hpf Ur Squamous Epith Cells (0-4) /hpf Hyaline Casts (0-2) /lpf Granular Casts (0) /lpf Urine Mucus (None) /hpf Urine Opiates Screen (NotDetected) Ur Oxycodone Screen (NotDetected) Urine Methadone Screen (NotDetected) Ur Propoxyphene Screen (NotDetected) Ur Barbiturates Screen (NotDetected) U Tricyclic Antidepress (NotDetected) Ur Phencyclidine Scrn (NotDetected) Ur Amphetamines Screen (NotDetected) U Methamphetamines Scrn (NotDetected) U Benzodiazepines Scrn (NotDetected) Urine Cocaine Screen (NotDetected) U Marijuana (THC) Screen (NotDetected) - EKG Data EKG Comments: EKG demonstrates a sinus rhythm with a ventricular rate of 86. KS 132. KS interval 156. QTC of 746 Disposition Clinical Impression: Acute respiratory failure, Hypoxia, Community acquired pneumonia, Right bundle branch block (RBBB), Acute encephalopathy, Hypercarbia, Leukocytosis, NSTEMI (non-ST elevated myocardial infarction) Disposition: ADMITTED IP TO THIS HOSP Condition: Stable Is patient prescribed a controlled substance at d/c from ED?: No Decision to Admit Reason: Admit from EC Decision Date: 11/07/20 Decision Time: 14:42
[2020-11-07] MEDS ORDERED: VANCOMYCIN 1,750 MG in SODIUM CHLORIDE 0.9% 500 ML 500 ML IVPB STA (14:44)
[2020-11-07 14:52] LABS: Band Neutrophils % 1 %; Lymphocytes # (M) 0.82 k/uL (1.0-4.8); Metamyelocytes # (M) 0.27 k/uL (0); Metamyelocytes % 1 %; Monocytes # (M) 2.72 k/uL (0-1.0); Myelocytes # (M) 0.27 k/uL (0); Myelocytes % 1 %; Neutrophils % (M) 86 %; Nucleated Red Blood Cells 0 /100 WBC (0-0); Total Cells Counted 200
[2020-11-07] MEDS: PIPERACILLIN-TAZOBACTAM 3.375 GM in SODIUM CHLORIDE 0.9% 100 ML IVPB SCH (18:16)
[2020-11-08] MEDS: MONTELUKAST 10 MG TAB PO SCH ×2 (01:29→20:27)
[2020-11-08] MEDS: PIPERACILLIN-TAZOBACTAM 3.375 GM in SODIUM CHLORIDE 0.9% 100 ML IVPB SCH ×4 (01:30→23:37)
[2020-11-08] MEDS: FORMOTEROL FUMARATE 20 MCG/2 ML NEBU INHALATION SCH ×2 (08:11→20:22)
[2020-11-08] MEDS: IPRATROPIUM-ALBUTEROL 3 ML NEB INHALATION SCH ×4 (08:11→19:35)
[2020-11-08] MEDS: BUDESONIDE 0.5 MG/2 ML NEBU INHALATION SCH ×2 (08:11→19:36)
[2020-11-08] MEDS: ASPIRIN 81 MG PO SCH (08:52)
[2020-11-08] MEDS ORDERED: NON FORMULARY DRUG (Ubidecarenone [Co Q-10] 100 MG Capsule) PO SCH (09:00)
[2020-11-08 10:00] LABS: Basophils # (A) 0.1 k/uL (0-0.2); Basophils % (A) 0 %; Eosinophils # (A) 0.1 k/uL (0-0.7); Eosinophils % (A) 1 %; HCT 28.7 % (39.0-53.0); HGB 8.1 gm/dL (13.0-17.5); Hypochromasia Marked; Lymphocytes # (A) 0.6 k/uL (1.0-4.8); Lymphocytes % (A) 3 %; MCH 24.7 pg (25.0-35.0); MCHC 28.3 g/dL (31.0-37.0); MCV 87.1 fL (80.0-100.0); Mean Platelet Volume 8.4; Monocytes # (A) 1.4 k/uL (0-1.0); Monocytes % (A) 6 %; Neutrophils # (A) 20.9 k/uL (1.3-7.7); Neutrophils % (A) 89 %; Platelet Count 321 k/uL (150-450); RBC 3.29 m/uL (4.30-5.90); RDW 15.2 % (11.5-15.5); WBC 23.4 k/uL (3.8-10.6)
[2020-11-08 10:14] LABS: Potassium 4.4 mmol/L (3.5-5.1)
[2020-11-08 10:15] LABS: Albumin 2.9 g/dL (3.5-5.0); Calcium 8.7 mg/dL (8.4-10.2); Total Bilirubin 1.3 mg/dL (0.2-1.3); Total Protein 5.6 g/dL (6.3-8.2)
--- NOTE | 2020-11-08 10:50 | P.HPIM ---
History of Present Illness H&P Date: 11/08/20 his is a 75 years old male patient of Dr. Chu present with past medical history of hypertension, COPD, wears 3 L of oxygen with diastolic CHF was recently discharged on 11/04/2020. Due to shortness of breath and extreme right leg pain for the past week. Patient went to [facility]. Previously patient has a history of intubation for 48 hours with presentation of unresponsiveness and hypoxia. Patient was intubated again in 2018 when patient was found to be unresponsive and short of breath. Patient was treated for diastolic CHF, COPD and Pseudomonas pneumonia. Echocardiogram obtained at that time suggested EF of 60-65% with borderline concentric left ventricular hypertrophy mild tricuspid regurgitation and mild pulmonary hypertension. Patient also has sleep apnea but is noncompliant with CPAP. states that she received a call from this facility stating that he had fallen onto the ground. The reports that he frequently will get down on the floor on his hands and knees when he cannot breathe. was adamant that the patient did not fall and therefore EMS was not called. Later on that day the patient was having increased respirations and hypoxia. Patient became altered and was then transferred to the hospital. Patient history reports that he should wear CPAP at night however he is noncompliant. No reports of fevers chills or cough. No cold exposure. Denies any chest pain. At this time patient is found in moderate distress with the BiPAP on. He is able to answer some questions appropriately. Respirations are even and labored. With the use of accessory muscles. WBC 23.4, hemoglobin 8.0, platelets 321, potassium 4.4, carbon dioxide 93, BUN 83, creatinine 1.71 lactic acid 1.0. ABG pH 7.13, pCO2 greater than 120, pCO2 87. Chest x-ray shows a right lower lobe infiltrate. Review of systems Constitutional: Denies chills, Denies fever, reports increased weakness lethargy and poor appetite Eyes: denies decreased vision, denies diplopia, denies discharge, denies pain Ears: deny: decreased hearing Ears, nose, mouth and throat: Denies dental pain, Denies headache, Denies nasal discharge, Denies nose pain Cardiovascular: Denies chest pain, endorses decreased exercise tolerance, Denies edema, Denies high blood pressure, Denies irregular heart beat, Denies palpitations, Denies paroxysmal nocturnal dyspnea, Denies rapid heart beat, endorses shortness of breath Respiratory: Denies congestion, Denies cough, endorses cough with sputum, endo rses dyspnea, endorses home oxygen, Denies wheezing Gastrointestinal: Denies abdominal pain, Denies change in bowel habits, Denies coffee ground emesis, Denies early satiety, Denies excessive gas, Denies heartburn, Denies hematemesis, Denies hematochezia, Denies loss of appetite, Denies nausea, Denies vomiting Genitourinary: Denies dysuria, Denies flank pain, Denies kidney stones, Denies menorrhagia, Denies urgency, Denies urinary frequency Musculoskeletal: Denies gait dysfunction, Denies limitation of motion, Denies morning stiffness, Denies muscle cramps Integumentary: Denies rash, Denies wounds, Denies brittle nails, Denies change in hair/nails, Denies darkening of skin Neurological: Denies balance difficulties, Denies change in speech, Denies double vision, Denies gait dysfunction, Denies loss of vision, Denies motor disturbance, Denies numbness, Denies paralysis, Denies paresthesias, Denies seizures Psychiatric: Denies anxiety, Denies depression Endocrine: Denies excessive sweating, Denies excessive thirst, Denies high blood sugars, Denies palpitations Hematologic/Lymphatic: Denies easy bruising, Denies lymphadenopathy Social history Patient quit smoking 3 years ago. Drinks alcohol couple times a week. Lives with his denies using a walker or cane at home. He wears 3 L of oxygen at all times. He has sleep apnea but does not wear CPAP Family history Mother has history of coronary artery disease, hypertension hyperlipidemia Father history of brain tumor Patient had a brother and a sister who has , medical history not known Physical exam General Appearance: Alert, cooperative, moderate distress, this is a 75-year-old male who appears stated age. Neck HEENT: Supple, no lymphadenopathy, no thyroid enlargement, no carotid bruits. Lungs: Diminished, no deformity. Chest Wall: Chest wall labored expansion, no tenderness and no deformity was found on exam, no costochondral pain or discomfort. Heart: Regular rate and rhythm, S1, S2 normal, no murmur, rub or gallop. Back: Symmetric, no curvature, ROM normal, no CVA tenderness. Abdomen: Soft, non-tender, no rebound or rigidity, no hepatosplenomegaly. Extremities: Extremities normal, atraumatic, no cyanosis or edema. Pulses: 2+ and symmetric. Skin: Skin color, texture, tugor normal, no rashes or lesions. Neurologic: Alert oriented x3 cranial nerves II through XII intact, no motor deficit, no abnormal balance or gait Assessment and plan 1. Acute hypoxic hypercapnic respiratory failure secondary to COPD exacerbation with interstitial lung disease poss. pneumonia. Continue BiPAP. DuoNeb as needed for shortness of breath. Pulmicort twice a day. Solu-Medrol 60 every 6, with sliding scale insulin, Pulmicort twice daily, sputum culture, incentive spirometry, DuoNeb as needed for shortness of breath. Consult pulmonology. Conitnue vancomycin and Zosyn 2. Acute encephalopathy. Continue Vanco and Zosyn. Awaiting blood cultures 3. Generalized weakness with debility PTOT consult placed. Patient may need rehab placement due to increased weakness . Fall precautions 4. History of sleep apnea with chronic CO2 retention. Patient could not tolerate CPAP and has does not radiated 5. Diastolic heart failure continue Lasix 40 mg twice a day. I&O monitoring daily weight. 6. Gout history, stable 7. Chronic CO2 retention secondary to sleep apnea. Patient is noncompliant with CPAP 8. Current tobacco dependency and is a current tobacco smoker. Patient counseled about tobacco cessation. Nicotine patch ordered 9. VTE prophylaxis: heparin subcu 10. GI prophylaxis: Pepcid 20 mg CODE STATUS: No code admitted to the hospital for minimum 2 nights day. Discharge plan: Subacute rehab. does not want patient to return to [facility]. Social work consult. Impression and plan of care have been directed as dictated by the signing physician. Lorena Gold nurse practitioner acting as scribe for signing physician. Past Medical History Past Medical History: COPD, Hypertension Additional Past Medical History / Comment(s): emphysema, gout. wears home 02. History of Any Multi-Drug Resistant Organisms: None Reported Past Surgical History: Unable to Obtain Additional Past Surgical History / Comment(s): hernia 2015, carpel tunnel, heart cath in the past (clean) Past Anesthesia/Blood Transfusion Reactions: No Reported Reaction Past Psychological History: No Psychological Hx Reported Smoking Status: Former smoker Past Alcohol Use History: Occasional Past Drug Use History: None Reported - Past Family History Mother Family Medical History: Coronary Artery Disease (CAD), Hyperlipidemia, Hypertension Medications and Allergies Home Medications Medication Instructions Recorded Confirmed Type Aspirin 81 mg PO DAILY 02/05/15 11/07/20 History Ipratropium-Albuterol Nebulize 3 ml INHALATION RT-QID 02/06/15 11/07/20 History [Duoneb 0.5 mg-3 mg/3 ml Soln] Budesonide [Pulmicort] 0.5 mg INHALATION RT-BID 11/06/17 11/07/20 History Montelukast [Singulair] 10 mg PO HS 11/06/17 11/07/20 History Ubidecarenone [Co Q-10] 100 mg PO DAILY 11/06/17 11/07/20 History Furosemide [Lasix] 40 mg PO BID@0900,1600 #60 tab 11/15/17 11/07/20 Rx Albuterol Sulfate [Ventolin HFA] 2 puff INHALATION RT-Q6H PRN 11/02/20 11/07/20 History Formoterol Fumarate [Perforomist] 20 mcg INHALATION RT-BID 11/02/20 11/07/20 History predniSONE 10 mg PO DAILY 11/02/20 11/07/20 History Baclofen [Lioresal] 10 mg PO TID@0900,1300,2100 11/07/20 11/07/20 History Cholecalciferol [Vitamin D3 (25 25 mcg PO DAILY 11/07/20 11/07/20 History Mcg = 1000 Iu)] Allergies Allergy/AdvReac Type Severity Reaction Status Date / Time No Known Allergies Allergy Verified 11/07/20 13:42 Physical Exam Vitals: Vital Signs Temp Pulse Pulse Resp BP BP Pulse Ox 11/08/20 08:31 85 11/08/20 08:20 85 11/08/20 08:11 82 11/08/20 08:00 98.5 F 93 26 H 150/64 93 L 11/08/20 04:00 98.6 F 72 22 121/63 97 11/08/20 02:00 85 29 H 11/08/20 00:00 98.3 F 85 29 H 124/62 96 11/07/20 20:00 98.5 F 69 26 H 117/60 97 08/06/21 18:19 74 26 H 109/65 100 11/07/20 16:50 97.6 F 78 28 H 119/62 100 11/07/20 16:01 73 24 123/68 98 11/07/20 15:21 79 27 H 126/77 97 11/07/20 13:40 83 20 121/59 100 11/07/20 13:19 82 42 H 123/64 100 11/07/20 13:15 42 H 11/07/20 13:05 97.9 F 88 44 H 130/65 99 Intake and Output 11/07/20 11/08/20 11/08/20 22:59 06:59 14:59 Output Total 600 Balance -600 Output: Urine 600 Other: Voiding Method Indwelling Catheter Indwelling Catheter Weight 102.965 kg 102 kg Results CBC & Chem 7: 11/08/20 09:37 11/08/20 09:37 Labs: Abnormal Lab Results - Last 24 Hours (Table) 11/07/20 11/07/20 11/07/20 Range/Units 13:05 13:10 13:24 WBC 27.2 H (3.8-10.6) k/uL RBC 3.60 L (4.30-5.90) m/uL Hgb 9.0 L (13.0-17.5) gm/dL Hct 31.5 L (39.0-53.0) % MCH (25.0-35.0) pg MCHC 28.7 L (31.0-37.0) g/dL Neutrophils # (1.3-7.7) k/uL Neutrophils # (Manual) 23.60 H (1.3-7.7) k/uL Lymphocytes # (1.0-4.8) k/uL Lymphocytes # (Manual) 0.82 L (1.0-4.8) k/uL Monocytes # (0-1.0) k/uL Monocytes # (Manual) 2.72 H (0-1.0) k/uL Metamyelocytes # (Man) 0.27 H (0) k/uL Myelocytes # (Manual) 0.27 H (0) k/uL ABG pH 7.13 L* (7.35-7.45) ABG pCO2 >120 H* (35-45) mmHg ABG pO2 255 H (83-108) mmHg ABG O2 Saturation 99.7 H (94-97) % VBG pH (7.31-7.41) VBG pCO2 (37-51) mmHg VBG HCO3 (24-28) mmol/L Sodium (137-145) mmol/L Chloride (98-107) mmol/L Carbon Dioxide (22-30) mmol/L BUN (9-20) mg/dL Creatinine (0.66-1.25) mg/dL Glucose (74-99) mg/dL POC Glucose (mg/dL) 135 H (75-99) mg/dL Total Bilirubin (0.2-1.3) mg/dL Creatine Kinase (55-170) U/L Troponin I (0.000-0.034) ng/mL Total Protein (6.3-8.2) g/dL Albumin (3.5-5.0) g/dL Procalcitonin (0.02-0.09) ng/mL Urine Protein (Negative) Hyaline Casts (0-2) /lpf Urine Mucus (None) /hpf 11/07/20 11/07/20 11/07/20 Range/Units 13:24 13:24 13:24 WBC (3.8-10.6) k/uL RBC (4.30-5.90) m/uL Hgb (13.0-17.5) gm/dL Hct (39.0-53.0) % MCH (25.0-35.0) pg MCHC (31.0-37.0) g/dL Neutrophils # (1.3-7.7) k/uL Neutrophils # (Manual) (1.3-7.7) k/uL Lymphocytes # (1.0-4.8) k/uL Lymphocytes # (Manual) (1.0-4.8) k/uL Monocytes # (0-1.0) k/uL Monocytes # (Manual) (0-1.0) k/uL Metamyelocytes # (Man) (0) k/uL Myelocytes # (Manual) (0) k/uL ABG pH (7.35-7.45) ABG pCO2 (35-45) mmHg ABG pO2 (83-108) mmHg ABG O2 Saturation (94-97) % VBG pH (7.31-7.41) VBG pCO2 (37-51) mmHg VBG HCO3 (24-28) mmol/L Sodium (137-145) mmol/L Chloride 91 L (98-107) mmol/L Carbon Dioxide 40 H (22-30) mmol/L BUN 77 H (9-20) mg/dL Creatinine 1.99 H (0.66-1.25) mg/dL Glucose 132 H (74-99) mg/dL POC Glucose (mg/dL) (75-99) mg/dL Total Bilirubin 1.4 H (0.2-1.3) mg/dL Creatine Kinase 32 L (55-170) U/L Troponin I 0.049 H* (0.000-0.034) ng/mL Total Protein 6.1 L (6.3-8.2) g/dL Albumin 3.3 L (3.5-5.0) g/dL Procalcitonin (0.02-0.09) ng/mL Urine Protein Trace H (Negative) Hyaline Casts 24 H (0-2) /lpf Urine Mucus Few H (None) /hpf 11/07/20 11/07/20 11/07/20 Range/Units 13:24 17:32 20:50 WBC (3.8-10.6) k/uL RBC (4.30-5.90) m/uL Hgb (13.0-17.5) gm/dL Hct (39.0-53.0) % MCH (25.0-35.0) pg MCHC (31.0-37.0) g/dL Neutrophils # (1.3-7.7) k/uL Neutrophils # (Manual) (1.3-7.7) k/uL Lymphocytes # (1.0-4.8) k/uL Lymphocytes # (Manual) (1.0-4.8) k/uL Monocytes # (0-1.0) k/uL Monocytes # (Manual) (0-1.0) k/uL Metamyelocytes # (Man) (0) k/uL Myelocytes # (Manual) (0) k/uL ABG pH (7.35-7.45) ABG pCO2 (35-45) mmHg ABG pO2 (83-108) mmHg ABG O2 Saturation (94-97) % VBG pH 7.28 L (7.31-7.41) VBG pCO2 87 H* (37-51) mmHg VBG HCO3 39 H (24-28) mmol/L Sodium (137-145) mmol/L Chloride (98-107) mmol/L Carbon Dioxide (22-30) mmol/L BUN (9-20) mg/dL Creatinine (0.66-1.25) mg/dL Glucose (74-99) mg/dL POC Glucose (mg/dL) (75-99) mg/dL Total Bilirubin (0.2-1.3) mg/dL Creatine Kinase (55-170) U/L Troponin I 0.086 H* 0.083 H* (0.000-0.034) ng/mL Total Protein (6.3-8.2) g/dL Albumin (3.5-5.0) g/dL Procalcitonin (0.02-0.09) ng/mL Urine Protein (Negative) Hyaline Casts (0-2) /lpf Urine Mucus (None) /hpf 11/07/20 11/08/20 11/08/20 Range/Units 20:50 09:37 09:37 WBC 23.4 H (3.8-10.6) k/uL RBC 3.29 L (4.30-5.90) m/uL Hgb 8.1 L (13.0-17.5) gm/dL Hct 28.7 L (39.0-53.0) % MCH 24.7 L (25.0-35.0) pg MCHC 28.3 L (31.0-37.0) g/dL Neutrophils # 20.9 H (1.3-7.7) k/uL Neutrophils # (Manual) (1.3-7.7) k/uL Lymphocytes # 0.6 L (1.0-4.8) k/uL Lymphocytes # (Manual) (1.0-4.8) k/uL Monocytes # 1.4 H (0-1.0) k/uL Monocytes # (Manual) (0-1.0) k/uL Metamyelocytes # (Man) (0) k/uL Myelocytes # (Manual) (0) k/uL ABG pH (7.35-7.45) ABG pCO2 (35-45) mmHg ABG pO2 (83-108) mmHg ABG O2 Saturation (94-97) % VBG pH (7.31-7.41) VBG pCO2 (37-51) mmHg VBG HCO3 (24-28) mmol/L Sodium 136 L (137-145) mmol/L Chloride 93 L (98-107) mmol/L Carbon Dioxide 37 H (22-30) mmol/L BUN 83 H (9-20) mg/dL Creatinine 1.71 H (0.66-1.25) mg/dL Glucose 112 H (74-99) mg/dL POC Glucose (mg/dL) (75-99) mg/dL Total Bilirubin (0.2-1.3) mg/dL Creatine Kinase (55-170) U/L Troponin I (0.000-0.034) ng/mL Total Protein 5.6 L (6.3-8.2) g/dL Albumin 2.9 L (3.5-5.0) g/dL Procalcitonin 0.72 H (0.02-0.09) ng/mL Urine Protein (Negative) Hyaline Casts (0-2) /lpf Urine Mucus (None) /hpf Thrombosis Risk Factor Assmnt - Choose All That Apply Any of the Below Risk Factors Present?: Yes Each Factor Represents 1 point: Abnormal pulmonary function (COPD), Medical pt on bed rest, Obesity (BMI >25), Sepsis (< 1month) Other Risk Factors: Yes Each Risk Factor Represents 2 Points: Patient confined to bed Each Risk Factor Represents 3 Points: Age 75 years or older Other congenital or acquired thrombophilia - If yes, enter type in comment: No Thrombosis Risk Factor Assessment Total Risk Factor Score: 9 Thrombosis Risk Factor Assessment Level: High Risk
[2020-11-08] MEDS: VANCOMYCIN 1,750 MG in SODIUM CHLORIDE 0.9% 500 ML 500 ML IVPB SCH (12:55)
[2020-11-08] MEDS: INSULIN ASPART (NovoLOG) 100 UNIT/ML VIAL SQ SCH ×3 (12:55→20:28)
[2020-11-08 12:56] LABS: Glucose,Whole Blood 107 mg/dL (75-99)
[2020-11-08] MEDS: methylPREDNISolone SOD SUCCI 125 MG/2 ML VIAL IV SCH ×3 (12:56→23:38)
--- NOTE | 2020-11-08 14:01 | P.CNPUL ---
History of Present Illness Consult date: 11/08/20 Requesting physician: Demond Tellez Reason for consult: dyspnea Chief complaint: Shortness of breath History of present illness: This is a 75-year-old male patient with history of advanced COPD, stage IV, on home oxygen for last 3 years, former smoker, hypertension, chronic diastolic CHF, previous history of pneumonia related to Pseudomonas, obstructive sleep apnea and the patient has been noncompliant with his CPAP, history of gout, chronic hypoxic and hypercapnic respiratory failure related to COPD. he was just discharged from here to [facility] in [facility] on 11/04/2020 following a fall at [facility] without injury. He was felt to be having issues with ultimate mental status and shortness of breath and returned to the emergency room yesterday. Chest x- ray revealed possible right lower lobe infiltrate, possible aspiration. White count 23.4. Hemoglobin 8.1. Sodium 136. Potassium 4.4. Creatinine 1.71. Troponin 0.049, 0.0.6, 0.03. ProBNP 2640. Pro Calcitonin 0.72. Arterial blood gases on 100% FiO2 revealed a pO2 of 255, pCO2 greater than 120, pH 7.13. He was converted to BiPAP at that time. He is seen today in consultation on the regular medical floor. He is currently on BiPAP 14/6 and 40% FiO2. Poor historian. He's been initiated on bronchodilators, IV diuretics, IV Solu-M edrol, heparin for DVT prophylaxis. Antibiotics in the form of vancomycin and Zosyn. Review of Systems Constitutional: Reports weakness, Denies chills, Denies fever Eyes: denies blurred vision, denies pain Ears, nose, mouth and throat: Denies headache, Denies sore throat Cardiovascular: Denies chest pain, Denies shortness of breath Respiratory: Reports dyspnea, Reports home oxygen, Reports respiratory infections, Denies cough Gastrointestinal: Denies abdominal pain, Denies diarrhea, Denies nausea, Denies vomiting Musculoskeletal: Denies myalgias Integumentary: Denies pruritus, Denies rash Neurological: Denies numbness, Denies weakness Psychiatric: Denies anxiety, Denies depression Endocrine: Denies fatigue, Denies weight change Past Medical History Past Medical History: COPD, Hypertension Additional Past Medical History / Comment(s): emphysema, gout. wears home 02. History of Any Multi-Drug Resistant Organisms: None Reported Past Surgical History: Unable to Obtain Additional Past Surgical History / Comment(s): hernia 2015, carpel tunnel, heart cath in the past (clean) Past Anesthesia/Blood Transfusion Reactions: No Reported Reaction Past Psychological History: No Psychological Hx Reported Smoking Status: Former smoker Past Alcohol Use History: Occasional Past Drug Use History: None Reported - Past Family History Mother Family Medical History: Coronary Artery Disease (CAD), Hyperlipidemia, Hypertension Medications and Allergies Home Medications Medication Instructions Recorded Confirmed Type Aspirin 81 mg PO DAILY 02/05/15 11/07/20 History Ipratropium-Albuterol Nebulize 3 ml INHALATION RT-QID 02/06/15 11/07/20 History [Duoneb 0.5 mg-3 mg/3 ml Soln] Budesonide [Pulmicort] 0.5 mg INHALATION RT-BID 11/06/17 11/07/20 History Montelukast [Singulair] 10 mg PO HS 11/06/17 11/07/20 History Ubidecarenone [Co Q-10] 100 mg PO DAILY 11/06/17 11/07/20 History Furosemide [Lasix] 40 mg PO BID@0900,1600 #60 tab 11/15/17 11/07/20 Rx Albuterol Sulfate [Ventolin HFA] 2 puff INHALATION RT-Q6H PRN 11/02/20 11/07/20 History Formoterol Fumarate [Perforomist] 20 mcg INHALATION RT-BID 11/02/20 11/07/20 History predniSONE 10 mg PO DAILY 11/02/20 11/07/20 History Baclofen [Lioresal] 10 mg PO TID@0900,1300,2100 11/07/20 11/07/20 History Cholecalciferol [Vitamin D3 (25 25 mcg PO DAILY 11/07/20 11/07/20 History Mcg = 1000 Iu)] Allergies Allergy/AdvReac Type Severity Reaction Status Date / Time No Known Allergies Allergy Verified 11/07/20 13:42 Physical Exam Vitals: Vital Signs Temp Pulse Pulse Resp BP BP Pulse Ox 11/08/20 12:00 97 F L 87 24 123/63 94 L 11/08/20 11:37 90 11/08/20 11:27 91 11/08/20 08:31 85 11/08/20 08:20 85 11/08/20 08:11 82 11/08/20 08:00 98.5 F 93 26 H 150/64 93 L 11/08/20 04:00 98.6 F 72 22 121/63 97 11/08/20 02:00 85 29 H 11/08/20 00:00 98.3 F 85 29 H 124/62 96 11/07/20 20:00 98.5 F 69 26 H 117/60 97 11/07/20 18:19 74 26 H 109/65 100 11/07/20 16:50 97.6 F 78 28 H 119/62 100 11/07/20 16:01 73 24 123/68 98 11/07/20 15:21 79 27 H 126/77 97 Intake and Output 11/07/20 11/08/20 11/08/20 22:59 06:59 14:59 Intake Total 0 Output Total 600 Balance -600 0 Intake: Oral 0 Output: Urine 600 Other: Voiding Method Indwelling Catheter Indwelling Catheter Indwelling Catheter Weight 102.965 kg 102 kg GENERAL EXAM: Alert, 75-year-old gentleman, on BiPAP, fairly comfortable in no apparent distress. HEAD: Normocephalic. EYES: Normal reaction of pupils, equal size. NOSE: Clear with pink turbinates. THROAT: No erythema or exudates. NECK: No masses, no JVD. CHEST: No chest wall deformity. LUNGS: Equal air entry with crackles in the right lung base CVS: S1 and S2 normal with no audible murmur, regular rhythm. ABDOMEN: No hepatosplenomegaly, normal bowel sounds, no guarding or rigidity. SPINE: No scoliosis or deformity SKIN: No rashes CENTRAL NERVOUS SYSTEM: No focal deficits, tone is normal in all 4 extremities. EXTREMITIES: There is no peripheral edema. No clubbing, no cyanosis. Peripheral pulses are intact. Results - Laboratory Findings CBC and BMP: 11/08/20 09:37 11/08/20 09:37 ABG ABG pH 7.13 (7.35-7.45) L* 11/07/20 13:10 ABG pCO2 >120 mmHg (35-45) H* 11/07/20 13:10 ABG pO2 255 mmHg (83-108) H 11/07/20 13:10 ABG O2 Saturation 99.7 % (94-97) H 11/07/20 13:10 PT/INR, D-dimer PT 10.1 sec (9.0-12.0) 11/07/20 13:24 INR 0.9 (<1.2) 11/07/20 13:24 Abnormal lab findings: Abnormal Labs 11/07/20 11/07/20 11/07/20 13:05 13:10 13:24 WBC 27.2 H RBC 3.60 L Hgb 9.0 L Hct 31.5 L MCH MCHC 28.7 L Neutrophils # Neutrophils # (Manual) 23.60 H Lymphocytes # Lymphocytes # (Manual) 0.82 L Monocytes # Monocytes # (Manual) 2.72 H Metamyelocytes # (Man) 0.27 H Myelocytes # (Manual) 0.27 H ABG pH 7.13 L* ABG pCO2 >120 H* ABG pO2 255 H ABG O2 Saturation 99.7 H VBG pH VBG pCO2 VBG HCO3 Sodium Chloride Carbon Dioxide BUN Creatinine Glucose POC Glucose (mg/dL) 135 H Total Bilirubin Creatine Kinase Troponin I Total Protein Albumin Procalcitonin Urine Protein Hyaline Casts Urine Mucus 11/07/20 11/07/20 11/07/20 13:24 13:24 13:24 WBC RBC Hgb Hct MCH MCHC Neutrophils # Neutrophils # (Manual) Lymphocytes # Lymphocytes # (Manual) Monocytes # Monocytes # (Manual) Metamyelocytes # (Man) Myelocytes # (Manual) ABG pH ABG pCO2 ABG pO2 ABG O2 Saturation VBG pH VBG pCO2 VBG HCO3 Sodium Chloride 91 L Carbon Dioxide 40 H BUN 77 H Creatinine 1.99 H Glucose 132 H POC Glucose (mg/dL) Total Bilirubin 1.4 H Creatine Kinase 32 L Troponin I 0.049 H* Total Protein 6.1 L Albumin 3.3 L Procalcitonin Urine Protein Trace H Hyaline Casts 24 H Urine Mucus Few H 11/07/20 11/07/20 11/07/20 13:24 17:32 20:50 WBC RBC Hgb Hct MCH MCHC Neutrophils # Neutrophils # (Manual) Lymphocytes # Lymphocytes # (Manual) Monocytes # Monocytes # (Manual) Metamyelocytes # (Man) Myelocytes # (Manual) ABG pH ABG pCO2 ABG pO2 ABG O2 Saturation VBG pH 7.28 L VBG pCO2 87 H* VBG HCO3 39 H Sodium Chloride Carbon Dioxide BUN Creatinine Glucose POC Glucose (mg/dL) Total Bilirubin Creatine Kinase Troponin I 0.086 H* 0.083 H* Total Protein Albumin Procalcitonin Urine Protein Hyaline Casts Urine Mucus 11/07/20 11/08/20 11/08/20 20:50 09:37 09:37 WBC 23.4 H RBC 3.29 L Hgb 8.1 L Hct 28.7 L MCH 24.7 L MCHC 28.3 L Neutrophils # 20.9 H Neutrophils # (Manual) Lymphocytes # 0.6 L Lymphocytes # (Manual) Monocytes # 1.4 H Monocytes # (Manual) Metamyelocytes # (Man) Myelocytes # (Manual) ABG pH ABG pCO2 ABG pO2 ABG O2 Saturation VBG pH VBG pCO2 VBG HCO3 Sodium 136 L Chloride 93 L Carbon Dioxide 37 H BUN 83 H Creatinine 1.71 H Glucose 112 H POC Glucose (mg/dL) Total Bilirubin Creatine Kinase Troponin I Total Protein 5.6 L Albumin 2.9 L Procalcitonin 0.72 H Urine Protein Hyaline Casts Urine Mucus 11/08/20 12:54 WBC RBC Hgb Hct MCH MCHC Neutrophils # Neutrophils # (Manual) Lymphocytes # Lymphocytes # (Manual) Monocytes # Monocytes # (Manual) Metamyelocytes # (Man) Myelocytes # (Manual) ABG pH ABG pCO2 ABG pO2 ABG O2 Saturation VBG pH VBG pCO2 VBG HCO3 Sodium Chloride Carbon Dioxide BUN Creatinine Glucose POC Glucose (mg/dL) 107 H Total Bilirubin Creatine Kinase Troponin I Total Protein Albumin Procalcitonin Urine Protein Hyaline Casts Urine Mucus - Diagnostic Findings Chest x-ray: image reviewed Assessment and Plan Assessment: 1 Acute hypercapnic/hypoxemic respiratory failure secondary to an acute exacerbation of COPD and possible right lower lobe pneumonia 2 Chronic hypoxic respiratory failure related to advanced COPD, stage IV, usually wears 3 L of oxygen at home 3 Current and ongoing history of smoking 4 A fall at home, without injury 5 Interstitial prominence seen on the chest x-ray, high resolution CT chest did not show evidence of fibrosis, and showed mainly emphysematous changes 6 History of sleep apnea, patient was intolerant to CPAP 7 Chronic diastolic CHF 8 History of gout Plan: The patient was seen and evaluated by Dr. Lemos Chest x-ray and labs reviewed BiPAP settings adjusted decreased FiO2 to 30% Add DuoNeb inhalations, IV Solu-Medrol, antibiotics Titrate down the FiO2 as tolerated then convert to a nasal cannula We will continue to follow and make further recommendations based on his clinical status I, the cosigning physician, performed a history & physical examination of the patient. Lungs sounds crackles in the right lung base. Maintaining good O2 saturations in the 90s on 30% FiO2 via the BiPAP. I discussed the assessment and plan of care with my nurse practitioner, Adriana Cornejo. I attest to the above c onsultation as dictated by her. Time with Patient: Greater than 30
[2020-11-08 17:06] LABS: Glucose,Whole Blood 151 mg/dL (75-99)
[2020-11-08] MEDS: FUROSEMIDE 10 MG/ML 4 ML VIAL IV SCH (20:28)
[2020-11-08] MEDS: HEPARIN SODIUM,PORCINE/PF 5,000 UNIT/0.5 ML SYRINGE SQ SCH (20:28)
[2020-11-09 05:34] LABS: Glucose,Whole Blood 178 mg/dL (75-99)
[2020-11-09] MEDS: methylPREDNISolone SOD SUCCI 125 MG/2 ML VIAL IV SCH ×4 (06:32→23:52)
[2020-11-09] MEDS: INSULIN ASPART (NovoLOG) 100 UNIT/ML VIAL SQ SCH ×4 (06:32→20:46)
[2020-11-09 08:40] LABS: Basophils % (A) 0 %; Eosinophils % (A) 0 %; HGB 8.7 gm/dL (13.0-17.5); Hypochromasia Marked; Lymphocytes # (A) 0.2 k/uL (1.0-4.8); Lymphocytes % (A) 1 %; MCH 25.7 pg (25.0-35.0); MCHC 29.2 g/dL (31.0-37.0); MCV 87.9 fL (80.0-100.0); Mean Platelet Volume 8.1; Monocytes # (A) 0.8 k/uL (0-1.0); Monocytes % (A) 4 %; Neutrophils # (A) 19.5 k/uL (1.3-7.7); Neutrophils % (A) 95 %; Platelet Count 321 k/uL (150-450); RBC 3.41 m/uL (4.30-5.90); RDW 15.1 % (11.5-15.5); WBC 20.7 k/uL (3.8-10.6)
[2020-11-09] MEDS: HEPARIN SODIUM,PORCINE/PF 5,000 UNIT/0.5 ML SYRINGE SQ SCH ×2 (08:47→20:46)
[2020-11-09] MEDS: PIPERACILLIN-TAZOBACTAM 3.375 GM in SODIUM CHLORIDE 0.9% 100 ML IVPB SCH ×3 (08:47→23:52)
[2020-11-09] MEDS: FUROSEMIDE 10 MG/ML 4 ML VIAL IV SCH (08:47)
[2020-11-09] MEDS: FAMOTIDINE 20 MG/2 ML VIAL IV SCH (08:47)
[2020-11-09] MEDS: ASPIRIN 81 MG PO SCH (08:47)
[2020-11-09] MEDS: BUDESONIDE 0.5 MG/2 ML NEBU INHALATION SCH ×2 (08:57→19:29)
[2020-11-09] MEDS: IPRATROPIUM-ALBUTEROL 3 ML NEB INHALATION SCH ×3 (08:57→19:29)
[2020-11-09] MEDS: FORMOTEROL FUMARATE 20 MCG/2 ML NEBU INHALATION SCH ×2 (08:57→19:29)
[2020-11-09 09:01] LABS: Calcium 8.7 mg/dL (8.4-10.2); Potassium 4.2 mmol/L (3.5-5.1)
--- NOTE | 2020-11-09 10:51 | P.PN ---
Subjective Progress Note Date: 11/09/20 This is a 75 years old male patient of Dr. Chu present with past medical history of hypertension, COPD, wears 3 L of oxygen with diastolic CHF was recently discharged on 11/04/2020. Due to shortness of breath and extreme right leg pain for the past week. Patient went to [facility]. Previously patient has a history of intubation for 48 hours with presentation of unresponsiveness and hypoxia. Patient was intubated again in 2018 when patient was found to be unresponsive and short of breath. Patient was treated for diastolic CHF, COPD and Pseudomonas pneumonia. Echocardiogram obtained at that time suggested EF of 60-65% with borderline concentric left ventricular hypertrophy mild tricuspid regurgitation and mild pulmonary hypertension. Patient also has sleep apnea but is noncompliant with CPAP. states that she received a call from this facility stating that he had fallen onto the ground. The reports that he frequently will get down on the floor on his hands and knees when he cannot breathe. was adamant that the patient did not fall and therefore EMS was not called. Later on that day the patient was having increased respirations and hypoxia. Patient became altered and was then transferred to the hospital. Patient history reports that he should wear CPAP at night however he is noncompliant. No reports of fevers chills or cough. No cold exposure. Denies any chest pain. At this time patient is found in moderate distress with the BiPAP on. He is able to answer some questions appropriately. Respirations are even and labored. With the use of accessory muscles. WBC 23.4, hemoglobin 8.0, platelets 321, potassium 4.4, carbon dioxide 93, BUN 83, creatinine 1.71 lactic acid 1.0. ABG pH 7.13, pCO2 greater than 120, pCO2 87. Chest x-ray shows a right lower lobe infiltrate. 11/09: Patient remains on the BiPAP machine. He is able to answer questions appropriately. Continues to have minimal distress. No longer using accessory muscles. Ecchymosis noted to bilateral lower extremities with edema. Patient remains afebrile, heart rate 80, blood pressure 139/66, pulse ox 93% on BiPAP. He received 20.7, hemoglobin 8.7, potassium 4.2, BUN 71, creatinine 1.75. No growth from blood cultures after 24 hours. Review of systems Constitutional: Denies chills, Denies fever, reports increased weakness lethargy and poor appetite Eyes: denies decreased vision, denies diplopia, denies discharge, denies pain Ears: deny: decreased hearing Ears, nose, mouth and throat: Denies dental pain, Denies headache, Denies nasal discharge, Denies nose pain Cardiovascular: Denies chest pain, endorses decreased exercise tolerance, Denies edema, Denies high blood pressure, Denies irregular heart beat, Denies palpitations, Denies paroxysmal nocturnal dyspnea, Denies rapid heart beat, endorses shortness of breath Respiratory: Denies congestion, Denies cough, endorses cough with sputum, endorses dyspnea, endorses home oxygen, Denies wheezing Gastrointestinal: Denies abdominal pain, Denies change in bowel habits, Denies coffee ground emesis, Denies early satiety, Denies excessive gas, Denies heartburn, Denies hematemesis, Denies hematochezia, Denies loss of appetite, Denies nausea, Denies vomiting Genitourinary: Denies dysuria, Denies flank pain, Denies kidney stones, Denies menorrhagia, Denies urgency, Denies urinary frequency Musculoskeletal: Denies gait dysfunction, Denies limitation of motion, Denies morning stiffness, Denies muscle cramps Integumentary: Denies rash, Denies wounds, Denies brittle nails, Denies change in hair/nails, Denies darkening of skin Neurological: Denies balance difficulties, Denies change in speech, Denies double vision, Denies gait dysfunction, Denies loss of vision, Denies motor disturbance, Denies numbness, Denies paralysis, Denies paresthesias, Denies seizures Psychiatric: Denies anxiety, Denies depression Endocrine: Denies excessive sweating, Denies excessive thirst, Denies high blood sugars, Denies palpitations Hematologic/Lymphatic: Denies easy bruising, Denies lymphadenopathy Physical exam General Appearance: Alert, cooperative, moderate distress, this is a 75-year-old male who appears stated age. Neck HEENT: Supple, no lymphadenopathy, no thyroid enlargement, no carotid bruits. Lungs: Diminished, no deformity. Chest Wall: Chest wall labored expansion, no tenderness and no deformity was found on exam, no costochondral pain or discomfort. Heart: Regular rate and rhythm, S1, S2 normal, no murmur, rub or gallop. Back: Symmetric, no curvature, ROM normal, no CVA tenderness. Abdomen: Soft, non-tender, no rebound or rigidity, no hepatosplenomegaly. Extremities: Extremities normal, atraumatic, no cyanosis or edema. Pulses: 2+ and symmetric. Skin: Skin color, texture, tugor normal, no rashes or lesions. Neurologic: Alert oriented x3 cranial nerves II through XII intact, no motor deficit, no abnormal balance or gait Assessment and plan 1. Acute hypoxic hypercapnic respiratory failure secondary to COPD exacerbation with interstitial lung disease poss. pneumonia. Continue BiPAP. DuoNeb as needed for shortness of breath. Pulmicort twice a day. Solu-Medrol 60 every 6, with sliding scale insulin, Pulmicort twice daily, sputum culture, incentive spirometry, DuoNeb as needed for shortness of breath. Consult pulmonology appreciated. Conitnue vancomycin and Zosyn 2. Acute encephalopathy. Continue Vanco and Zosyn. No growth after 24 hours. 3. Generalized weakness with debility PTOT consult placed. Patient may need rehab placement due to increased weakness . Fall precautions 4. History of sleep apnea with chronic CO2 retention. Patient could not tolerate CPAP and has does not radiated 5. Diastolic heart failure continue Lasix 40 mg twice a day. I&O monitoring daily weight. 6. Gout history, stable 7. Chronic CO2 retention secondary to sleep apnea. Patient is noncompliant with CPAP 8. Current tobacco dependency and is a current tobacco smoker. Patient counseled about tobacco cessation. Nicotine patch ordered 9. VTE prophylaxis: heparin subcu 10. GI prophylaxis: Pepcid 20 mg CODE STATUS: No code admitted to the hospital for minimum 2 nights day. Discharge plan: Subacute rehab. does not want patient to return to [facility]. Social work consult. Impression and plan of care have been directed as dictated by the signing physician. Lorena oGld nurse practitioner acting as scribe for signing physician. Objective - Vital Signs Vital signs: Vital Signs Temp 97.9 F 11/09/20 07:57 Pulse 95 11/09/20 09:26 Resp 24 11/09/20 07:57 BP 139/66 11/09/20 07:57 Pulse Ox 93 L 11/09/20 07:57 Intake & Output 08/07/21 08/08/21 08/08/21 18:59 06:59 18:59 Intake Total 518 120 Output Total 1425 1000 650 Balance -907 -1000 -530 Weight 100 kg Intake: Intake, IV Titration 100 Amount Piperacillin-Tazobactam 3 100 .375 gm In Sodium Chloride 0.9% 100 ml @ 25 mls/hr IVPB Q8HR [facility] Rx# :[id number] Oral 418 120 Output: Urine 1425 1000 650 Other: Voiding Method Indwelling Catheter Indwelling Catheter - Labs CBC & Chem 7: 11/09/20 08:10 11/09/20 08:10 Labs: Abnormal Lab Results - Last 24 Hours (Table) 11/08/20 11/08/20 11/09/20 Range/Units 12:54 17:04 05:32 WBC (3.8-10.6) k/uL RBC (4.30-5.90) m/uL Hgb (13.0-17.5) gm/dL Hct (39.0-53.0) % MCHC (31.0-37.0) g/dL Neutrophils # (1.3-7.7) k/uL Lymphocytes # (1.0-4.8) k/uL Chloride (98-107) mmol/L Carbon Dioxide (22-30) mmol/L BUN (9-20) mg/dL Creatinine (0.66-1.25) mg/dL Glucose (74-99) mg/dL POC Glucose (mg/dL) 107 H 151 H 178 H (75-99) mg/dL 11/09/20 11/09/20 Range/Units 08:10 08:10 WBC 20.7 H (3.8-10.6) k/uL RBC 3.41 L (4.30-5.90) m/uL Hgb 8.7 L (13.0-17.5) gm/dL Hct 30.0 L (39.0-53.0) % MCHC 29.2 L (31.0-37.0) g/dL Neutrophils # 19.5 H (1.3-7.7) k/uL Lymphocytes # 0.2 L (1.0-4.8) k/uL Chloride 93 L (98-107) mmol/L Carbon Dioxide 37 H (22-30) mmol/L BUN 71 H (9-20) mg/dL Creatinine 1.75 H (0.66-1.25) mg/dL Glucose 158 H (74-99) mg/dL POC Glucose (mg/dL) (75-99) mg/dL Microbiology - Last 24 Hours (Table) 11/07/20 15:22 Blood Culture - Preliminary Blood No Growth after 24 hours
[2020-11-09] MEDS: VANCOMYCIN 1,750 MG in SODIUM CHLORIDE 0.9% 500 ML 500 ML IVPB SCH (11:18)
[2020-11-09 11:30] LABS: Glucose,Whole Blood 198 mg/dL (75-99)
[2020-11-09 11:53] LABS: Glucose,Whole Blood 180 mg/dL (75-99)
[2020-11-09] MEDS: SODIUM CHLORIDE 0.9% 1,000 ML IV SCH ×2 (12:32→23:44)
--- NOTE | 2020-11-09 12:32 | P.PN ---
Subjective Progress Note Date: 11/09/20 Principal diagnosis: Acute exacerbation of COPD, right lower lobe pneumonia This is a 75-year-old male patient with history of advanced COPD, stage IV, on home oxygen for last 3 years, former smoker, hypertension, chronic diastolic CHF, previous history of pneumonia related to Pseudomonas, obstructive sleep apnea and the patient has been noncompliant with his CPAP, history of gout, chronic hypoxic and hypercapnic respiratory failure related to COPD. he was just discharged from here to [facility] in [facility] on 11/04/2020 following a fall at home without injury. He was felt to be having issues with ultimate mental status and shortness of breath and returned to the emergency room yesterday. Chest x-ray revealed possible right lower lobe infiltrate, possible aspiration. White count 23.4. Hemoglobin 8.1. Sodium 136. Potassium 4.4. Creatinine 1.71. Troponin 0.049, 0.0.6, 0.03. ProBNP 2640. Pro Calcitonin 0.72. Arterial blood gases on 100% FiO2 revealed a pO2 of 255, pCO2 greater than 120, pH 7.13. He was converted to BiPAP at that time. He is seen today in consultation on the regular medical floor. He is currently on BiPAP 14/6 and 40% FiO2. Poor historian. He's been initiated on bronchodilators, IV diuretics, IV Solu- Medrol, heparin for DVT prophylaxis. Antibiotics in the form of vancomycin and Zosyn. On the 11/09/2020 patient seen in follow-up on selective care unit, he is awake and alert, in no acute distress, is currently on BiPAP with pressures of 14/6 and FiO2 of 45%, he is awake, he is answering questions, she did tolerate a brief BiPAP break yesterday, he stayed on BiPAP overnight, appears to be breathing comfortably on today's exam, his been afebrile. We will attempt another nasal cannula trial. He is currently on IV steroids, he is on Zosyn and bronchodilators. No new chest x-ray today. Today's labs have been reviewed, his white blood cell count is 20.7, hemoglobin is 8.7, sodium is 139, potassium is 4.2, chloride is 93, CO2 37, BUN 71 creatinine is 1.75 Objective - Vital Signs Vital signs: Vital Signs Temp 97.9 F 11/09/20 07:57 Pulse 80 11/09/20 11:57 Resp 24 11/09/20 07:57 BP 139/66 11/09/20 07:57 Pulse Ox 93 L 11/09/20 07:57 Intake & Output 11/08/20 11/09/20 11/09/20 18:59 06:59 18:59 Intake Total 518 120 Output Total 1425 1000 650 Balance -907 -1000 -530 Weight 100 kg Intake: Intake, IV Titration 100 Amount Piperacillin-Tazobactam 3 100 .375 gm In Sodium Chloride 0.9% 100 ml @ 25 mls/hr IVPB Q8HR [facility] Rx# :[id number] Oral 418 120 Output: Urine 1425 1000 650 Other: Voiding Method Indwelling Catheter Indwelling Catheter Indwelling Catheter - Exam GENERAL EXAM: Alert, pleasant, 75-year-old white male, on BiPAP support with pressures of 14 and 6 and FiO2 of 45% comfortable in no apparent distress. HEAD: Normocephalic/atraumatic. EYES: Normal reaction of pupils, equal size. Conjunctiva pink, sclera white. NOSE: Clear with pink turbinates. THROAT: No erythema or exudates. NECK: No masses, no JVD, no thyroid enlargement, no adenopathy. CHEST: No chest wall deformity. Symmetrical expansion. LUNGS: Equal air entry with no crackles, wheeze, rhonchi or dullness. CVS: Regular rate and rhythm, normal S1 and S2, no gallops, no murmurs, no rubs ABDOMEN: Soft, nontender. No hepatosplenomegaly, normal bowel sounds, no guarding or rigidity. EXTREMITIES: No clubbing, no edema, no cyanosis, 2+ pulses and upper and lower extremities. MUSCULOSKELETAL: Muscle strength and tone normal. SPINE: No scoliosis or deformity SKIN: No rashes CENTRAL NERVOUS SYSTEM: Alert and oriented -3. No focal deficits, tone is normal in all 4 extremities. PSYCHIATRIC: Alert and oriented -3. Appropriate affect. Intact judgment and insight. - Labs CBC & Chem 7: 11/09/20 08:10 11/09/20 08:10 Labs: Abnormal Lab Results - Last 24 Hours (Table) 11/08/20 11/08/20 11/08/20 Range/Units 12:54 17:04 20:06 WBC (3.8-10.6) k/uL RBC (4.30-5.90) m/uL Hgb (13.0-17.5) gm/dL Hct (39.0-53.0) % MCHC (31.0-37.0) g/dL Neutrophils # (1.3-7.7) k/uL Lymphocytes # (1.0-4.8) k/uL Chloride (98-107) mmol/L Carbon Dioxide (22-30) mmol/L BUN (9-20) mg/dL Creatinine (0.66-1.25) mg/dL Glucose (74-99) mg/dL POC Glucose (mg/dL) 107 H 151 H 180 H (75-99) mg/dL 11/09/20 11/09/20 11/09/20 Range/Units 05:32 08:10 08:10 WBC 20.7 H (3.8-10.6) k/uL RBC 3.41 L (4.30-5.90) m/uL Hgb 8.7 L (13.0-17.5) gm/dL Hct 30.0 L (39.0-53.0) % MCHC 29.2 L (31.0-37.0) g/dL Neutrophils # 19.5 H (1.3-7.7) k/uL Lymphocytes # 0.2 L (1.0-4.8) k/uL Chloride 93 L (98-107) mmol/L Carbon Dioxide 37 H (22-30) mmol/L BUN 71 H (9-20) mg/dL Creatinine 1.75 H (0.66-1.25) mg/dL Glucose 158 H (74-99) mg/dL POC Glucose (mg/dL) 178 H (75-99) mg/dL 11/09/20 Range/Units 11:28 WBC (3.8-10.6) k/uL RBC (4.30-5.90) m/uL Hgb (13.0-17.5) gm/dL Hct (39.0-53.0) % MCHC (31.0-37.0) g/dL Neutrophils # (1.3-7.7) k/uL Lymphocytes # (1.0-4.8) k/uL Chloride (98-107) mmol/L Carbon Dioxide (22-30) mmol/L BUN (9-20) mg/dL Creatinine (0.66-1.25) mg/dL Glucose (74-99) mg/dL POC Glucose (mg/dL) 198 H (75-99) mg/dL Microbiology - Last 24 Hours (Table) 11/07/20 15:22 Blood Culture - Preliminary Blood No Growth after 24 hours Assessment and Plan Plan: Assessment: #1. Acute hypoxic and hypercapnic respiratory failure secondary to acute exa cerbation of COPD and possible right lower lobe pneumonia #2. Chronic hypoxic respiratory failure related to advanced COPD, stage IV, usually wears 3 L of oxygen at home #3. Current and ongoing history of smoking #4. A fall at home, without injury #5. Interstitial prominence on the chest x-ray, high resolution CT scanning of the chest did not show evidence of fibrosis, and showed mainly emphysematous changes #6. History of sleep apnea, intolerant to CPAP #7. Chronic diastolic CHF #8. History of gout Plan: Continue medical treatment Continue antibiotics Continue bronchodilators Continue steroids Allow nasal cannula trial May placed on BiPAP support at bedtime and as needed We'll continue to follow Clinically seems to be dry We'll stop his IVs Lasix 0.9 normal sinus 75 ML per hour Follow-up labs tomorrow Follow-up chest x-ray tomorrow I performed a history & physical examination of the patient and discussed their management with my nurse practitioner, Shoa Reina. I reviewed the nurse practitioner's note and agree with the documented findings and plan of care. Lung sounds are positive for diminished breath sounds throughout the lung root. The findings and the impression was discussed with the patient. I attest to the documentation by the nurse practitioner. Time with Patient: Greater than 30
[2020-11-09] MEDS: IPRATROPIUM-ALBUTEROL 3 ML NEB INHALATION PRN (15:18)
[2020-11-09 16:50] LABS: Glucose,Whole Blood 202 mg/dL (75-99)
[2020-11-09 20:07] LABS: Glucose,Whole Blood 182 mg/dL (75-99)
[2020-11-09] MEDS: MONTELUKAST 10 MG TAB PO SCH (20:46)
[2020-11-10 06:13] LABS: Glucose,Whole Blood 165 mg/dL (75-99)
[2020-11-10] MEDS: methylPREDNISolone SOD SUCCI 125 MG/2 ML VIAL IV SCH ×3 (06:45→19:03)
[2020-11-10] MEDS: INSULIN ASPART (NovoLOG) 100 UNIT/ML VIAL SQ SCH ×4 (06:46→20:56)
[2020-11-10] MEDS: IPRATROPIUM-ALBUTEROL 3 ML NEB INHALATION SCH ×4 (07:21→19:59)
[2020-11-10] MEDS: FORMOTEROL FUMARATE 20 MCG/2 ML NEBU INHALATION SCH ×2 (07:21→19:59)
[2020-11-10] MEDS: BUDESONIDE 0.5 MG/2 ML NEBU INHALATION SCH (07:21)
--- NOTE | 2020-11-10 07:59 | XR ---
EXAMINATION TYPE: XR chest 1V portable DATE OF EXAM: 11/10/2020 COMPARISON: 11/07/2020 INDICATION: CHF, pneumonia TECHNIQUE: Single frontal view of the chest is obtained. FINDINGS: The heart size is normal. The pulmonary vasculature is normal. Right lower lobe infiltrate is present. Right costophrenic angle is excluded from the [id number]. IMPRESSION: 1. Right lower lobe infiltrate. Correlate for atelectasis and pneumonia
[2020-11-10] MEDS: HEPARIN SODIUM,PORCINE/PF 5,000 UNIT/0.5 ML SYRINGE SQ SCH ×2 (08:51→20:57)
[2020-11-10] MEDS: PIPERACILLIN-TAZOBACTAM 3.375 GM in SODIUM CHLORIDE 0.9% 100 ML IVPB SCH ×2 (08:51→19:04)
[2020-11-10] MEDS: ASPIRIN 81 MG PO SCH (08:51)
[2020-11-10] MEDS: FAMOTIDINE 20 MG/2 ML VIAL IV SCH (08:51)
[2020-11-10] MEDS: SODIUM CHLORIDE 0.9% 1,000 ML IV SCH (08:52)
[2020-11-10 09:42] LABS: HCT 25.9 % (39.0-53.0); HGB 7.8 gm/dL (13.0-17.5); Hypochromasia Marked; MCH 26.3 pg (25.0-35.0); MCV 87.6 fL (80.0-100.0); Mean Platelet Volume 8.3; Platelet Count 282 k/uL (150-450); RBC 2.95 m/uL (4.30-5.90); RDW 15.4 % (11.5-15.5)
[2020-11-10 09:57] LABS: Albumin 2.7 g/dL (3.5-5.0); Calcium 8.7 mg/dL (8.4-10.2); Potassium 4.2 mmol/L (3.5-5.1); Total Bilirubin 0.5 mg/dL (0.2-1.3); Total Protein 5.3 g/dL (6.3-8.2)
[2020-11-10 10:46] LABS: ABG Base Excess 15.6 mmol/L; ABG PCO2 65 mmHg (35-45); ABG TCO2 42 mmol/L (19-24); Allen Test Performed? Yes
[2020-11-10 10:52] LABS: ABG HCO3 40 mmol/L (21-25); ABG PO2 58 mmHg (83-108)
[2020-11-10 11:47] LABS: Glucose,Whole Blood 177 mg/dL (75-99)
--- NOTE | 2020-11-10 11:52 | P.PN ---
Subjective Progress Note Date: 11/10/20 Principal diagnosis: Acute exacerbation of COPD, right lower lobe pneumonia This is a 75-year-old male patient with history of advanced COPD, stage IV, on home oxygen for last 3 years, former smoker, hypertension, chronic diastolic CHF, previous history of pneumonia related to Pseudomonas, obstructive sleep apnea and the patient has been noncompliant with his CPAP, history of gout, chronic hypoxic and hypercapnic respiratory failure related to COPD. he was just discharged from here to [facility] in [facility] on 11/04/2020 following a fall at home without injury. He was felt to be having issues with ultimate mental status and shortness of breath and returned to the emergency room yesterday. Chest x-ray revealed possible right lower lobe infiltrate, possible aspiration. White count 23.4. Hemoglobin 8.1. Sodium 136. Potassium 4.4. Creatinine 1.71. Troponin 0.049, 0.0.6, 0.03. ProBNP 2640. Pro Calcitonin 0.72. Arterial blood gases on 100% FiO2 revealed a pO2 of 255, pCO2 greater than 120, pH 7.13. He was converted to BiPAP at that time. He is seen today in consultation on the regular medical floor. He is currently on BiPAP 14/6 and 40% FiO2. Poor historian. He's been initiated on bronchodilators, IV diuretics, IV Solu- Medrol, heparin for DVT prophylaxis. Antibiotics in the form of vancomycin and Zosyn. On the 11/09/2020 patient seen in follow-up on selective care unit, he is awake and alert, in no acute distress, is currently on BiPAP with pressures of 14/6 and FiO2 of 45%, he is awake, he is answering questions, she did tolerate a brief BiPAP break yesterday, he stayed on BiPAP overnight, appears to be breathing comfortably on today's exam, his been afebrile. We will attempt another nasal cannula trial. He is currently on IV steroids, he is on Zosyn and bronchodilators. No new chest x-ray today. Today's labs have been reviewed, his white blood cell count is 20.7, hemoglobin is 8.7, sodium is 139, potassium is 4.2, chloride is 93, CO2 37, BUN 71 creatinine is 1.75 On 11/10/2020 patient seen in follow-up on selective care unit. He did wear BiPAP support most of the night, with pressures of 14/60 and FiO2 of 45%, he is quite comfortable on it, tolerates it very well. This morning he was switched to nasal cannula, currently on 3 L of oxygen pulse ox is 92%, he states his breathing much improved since admission, however his been mostly in bed. Vital signs have been stable, his been afebrile. No complaints of chest discomfort, no hemoptysis. He continues on Zosyn for antibiotic coverage, he is on IV steroids with Solu-Medrol 60 mg every 6 hours, and nebulized bronchodilators. Yesterday we stopped the patient's Lasix as teen to be dehydrated, and patient was placed on IV hydration with 0.9 normal saline at a rate of 75 ML per hour, his labs have been reviewed, and his renal profile is improving, and creatinine is down to 1.42, and BUN is 76. Today's labs show improving white count which is down to 14, hemoglobin is 7.8. His Pro calcitonin was elevated at 0.72 on admission, and although patient does have abnormal renal function he was empirically covered with Zosyn. Cultures have shown no growth thus far. He has had no nausea vomiting or diarrhea. He had no fever or chills. Objective - Vital Signs Vital signs: Vital Signs Temp 97.7 F 11/10/20 08:55 Pulse 84 11/10/20 11:14 Resp 18 11/10/20 09:31 BP 123/66 11/10/20 08:55 Pulse Ox 92 L 11/10/20 10:10 Intake & Output 11/09/20 11/10/20 11/10/20 18:59 06:59 18:59 Intake Total 956 1200 Output Total 1550 600 775 Balance -594 -600 425 Weight 99.5 kg Intake: Intake, IV Titration 600 Amount Piperacillin-Tazobactam 3 100 .375 gm In Sodium Chloride 0.9% 100 ml @ 25 mls/hr IVPB Q8HR [facility] Rx# :[id number] Sodium Chloride 0.9% 1, 500 000 ml @ 75 mls/hr IV . [id number] [facility] Rx#:[id number] Oral 356 1200 Output: Urine 1550 600 775 Other: Voiding Method Indwelling Catheter Indwelling Catheter Indwelling Catheter - Exam GENERAL EXAM: Alert, pleasant, 75-year-old white male, on BiPAP support with pressures of 14 and 6 and FiO2 of 45% comfortable in no apparent distress. HEAD: Normocephalic/atraumatic. EYES: Normal reaction of pupils, equal size. Conjunctiva pink, sclera white. NOSE: Clear with pink turbinates. THROAT: No erythema or exudates. NECK: No masses, no JVD, no thyroid enlargement, no adenopathy. CHEST: No chest wall deformity. Symmetrical expansion. LUNGS: Equal air entry with no crackles, wheeze, rhonchi or dullness. CVS: Regular rate and rhythm, normal S1 and S2, no gallops, no murmurs, no rubs ABDOMEN: Soft, nontender. No hepatosplenomegaly, normal bowel sounds, no guarding or rigidity. EXTREMITIES: No clubbing, no edema, no cyanosis, 2+ pulses and upper and lower extremities. MUSCULOSKELETAL: Muscle strength and tone normal. SPINE: No scoliosis or deformity SKIN: No rashes CENTRAL NERVOUS SYSTEM: Alert and oriented -3. No focal deficits, tone is normal in all 4 extremities. PSYCHIATRIC: Alert and oriented -3. Appropriate affect. Intact judgment and insight. - Labs CBC & Chem 7: 11/10/20 09:00 11/10/20 09:00 Labs: Abnormal Lab Results - Last 24 Hours (Table) 11/08/20 11/09/20 11/09/20 Range/Units 20:06 16:48 20:05 WBC (3.8-10.6) k/uL RBC (4.30-5.90) m/uL Hgb (13.0-17.5) gm/dL Hct (39.0-53.0) % MCHC (31.0-37.0) g/dL ABG pCO2 (35-45) mmHg ABG pO2 (83-108) mmHg ABG HCO3 (21-25) mmol/L ABG Total CO2 (19-24) mmol/L ABG O2 Saturation (94-97) % Chloride (98-107) mmol/L Carbon Dioxide (22-30) mmol/L BUN (9-20) mg/dL Creatinine (0.66-1.25) mg/dL Glucose (74-99) mg/dL POC Glucose (mg/dL) 180 H 202 H 182 H (75-99) mg/dL Total Protein (6.3-8.2) g/dL Albumin (3.5-5.0) g/dL 11/10/20 11/10/20 11/10/20 Range/Units 06:12 09:00 09:00 WBC 14.0 H (3.8-10.6) k/uL RBC 2.95 L (4.30-5.90) m/uL Hgb 7.8 L (13.0-17.5) gm/dL Hct 25.9 L (39.0-53.0) % MCHC 30.0 L (31.0-37.0) g/dL ABG pCO2 (35-45) mmHg ABG pO2 (83-108) mmHg ABG HCO3 (21-25) mmol/L ABG Total CO2 (19-24) mmol/L ABG O2 Saturation (94-97) % Chloride 94 L (98-107) mmol/L Carbon Dioxide 38 H (22-30) mmol/L BUN 76 H (9-20) mg/dL Creatinine 1.42 H (0.66-1.25) mg/dL Glucose 157 H (74-99) mg/dL POC Glucose (mg/dL) 165 H (75-99) mg/dL Total Protein 5.3 L (6.3-8.2) g/dL Albumin 2.7 L (3.5-5.0) g/dL 11/10/20 Range/Units 10:42 WBC (3.8-10.6) k/uL RBC (4.30-5.90) m/uL Hgb (13.0-17.5) gm/dL Hct (39.0-53.0) % MCHC (31.0-37.0) g/dL ABG pCO2 65 H (35-45) mmHg ABG pO2 58 L* (83-108) mmHg ABG HCO3 40 H* (21-25) mmol/L ABG Total CO2 42 H (19-24) mmol/L ABG O2 Saturation 91.0 L (94-97) % Chloride (98-107) mmol/L Carbon Dioxide (22-30) mmol/L BUN (9-20) mg/dL Creatinine (0.66-1.25) mg/dL Glucose (74-99) mg/dL POC Glucose (mg/dL) (75-99) mg/dL Total Protein (6.3-8.2) g/dL Albumin (3.5-5.0) g/dL Microbiology - Last 24 Hours (Table) 11/07/20 15:22 Blood Culture - Preliminary Blood No Growth after 48 hours Assessment and Plan Plan: Assessment: #1. Acute hypoxic and hypercapnic respiratory failure secondary to acute exacerbation of COPD and possible right lower lobe pneumonia #2. Chronic hypoxic respiratory failure related to advanced COPD, stage IV, usually wears 3 L of oxygen at home #3. Current and ongoing history of smoking #4. A fall at home, without injury #5. Interstitial prominence on the chest x-ray, high resolution CT scanning of the chest did not show evidence of fibrosis, and showed mainly emphysematous changes #6. History of sleep apnea, intolerant to CPAP #7. Chronic diastolic CHF #8. History of gout Plan: Patient is breathing easier We'll continue with current antibiotics Continue IV steroids and bronchodilators Blood gas was obtained on FiO2 of 32% Patient does qualify for a home BiPAP device according to his blood gas he will need overnight pulse oximetry study to see if he qualifies, this will be done on 3 L of oxygen This can be done tonight or tomorrow night, or closer to discharge He may need outpatient sleep study if he does not qualify based on his pulse oximetry study However he previously was not compliant with CPAP device In the meantime he is improving, Continue IV fluids Would hold his Lasix Today's chest x-ray has been reviewed showing right lower lobe infiltrate Continue medical treatment I performed a history & physical examination of the patient and discussed their management with my nurse practitioner, Soha Reina. I reviewed the nurse practitioner's note and agree with the documented findings and plan of care. Lung sounds are positive for diminished breath sounds throughout the lung root. The findings and the impression was discussed with the patient. I attest to the documentation by the nurse practitioner. Time with Patient: Less than 30
[2020-11-10] MEDS: TAMSULOSIN 0.4 MG CAP.ER.24H PO SCH (12:41)
--- NOTE | 2020-11-10 15:43 | P.PN ---
Subjective Progress Note Date: 11/10/20 This is a 75 years old male patient of Dr. Chu present with past medical history of hypertension, COPD, wears 3 L of oxygen with diastolic CHF was recently discharged on 11/04/2020. Due to shortness of breath and extreme right leg pain for the past week. Patient went to [facility]. Previously patient has a history of intubation for 48 hours with presentation of unresponsiveness and hypoxia. Patient was intubated again in 2018 when patient was found to be unresponsive and short of breath. Patient was treated for diastolic CHF, COPD and Pseudomonas pneumonia. Echocardiogram obtained at that time suggested EF of 60-65% with borderline concentric left ventricular hypertrophy mild tricuspid regurgitation and mild pulmonary hypertension. Patient also has sleep apnea but is noncompliant with CPAP. states that she received a call from this facility stating that he had fallen onto the ground. The reports that he frequently will get down on the floor on his hands and knees when he cannot breathe. was adamant that the patient did not fall and therefore EMS was n ot called. Later on that day the patient was having increased respirations and hypoxia. Patient became altered and was then transferred to the hospital. Patient history reports that he should wear CPAP at night however he is noncompliant. No reports of fevers chills or cough. No cold exposure. Denies any chest pain. At this time patient is found in moderate distress with the BiPAP on. He is able to answer some questions appropriately. Respirations are even and labored. With the use of accessory muscles. WBC 23.4, hemoglobin 8.0, platelets 321, potassium 4.4, carbon dioxide 93, BUN 83, creatinine 1.71 lactic acid 1.0. ABG pH 7.13, pCO2 greater than 120, pCO2 87. Chest x-ray shows a right lower lobe infiltrate. 11/09: Patient remains on the BiPAP machine. He is able to answer questions appropriately. Continues to have minimal distress. No longer using accessory muscles. Ecchymosis noted to bilateral lower extremities with edema. Patient remains afebrile, heart rate 80, blood pressure 139/66, pulse ox 93% on BiPAP. He received 20.7, hemoglobin 8.7, potassium 4.2, BUN 71, creatinine 1.75. No growth from blood cultures after 24 hours. 11/10: Patient states that his breathing is better today and has been transitioned to nasal cannula at 3 L pulse oxing 92%. He has been afebrile, heart rate in the 80s, blood pressure 134 over and 57. Repeat blood work reveals WBC 14, hemoglobin 7.8, platelet count 282. Sodium 139, potassium 4.2, chloride 94, CO2 38, BUN 76 and creatinine 1.42. Blood sugars are running between 100 5782. ABGs reveal pH 7.4, pCO2 65, pO2 58, bicarbonate 40, total CO2 42, O2 saturation 91. Repeat chest x-ray reveals right lower lobe infiltrate. Correlate for atelectasis and pneumonia. Patient's been seen and followed by pulmonary medicine and he is continued on IV steroids and bronchodilators. Plan is for overnight pulse, 3 study to see if he qualifies for BiPAP device at home. He may need to undergo outpatient sleep study. Lasix is on hold. Review of systems Constitutional: Denies chills, Denies fever, reports increased weakness lethargy and poor appetite Eyes: denies decreased vision, denies diplopia, denies discharge, denies pain Ears: deny: decreased hearing Ears, nose, mouth and throat: Denies dental pain, Denies headache, Denies nasal discharge, Denies nose pain Cardiovascular: Denies chest pain, endorses decreased exercise tolerance, Denies edema, Denies high blood pressure, Denies irregular heart beat, Denies palpitations, Denies paroxysmal nocturnal dyspnea, Denies rapid heart beat, e ndorses shortness of breath Respiratory: Denies congestion, Denies cough, endorses cough with sputum, endorses dyspnea, endorses home oxygen, Denies wheezing Gastrointestinal: Denies abdominal pain, Denies change in bowel habits, Denies coffee ground emesis, Denies early satiety, Denies excessive gas, Denies heartburn, Denies loss of appetite, Denies nausea, Denies vomiting Genitourinary: Denies dysuria, Denies flank pain, Denies kidney stones, Denies menorrhagia, Denies urgency, Denies urinary frequency Musculoskeletal: Denies gait dysfunction, Denies limitation of motion, Denies morning stiffness, Denies muscle cramps Integumentary: Denies rash, Denies wounds, Denies brittle nails, Denies change in hair/nails, Denies darkening of skin Neurological: Denies balance difficulties, Denies change in speech, Denies double vision, Denies gait dysfunction, Denies loss of vision, Denies motor di sturbance, Denies numbness, Denies paralysis, Denies paresthesias, Denies seizures Psychiatric: Denies anxiety, Denies depression Endocrine: Denies excessive sweating, Denies excessive thirst, Denies high blood sugars, Denies palpitations Hematologic/Lymphatic: Denies easy bruising, Denies lymphadenopathy Physical exam General Appearance: Alert, cooperative, moderate distress, this is a 75-year-old male who appears stated age. Neck HEENT: Supple, no lymphadenopathy, no thyroid enlargement, no carotid bruits. Lungs: Diminished, no deformity. Chest Wall: Chest wall labored expansion, no tenderness and no deformity was found on exam, no costochondral pain or discomfort. Heart: Regular rate and rhythm, S1, S2 normal, no murmur, rub or gallop. Back: Symmetric, no curvature, ROM normal, no CVA tenderness. Abdomen: Soft, non-tender, no rebound or rigidity, no hepatosplenomegaly. Extremities: Extremities normal, atraumatic, no cyanosis or edema. Pulses: 2+ and symmetric. Skin: Skin color, texture, tugor normal, no rashes or lesions. Neurologic: Alert oriented x3 cranial nerves II through XII intact, no motor deficit, no abnormal balance or gait Assessment and plan 1. Acute hypoxic hypercapnic respiratory failure secondary to COPD exacerbation with interstitial lung disease, left lower lobe pneumonia. Continue BiPAP transitioned to nasal cannula. DuoNeb 4 times daily and every 2 hours as needed, Pulmicort 1 mg twice daily, Perforomist twice daily, Solu-Medrol 60 mg IV every 6 hours, Zosyn 3.375 g IV piggyback every 8 hours. Pulmonary medicine consult appreciated. 2. Acute metabolic encephalopathy. Continue Zosyn. No growth after 24 hours. 3. Generalized weakness with debility PTOT consult placed. Patient may need rehab placement due to increased weakness . Fall precautions 4. History of sleep apnea with chronic CO2 retention. Patient could not tolerate CPAP and has does not radiated 5. Chronic Diastolic heart failure continue Lasix 40 mg twice a day. I&O monitoring daily weight. 6. Chronic Gout history, stable 7. Chronic CO2 retention secondary to sleep apnea. Patient is noncompliant with CPAP. Pulse ox monitoring overnight and possible outpatient sleep study. 8. Current tobacco dependency and is a current tobacco smoker. Patient counseled about tobacco cessation. Nicotine patch ordered 9. VTE prophylaxis: heparin subcu 10. GI prophylaxis: Pepcid 20 mg CODE STATUS: No code admitted to the hospital for minimum 2 nights day. Discharge plan Return to [facility]. corporate communications manager and social service coordinator following. Impression and plan of care have been directed as dictated by the signing physician. Ann-Marie Ortiz nurse practitioner acting as scribe for signing physician. Objective - Vital Signs Vital signs: Vital Signs Temp 97.7 F 11/10/20 08:55 Pulse 69 11/10/20 08:55 Resp 18 11/10/20 09:31 BP 123/66 11/10/20 08:55 Pulse Ox 96 11/10/20 09:31 Intake & Output 11/09/20 11/10/20 11/10/20 18:59 06:59 18:59 Intake Total 956 1200 Output Total 1550 600 775 Balance -594 -600 425 Weight 99.5 kg Intake: Intake, IV Titration 600 Amount Piperacillin-Tazobactam 3 100 .375 gm In Sodium Chloride 0.9% 100 ml @ 25 mls/hr IVPB Q8HR [facility] Rx# :[id number] Sodium Chloride 0.9% 1, 500 000 ml @ 75 mls/hr IV . [id number] [facility] Rx#:[id number] Oral 356 1200 Output: Urine 1550 600 775 Other: Voiding Method Indwelling Catheter Indwelling Catheter Indwelling Catheter - Labs CBC & Chem 7: 11/10/20 09:00 11/10/20 09:00 Labs: Abnormal Lab Results - Last 24 Hours (Table) 11/08/20 11/09/20 11/09/20 Range/Units 20:06 11:28 16:48 WBC (3.8-10.6) k/uL RBC (4.30-5.90) m/uL Hgb (13.0-17.5) gm/dL Hct (39.0-53.0) % MCHC (31.0-37.0) g/dL POC Glucose (mg/dL) 180 H 198 H 202 H (75-99) mg/dL 11/09/20 11/10/20 11/10/20 Range/Units 20:05 06:12 09:00 WBC 14.0 H (3.8-10.6) k/uL RBC 2.95 L (4.30-5.90) m/uL Hgb 7.8 L (13.0-17.5) gm/dL Hct 25.9 L (39.0-53.0) % MCHC 30.0 L (31.0-37.0) g/dL POC Glucose (mg/dL) 182 H 165 H (75-99) mg/dL Microbiology - Last 24 Hours (Table) 11/07/20 15:22 Blood Culture - Preliminary Blood No Growth after 48 hours
[2020-11-10 16:46] LABS: Glucose,Whole Blood 145 mg/dL (75-99)
[2020-11-10] MEDS: BUDESONIDE 1 MG/2 ML NEBU INHALATION SCH (19:59)
[2020-11-10 20:49] LABS: Glucose,Whole Blood 164 mg/dL (75-99)
[2020-11-10] MEDS: MONTELUKAST 10 MG TAB PO SCH (20:57)
[2020-11-11] MEDS: methylPREDNISolone SOD SUCCI 125 MG/2 ML VIAL IV SCH ×4 (00:26→16:25)
[2020-11-11] MEDS: PIPERACILLIN-TAZOBACTAM 3.375 GM in SODIUM CHLORIDE 0.9% 100 ML IVPB SCH ×3 (00:27→16:25)
[2020-11-11] MEDS: SODIUM CHLORIDE 0.9% 1,000 ML IV SCH (04:52)
[2020-11-11 06:20] LABS: Glucose,Whole Blood 164 mg/dL (75-99)
[2020-11-11] MEDS: INSULIN ASPART (NovoLOG) 100 UNIT/ML VIAL SQ SCH ×4 (06:31→20:35)
[2020-11-11] MEDS: IPRATROPIUM-ALBUTEROL 3 ML NEB INHALATION SCH ×4 (07:39→20:35)
[2020-11-11] MEDS: IPRATROPIUM-ALBUTEROL 3 ML NEB INHALATION PRN (07:39)
[2020-11-11] MEDS: FORMOTEROL FUMARATE 20 MCG/2 ML NEBU INHALATION SCH ×2 (07:39→20:35)
[2020-11-11] MEDS: BUDESONIDE 1 MG/2 ML NEBU INHALATION SCH ×2 (07:39→20:35)
[2020-11-11] MEDS: FAMOTIDINE 20 MG TAB PO SCH (08:44)
[2020-11-11] MEDS: ASPIRIN 81 MG PO SCH (08:44)
[2020-11-11] MEDS: HEPARIN SODIUM,PORCINE/PF 5,000 UNIT/0.5 ML SYRINGE SQ SCH ×2 (08:44→20:35)
[2020-11-11] MEDS: TAMSULOSIN 0.4 MG CAP.ER.24H PO SCH (08:44)
--- NOTE | 2020-11-11 09:46 | P.PN ---
Subjective Progress Note Date: 11/11/20 This is a 75-year-old male patient with history of advanced COPD, stage IV, on home oxygen for last 3 years, former smoker, hypertension, chronic diastolic CHF, previous history of pneumonia related to Pseudomonas, obstructive sleep apnea and the patient has been noncompliant with his CPAP, history of gout, chronic hypoxic and hypercapnic respiratory failure related to COPD. he was just discharged from here to [facility] in [facility] on 11/04/2020 following a fall at home without injury. He was felt to be having issues with ultimate mental status and shortness of breath and returned to the emergency room yesterday. Chest x-ray revealed possible right lower lobe infiltrate, possible aspiration. White count 23.4. Hemoglobin 8.1. Sodium 136. Potassium 4.4. Creatinine 1.71. Troponin 0.049, 0.0.6, 0.03. ProBNP 2640. Pro Calcitonin 0.72. Arterial blood gases on 100% FiO2 revealed a pO2 of 255, pCO2 greater than 120, pH 7.13. He was converted to BiPAP at that time. He is seen today in consultation on the regular medical floor. He is currently on BiPAP 14/6 and 40% FiO2. Poor historian. He's been initiated on bronchodilators, IV diuretics, IV Solu- Medrol, heparin for DVT prophylaxis. Antibiotics in the form of vancomycin and Zosyn. On the 11/09/2020 patient seen in follow-up on selective care unit, he is awake and alert, in no acute distress, is currently on BiPAP with pressures of 14/6 and FiO2 of 45%, he is awake, he is answering questions, she did tolerate a brief BiPAP break yesterday, he stayed on BiPAP overnight, appears to be breathing comfortably on today's exam, his been afebrile. We will attempt another nasal cannula trial. He is currently on IV steroids, he is on Zosyn and bronchodilators. No new chest x-ray today. Today's labs have been reviewed, his white blood cell count is 20.7, hemoglobin is 8.7, sodium is 139, potassium is 4.2, chloride is 93, CO2 37, BUN 71 creatinine is 1.75 On 11/10/2020 patient seen in follow-up on selective care unit. He did wear BiPAP support most of the night, with pressures of 14/60 and FiO2 of 45%, he is quite comfortable on it, tolerates it very well. This morning he was switched to nasal cannula, currently on 3 L of oxygen pulse ox is 92%, he states his breathing much improved since admission, however his been mostly in bed. Vital signs have been stable, his been afebrile. No complaints of chest discomfort, no hemoptysis. He continues on Zosyn for antibiotic coverage, he is on IV steroids with Solu-Medrol 60 mg every 6 hours, and nebulized bronchodilators. Yesterday we stopped the patient's Lasix as teen to be dehydrated, and patient was placed on IV hydration with 0.9 normal saline at a rate of 75 ML per hour, his labs have been reviewed, and his renal profile is improving, and creatinine is down to 1.42, and BUN is 76. Today's labs show improving white count which is down to 14, hemoglobin is 7.8. His Pro calcitonin was elevated at 0.72 on admission, and although patient does have abnormal renal function he was empirically covered with Zosyn. Cultures have shown no growth thus far. He has had no nausea vomiting or diarrhea. He had no fever or chills. The patient is seen today 11/11/2020 in follow-up on the selective care unit. He is currently sitting up in bed. Awake and alert in no acute distress. On 3 L nasal cannula with O2 saturations in the 90s. He did utilize BiPAP last evening set at 14/6 and 45% FiO2. ABGs obtained yesterday on 32% FiO2 revealed a PaO2 of 58, pCO2 65 and a pH is 7.40. He remains on DuoNeb inhalations, Pulmicort and Perforomist inhalations, IV Solu-Medrol. Anorexia form of Zosyn. Heparin for DVT prophylaxis. He's been afebrile. Hemodynamically stable. Blood culture reveals no growth. Glucose 164. Objective - Vital Signs Vital signs: Vital Signs Temp 98.4 F 11/11/20 08:00 Pulse 83 11/11/20 08:00 Resp 20 11/11/20 08:00 BP 116/66 11/11/20 08:00 Pulse Ox 94 L 11/11/20 08:00 Intake & Output 08/09/21 08/10/21 08/10/21 18:59 06:59 18:59 Intake Total 1680 Output Total 1400 1200 Balance 280 -1200 Weight 96.5 kg Intake: Oral 1680 Output: Urine 1400 1200 Other: Voiding Method Indwelling Catheter Indwelling Catheter - Exam GENERAL EXAM: Alert, pleasant, 75-year-old male patient, on BiPAP support with pressures of 14 and 6 and FiO2 of 45% comfortable in no apparent distress. HEAD: Normocephalic/atraumatic. EYES: Normal reaction of pupils, equal size. Conjunctiva pink, sclera white. NOSE: Clear with pink turbinates. THROAT: No erythema or exudates. NECK: No masses, no JVD, no thyroid enlargement, no adenopathy. CHEST: No chest wall deformity. Symmetrical expansion. LUNGS: Equal air entry with bilateral scattered rhonchi, crackles in the right lung base, diminished CVS: Regular rate and rhythm, normal S1 and S2, no gallops, no murmurs, no rubs ABDOMEN: Soft, nontender. No hepatosplenomegaly, normal bowel sounds, no guarding or rigidity. EXTREMITIES: No clubbing, no edema, no cyanosis, 2+ pulses and upper and lower extremities. MUSCULOSKELETAL: Muscle strength and tone normal. SPINE: No scoliosis or deformity SKIN: No rashes CENTRAL NERVOUS SYSTEM: No focal deficits, tone is normal in all 4 extremities. PSYCHIATRIC: Alert and oriented -3. Appropriate affect. Intact judgment and insight. - Labs CBC & Chem 7: 11/10/20 09:00 11/10/20 09:00 Labs: Abnormal Lab Results - Last 24 Hours (Table) 11/10/20 11/10/20 11/10/20 Range/Units 09:00 09:00 10:42 WBC 14.0 H (3.8-10.6) k/uL RBC 2.95 L (4.30-5.90) m/uL Hgb 7.8 L (13.0-17.5) gm/dL Hct 25.9 L (39.0-53.0) % MCHC 30.0 L (31.0-37.0) g/dL ABG pCO2 65 H (35-45) mmHg ABG pO2 58 L* (83-108) mmHg ABG HCO3 40 H* (21-25) mmol/L ABG Total CO2 42 H (19-24) mmol/L ABG O2 Saturation 91.0 L (94-97) % Chloride 94 L (98-107) mmol/L Carbon Dioxide 38 H (22-30) mmol/L BUN 76 H (9-20) mg/dL Creatinine 1.42 H (0.66-1.25) mg/dL Glucose 157 H (74-99) mg/dL POC Glucose (mg/dL) (75-99) mg/dL Total Protein 5.3 L (6.3-8.2) g/dL Albumin 2.7 L (3.5-5.0) g/dL 11/10/20 11/10/20 11/10/20 Range/Units 11:46 16:44 20:48 WBC (3.8-10.6) k/uL RBC (4.30-5.90) m/uL Hgb (13.0-17.5) gm/dL Hct (39.0-53.0) % MCHC (31.0-37.0) g/dL ABG pCO2 (35-45) mmHg ABG pO2 (83-108) mmHg ABG HCO3 (21-25) mmol/L ABG Total CO2 (19-24) mmol/L ABG O2 Saturation (94-97) % Chloride (98-107) mmol/L Carbon Dioxide (22-30) mmol/L BUN (9-20) mg/dL Creatinine (0.66-1.25) mg/dL Glucose (74-99) mg/dL POC Glucose (mg/dL) 177 H 145 H 164 H (75-99) mg/dL Total Protein (6.3-8.2) g/dL Albumin (3.5-5.0) g/dL 11/11/20 Range/Units 06:19 WBC (3.8-10.6) k/uL RBC (4.30-5.90) m/uL Hgb (13.0-17.5) gm/dL Hct (39.0-53.0) % MCHC (31.0-37.0) g/dL ABG pCO2 (35-45) mmHg ABG pO2 (83-108) mmHg ABG HCO3 (21-25) mmol/L ABG Total CO2 (19-24) mmol/L ABG O2 Saturation (94-97) % Chloride (98-107) mmol/L Carbon Dioxide (22-30) mmol/L BUN (9-20) mg/dL Creatinine (0.66-1.25) mg/dL Glucose (74-99) mg/dL POC Glucose (mg/dL) 164 H (75-99) mg/dL Total Protein (6.3-8.2) g/dL Albumin (3.5-5.0) g/dL Microbiology - Last 24 Hours (Table) 11/07/20 15:22 Blood Culture - Preliminary Blood No Growth after 72 hours Assessment and Plan Assessment: 1 Acute hypercapnic/hypoxemic respiratory failure secondary to an acute exacerbation of COPD and possible right lower lobe pneumonia 2 Chronic hypoxic respiratory failure related to advanced COPD, stage IV, usually wears 3 L of oxygen at home 3 Current and ongoing history of smoking 4 A fall at home, without injury 5 Interstitial prominence seen on the chest x-ray, high resolution CT chest did not show evidence of fibrosis, and showed mainly emphysematous changes 6 History of sleep apnea, patient was intolerant to CPAP 7 Chronic diastolic CHF 8 History of gout Plan: The patient was seen and evaluated by Dr. Ibarra Continue DuoNeb inhalations, IV Solu-Medrol, antibiotics Continue BiPAP in the outpatient setting 14/6 and 45% FiO2, titrate for O2 sat saturations greater than 90% Alternating with nasal cannula as needed Plan is to return to [facility] [place] upon discharge We will continue to follow I, the cosigning physician, performed a history & physical examination of the patient. Lungs sounds bilateral scattered rhonchi, crackles in the right lung base, diminished. Maintaining good O2 saturations in the 90s on 45% FiO2 via the BiPAP alternating with oxygen at 3 L/m per nasal cannula. I discussed the assessment and plan of care with my nurse practitioner, Adriana Cornejo. I attest to the above note as dictated by her.
[2020-11-11 11:49] LABS: Glucose,Whole Blood 121 mg/dL (75-99)
--- NOTE | 2020-11-11 12:10 | P.PN ---
Subjective Progress Note Date: 11/11/20 This is a 75 years old male patient of Dr. Chu present with past medical history of hypertension, COPD, wears 3 L of oxygen with diastolic CHF was recently discharged on 11/04/2020. Due to shortness of breath and extreme right leg pain for the past week. Patient went to [facility]. Previously patient has a history of intubation for 48 hours with presentation of unresponsiveness and hypoxia. Patient was intubated again in 2018 when patient was found to be unresponsive and short of breath. Patient was treated for diastolic CHF, COPD and Pseudomonas pneumonia. Echocardiogram obtained at that time suggested EF of 60-65% with borderline concentric left ventricular hypertrophy mild tricuspid regurgitation and mild pulmonary hypertension. Patient also has sleep apnea but is noncompliant with CPAP. states that she received a call from this facility stating that he had fallen onto the ground. The reports that he frequently will get down on the floor on his hands and knees when he cannot breathe. was adamant that the patient did not fall and therefore EMS was n ot called. Later on that day the patient was having increased respirations and hypoxia. Patient became altered and was then transferred to the hospital. Patient history reports that he should wear CPAP at night however he is noncompliant. No reports of fevers chills or cough. No cold exposure. Denies any chest pain. At this time patient is found in moderate distress with the BiPAP on. He is able to answer some questions appropriately. Respirations are even and labored. With the use of accessory muscles. WBC 23.4, hemoglobin 8.0, platelets 321, potassium 4.4, carbon dioxide 93, BUN 83, creatinine 1.71 lactic acid 1.0. ABG pH 7.13, pCO2 greater than 120, pCO2 87. Chest x-ray shows a right lower lobe infiltrate. 11/09: Patient remains on the BiPAP machine. He is able to answer questions appropriately. Continues to have minimal distress. No longer using accessory muscles. Ecchymosis noted to bilateral lower extremities with edema. Patient remains afebrile, heart rate 80, blood pressure 139/66, pulse ox 93% on BiPAP. He received 20.7, hemoglobin 8.7, potassium 4.2, BUN 71, creatinine 1.75. No growth from blood cultures after 24 hours. 11/10: Patient states that his breathing is better today and has been transitioned to nasal cannula at 3 L pulse oxing 92%. He has been afebrile, heart rate in the 80s, blood pressure 134 over and 57. Repeat blood work reveals WBC 14, hemoglobin 7.8, platelet count 282. Sodium 139, potassium 4.2, chloride 94, CO2 38, BUN 76 and creatinine 1.42. Blood sugars are running between 100 5782. ABGs reveal pH 7.4, pCO2 65, pO2 58, bicarbonate 40, total CO2 42, O2 saturation 91. Repeat chest x-ray reveals right lower lobe infiltrate. Correlate for atelectasis and pneumonia. Patient's been seen and followed by pulmonary medicine and he is continued on IV steroids and bronchodilators. Plan is for overnight pulse, 3 study to see if he qualifies for BiPAP device at home. He may need to undergo outpatient sleep study. Lasix is on hold. 11/11: Patient continues to have shortness of breath but appears to be comfortable at rest. Patient was on BiPAP through the night and currently on oxygen at nasal cannula 3 L, heart rate in the 80s, blood pressure 116/66, afebrile. Blood sugars are running between 121 and 164. Repeat blood work ordered for tomorrow. Patient is on IV Solu-Medrol 60 mg every 6 hours, Zosyn, Pulmicort, DuoNeb treatments, IV fluids discontinued. Review of systems Constitutional: Denies chills, Denies fever, reports increased weakness lethargy and poor appetite Eyes: denies decreased vision, denies diplopia, denies discharge, denies pain Ears: deny: decreased hearing Ears, nose, mouth and throat: Denies dental pain, Denies headache, Denies nasal discharge, Denies nose pain Cardiovascular: Denies chest pain, endorses decreased exercise tolerance, Denies edema, Denies high blood pressure, Denies irregular heart beat, Denies palpitations, Denies paroxysmal nocturnal dyspnea, Denies rapid heart beat, reports shortness of breath Respiratory: Denies congestion, Denies cough, endorses cough with sputum, endorses dyspnea, endorses home oxygen, Denies wheezing Gastrointestinal: Denies abdominal pain, Denies change in bowel habits, Denies coffee ground emesis, Denies early satiety, Denies excessive gas, Denies heartburn, Denies loss of appetite, Denies nausea, Denies vomiting Genitourinary: Denies dysuria, Denies flank pain, Denies kidney stones, Denies menorrhagia, Denies urgency, Denies urinary frequency Musculoskeletal: Denies gait dysfunction, Denies limitation of motion, Denies morning stiffness, Denies muscle cramps Integumentary: Denies rash, Denies wounds, Denies brittle nails, Denies change in hair/nails, Denies darkening of skin Neurological: Denies balance difficulties, Denies change in speech, Denies double vision, Denies gait dysfunction, Denies loss of vision, Denies motor disturbance, Denies numbness, Denies paralysis, Denies paresthesias, Denies seizures Psychiatric: Denies anxiety, Denies depression Endocrine: Denies excessive sweating, Denies excessive thirst, Denies high blood sugars, Denies palpitations Hematologic/Lymphatic: Denies easy bruising, Denies lymphadenopathy Physical exam General Appearance: Alert, cooperative, moderate distress, this is a 75-year-old male who appears stated age. Neck HEENT: Supple, no lymphadenopathy, no thyroid enlargement, no carotid bruits. Lungs: Diminished, no deformity. Chest Wall: Chest wall labored expansion, no tenderness and no deformity was found on exam, no costochondral pain or discomfort. Heart: Regular rate and rhythm, S1, S2 normal, no murmur, rub or gallop. Back: Symmetric, no curvature, ROM normal, no CVA tenderness. Abdomen: Soft, non-tender, no rebound or rigidity, no hepatosplenomegaly. Extremities: Extremities normal, atraumatic, no cyanosis or edema. Pulses: 2+ and symmetric. Skin: Skin color, texture, tugor normal, no rashes or lesions. Neurologic: Alert oriented x3 cranial nerves II through XII intact, no motor deficit, no abnormal balance or gait Assessment and plan 1. Acute hypoxic hypercapnic respiratory failure secondary to COPD exacerbation with interstitial lung disease, left lower lobe pneumonia. Continue BiPAP to be used during the night and during sleep transitioned to nasal cannula. DuoNeb 4 times daily and every 2 hours as needed, Pulmicort 1 mg twice daily, Perforomist twice daily, Solu-Medrol 60 mg IV every 6 hours, Zosyn 3.375 g IV piggyback every 8 hours. Pulmonary medicine consult appreciated. 2. Acute metabolic encephalopathy. Continue Zosyn. No growth after 24 hours. 3. Generalized weakness with debility PTOT consult placed. Patient may need rehab placement due to increased weakness . Fall precautions 4. History of sleep apnea with chronic CO2 retention. Patient could not tolerate CPAP and has does not radiated 5. Chronic Diastolic heart failure continue Lasix 40 mg twice a day. I&O monitoring daily weight. 6. Chronic Gout history, stable 7. Chronic CO2 retention secondary to sleep apnea. Continue BiPAP 14/6 and 45% FiO2, titrate for O2 sats ration greater than 90%. 8. Current tobacco dependency and is a current tobacco smoker. Patient counseled about tobacco cessation. Nicotine patch ordered 9. VTE prophylaxis: heparin subcu 10. GI prophylaxis: Pepcid 20 mg CODE STATUS: No code Discharge plan Return to [facility]. data operations manager and social services coordinator following. Impression and plan of care have been directed as dictated by the signing physician. Ann-Marie Ortiz nurse practitioner acting as scribe for signing physician. Objective - Vital Signs Vital signs: Vital Signs Temp 98.4 F 11/11/20 08:00 Pulse 83 11/11/20 08:00 Resp 20 11/11/20 08:00 BP 116/66 11/11/20 08:00 Pulse Ox 94 L 11/11/20 08:00 Intake & Output 11/10/20 11/11/20 11/11/20 18:59 06:59 18:59 Intake Total 1680 Output Total 1400 1200 Balance 280 -1200 Weight 96.5 kg Intake: Oral 1680 Output: Urine 1400 1200 Other: Voiding Method Indwelling Catheter Indwelling Catheter Indwelling Catheter - Labs CBC & Chem 7: 11/10/20 09:00 11/10/20 09:00 Labs: Abnormal Lab Results - Last 24 Hours (Table) 11/10/20 11/10/20 11/10/20 Range/Units 09:00 10:42 11:46 ABG pCO2 65 H (35-45) mmHg ABG pO2 58 L* (83-108) mmHg ABG HCO3 40 H* (21-25) mmol/L ABG Total CO2 42 H (19-24) mmol/L ABG O2 Saturation 91.0 L (94-97) % Chloride 94 L (98-107) mmol/L Carbon Dioxide 38 H (22-30) mmol/L BUN 76 H (9-20) mg/dL Creatinine 1.42 H (0.66-1.25) mg/dL Glucose 157 H (74-99) mg/dL POC Glucose (mg/dL) 177 H (75-99) mg/dL Total Protein 5.3 L (6.3-8.2) g/dL Albumin 2.7 L (3.5-5.0) g/dL 11/10/20 11/10/20 11/11/20 Range/Units 16:44 20:48 06:19 ABG pCO2 (35-45) mmHg ABG pO2 (83-108) mmHg ABG HCO3 (21-25) mmol/L ABG Total CO2 (19-24) mmol/L ABG O2 Saturation (94-97) % Chloride (98-107) mmol/L Carbon Dioxide (22-30) mmol/L BUN (9-20) mg/dL Creatinine (0.66-1.25) mg/dL Glucose (74-99) mg/dL POC Glucose (mg/dL) 145 H 164 H 164 H (75-99) mg/dL Total Protein (6.3-8.2) g/dL Albumin (3.5-5.0) g/dL Microbiology - Last 24 Hours (Table) 11/07/20 15:22 Blood Culture - Preliminary Blood No Growth after 72 hours
[2020-11-11 16:40] LABS: Glucose,Whole Blood 151 mg/dL (75-99)
[2020-11-11 20:26] LABS: Glucose,Whole Blood 170 mg/dL (75-99)
[2020-11-11] MEDS: MONTELUKAST 10 MG TAB PO SCH (20:35)
[2020-11-12] MEDS: methylPREDNISolone SOD SUCCI 125 MG/2 ML VIAL IV SCH ×5 (00:07→23:56)
[2020-11-12] MEDS: PIPERACILLIN-TAZOBACTAM 3.375 GM in SODIUM CHLORIDE 0.9% 100 ML IVPB SCH ×4 (00:07→23:56)
[2020-11-12 06:22] LABS: Glucose,Whole Blood 128 mg/dL (75-99)
[2020-11-12] MEDS: INSULIN ASPART (NovoLOG) 100 UNIT/ML VIAL SQ SCH ×4 (06:22→20:26)
[2020-11-12 08:21] LABS: HCT 30.2 % (39.0-53.0); HGB 8.8 gm/dL (13.0-17.5); Hypochromasia Marked; MCH 25.5 pg (25.0-35.0); MCV 87.7 fL (80.0-100.0); Mean Platelet Volume 8.7; Platelet Count 283 k/uL (150-450); RBC 3.44 m/uL (4.30-5.90); RDW 15.4 % (11.5-15.5); WBC 12.8 k/uL (3.8-10.6)
[2020-11-12] MEDS: TAMSULOSIN 0.4 MG CAP.ER.24H PO SCH (08:21)
[2020-11-12] MEDS: ASPIRIN 81 MG PO SCH (08:21)
[2020-11-12] MEDS: HEPARIN SODIUM,PORCINE/PF 5,000 UNIT/0.5 ML SYRINGE SQ SCH ×2 (08:22→20:26)
[2020-11-12] MEDS: FAMOTIDINE 20 MG TAB PO SCH (08:22)
[2020-11-12 08:29] LABS: Albumin 2.9 g/dL (3.5-5.0); Calcium 9.1 mg/dL (8.4-10.2); Potassium 4.5 mmol/L (3.5-5.1); Total Bilirubin 0.5 mg/dL (0.2-1.3); Total Protein 5.6 g/dL (6.3-8.2)
[2020-11-12] MEDS: BUDESONIDE 1 MG/2 ML NEBU INHALATION SCH ×2 (08:43→19:44)
[2020-11-12] MEDS: FORMOTEROL FUMARATE 20 MCG/2 ML NEBU INHALATION SCH ×2 (08:43→19:44)
[2020-11-12] MEDS: IPRATROPIUM-ALBUTEROL 3 ML NEB INHALATION SCH ×4 (08:43→19:44)
[2020-11-12 11:52] LABS: Glucose,Whole Blood 96 mg/dL (75-99)
[2020-11-12] MEDS: guaiFENesin 600 MG TABLET.ER PO SCH (12:17)
--- NOTE | 2020-11-12 13:25 | P.PN ---
Subjective Progress Note Date: 11/12/20 This is a 75-year-old male patient with history of advanced COPD, stage IV, on home oxygen for last 3 years, former smoker, hypertension, chronic diastolic CHF, previous history of pneumonia related to Pseudomonas, obstructive sleep apnea and the patient has been noncompliant with his CPAP, history of gout, chronic hypoxic and hypercapnic respiratory failure related to COPD. he was just discharged from here to [facility] in [facility] on 11/04/2020 following a fall at home without injury. He was felt to be having issues with ultimate mental status and shortness of breath and returned to the emergency room yesterday. Chest x-ray revealed possible right lower lobe infiltrate, possible aspiration. White count 23.4. Hemoglobin 8.1. Sodium 136. Potassium 4.4. Creatinine 1.71. Troponin 0.049, 0.0.6, 0.03. ProBNP 2640. Pro Calcitonin 0.72. Arterial blood gases on 100% FiO2 revealed a pO2 of 255, pCO2 greater than 120, pH 7.13. He was converted to BiPAP at that time. He is seen today in consultation on the regular medical floor. He is currently on BiPAP 14/6 and 40% FiO2. Poor historian. He's been initiated on bronchodilators, IV diuretics, IV Solu- Medrol, heparin for DVT prophylaxis. Antibiotics in the form of vancomycin and Zosyn. On the 11/09/2020 patient seen in follow-up on selective care unit, he is awake and alert, in no acute distress, is currently on BiPAP with pressures of 14/6 and FiO2 of 45%, he is awake, he is answering questions, she did tolerate a brief BiPAP break yesterday, he stayed on BiPAP overnight, appears to be breathing comfortably on today's exam, his been afebrile. We will attempt another nasal cannula trial. He is currently on IV steroids, he is on Zosyn and bronchodilators. No new chest x-ray today. Today's labs have been reviewed, his white blood cell count is 20.7, hemoglobin is 8.7, sodium is 139, potassium is 4.2, chloride is 93, CO2 37, BUN 71 creatinine is 1.75 On 11/10/2020 patient seen in follow-up on selective care unit. He did wear BiPAP support most of the night, with pressures of 14/60 and FiO2 of 45%, he is quite comfortable on it, tolerates it very well. This morning he was switched to nasal cannula, currently on 3 L of oxygen pulse ox is 92%, he states his breathing much improved since admission, however his been mostly in bed. Vital signs have been stable, his been afebrile. No complaints of chest discomfort, no hemoptysis. He continues on Zosyn for antibiotic coverage, he is on IV steroids with Solu-Medrol 60 mg every 6 hours, and nebulized bronchodilators. Yesterday we stopped the patient's Lasix as teen to be dehydrated, and patient was placed on IV hydration with 0.9 normal saline at a rate of 75 ML per hour, his labs have been reviewed, and his renal profile is improving, and creatinine is down to 1.42, and BUN is 76. Today's labs show improving white count which is down to 14, hemoglobin is 7.8. His Pro calcitonin was elevated at 0.72 on admission, and although patient does have abnormal renal function he was empirically covered with Zosyn. Cultures have shown no growth thus far. He has had no nausea vomiting or diarrhea. He had no fever or chills. The patient is seen today 11/11/2020 in follow-up on the selective care unit. He is currently sitting up in bed. Awake and alert in no acute distress. On 3 L nasal cannula with O2 saturations in the 90s. He did utilize BiPAP last evening set at 14/6 and 45% FiO2. ABGs obtained yesterday on 32% FiO2 revealed a PaO2 of 58, pCO2 65 and a pH is 7.40. He remains on DuoNeb inhalations, Pulmicort and Perforomist inhalations, IV Solu-Medrol. Anorexia form of Zosyn. Heparin for DVT prophylaxis. He's been afebrile. Hemodynamically stable. Blood culture reveals no growth. Glucose 164. The patient is seen today 11/12/2020 and follow-up on the selective care unit. He remains awake and alert in no acute distress. He states he is not breathing much better today compared to yesterday. He is however maintaining good O2 s aturations on 3 L/m per nasal cannula. White count 12.8. Hemoglobin 8.8. Sodium 140. Potassium 4.5. Bicarb 40. Creatinine 1.29. He remains on DuoNeb inhalations, Pulmicort and Perforomist inhalations, IV Solu-Medrol, Mucinex, Zosyn. Heparin for DVT prophylaxis. Objective - Vital Signs Vital signs: Vital Signs Temp 98.4 F 11/12/20 04:00 Pulse 79 11/12/20 12:00 Resp 18 11/12/20 12:00 BP 149/80 11/12/20 12:00 Pulse Ox 94 L 11/12/20 12:00 Intake & Output 11/11/20 11/12/20 11/12/20 18:59 06:59 18:59 Intake Total 420 580 180 Output Total 1125 800 900 Balance -807 -480 -094 Weight 105.5 kg Intake: Intake, IV Titration 100 Amount Piperacillin-Tazobactam 3 100 .375 gm In Sodium Chloride 0.9% 100 ml @ 25 mls/hr IVPB Q8HR [facility] Rx# :[id number] Oral 420 480 180 Output: Urine 1125 800 900 Other: Voiding Method Indwelling Catheter Indwelling Catheter Indwelling Catheter - Exam GENERAL EXAM: Alert, pleasant, 75-year-old male patient, on oxygen at 3 L/m per nasal cannula with O2 saturation of 94%, fairly comfortable in no apparent distress. HEAD: Normocephalic/atraumatic. EYES: Normal reaction of pupils, equal size. Conjunctiva pink, sclera white. NOSE: Clear with pink turbinates. THROAT: No erythema or exudates. NECK: No masses, no JVD, no thyroid enlargement, no adenopathy. CHEST: No chest wall deformity. Symmetrical expansion. LUNGS: Equal air entry with bilateral scattered rhonchi, crackles in the right lung base, diminished CVS: Regular rate and rhythm, normal S1 and S2, no gallops, no murmurs, no rubs ABDOMEN: Soft, nontender. No hepatosplenomegaly, normal bowel sounds, no guarding or rigidity. EXTREMITIES: No clubbing, no edema, no cyanosis, 2+ pulses and upper and lower extremities. MUSCULOSKELETAL: Muscle strength and tone normal. SPINE: No scoliosis or deformity SKIN: No rashes CENTRAL NERVOUS SYSTEM: No focal deficits, tone is normal in all 4 extremities. PSYCHIATRIC: Alert and oriented -3. Appropriate affect. Intact judgment and insight. - Labs CBC & Chem 7: 11/12/20 07:58 11/12/20 07:58 Labs: Abnormal Lab Results - Last 24 Hours (Table) 11/11/20 11/11/20 11/12/20 Range/Units 16:39 20:25 06:20 WBC (3.8-10.6) k/uL RBC (4.30-5.90) m/uL Hgb (13.0-17.5) gm/dL Hct (39.0-53.0) % MCHC (31.0-37.0) g/dL Carbon Dioxide (22-30) mmol/L BUN (9-20) mg/dL Creatinine (0.66-1.25) mg/dL Glucose (74-99) mg/dL POC Glucose (mg/dL) 151 H 170 H 128 H (75-99) mg/dL Total Protein (6.3-8.2) g/dL Albumin (3.5-5.0) g/dL 11/12/20 11/12/20 Range/Units 07:58 07:58 WBC 12.8 H (3.8-10.6) k/uL RBC 3.44 L (4.30-5.90) m/uL Hgb 8.8 L (13.0-17.5) gm/dL Hct 30.2 L (39.0-53.0) % MCHC 29.0 L (31.0-37.0) g/dL Carbon Dioxide 40 H (22-30) mmol/L BUN 59 H (9-20) mg/dL Creatinine 1.29 H (0.66-1.25) mg/dL Glucose 118 H (74-99) mg/dL POC Glucose (mg/dL) (75-99) mg/dL Total Protein 5.6 L (6.3-8.2) g/dL Albumin 2.9 L (3.5-5.0) g/dL Microbiology - Last 24 Hours (Table) 11/07/20 15:22 Blood Culture - Preliminary Blood No Growth after 96 hours Assessment and Plan Assessment: 1 Acute hypercapnic/hypoxemic respiratory failure secondary to an acute exacerbation of COPD and possible right lower lobe pneumonia 2 Chronic hypoxic respiratory failure related to advanced COPD, stage IV, usually wears 3 L of oxygen at home 3 Current and ongoing history of smoking 4 A fall at home, without injury 5 Interstitial prominence seen on the chest x-ray, high resolution CT chest did not show evidence of fibrosis, and showed mainly emphysematous changes 6 History of sleep apnea, patient was intolerant to CPAP 7 Chronic diastolic CHF 8 History of gout Plan: The patient was seen and evaluated by Dr. Ibarra Continue DuoNeb inhalations, Mucinex, IV Solu-Medrol, antibiotics He has been slow to progress Overall prognosis remains quite guarded DO NOT RESUSCITATE/DO NOT INTUBATE CODE STATUS We will continue to follow I, the cosigning physician, performed a history & physical examination of the patient. Lungs sounds bilateral scattered rhonchi, crackles in the right lung base, diminished. Maintaining good O2 saturations in the 90s on oxygen at 3 L/m per nasal cannula. I discussed the assessment and plan of care with my nurse practitioner, Adriana Cornejo. I attest to the above note as dictated by her.
--- NOTE | 2020-11-12 14:39 | P.PN ---
Subjective Progress Note Date: 11/12/20 This is a 75 years old male patient of Dr. Chu present with past medical history of hypertension, COPD, wears 3 L of oxygen with diastolic CHF was recently discharged on 11/04/2020. Due to shortness of breath and extreme right leg pain for the past week. Patient went to [facility]. Previously patient has a history of intubation for 48 hours with presentation of unresponsiveness and hypoxia. Patient was intubated again in 2018 when patient was found to be unresponsive and short of breath. Patient was treated for diastolic CHF, COPD and Pseudomonas pneumonia. Echocardiogram obtained at that time suggested EF of 60-65% with borderline concentric left ventricular hypertrophy mild tricuspid regurgitation and mild pulmonary hypertension. Patient also has sleep apnea but is noncompliant with CPAP. states that she received a call from this facility stating that he had fallen onto the ground. The reports that he frequently will get down on the floor on his hands and knees when he cannot breathe. was adamant that the patient did not fall and therefore EMS was n ot called. Later on that day the patient was having increased respirations and hypoxia. Patient became altered and was then transferred to the hospital. Patient history reports that he should wear CPAP at night however he is noncompliant. No reports of fevers chills or cough. No cold exposure. Denies any chest pain. At this time patient is found in moderate distress with the BiPAP on. He is able to answer some questions appropriately. Respirations are even and labored. With the use of accessory muscles. WBC 23.4, hemoglobin 8.0, platelets 321, potassium 4.4, carbon dioxide 93, BUN 83, creatinine 1.71 lactic acid 1.0. ABG pH 7.13, pCO2 greater than 120, pCO2 87. Chest x-ray shows a right lower lobe infiltrate. 11/09: Patient remains on the BiPAP machine. He is able to answer questions appropriately. Continues to have minimal distress. No longer using accessory muscles. Ecchymosis noted to bilateral lower extremities with edema. Patient remains afebrile, heart rate 80, blood pressure 139/66, pulse ox 93% on BiPAP. He received 20.7, hemoglobin 8.7, potassium 4.2, BUN 71, creatinine 1.75. No growth from blood cultures after 24 hours. 11/10: Patient states that his breathing is better today and has been transitioned to nasal cannula at 3 L pulse oxing 92%. He has been afebrile, heart rate in the 80s, blood pressure 134 over and 57. Repeat blood work reveals WBC 14, hemoglobin 7.8, platelet count 282. Sodium 139, potassium 4.2, chloride 94, CO2 38, BUN 76 and creatinine 1.42. Blood sugars are running between 100 5782. ABGs reveal pH 7.4, pCO2 65, pO2 58, bicarbonate 40, total CO2 42, O2 saturation 91. Repeat chest x-ray reveals right lower lobe infiltrate. Correlate for atelectasis and pneumonia. Patient's been seen and followed by pulmonary medicine and he is continued on IV steroids and bronchodilators. Plan is for overnight pulse, 3 study to see if he qualifies for BiPAP device at home. He may need to undergo outpatient sleep study. Lasix is on hold. 11/11: Patient continues to have shortness of breath but appears to be comfortable at rest. Patient was on BiPAP through the night and currently on oxygen at nasal cannula 3 L, heart rate in the 80s, blood pressure 116/66, afebrile. Blood sugars are running between 121 and 164. Repeat blood work ordered for tomorrow. Patient is on IV Solu-Medrol 60 mg every 6 hours, Zosyn, Pulmicort, DuoNeb treatments, IV fluids discontinued. 11/12: Patient continues to complain of cough and not being able to bring up his sputum. We have added and Mucinex and incentive spirometry. Patient continues to have shortness of breath with minimal activity. Patient has been afebrile, heart rate 90, blood pressure 149/80, pulse ox 94% on 3 L nasal cannula. WBC 12.8, hemoglobin 8.8, platelet count 283. CO2 is 40, BUN 59 creatinine 1.29. Blood sugars ran between 96 and 170. Patient's , Cherrie, contacted via phone and updated regarding patient's condition, plan and prognosis. Patient at this point may be chronic candidate for palliative care and transition to hospice care. factory manager will follow-up if palliative care can be performed at [facility]. Review of systems Constitutional: Denies chills, Denies fever, reports increased weakness lethargy and poor appetite Eyes: denies decreased vision, denies diplopia, denies discharge, denies pain Ears: deny: decreased hearing Ears, nose, mouth and throat: Denies dental pain, Denies headache, Denies nasal discharge, Denies nose pain Cardiovascular: Denies chest pain, endorses decreased exercise tolerance, Denies edema, Denies high blood pressure, Denies irregular heart beat, Denies palpitations, Denies paroxysmal nocturnal dyspnea, Denies rapid heart beat, reports shortness of breath Respiratory: Denies congestion, Denies cough, endorses cough with sputum, endorses dyspnea, endorses home oxygen, Denies wheezing Gastrointestinal: Denies abdominal pain, Denies change in bowel habits, Denies coffee ground emesis, Denies early satiety, Denies excessive gas, Denies heartburn, Denies loss of appetite, Denies nausea, Denies vomiting Genitourinary: Denies dysuria, Denies flank pain, Denies kidney stones, Denies menorrhagia, Denies urgency, Denies urinary frequency Musculoskeletal: Denies gait dysfunction, Denies limitation of motion, Denies morning stiffness, Denies muscle cramps Integumentary: Denies rash, Denies wounds, Denies brittle nails, Denies change in hair/nails, Denies darkening of skin Neurological: Denies balance difficulties, Denies change in speech, Denies double vision, Denies gait dysfunction, Denies loss of vision, Denies motor disturbance, Denies numbness, Denies paralysis, Denies paresthesias, Denies seizures Psychiatric: Denies anxiety, Denies depression Endocrine: Denies excessive sweating, Denies excessive thirst, mildly elevated blood sugars, Denies palpitations Hematologic/Lymphatic: Denies easy bruising, Denies lymphadenopathy Physical exam General Appearance: Alert, cooperative, moderate distress, this is a 75-year-old male who appears stated age. Neck HEENT: Supple, no lymphadenopathy, no thyroid enlargement, no carotid bruits. Lungs: Diminished, no deformity. Chest Wall: Chest wall labored expansion, no tenderness and no deformity was found on exam, no costochondral pain or discomfort. Heart: Regular rate and rhythm, S1, S2 normal, no murmur, rub or gallop. Back: Symmetric, no curvature, ROM normal, no CVA tenderness. Abdomen: Soft, non-tender, no rebound or rigidity, no hepatosplenomegaly. Extremities: Extremities normal, atraumatic, no cyanosis or edema. Pulses: 2+ and symmetric. Skin: Skin color, texture, tugor normal, no rashes or lesions. Neurologic: Alert oriented x3 cranial nerves II through XII intact, no motor deficit, no abnormal balance or gait Assessment and plan 1. Acute hypoxic hypercapnic respiratory failure secondary to COPD exacerbation with interstitial lung disease, left lower lobe pneumonia. Continue BiPAP to be used during the night and during sleep transitioned to nasal cannula. DuoNeb 4 times daily and every 2 hours as needed, Pulmicort 1 mg twice daily, Perforomist twice daily, Solu-Medrol 60 mg IV every 6 hours, Zosyn 3.375 g IV piggyback every 8 hours, add Mucinex and incentive spirometry. Pulmonary medicine consult appreciated. 2. Acute metabolic encephalopathy. Continue Zosyn. No growth after 24 hours. 3. Generalized weakness with debility PTOT consult placed. Patient may need rehab placement due to increased weakness . Fall precautions 4. History of sleep apnea with chronic CO2 retention. Patient could not tolerate CPAP and has does not radiated 5. Chronic Diastolic heart failure continue Lasix 40 mg twice a day. I&O monitoring daily weight. 6. Chronic Gout history, stable 7. Chronic CO2 retention secondary to sleep apnea. Continue BiPAP 14/6 and 45% FiO2, titrate for O2 sats ration greater than 90%. 8. Current tobacco dependency and is a current tobacco smoker. Patient counseled about tobacco cessation. Nicotine patch ordered 9. VTE prophylaxis: heparin subcu 10. GI prophylaxis: Pepcid 20 mg CODE STATUS: No code Discharge plan Return to [facility]. factory manager and social service technician following. Recommend palliative care and most likely transition to hospice care in the [facility] Impression and plan of care have been directed as dictated by the signing physician. Ann-Marie Ortiz nurse practitioner acting as scribe for signing physician. Objective - Vital Signs Vital signs: Vital Signs Temp 98.4 F 11/12/20 04:00 Pulse 90 11/12/20 09:05 Resp 22 11/12/20 09:05 BP 120/74 11/12/20 08:00 Pulse Ox 99 11/12/20 08:00 Intake & Output 11/11/20 11/12/20 11/12/20 18:59 06:59 18:59 Intake Total 420 580 180 Output Total 1125 800 Balance -705 -220 180 Weight 105.5 kg Intake: Intake, IV Titration 100 Amount Piperacillin-Tazobactam 3 100 .375 gm In Sodium Chloride 0.9% 100 ml @ 25 mls/hr IVPB Q8HR [facility] Rx# :[id number] Oral 420 480 180 Output: Urine 1125 800 Other: Voiding Method Indwelling Catheter Indwelling Catheter Indwelling Catheter - Labs CBC & Chem 7: 11/12/20 07:58 11/12/20 07:58 Labs: Abnormal Lab Results - Last 24 Hours (Table) 11/11/20 11/11/20 11/11/20 Range/Units 11:48 16:39 20:25 WBC (3.8-10.6) k/uL RBC (4.30-5.90) m/uL Hgb (13.0-17.5) gm/dL Hct (39.0-53.0) % MCHC (31.0-37.0) g/dL Carbon Dioxide (22-30) mmol/L BUN (9-20) mg/dL Creatinine (0.66-1.25) mg/dL Glucose (74-99) mg/dL POC Glucose (mg/dL) 121 H 151 H 170 H (75-99) mg/dL Total Protein (6.3-8.2) g/dL Albumin (3.5-5.0) g/dL 11/12/20 11/12/20 11/12/20 Range/Units 06:20 07:58 07:58 WBC 12.8 H (3.8-10.6) k/uL RBC 3.44 L (4.30-5.90) m/uL Hgb 8.8 L (13.0-17.5) gm/dL Hct 30.2 L (39.0-53.0) % MCHC 29.0 L (31.0-37.0) g/dL Carbon Dioxide 40 H (22-30) mmol/L BUN 59 H (9-20) mg/dL Creatinine 1.29 H (0.66-1.25) mg/dL Glucose 118 H (74-99) mg/dL POC Glucose (mg/dL) 128 H (75-99) mg/dL Total Protein 5.6 L (6.3-8.2) g/dL Albumin 2.9 L (3.5-5.0) g/dL Microbiology - Last 24 Hours (Table) 11/07/20 15:22 Blood Culture - Preliminary Blood No Growth after 96 hours
[2020-11-12 16:46] LABS: Glucose,Whole Blood 190 mg/dL (75-99)
[2020-11-12 20:10] LABS: Glucose,Whole Blood 153 mg/dL (75-99)
[2020-11-12] MEDS: MONTELUKAST 10 MG TAB PO SCH (20:26)
[2020-11-13] MEDS: IPRATROPIUM-ALBUTEROL 3 ML NEB INHALATION PRN (01:24)
[2020-11-13 06:08] LABS: Glucose,Whole Blood 151 mg/dL (75-99)
--- NOTE | 2020-11-13 07:35 | XR ---
EXAMINATION TYPE: XR chest 1V portable DATE OF EXAM: 11/13/2020 Comparison: 11/10/2020 Clinical History: 75-year-old male RLL pneumonia Findings: Heart upper limits of normal in size. Hyperinflation. Diffuse interstitial opacities persist, greates t in the mid and lower lungs. Mild patchy density right base is similar. Impression: Borderline cardiomegaly and COPD. Interstitial opacities mid and lower lungs persist, possible pulmon chiquita vascular congestion or atypical pneumonia. Persistent patchy right basilar atelectasis or infiltrate.
[2020-11-13] MEDS: methylPREDNISolone SOD SUCCI 125 MG/2 ML VIAL IV SCH ×3 (07:55→17:45)
[2020-11-13] MEDS: INSULIN ASPART (NovoLOG) 100 UNIT/ML VIAL SQ SCH ×4 (07:55→20:31)
[2020-11-13] MEDS: ASPIRIN 81 MG PO SCH (08:22)
[2020-11-13] MEDS: FAMOTIDINE 20 MG TAB PO SCH (08:23)
[2020-11-13] MEDS: PIPERACILLIN-TAZOBACTAM 3.375 GM in SODIUM CHLORIDE 0.9% 100 ML IVPB SCH ×2 (08:23→16:05)
[2020-11-13] MEDS: TAMSULOSIN 0.4 MG CAP.ER.24H PO SCH (08:23)
[2020-11-13] MEDS: HEPARIN SODIUM,PORCINE/PF 5,000 UNIT/0.5 ML SYRINGE SQ SCH ×2 (08:23→20:31)
[2020-11-13] MEDS: guaiFENesin 600 MG TABLET.ER PO SCH (08:23)
[2020-11-13] MEDS: BUDESONIDE 1 MG/2 ML NEBU INHALATION SCH ×2 (08:53→20:16)
[2020-11-13] MEDS: IPRATROPIUM-ALBUTEROL 3 ML NEB INHALATION SCH ×4 (08:53→20:17)
[2020-11-13] MEDS: FORMOTEROL FUMARATE 20 MCG/2 ML NEBU INHALATION SCH ×2 (08:53→20:16)
--- NOTE | 2020-11-13 10:41 | P.PN ---
Subjective Progress Note Date: 11/13/20 This is a 75-year-old male patient with history of advanced COPD, stage IV, on home oxygen for last 3 years, former smoker, hypertension, chronic diastolic CHF, previous history of pneumonia related to Pseudomonas, obstructive sleep apnea and the patient has been noncompliant with his CPAP, history of gout, chronic hypoxic and hypercapnic respiratory failure related to COPD. he was just discharged from here to [facility] in [facility] on 11/04/2020 following a fall at home without injury. He was felt to be having issues with ultimate mental status and shortness of breath and returned to the emergency room yesterday. Chest x-ray revealed possible right lower lobe infiltrate, possible aspiration. White count 23.4. Hemoglobin 8.1. Sodium 136. Potassium 4.4. Creatinine 1.71. Troponin 0.049, 0.0.6, 0.03. ProBNP 2640. Pro Calcitonin 0.72. Arterial blood gases on 100% FiO2 revealed a pO2 of 255, pCO2 greater than 120, pH 7.13. He was converted to BiPAP at that time. He is seen today in consultation on the regular medical floor. He is currently on BiPAP 14/6 and 40% FiO2. Poor historian. He's been initiated on bronchodilators, IV diuretics, IV Solu- Medrol, heparin for DVT prophylaxis. Antibiotics in the form of vancomycin and Zosyn. On the 11/09/2020 patient seen in follow-up on selective care unit, he is awake and alert, in no acute distress, is currently on BiPAP with pressures of 14/6 and FiO2 of 45%, he is awake, he is answering questions, she did tolerate a brief BiPAP break yesterday, he stayed on BiPAP overnight, appears to be breathing comfortably on today's exam, his been afebrile. We will attempt another nasal cannula trial. He is currently on IV steroids, he is on Zosyn and bronchodilators. No new chest x-ray today. Today's labs have been reviewed, his white blood cell count is 20.7, hemoglobin is 8.7, sodium is 139, potassium is 4.2, chloride is 93, CO2 37, BUN 71 creatinine is 1.75 On 11/10/2020 patient seen in follow-up on selective care unit. He did wear BiPAP support most of the night, with pressures of 14/60 and FiO2 of 45%, he is quite comfortable on it, tolerates it very well. This morning he was switched to nasal cannula, currently on 3 L of oxygen pulse ox is 92%, he states his breathing much improved since admission, however his been mostly in bed. Vital signs have been stable, his been afebrile. No complaints of chest discomfort, no hemoptysis. He continues on Zosyn for antibiotic coverage, he is on IV steroids with Solu-Medrol 60 mg every 6 hours, and nebulized bronchodilators. Yesterday we stopped the patient's Lasix as teen to be dehydrated, and patient was placed on IV hydration with 0.9 normal saline at a rate of 75 ML per hour, his labs have been reviewed, and his renal profile is improving, and creatinine is down to 1.42, and BUN is 76. Today's labs show improving white count which is down to 14, hemoglobin is 7.8. His Pro calcitonin was elevated at 0.72 on admission, and although patient does have abnormal renal function he was empirically covered with Zosyn. Cultures have shown no growth thus far. He has had no nausea vomiting or diarrhea. He had no fever or chills. The patient is seen today 11/11/2020 in follow-up on the selective care unit. He is currently sitting up in bed. Awake and alert in no acute distress. On 3 L nasal cannula with O2 saturations in the 90s. He did utilize BiPAP last evening set at 14/6 and 45% FiO2. ABGs obtained yesterday on 32% FiO2 revealed a PaO2 of 58, pCO2 65 and a pH is 7.40. He remains on DuoNeb inhalations, Pulmicort and Perforomist inhalations, IV Solu-Medrol. Anorexia form of Zosyn. Heparin for DVT prophylaxis. He's been afebrile. Hemodynamically stable. Blood culture reveals no growth. Glucose 164. The patient is seen today 11/12/2020 and follow-up on the selective care unit. He remains awake and alert in no acute distress. He states he is not breathing much better today compared to yesterday. He is however maintaining good O2 s aturations on 3 L/m per nasal cannula. White count 12.8. Hemoglobin 8.8. Sodium 140. Potassium 4.5. Bicarb 40. Creatinine 1.29. He remains on DuoNeb inhalations, Pulmicort and Perforomist inhalations, IV Solu-Medrol, Mucinex, Zosyn. Heparin for DVT prophylaxis. The patient is seen today 11/13/2020 in follow-up on the selective care unit. He is awake and alert in no acute distress. Better today compared to yesterday. Maintaining O2 saturations in the 90s on 3 L/m per nasal cannula. He's been afebrile. Hemodynamically stable. Chest x-ray reveals cardiomegaly and COPD. Some interstitial opacities in the lower lungs persists. Some vascular congestion. Right basilar atelectasis. Blood glucose 151. He remains on DuoNeb inhalations, Pulmicort and Perforomist inhalations, IV Solu-Medrol, Mucinex, Zosyn. Heparin for DVT prophylaxis. Objective - Vital Signs Vital signs: Vital Signs Temp 98 F 11/13/20 07:34 Pulse 80 11/13/20 09:21 Resp 16 11/13/20 07:34 BP 148/67 11/13/20 07:34 Pulse Ox 92 L 11/13/20 07:34 Intake & Output 11/12/20 11/13/20 11/13/20 18:59 06:59 18:59 Intake Total 860 Output Total 1475 900 Balance -615 -900 Weight 96 kg Intake: Intake, IV Titration 200 Amount Piperacillin-Tazobactam 3 200 .375 gm In Sodium Chloride 0.9% 100 ml @ 25 mls/hr IVPB Q8HR [facility] Rx# :[id number] Oral 660 Output: Urine 1475 900 Other: Voiding Method Indwelling Catheter Indwelling Catheter Indwelling Catheter # Voids 1 - Exam GENERAL EXAM: Alert, pleasant, 75-year-old male patient, on oxygen at 3 L/m with O2 saturation of 92%, fairly comfortable in no apparent distress. HEAD: Normocephalic/atraumatic. EYES: Normal reaction of pupils, equal size. Conjunctiva pink, sclera white. NOSE: Clear with pink turbinates. THROAT: No erythema or exudates. NECK: No masses, no JVD, no thyroid enlargement, no adenopathy. CHEST: No chest wall deformity. Symmetrical expansion. LUNGS: Equal air entry with bilateral scattered rhonchi, crackles in the right lung base, diminished CVS: Regular rate and rhythm, normal S1 and S2, no gallops, no murmurs, no rubs ABDOMEN: Soft, nontender. No hepatosplenomegaly, normal bowel sounds, no guarding or rigidity. EXTREMITIES: No clubbing, no edema, no cyanosis, 2+ pulses and upper and lower extremities. MUSCULOSKELETAL: Muscle strength and tone normal. SPINE: No scoliosis or deformity SKIN: No rashes CENTRAL NERVOUS SYSTEM: No focal deficits, tone is normal in all 4 extremities. PSYCHIATRIC: Alert and oriented -3. Appropriate affect. Intact judgment and insight. - Labs CBC & Chem 7: 11/12/20 07:58 11/12/20 07:58 Labs: Abnormal Lab Results - Last 24 Hours (Table) 11/12/20 11/12/20 11/13/20 Range/Units 16:45 20:08 06:07 POC Glucose (mg/dL) 190 H 153 H 151 H (75-99) mg/dL Microbiology - Last 24 Hours (Table) 11/07/20 15:22 Blood Culture - Preliminary Blood No Growth after 120 hours Assessment and Plan Assessment: 1 Acute hypercapnic/hypoxemic respiratory failure secondary to an acute exacerbation of COPD and possible right lower lobe pneumonia 2 Chronic hypoxic respiratory failure related to advanced COPD, stage IV, usually wears 3 L of oxygen at home 3 Current and ongoing history of smoking 4 A fall at home, without injury 5 Interstitial prominence seen on the chest x-ray, high resolution CT chest did not show evidence of fibrosis, and showed mainly emphysematous changes 6 History of sleep apnea, patient was intolerant to CPAP 7 Chronic diastolic CHF 8 History of gout Plan: The patient was seen and evaluated by Dr. Ibarra Continue DuoNeb inhalations, Mucinex, IV Solu-Medrol, antibiotics He has been slow to progress Plan is for return to [facility] We will continue to follow I, the cosigning physician, performed a history & physical examination of the patient. Lungs sounds bilateral scattered rhonchi, crackles in the right lung base, diminished. Maintaining good O2 saturations in the 90s on oxygen at 3 L/m per nasal cannula. I discussed the assessment and plan of care with my nurse practitioner, Adriana Cornejo. I attest to the above note as dictated by her.
[2020-11-13 11:18] VITALS: BMI 30.3
[2020-11-13 11:55] LABS: Glucose,Whole Blood 154 mg/dL (75-99)
--- NOTE | 2020-11-13 12:26 | P.PN ---
Subjective Progress Note Date: 11/13/20 This is a 75 years old male patient of Dr. Chu present with past medical history of hypertension, COPD, wears 3 L of oxygen with diastolic CHF was recently discharged on 11/04/2020. Due to shortness of breath and extreme right leg pain for the past week. Patient went to [facility]. Previously patient has a history of intubation for 48 hours with presentation of unresponsiveness and hypoxia. Patient was intubated again in 2018 when patient was found to be unresponsive and short of breath. Patient was treated for diastolic CHF, COPD and Pseudomonas pneumonia. Echocardiogram obtained at that time suggested EF of 60-65% with borderline concentric left ventricular hypertrophy mild tricuspid regurgitation and mild pulmonary hypertension. Patient also has sleep apnea but is noncompliant with CPAP. states that she received a call from this facility stating that he had fallen onto the ground. The reports that he frequently will get down on the floor on his hands and knees when he cannot breathe. was adamant that the patient did not fall and therefore EMS was n ot called. Later on that day the patient was having increased respirations and hypoxia. Patient became altered and was then transferred to the hospital. Patient history reports that he should wear CPAP at night however he is noncompliant. No reports of fevers chills or cough. No cold exposure. Denies any chest pain. At this time patient is found in moderate distress with the BiPAP on. He is able to answer some questions appropriately. Respirations are even and labored. With the use of accessory muscles. WBC 23.4, hemoglobin 8.0, platelets 321, potassium 4.4, carbon dioxide 93, BUN 83, creatinine 1.71 lactic acid 1.0. ABG pH 7.13, pCO2 greater than 120, pCO2 87. Chest x-ray shows a right lower lobe infiltrate. 11/09: Patient remains on the BiPAP machine. He is able to answer questions appropriately. Continues to have minimal distress. No longer using accessory muscles. Ecchymosis noted to bilateral lower extremities with edema. Patient remains afebrile, heart rate 80, blood pressure 139/66, pulse ox 93% on BiPAP. He received 20.7, hemoglobin 8.7, potassium 4.2, BUN 71, creatinine 1.75. No growth from blood cultures after 24 hours. 11/10: Patient states that his breathing is better today and has been transitioned to nasal cannula at 3 L pulse oxing 92%. He has been afebrile, heart rate in the 80s, blood pressure 134 over and 57. Repeat blood work reveals WBC 14, hemoglobin 7.8, platelet count 282. Sodium 139, potassium 4.2, chloride 94, CO2 38, BUN 76 and creatinine 1.42. Blood sugars are running between 100 5782. ABGs reveal pH 7.4, pCO2 65, pO2 58, bicarbonate 40, total CO2 42, O2 saturation 91. Repeat chest x-ray reveals right lower lobe infiltrate. Correlate for atelectasis and pneumonia. Patient's been seen and followed by pulmonary medicine and he is continued on IV steroids and bronchodilators. Plan is for overnight pulse, 3 study to see if he qualifies for BiPAP device at home. He may need to undergo outpatient sleep study. Lasix is on hold. 11/11: Patient continues to have shortness of breath but appears to be comfortable at rest. Patient was on BiPAP through the night and currently on oxygen at nasal cannula 3 L, heart rate in the 80s, blood pressure 116/66, afebrile. Blood sugars are running between 121 and 164. Repeat blood work ordered for tomorrow. Patient is on IV Solu-Medrol 60 mg every 6 hours, Zosyn, Pulmicort, DuoNeb treatments, IV fluids discontinued. 11/12: Patient continues to complain of cough and not being able to bring up his sputum. We have added and Mucinex and incentive spirometry. Patient continues to have shortness of breath with minimal activity. Patient has been afebrile, heart rate 90, blood pressure 149/80, pulse ox 94% on 3 L nasal cannula. WBC 12.8, hemoglobin 8.8, platelet count 283. CO2 is 40, BUN 59 creatinine 1.29. Blood sugars ran between 96 and 170. Patient's , Cherrie, contacted via phone and updated regarding patient's condition, plan and prognosis. Patient at this point may be chronic candidate for palliative care and transition to hospice care. manager maritime will follow-up if palliative care can be performed at [facility]. 11/13: She states that his breathing is improved from yesterday. He has less cough and less phlegm production and congestion. He has been afebrile, heart rate 70, blood pressure 149/68, pulse ox 93% on 3 L nasal cannula. Capillary blood glucose running between 151 and 190. Blood culture from 11/07 is no growth. Repeat chest x-ray reveals borderline cardiomegaly and COPD. Interstitial opacities mid and lower lungs persists, possible pulmonary vascular congestion or atypical pneumonia. Persistent patchy right basilar atelectasis or infiltrate. Anticipate discharge back to [facility] tomorrow. Review of systems Constitutional: Denies chills, Denies fever, reports increased weakness lethargy and poor appetite Eyes: denies decreased vision, denies diplopia, denies discharge, denies pain Ears, nose, mouth and throat: Denies dental pain, Denies headache, Denies nasal discharge, Denies nose pain Cardiovascular: Denies chest pain, endorses decreased exercise tolerance, Denies edema, Denies high blood pressure, Denies irregular heart beat, Denies palpitations, Denies paroxysmal nocturnal dyspnea, Denies rapid heart beat, reports shortness of breath Respiratory: Denies congestion, Denies cough, endorses cough with sputum, endorses dyspnea, endorses home oxygen, Denies wheezing Gastrointestinal: Denies abdominal pain, Denies change in bowel habits, Denies coffee ground emesis, Denies early satiety, Denies excessive gas, Denies heartburn, Denies loss of appetite, Denies nausea, Denies vomiting Genitourinary: Denies dysuria, Denies flank pain, Denies kidney stones, Denies menorrhagia, Denies urgency, Denies urinary frequency Musculoskeletal: Denies gait dysfunction, Denies limitation of motion, Denies morning stiffness, Denies muscle cramps Integumentary: Denies rash, Denies wounds, Denies brittle nails, Denies change in hair/nails, Denies darkening of skin Neurological: Denies balance difficulties, Denies change in speech, Denies double vision, Denies gait dysfunction, Denies loss of vision, Denies motor disturbance, Denies numbness, Denies paralysis, Denies paresthesias, Denies seiz ures Psychiatric: Denies anxiety, Denies depression Endocrine: Denies excessive sweating, Denies excessive thirst, mildly elevated blood sugars, Denies palpitations Hematologic/Lymphatic: Denies easy bruising, Denies lymphadenopathy Physical exam General Appearance: Alert, cooperative, no distress, this is a 75-year-old male who appears stated age. Neck HEENT: Supple, no lymphadenopathy, no thyroid enlargement, no carotid bruits. Lungs: Diminished, no deformity. Chest Wall: Chest wall labored expansion, no tenderness and no deformity was fo und on exam, no costochondral pain or discomfort. Heart: Regular rate and rhythm, S1, S2 normal, no murmur, rub or gallop. Back: Symmetric, no curvature, ROM normal, no CVA tenderness. Abdomen: Soft, non-tender, no rebound or rigidity, no hepatosplenomegaly. Extremities: Extremities normal, atraumatic, no cyanosis or edema. Pulses: 2+ and symmetric. Skin: Skin color, texture, tugor normal, no rashes or lesions. Neurologic: Alert oriented x3 cranial nerves II through XII intact, no motor deficit, no abnormal balance or gait Assessment and plan 1. Acute hypoxic hypercapnic respiratory failure secondary to COPD exacerbation with interstitial lung disease, left lower lobe pneumonia. Continue BiPAP to be used during the night and during sleep transitioned to nasal cannula. DuoNeb 4 times daily and every 2 hours as needed, Pulmicort 1 mg twice daily, Perforomist twice daily, Solu-Medrol 60 mg IV every 6 hours, Zosyn 3.375 g IV piggyback every 8 hours, add Mucinex and incentive spirometry. Pulmonary medicine consult appreciated. 2. Acute metabolic encephalopathy. Continue Zosyn. No growth after 24 hours. 3. Generalized weakness with debility PTOT consult placed. Patient may need rehab placement due to increased weakness . Fall precautions 4. History of sleep apnea with chronic CO2 retention. Patient could not tolerate CPAP and has does not radiated 5. Chronic Diastolic heart failure continue Lasix 40 mg twice a day. I&O monitoring daily weight. 6. Chronic Gout history, stable 7. Chronic CO2 retention secondary to sleep apnea. Continue BiPAP 14/6 and 45% FiO2, titrate for O2 sats ration greater than 90%. 8. Current tobacco dependency and is a current tobacco smoker. Patient counseled about tobacco cessation. Nicotine patch ordered 9. VTE prophylaxis: heparin subcu 10. GI prophylaxis: Pepcid 20 mg CODE STATUS: No code Discharge plan Return to [facility] on Tuesday. manager maritime and social psychologist following. Recommend palliative care and most likely transition to hospice care in the near future while at the [facility] Impression and plan of care have been directed as dictated by the signing physician. Ann-Marie Ortiz nurse practitioner acting as scribe for signing physician. Objective - Vital Signs Vital signs: Vital Signs Temp 98 F 11/13/20 07:34 Pulse 80 11/13/20 09:21 Resp 16 11/13/20 07:34 BP 148/67 11/13/20 07:34 Pulse Ox 92 L 11/13/20 07:34 Intake & Output 11/12/20 11/13/20 11/13/20 18:59 06:59 18:59 Intake Total 860 Output Total 1475 900 Balance -615 -900 Weight 96 kg Intake: Intake, IV Titration 200 Amount Piperacillin-Tazobactam 3 200 .375 gm In Sodium Chloride 0.9% 100 ml @ 25 mls/hr IVPB Q8HR [facility] Rx# :[id number] Oral 660 Output: Urine 1475 900 Other: Voiding Method Indwelling Catheter Indwelling Catheter Indwelling Catheter # Voids 1 - Labs CBC & Chem 7: 11/12/20 07:58 11/12/20 07:58 Labs: Abnormal Lab Results - Last 24 Hours (Table) 11/12/20 11/12/20 11/13/20 Range/Units 16:45 20:08 06:07 POC Glucose (mg/dL) 190 H 153 H 151 H (75-99) mg/dL Microbiology - Last 24 Hours (Table) 11/07/20 15:22 Blood Culture - Preliminary Blood No Growth after 120 hours
[2020-11-13 15:56] VITALS: TEMP 98
[2020-11-13 17:02] LABS: Glucose,Whole Blood 173 mg/dL (75-99)
[2020-11-13 20:16] LABS: Glucose,Whole Blood 170 mg/dL (75-99)
[2020-11-13] MEDS: MONTELUKAST 10 MG TAB PO SCH (20:31)
[2020-11-14] MEDS: PIPERACILLIN-TAZOBACTAM 3.375 GM in SODIUM CHLORIDE 0.9% 100 ML IVPB SCH ×2 (00:42→09:07)
[2020-11-14] MEDS: methylPREDNISolone SOD SUCCI 125 MG/2 ML VIAL IV SCH ×3 (00:44→11:43)
[2020-11-14 06:14] LABS: Glucose,Whole Blood 131 mg/dL (75-99)
[2020-11-14] MEDS: INSULIN ASPART (NovoLOG) 100 UNIT/ML VIAL SQ SCH ×2 (06:56→11:43)
[2020-11-14 07:52] VITALS: BP 155/73; RESP 16
[2020-11-14] MEDS: FORMOTEROL FUMARATE 20 MCG/2 ML NEBU INHALATION SCH (08:13)
[2020-11-14] MEDS: BUDESONIDE 1 MG/2 ML NEBU INHALATION SCH (08:13)
[2020-11-14] MEDS: IPRATROPIUM-ALBUTEROL 3 ML NEB INHALATION SCH ×2 (08:13→11:58)
[2020-11-14] MEDS: guaiFENesin 600 MG TABLET.ER PO SCH (09:07)
[2020-11-14] MEDS: FAMOTIDINE 20 MG TAB PO SCH (09:07)
[2020-11-14] MEDS: ASPIRIN 81 MG PO SCH (09:07)
[2020-11-14] MEDS: TAMSULOSIN 0.4 MG CAP.ER.24H PO SCH (09:07)
[2020-11-14] MEDS: HEPARIN SODIUM,PORCINE/PF 5,000 UNIT/0.5 ML SYRINGE SQ SCH (09:07)
--- NOTE | 2020-11-14 09:38 | P.DS ---
Providers Date of admission: 11/07/20 14:42 Expected date of discharge: 11/14/20 Attending physician: Demond Tellez Consults: 11/07/20 14:43 Consult Physician Urgent Consulting Provider: Desmond Lemos Consult Reason/Comments: acute hypercarbic resp failure Do you want consulting provider notified?: Yes Primary care physician: [facility] Course: This is a 75 years old male patient of Dr. Chu present with past medical history of hypertension, COPD, wears 3 L of oxygen with diastolic CHF was recently discharged on 11/04/2020. Due to shortness of breath and extreme right leg pain for the past week. Patient went to [facility]. Previously patient has a history of intubation for 48 hours with presentation of unresponsiveness and hypoxia. Patient was intubated again in 2018 when patient was found to be unresponsive and short of breath. Patient was treated for diastolic CHF, COPD and Pseudomonas pneumonia. Echocardiogram obtained at that time suggested EF of 60-65% with borderline concentric left ventricular hypertrophy mild tricuspid regurgitation and mild pulmonary hypertension. Patient also has sleep apnea but is noncompliant with CPAP. states that she received a call from this facility stating that he had fallen onto the ground. The reports that he frequently will get down on the floor on his hands and knees when he cannot breathe. was adamant that the patient did not fall and therefore EMS was not called. Later on that day the patient was having increased respirations and hypoxia. Patient became altered and was then transferred to the hospital. Patient history reports that he should wear CPAP at night however he is noncompliant. No reports of fevers chills or cough. No cold exposure. Denies any chest pain. At this time patient is found in moderate distress with the BiPAP on. He is able to answer some questions appropriately. Respirations are even and labored. With the use of accessory muscles. WBC 23.4, hemoglobin 8.0, platelets 321, potassium 4.4, carbon dioxide 93, BUN 83, creatinine 1.71 lactic acid 1.0. ABG pH 7.13, pCO2 greater than 120, pCO2 87. Chest x-ray shows a right lower lobe infiltrate. 11/09: Patient remains on the BiPAP machine. He is able to answer questions appropriately. Continues to have minimal distress. No longer using accessory muscles. Ecchymosis noted to bilateral lower extremities with edema. Patient remains afebrile, heart rate 80, blood pressure 139/66, pulse ox 93% on BiPAP. He received 20.7, hemoglobin 8.7, potassium 4.2, BUN 71, creatinine 1.75. No growth from blood cultures after 24 hours. 11/10: Patient states that his breathing is better today and has been transitioned to nasal cannula at 3 L pulse oxing 92%. He has been afebrile, heart rate in the 80s, blood pressure 134 over and 57. Repeat blood work reveals WBC 14, hemoglobin 7.8, platelet count 282. Sodium 139, potassium 4.2, chloride 94, CO2 38, BUN 76 and creatinine 1.42. Blood sugars are running between 100 5782. ABGs reveal pH 7.4, pCO2 65, pO2 58, bicarbonate 40, total CO2 42, O2 saturation 91. Repeat chest x-ray reveals right lower lobe infiltrate. Correlate for a telectasis and pneumonia. Patient's been seen and followed by pulmonary medicine and he is continued on IV steroids and bronchodilators. Plan is for overnight pulse, 3 study to see if he qualifies for BiPAP device at home. He may need to undergo outpatient sleep study. Lasix is on hold. 11/11: Patient continues to have shortness of breath but appears to be comfortable at rest. Patient was on BiPAP through the night and currently on oxygen at nasal cannula 3 L, heart rate in the 80s, blood pressure 116/66, afebrile. Blood sugars are running between 121 and 164. Repeat blood work ordered for tomorrow. Patient is on IV Solu-Medrol 60 mg every 6 hours, Zosyn, Pulmicort, DuoNeb treatments, IV fluids discontinued. 11/12: Patient continues to complain of cough and not being able to bring up his sputum. We have added and Mucinex and incentive spirometry. Patient continues to have shortness of breath with minimal activity. Patient has been afebrile, heart rate 90, blood pressure 149/80, pulse ox 94% on 3 L nasal cannula. WBC 12.8, hemoglobin 8.8, platelet count 283. CO2 is 40, BUN 59 creatinine 1.29. Blood sugars ran between 96 and 170. Patient's , Cherrie, contacted via phone and updated regarding patient's condition, plan and prognosis. Patient at this point may be chronic candidate for palliative care and transition to hospice care. clinical documentation manager will follow-up if palliative care can be performed at [facility]. 11/13: She states that his breathing is improved from yesterday. He has less cough and less phlegm production and congestion. He has been afebrile, heart rate 70, blood pressure 149/68, pulse ox 93% on 3 L nasal cannula. Capillary blood glucose running between 151 and 190. Blood culture from 11/07 is no growth. Repeat chest x-ray reveals borderline cardiomegaly and COPD. Interstitial opacities mid and lower lungs persists, possible pulmonary vascular congestion or atypical pneumonia. Persistent patchy right basilar atelectasis or infiltrate. Anticipate discharge back to [facility] tomorrow. 11/14: Patient is sitting on the edge of the bed and appears to be in no acute distress. He remains on oxygen at 3 L nasal cannula with pulse ox in the mid 90s. He is using BiPAP at night. Patient has been seen by pulmonary medicine this morning and cleared for discharge. Patient has been afebrile, heart rate in the 80s, blood pressure 155/73, pulse ox 96% on 3 L nasal cannula. Blood sugars running between 131 and 194. Patient is reaching 500 less on incentive spirometry. He has a Naranjo catheter in place which will be maintained and can be [facility] the [facility] on Tuesday Patient will be discharged to [facility] today in stable condition. Assessment and plan 1. Acute hypoxic hypercapnic respiratory failure secondary to COPD exacerbation with interstitial lung disease, left lower lobe pneumonia. 2. Acute metabolic encephalopathy. 3. Generalized weakness with debility. 4. History of sleep apnea with chronic CO2 retention. . 5. Chronic Diastolic heart failure. 6. Chronic Gout history, stable 7. Chronic CO2 retention secondary to sleep apnea. 8. Current tobacco dependency and is a current tobacco smoker. Discharge plan Return to [facility]. Recommend palliative care and most likely transition to hospice care in the near future while at the prison Impression and plan of care have been directed as dictated by the signing physician. Ann-Marie Ortiz nurse practitioner acting as scribe for signing physician. Patient Condition at Discharge: Stable Plan - Discharge Summary Discharge Rx Participant: No New Discharge Prescriptions: New Tamsulosin [Flomax] 0.4 mg PO PC-BRKFST cap.er.24h Amoxic-Pot Clav 875-125Mg [Augmentin 875-125] 1 tab PO BID 3 Days #6 tab guaiFENesin [Mucinex] 1,200 mg PO DAILY tablet.er Famotidine [Pepcid] 20 mg PO DAILY tab Continue Aspirin 81 mg PO DAILY Ipratropium-Albuterol Nebulize [Duoneb 0.5 mg-3 mg/3 ml Soln] 3 ml INHALATION RT-QID Budesonide [Pulmicort] 0.5 mg INHALATION RT-BID Ubidecarenone [Co Q-10] 100 mg PO DAILY Montelukast [Singulair] 10 mg PO HS Furosemide [Lasix] 40 mg PO BID@0900,1600 #60 tab Albuterol Sulfate [Ventolin HFA] 2 puff INHALATION RT-Q6H PRN PRN Reason: Shortness Of Breath Formoterol Fumarate [Perforomist] 20 mcg INHALATION RT-BID Cholecalciferol [Vitamin D3 (25 Mcg = 1000 Iu)] 25 mcg PO DAILY Baclofen [Lioresal] 10 mg PO TID@0900,1300,2100 Discontinued predniSONE 10 mg PO DAILY Discharge Medication List Aspirin 81 mg PO DAILY 02/05/15 [History] Ipratropium-Albuterol Nebulize [Duoneb 0.5 mg-3 mg/3 ml Soln] 3 ml INHALATION RT-QID 02/06/15 [History] Budesonide [Pulmicort] 0.5 mg INHALATION RT-BID 11/06/17 [History] Montelukast [Singulair] 10 mg PO HS 11/06/17 [History] Ubidecarenone [Co Q-10] 100 mg PO DAILY 11/06/17 [History] Furosemide [Lasix] 40 mg PO BID@0900,1600 #60 tab 11/15/17 [Rx] Albuterol Sulfate [Ventolin HFA] 2 puff INHALATION RT-Q6H PRN 11/02/20 [History] Formoterol Fumarate [Perforomist] 20 mcg INHALATION RT-BID 11/02/20 [History] Baclofen [Lioresal] 10 mg PO TID@0900,1300,2100 11/07/20 [History] Cholecalciferol [Vitamin D3 (25 Mcg = 1000 Iu)] 25 mcg PO DAILY 11/07/20 [History] Amoxic-Pot Clav 875-125Mg [Augmentin 875-125] 1 tab PO BID 3 Days #6 tab 11/14/20 [Rx] Famotidine [Pepcid] 20 mg PO DAILY tab 11/14/20 [Rx] Tamsulosin [Flomax] 0.4 mg PO PC-BRKFST cap.er.24h 11/14/20 [Rx] guaiFENesin [Mucinex] 1,200 mg PO DAILY tablet.er 11/14/20 [Rx] Follow up Appointment(s)/Referral(s): Desmond Lemos MD [STAFF PHYSICIAN] - 1 Week Lee Ann Bean MD [Primary Care Provider] - 1 Week (at [facility]) Activity/Diet/Wound Care/Special Instructions: Remove Naranjo on Tuesday and monitor for urinary retention Palliative care at [facility] BiPAP 15/09 and 45% FiO2, titrate for O2 sats ration greater than 90%. Discharge Disposition: TRANSFER TO SNF/ECF
--- NOTE | 2020-11-14 11:18 | P.PN ---
Subjective Progress Note Date: 11/14/20 This is a 75-year-old male patient with history of advanced COPD, stage IV, on home oxygen for last 3 years, former smoker, hypertension, chronic diastolic CHF, previous history of pneumonia related to Pseudomonas, obstructive sleep apnea and the patient has been noncompliant with his CPAP, history of gout, chronic hypoxic and hypercapnic respiratory failure related to COPD. he was just discharged from here to [facility] in [facility] on 11/04/2020 following a fall at home without injury. He was felt to be having issues with ultimate mental status and shortness of breath and returned to the emergency room yesterday. Chest x-ray revealed possible right lower lobe infiltrate, possible aspiration. White count 23.4. Hemoglobin 8.1. Sodium 136. Potassium 4.4. Creatinine 1.71. Troponin 0.049, 0.0.6, 0.03. ProBNP 2640. Pro Calcitonin 0.72. Arterial blood gases on 100% FiO2 revealed a pO2 of 255, pCO2 greater than 120, pH 7.13. He was converted to BiPAP at that time. He is seen today in consultation on the regular medical floor. He is currently on BiPAP 14/6 and 40% FiO2. Poor historian. He's been initiated on bronchodilators, IV diuretics, IV Solu- Medrol, heparin for DVT prophylaxis. Antibiotics in the form of vancomycin and Zosyn. On the 11/09/2020 patient seen in follow-up on selective care unit, he is awake and alert, in no acute distress, is currently on BiPAP with pressures of 14/6 and FiO2 of 45%, he is awake, he is answering questions, she did tolerate a brief BiPAP break yesterday, he stayed on BiPAP overnight, appears to be breathing comfortably on today's exam, his been afebrile. We will attempt another nasal cannula trial. He is currently on IV steroids, he is on Zosyn and bronchodilators. No new chest x-ray today. Today's labs have been reviewed, his white blood cell count is 20.7, hemoglobin is 8.7, sodium is 139, potassium is 4.2, chloride is 93, CO2 37, BUN 71 creatinine is 1.75 On 11/10/2020 patient seen in follow-up on selective care unit. He did wear BiPAP support most of the night, with pressures of 14/60 and FiO2 of 45%, he is quite comfortable on it, tolerates it very well. This morning he was switched to nasal cannula, currently on 3 L of oxygen pulse ox is 92%, he states his breathing much improved since admission, however his been mostly in bed. Vital signs have been stable, his been afebrile. No complaints of chest discomfort, no hemoptysis. He continues on Zosyn for antibiotic coverage, he is on IV steroids with Solu-Medrol 60 mg every 6 hours, and nebulized bronchodilators. Yesterday we stopped the patient's Lasix as teen to be dehydrated, and patient was placed on IV hydration with 0.9 normal saline at a rate of 75 ML per hour, his labs have been reviewed, and his renal profile is improving, and creatinine is down to 1.42, and BUN is 76. Today's labs show improving white count which is down to 14, hemoglobin is 7.8. His Pro calcitonin was elevated at 0.72 on admission, and although patient does have abnormal renal function he was empirically covered with Zosyn. Cultures have shown no growth thus far. He has had no nausea vomiting or diarrhea. He had no fever or chills. The patient is seen today 11/11/2020 in follow-up on the selective care unit. He is currently sitting up in bed. Awake and alert in no acute distress. On 3 L nasal cannula with O2 saturations in the 90s. He did utilize BiPAP last evening set at 14/6 and 45% FiO2. ABGs obtained yesterday on 32% FiO2 revealed a PaO2 of 58, pCO2 65 and a pH is 7.40. He remains on DuoNeb inhalations, Pulmicort and Perforomist inhalations, IV Solu-Medrol. Anorexia form of Zosyn. Heparin for DVT prophylaxis. He's been afebrile. Hemodynamically stable. Blood culture reveals no growth. Glucose 164. The patient is seen today 11/12/2020 and follow-up on the selective care unit. He remains awake and alert in no acute distress. He states he is not breathing much better today compared to yesterday. He is however maintaining good O2 s aturations on 3 L/m per nasal cannula. White count 12.8. Hemoglobin 8.8. Sodium 140. Potassium 4.5. Bicarb 40. Creatinine 1.29. He remains on DuoNeb inhalations, Pulmicort and Perforomist inhalations, IV Solu-Medrol, Mucinex, Zosyn. Heparin for DVT prophylaxis. The patient is seen today 11/13/2020 in follow-up on the selective care unit. He is awake and alert in no acute distress. Better today compared to yesterday. Maintaining O2 saturations in the 90s on 3 L/m per nasal cannula. He's been afebrile. Hemodynamically stable. Chest x-ray reveals cardiomegaly and COPD. Some interstitial opacities in the lower lungs persists. Some vascular congestion. Right basilar atelectasis. Blood glucose 151. He remains on DuoNeb inhalations, Pulmicort and Perforomist inhalations, IV Solu-Medrol, Mucinex, Zosyn. Heparin for DVT prophylaxis. The patient is seen today 11/14/2020 in follow-up on the selective care unit. He is currently sitting up in bed. Awake and alert in no acute distress. Breathing quite a bit better today. Currently maintaining O2 saturations in the mid 90s on 3 L/m per nasal cannula. He does desaturate into the 80s on room air with activity. We'll continue oxygen in the outpatient setting. Cultures reveal no growth. Blood glucose 131. He remains on DuoNeb inhalations, Pulmicort and Perforomist inhalations, Zosyn, IV site Medrol. Mucinex. Heparin for DVT prophylaxis. Objective - Vital Signs Vital signs: Vital Signs Temp 98 F 11/14/20 07:51 Pulse 84 11/14/20 08:48 Resp 16 11/14/20 07:51 BP 155/73 11/14/20 07:51 Pulse Ox 96 11/14/20 07:51 Intake & Output 11/13/20 11/14/20 11/14/20 18:59 06:59 18:59 Intake Total 300 240 Output Total 1600 Balance 300 -1600 240 Weight 96 kg 102 kg Intake: Oral 300 240 Output: Urine 1600 Other: Voiding Method Indwelling Catheter Indwelling Catheter # Voids 1 # Bowel Movements 1 - Exam GENERAL EXAM: Alert, 75-year-old male patient, on oxygen at 3 L/m with O2 saturation of 96%, fairly comfortable in no apparent distress. HEAD: Normocephalic/atraumatic. EYES: Normal reaction of pupils, equal size. Conjunctiva pink, sclera white. NOSE: Clear with pink turbinates. THROAT: No erythema or exudates. NECK: No masses, no JVD, no thyroid enlargement, no adenopathy. CHEST: No chest wall deformity. Symmetrical expansion. LUNGS: Equal air entry with bilateral scattered rhonchi, crackles in the right lung base, diminished CVS: Regular rate and rhythm, normal S1 and S2, no gallops, no murmurs, no rubs ABDOMEN: Soft, nontender. No hepatosplenomegaly, normal bowel sounds, no guarding or rigidity. EXTREMITIES: No clubbing, no edema, no cyanosis, 2+ pulses and upper and lower extremities. MUSCULOSKELETAL: Muscle strength and tone normal. SPINE: No scoliosis or deformity SKIN: No rashes CENTRAL NERVOUS SYSTEM: No focal deficits, tone is normal in all 4 extremities. PSYCHIATRIC: Alert and oriented -3. Appropriate affect. Intact judgment and insight. - Labs CBC & Chem 7: 11/12/20 07:58 11/12/20 07:58 Labs: Abnormal Lab Results - Last 24 Hours (Table) 11/13/20 11/13/20 11/13/20 Range/Units 11:54 17:00 20:14 POC Glucose (mg/dL) 154 H 173 H 170 H (75-99) mg/dL 11/14/20 Range/Units 06:13 POC Glucose (mg/dL) 131 H (75-99) mg/dL Microbiology - Last 24 Hours (Table) 11/07/20 15:22 Blood Culture - Final Blood No Growth after 144 hours Assessment and Plan Assessment: 1 Acute hypercapnic/hypoxemic respiratory failure secondary to an acute exacerbation of COPD and possible right lower lobe pneumonia 2 Chronic hypoxic respiratory failure related to advanced COPD, stage IV, usually wears 3 L of oxygen at home 3 Current and ongoing history of smoking 4 A fall at home, without injury 5 Interstitial prominence seen on the chest x-ray, high resolution CT chest did not show evidence of fibrosis, and showed mainly emphysematous changes 6 History of sleep apnea, patient was intolerant to CPAP 7 Chronic diastolic CHF 8 History of gout Plan: The patient was seen and evaluated by Dr. Ibarra Cleared for transfer to [facility] from the pulmonary standpoint Continue DuoNeb inhalations, Mucinex, prednisone, antibiotics I, the cosigning physician, performed a history & physical examination of the patient. Lungs sounds bilateral scattered rhonchi, crackles in the right lung base, diminished. Maintaining good O2 saturations in the 90s on oxygen at 3 L/m per nasal cannula. I discussed the assessment and plan of care with my nurse practitioner, Adriana Cornejo. I attest to the above note as dictated by her.
[2020-11-14 11:41] LABS: Glucose,Whole Blood 194 mg/dL (75-99)
[2020-11-14 13:08] VITALS: PULSE 80
== END 2020-11-14 14:20 | DRG 193 ==
LOC: EC 13:04 → 3SCARD 14:42
PROVIDERS: ADMIT Internal Medicine Geriatric Medicine; ATTEND Internal Medicine Geriatric Medicine
DX: J18.9 Pneumonia, unspecified organism (principal); J96.22 Acute and chronic respiratory failure with hypercapnia; J96.21 Acute and chronic respiratory failure with hypoxia; G93.41 Metabolic encephalopathy; I50.32 Chronic diastolic (congestive) heart failure; J44.1 Chronic obstructive pulmonary disease with (acute) exacerbation; J84.9 Interstitial pulmonary disease, unspecified; J44.0 Chronic obstructive pulmonary disease with (acute) lower respiratory infection; E87.2 Acidosis; E86.0 Dehydration; F17.200 Nicotine dependence, unspecified, uncomplicated; I11.0 Hypertensive heart disease with heart failure; Z99.81 Dependence on supplemental oxygen; Z91.19 Patient's noncompliance with other medical treatment and regimen; Z87.01 Personal history of pneumonia (recurrent); Z83.438 Family history of other disorder of lipoprotein metabolism and other lipidemia; Z82.49 Family history of ischemic heart disease and other diseases of the circulatory system; Z79.899 Other long term (current) drug therapy; Z79.82 Long term (current) use of aspirin; G47.30 Sleep apnea, unspecified; M1A.9XX0 Chronic gout, unspecified, without tophus (tophi)
CPT/HCPCS: 36415; 36600; 71045; 80048; 80053; 80306; 81001; 82140; 82550; 82803; 82805; 83605; 83880; 84145; 84484; 85025; 85027; 85610; 85730; 87040; 93005; 94640; 94660; 94760; 94762; 96365; 99285

== ENCOUNTER 2020-11-15 16:10 | Inpatient (IN) | payer MEDICARE, BC ==
[2020-11-15] MEDS ORDERED: IPRATROPIUM-ALBUTEROL 3 ML NEB INHALATION STA (16:37)
--- NOTE | 2020-11-15 16:41 | ED ---
General Adult HPI - General Chief complaint: Shortness of Breath Stated complaint: SOB-Revisit Time Seen by Provider: 11/15/20 16:15 Source: patient, EMS, RN notes reviewed Mode of arrival: EMS Limitations: no limitations - History of Present Illness Initial comments: Patient is a pleasant 75-year-old male presenting to the emergency Department with complaints of difficulty in breathing. Patient is a poor story. arrives shortly afterwards and helps bite history. Patient was recently discharged from the hospital. Patient has history of severe COPD. Patient is no CODE STATUS. Patient provides no significant history other than complaining of shortness of breath. - Related Data Home Medications Medication Instructions Recorded Confirmed Aspirin 81 mg PO DAILY 02/05/15 11/07/20 Ipratropium-Albuterol Nebulize 3 ml INHALATION RT-QID 02/06/15 11/07/20 [Duoneb 0.5 mg-3 mg/3 ml Soln] Budesonide [Pulmicort] 0.5 mg INHALATION RT-BID 11/06/17 11/07/20 Montelukast [Singulair] 10 mg PO HS 11/06/17 11/07/20 Ubidecarenone [Co Q-10] 100 mg PO DAILY 11/06/17 11/07/20 Albuterol Sulfate [Ventolin HFA] 2 puff INHALATION RT-Q6H PRN 11/02/20 11/07/20 Formoterol Fumarate [Perforomist] 20 mcg INHALATION RT-BID 11/02/20 11/07/20 Baclofen [Lioresal] 10 mg PO TID@0900,1300,2100 11/07/20 11/07/20 Cholecalciferol [Vitamin D3 (25 25 mcg PO DAILY 11/07/20 11/07/20 Mcg = 1000 Iu)] Previous Rx's Medication Instructions Recorded Furosemide [Lasix] 40 mg PO BID@0900,1600 #60 tab 11/15/17 Amoxic-Pot Clav 875-125Mg 1 tab PO BID 3 Days #6 tab 11/14/20 [Augmentin 875-125] Famotidine [Pepcid] 20 mg PO DAILY tab 11/14/20 Tamsulosin [Flomax] 0.4 mg PO PC-BRKFST cap.er.24h 11/14/20 guaiFENesin [Mucinex] 1,200 mg PO DAILY tablet.er 11/14/20 Allergies Allergy/AdvReac Type Severity Reaction Status Date / Time No Known Allergies Allergy Verified 11/15/20 16:25 Review of Systems ROS Statement: Those systems with pertinent positive or pertinent negative responses have been documented in the HPI. ROS Other: All systems not noted in ROS Statement are negative. Constitutional: Denies: fever Eyes: Denies: eye pain ENT: Denies: ear pain Respiratory: Reports: dyspnea Cardiovascular: Denies: chest pain Endocrine: Reports: fatigue Gastrointestinal: Denies: abdominal pain Genitourinary: Denies: dysuria Musculoskeletal: Denies: back pain Skin: Denies: rash Neurological: Denies: weakness Past Medical History Past Medical History: COPD, Hypertension Additional Past Medical History / Comment(s): emphysema, gout. wears home 02. History of Any Multi-Drug Resistant Organisms: None Reported Past Surgical History: Unable to Obtain Additional Past Surgical History / Comment(s): hernia 2015, carpel tunnel, heart cath in the past (clean) Past Anesthesia/Blood Transfusion Reactions: No Reported Reaction Past Psychological History: No Psychological Hx Reported Smoking Status: Former smoker Past Alcohol Use History: Occasional Past Drug Use History: None Reported - Past Family History Mother Family Medical History: Coronary Artery Disease (CAD), Hyperlipidemia, Hypertension General Exam Limitations: no limitations Head exam: Present: normocephalic Eye exam: Present: normal appearance ENT exam: Present: normal oropharynx Neck exam: Present: normal inspection Respiratory exam: Present: respiratory distress, rales (Bilateral bases) Cardiovascular Exam: Present: regular rate, normal rhythm GI/Abdominal exam: Present: soft. Absent: tenderness Extremities exam: Present: normal inspection. Absent: pedal edema, calf tenderness Neurological exam: Present: alert Psychiatric exam: Present: normal affect, normal mood Skin exam: Present: normal color Course Vital Signs 11/15/20 11/15/20 11/15/20 16:13 17:21 17:35 Temperature 95 F L Pulse Rate 90 86 81 Respiratory 26 H 16 Rate Blood Pressure 120/65 120/67 O2 Sat by Pulse 98 97 Oximetry 11/15/20 11/15/20 11/15/20 17:59 19:07 20:05 Temperature Pulse Rate 81 79 Respiratory 30 H 20 31 H Rate Blood Pressure 137/80 142/82 O2 Sat by Pulse 99 97 Oximetry - Reevaluation(s) Reevaluation #1: 11/15/20 16:40 Pulse ox drops to 85% when oxygen was removed 11/15/20 20:30 There is concern for sepsis diagnosed at 2030. Cultures and lactic acid and IV antibiotics will be ordered. EKG Findings - EKG Comments: EKG Findings:: Sinus rhythm with a rate of 95. Frequent PVCs present. FL 144. QRS 146. QT 378. QTC 475. Normal axis. Nonspecific intraventricular block. T waves. Medical Decision Making - Medical Decision Making Patient reevaluated and updated. Case was discussed with Dr. Bean, who will admit covering Dr. Chu, time. She requests Levaquin and Zosyn and pulmonary consult. - Lab Data Lab Results 11/15/20 Range/Units 17:35 Coronavirus (PCR) Not Detected (Not Detectd) - Radiology Data Radiology results: image reviewed ( x-ray shows increasing right lower lobe infiltrate) Critical Care Time Critical Care Time: Yes Total Critical Care Time: 33 Disposition Clinical Impression: Pneumonia, Sepsis, Acute respiratory failure Disposition: ADMITTED IP TO THIS HOSP Condition: Serious Is patient prescribed a controlled substance at d/c from ED?: No Referrals: Lee Ann Bean MD [STAFF PHYSICIAN] - 1-2 days Decision Time: 20:31
--- NOTE | 2020-11-15 19:01 | XR ---
EXAMINATION TYPE: XR chest 1V portable DATE OF EXAM: 11/15/2020 COMPARISON: 11/13/2020 HISTORY: Right lower lobe pneumonia TECHNIQUE: Single view FINDINGS: Heart and mediastinum are normal. There is some mild infiltrate in the right lower lobe. Th ere is blunting of the right costophrenic angle. There are no hilar masses. There are chest leads. IMPRESSION: There is some right lower lobe pneumonia that is slightly increased compared to recent ex am. No heart failure.
[2020-11-15] MEDS ORDERED: PIPERACILLIN-TAZOBACTAM 3.375 GM in SODIUM CHLORIDE 0.9% 100 ML IVPB STA (20:31)
[2020-11-15] MEDS ORDERED: LEVOFLOXACIN 750MG-D5W PMX 750 MG in DEXTROSE/WATER 1 150ML.BAG IVPB STA (20:31)
[2020-11-15] MEDS ORDERED: PNEUMONIA PROTOCOL UTILIZED 1 EACH MISC PO PRN (20:31)
[2020-11-15] MEDS ORDERED: IPRATROPIUM-ALBUTEROL 3 ML NEB INHALATION PRN (20:31)
[2020-11-15 20:44] LABS: Basophils # (A) 0.1 k/uL (0-0.2); Basophils % (A) 0 %; Eosinophils # (A) 0.5 k/uL (0-0.7); Eosinophils % (A) 3 %; HCT 36.3 % (39.0-53.0); HGB 10.4 gm/dL (13.0-17.5); Hypochromasia Marked; Lymphocytes # (A) 0.4 k/uL (1.0-4.8); Lymphocytes % (A) 2 %; MCH 25.7 pg (25.0-35.0); MCHC 28.6 g/dL (31.0-37.0); MCV 89.8 fL (80.0-100.0); Mean Platelet Volume 8.1; Monocytes # (A) 0.7 k/uL (0-1.0); Monocytes % (A) 3 %; Neutrophils # (A) 18.4 k/uL (1.3-7.7); Neutrophils % (A) 91 %; Platelet Count 232 k/uL (150-450); RBC 4.04 m/uL (4.30-5.90); WBC 20.2 k/uL (3.8-10.6)
[2020-11-15 20:53] LABS: Albumin 3.1 g/dL (3.5-5.0); Calcium 8.8 mg/dL (8.4-10.2); Total Bilirubin 0.9 mg/dL (0.2-1.3); Total Protein 5.7 g/dL (6.3-8.2)
[2020-11-15] MEDS: methylPREDNISolone SOD SUCCI 125 MG/2 ML VIAL IV SCH ×2 (20:57→23:02)
[2020-11-15] MEDS ORDERED: ALBUTEROL NEBULIZED 2.5 MG/3 ML INHALATION PRN (21:42)
[2020-11-15] MEDS: BACLOFEN 10 MG TAB PO SCH (22:15)
[2020-11-15 23:39] LABS: Partial Thromboplastin Time 21.5 sec (22.0-30.0); Prothrombin Time 10.4 sec (9.0-12.0)
[2020-11-16] MEDS: methylPREDNISolone SOD SUCCI 125 MG/2 ML VIAL IV SCH ×4 (05:53→23:06)
[2020-11-16] MEDS: FUROSEMIDE 40 MG TAB PO SCH ×2 (05:54→15:18)
[2020-11-16] MEDS: BACLOFEN 10 MG TAB PO SCH ×3 (05:54→19:46)
[2020-11-16] MEDS ORDERED: IPRATROPIUM-ALBUTEROL 3 ML NEB INHALATION SCH (08:00)
[2020-11-16] MEDS: IPRATROPIUM-ALBUTEROL 3 ML NEB INHALATION SCH ×4 (08:03→19:47)
[2020-11-16] MEDS: FORMOTEROL FUMARATE 20 MCG/2 ML NEBU INHALATION SCH ×2 (08:03→19:47)
[2020-11-16] MEDS: ASPIRIN 81 MG PO SCH (08:39)
[2020-11-16] MEDS: guaiFENesin 600 MG TABLET.ER PO SCH (08:39)
[2020-11-16] MEDS: FAMOTIDINE 20 MG TAB PO SCH ×2 (08:39→19:45)
[2020-11-16] MEDS: PIPERACILLIN-TAZOBACTAM 3.375 GM in SODIUM CHLORIDE 0.9% 100 ML IVPB SCH ×3 (08:40→23:06)
[2020-11-16] MEDS ORDERED: BUDESONIDE 0.5 MG/2 ML NEBU INHALATION SCH (09:00)
--- NOTE | 2020-11-16 09:15 | XR ---
EXAMINATION TYPE: XR chest 1V portable DATE OF EXAM: 11/16/2020 COMPARISON: 11/15/2020 HISTORY: 75 years Male. STUDY INDICATION GIVEN: pneumonia . TECHNIQUE: AP portable upright chest radiograph FINDINGS AND IMPRESSION: Right lower lobe patchy opacity and bibasilar linear opacities without significant change likely repr esenting right lower lobe infiltrate/pneumonia and/or subsegmental atelectasis. Mild prominence of the interstitium suggests mild pulmonary edema. Trace right pleural effusion. No p neumothorax. Cardiomediastinal silhouette within normal limit. Vascular calcifications project over the aortic arc h. Generalized osteopenia without acute osseous abnormality.
--- NOTE | 2020-11-16 10:58 | P.HPIM ---
History of Present Illness H&P Date: 11/16/20 HISTORY OF PRESENT ILLNESS This is a 75 years old male patient of Dr. Chu present with past medical history of hypertension, COPD, wears 3 L of oxygen with diastolic CHF was recently discharged on 11/04/2020. Due to shortness of breath and extreme right leg pain for the past week. Patient went to [facility]. Previously patient has a history of intubation for 48 hours with presentation of unresponsiveness and hypoxia. Patient was intubated again in 2018 when patient was found to be unresponsive and short of breath. Patient was treated for diastolic CHF, COPD and Pseudomonas pneumonia. Echocardiogram obtained at that time suggested EF of 60-65% with borderline concentric left ventricular hypertrophy mild tricuspid regurgitation and mild pulmonary hypertension. Patient also has sleep apnea but is noncompliant with CPAP. Patient was stabilized and discharged to [facility] for subacute rehab but unfortunately returned to [facility] after less than one day. He was treated for acute hypoxic hypercapnic respiratory failure secondary to COPD exacerbation and interstitial lung disease left lower lobe pneumonia and CO2 retention with metabolic encephalopathy. Patient was discharged back to [facility] on Tuesday, November 14 with palliative care and no code status. Patient developed increasing shortness of breath and was sent back to the hospital yesterday afternoon. Patient now presents to [facility] emergency center due to complaints of difficulty in breathing. Patient was afebrile, heart rate 80s and 90s, respiratory rate 26, blood pressure 120/65, pulse ox 98% on simple mask at 8 L. Pulse ox dropped down to 85% when oxygen was removed and patient was placed on BiPAP. EKG was a sinus rhythm with nonspecific intraventricular block and T- wave abnormality. Chest x-ray reveals right lower lobe pneumonia that is slightly increased compared to recent exam. No heart failure. Patient was started on DuoNeb treatments, one dose of Levaquin and continued on Zosyn, Solu- Medrol and admitted to the MedSur floor, consult with pulmonary medicine. REVIEW OF SYSTEMS Constitutional: No fever, no chills, no night sweats. No weight change. Reports weakness, reports fatigue, reports lethargy. No daytime sleepiness. EENT: No headache. No blurred vision or double vision, no loss of vision. No loss of Hearing, no ringing in the ears, no dizziness. No nasal drainage or congestion. No epistaxis. No sore throat. Lungs: Reports shortness of breath, reports cough, reports sputum production. Reports wheezing. Cardiovascular: No chest pain, no lower extremity edema. No palpitations. No paroxysmal nocturnal dyspnea. Reports orthopnea. No lightheadedness or dizziness. No syncopal episodes. Abdominal: No abdominal pain. No nausea, vomiting. No diarrhea. No constipation. No bloody or tarry stools reports loss of appetite. Genitourinary: No dysuria, increased frequency, urgency. No urinary retention. Musculoskeletal: No myalgias. No muscle weakness, no gait dysfunction, no frequent falls. No back pain. No neck pain. Integumentary: No wounds, no lesions. No rash or pruritus. No unusual bruising. No change in hair or nails. Neurologic: No aphasia. No facial droop. Mild change in mentation. No head injury. No headache. No paralysis. No paresthesia. Reports dysphagia. Psychiatric: No depression. No anxiety. No mood swings. Endocrine: No abnormal blood sugars. No weight change. SOCIAL HISTORY Patient quit smoking 3 years ago. Drinks alcohol couple times a week. Lives with his denies using a walker or cane at home. He wears 3 L of oxygen at all times. He has sleep apnea but does not wear CPAP FAMILY HISTORY Mother has history of coronary artery disease, hypertension hyperlipidemia Father history of brain tumor Patient had a brother and a sister who has , medical history not known PHYSICAL EXAMINATION Gen: This is a 75-year-old obese male. He is resting in bed and appears to be weak and lethargic from his baseline HEENT: Head is atraumatic, normocephalic. Pupils equal, round. Sclerae is anicteric. NECK: Supple. No JVD. No lymphadenopathy. No thyromegaly. LUNGS: Bilateral scattered crackles Positive intercostal retractions. HEART: Regular rate and rhythm. No murmur. ABDOMEN: Soft. Bowel sounds are present. No masses. No tenderness. EXTREMITIES: No pedal edema. No calf tenderness. NEUROLOGICAL: Patient is awake, alert and oriented x3. Cranial nerves 2 through 12 are grossly intact. ASSESSMENT AND PLAN 1. Acute hypoxic hypercapnic respiratory failure secondary to COPD exacerbation with interstitial lung disease, right lower lobe pneumonia. Continue BiPAP to be used during the night and during sleep. DuoNeb 4 times daily and every 2 hours as needed, Pulmicort 1 mg twice daily, Perforomist twice daily, Solu- Medrol 60 mg IV every 6 hours, Zosyn 3.375 g IV piggyback every 8 hours, add Mucinex. Pulmonary medicine consult appreciated. 2. Acute kidney injury. Avoid nephrotoxic agents, hypotension, monitor renal function. 3. Generalized weakness with debility and dysphagia PTOT consult placed. Fall precautions. Speech therapy for modified barium swallow. 4. History of sleep apnea with chronic CO2 retention. Continue BiPAP 5. Chronic Diastolic heart failure continue Lasix 40 mg twice a day. I&O monitoring daily weight. 6. Chronic Gout history, stable 7. Chronic CO2 retention secondary to sleep apnea. Continue BiPAP. 8. Current tobacco dependency and is a current tobacco smoker. Patient counseled about tobacco cessation. 9. Benign prostatic hypertrophy with urinary retention requiring Naranjo catheter placement on last admission. Continue Flomax 0.4 mg daily. 10. VTE prophylaxis: heparin subcu 10. GI prophylaxis: Pepcid 20 mg CODE STATUS: No code Patient will be admitted to the hospital for a minimum of 2 night stay. DISCHARGE PLAN Return to [facility] with palliative care. Social work consult regarding paperwork to ensure the patient is no code when he presents to [facility]. Impression and plan of care have been directed as dictated by the signing physician. Ann-Marie Ortiz nurse practitioner acting as scribe for signing physician. Past Medical History Past Medical History: COPD, Hypertension Additional Past Medical History / Comment(s): emphysema, gout. wears home 02. History of Any Multi-Drug Resistant Organisms: None Reported Past Surgical History: Unable to Obtain Additional Past Surgical History / Comment(s): hernia 2015, carpel tunnel, heart cath in the past (clean) Past Anesthesia/Blood Transfusion Reactions: No Reported Reaction Past Psychological History: No Psychological Hx Reported Smoking Status: Former smoker Past Alcohol Use History: Occasional Past Drug Use History: None Reported - Past Family History Mother Family Medical History: Coronary Artery Disease (CAD), Hyperlipidemia, Hypertension Medications and Allergies Home Medications Medication Instructions Recorded Confirmed Type Aspirin 81 mg PO DAILY@0900 02/05/15 11/15/20 History Ipratropium-Albuterol Nebulize 3 ml INHALATION RT-QID@09,13,17,21 02/06/15 11/15/20 History [Duoneb 0.5 mg-3 mg/3 ml Soln] Budesonide [Pulmicort] 0.5 mg INHALATION RT-BID@0900,209911/06/17 11/15/20 History Montelukast [Singulair] 10 mg PO HS@209911/06/17 11/15/20 History Ubidecarenone [Co Q-10] 100 mg PO DAILY@0911/06/17 11/15/20 History Albuterol Sulfate [Ventolin HFA] 2 puff INHALATION RT-Q6H PRN 11/02/20 11/15/20 History Formoterol Fumarate [Perforomist] 20 mcg INHALATION RT-BID@0900,209911/02/20 11/15/20 History Baclofen [Lioresal] 10 mg PO TID@0600,1400,2200 11/07/20 11/15/20 History Cholecalciferol [Vitamin D3 (25 25 mcg PO DAILY@89911/07/20 11/15/20 History Mcg = 1000 Iu)] Amoxic-Pot Clav 875-125Mg 1 tab PO BID@0900,209911/15/20 11/15/20 History [Augmentin 875-125] Famotidine [Pepcid] 20 mg PO HS@209911/15/20 11/15/20 History Furosemide [Lasix] 40 mg PO BID@0600,1400 11/15/20 11/15/20 History Tamsulosin [Flomax] 0.4 mg PO HS@209911/15/20 11/15/20 History guaiFENesin [Mucinex] 1,200 mg PO DAILY@0900 11/15/20 11/15/20 History Allergies Allergy/AdvReac Type Severity Reaction Status Date / Time No Known Allergies Allergy Verified 11/15/20 21:09 Physical Exam Vitals: Vital Signs Temp Pulse Pulse Resp BP BP Pulse Ox 11/16/20 08:23 82 11/16/20 08:16 80 11/16/20 08:15 80 11/16/20 08:05 80 11/16/20 08:00 97.8 F 79 20 130/75 91 L 11/16/20 02:13 97.2 F L 77 37 H 120/62 95 11/16/20 00:19 97.5 F L 86 17 124/65 97 11/15/20 20:49 81 25 H 140/82 97 11/15/20 20:46 20 11/15/20 20:05 79 31 H 142/82 97 11/15/20 19:07 81 20 137/80 99 11/15/20 17:59 30 H 11/15/20 17:35 81 16 120/67 97 11/15/20 17:21 86 11/15/20 16:13 95 F L 90 26 H 120/65 98 Intake and Output 11/15/20 11/16/20 11/16/20 22:59 06:59 14:59 Intake Total 200 Output Total 1000 Balance -800 Intake: Intake, IV Titration 200 Amount Levofloxacin 750Mg-D5w 100 Pmx 750 mg In Dextrose/ Water 1 150ml.bag @ 100 mls/hr IVPB ONCE STA Rx#: [id number] Piperacillin-Tazobactam 3 100 .375 gm In Sodium Chloride 0.9% 100 ml @ 25 mls/hr IVPB Q8HR [facility] Rx# :[id number] Output: Urine 1000 Other: Voiding Method Indwelling Catheter # Bowel Movements 0 Weight 127.006 kg Results CBC & Chem 7: 11/15/20 20:35 11/15/20 20:35 Labs: Abnormal Lab Results - Last 24 Hours (Table) 11/15/20 11/15/20 11/15/20 Range/Units 20:35 20:35 22:45 WBC 20.2 H (3.8-10.6) k/uL RBC 4.04 L (4.30-5.90) m/uL Hgb 10.4 L (13.0-17.5) gm/dL Hct 36.3 L (39.0-53.0) % MCHC 28.6 L (31.0-37.0) g/dL RDW 16.0 H (11.5-15.5) % Neutrophils # 18.4 H (1.3-7.7) k/uL Lymphocytes # 0.4 L (1.0-4.8) k/uL APTT 21.5 L (22.0-30.0) sec Sodium 136 L (137-145) mmol/L Chloride 95 L (98-107) mmol/L Carbon Dioxide 39 H (22-30) mmol/L BUN 55 H (9-20) mg/dL Creatinine 1.67 H (0.66-1.25) mg/dL Glucose 103 H (74-99) mg/dL ALT 71 H (4-49) U/L Total Protein 5.7 L (6.3-8.2) g/dL Albumin 3.1 L (3.5-5.0) g/dL Thrombosis Risk Factor Assmnt - Choose All That Apply Any of the Below Risk Factors Present?: Yes Each Factor Represents 1 point: Abnormal pulmonary function (COPD), Medical pt on bed rest Other Risk Factors: Yes Each Risk Factor Represents 3 Points: Age 75 years or older Thrombosis Risk Factor Assessment Total Risk Factor Score: 5 Thrombosis Risk Factor Assessment Level: High Risk
[2020-11-16] MEDS: CHOLECALCIFEROL 25 MCG (1000 IU) TABLET PO SCH (11:58)
--- NOTE | 2020-11-16 13:14 | P.CNPUL ---
History of Present Illness Consult date: 11/16/20 Requesting physician: Leif Godfrey Reason for consult: dyspnea Chief complaint: Shortness of breath History of present illness: This is a 75-year-old white male patient who was recently discharged to the [facility] on 11/14/2020 after being hospitalized for acute exacerbation of COPD and right lower lobe pneumonia for 7 days. Prior to that patient had another hospitalization from 11/02/2020 through 11/04/2020 for acute exacerbation of COPD. After most recent hospitalization patient was sent to [facility] for rehabilitation and a plan of possibly enrolling in hospice/palliative care. Patient has known history of advanced COPD, stage IV, on home oxygen, hypertension, chronic diastolic CHF, previous pseudomonal pneumonia, obstructive sleep apnea noncompliant with CPAP, history of gout, and general medical debility. Patient was having increasing difficulty at home with mobility, and he was having recurrent falls. During his last admission palliative care and hospice was recommended by the medical team in view of multiple medical comorbidities, advanced COPD, general medical debility, chronic CHF. Patient was discharged to [facility] in stable condition with a guarded prognosis. On 11/15/2020 patient was brought back to the emergency department from the [facility] for evaluation of difficulty breathing. Patient is a poor historian. His CODE STATUS is DO NOT RESUSCITATE, he provides no other significant history other than shortness of breath. His chest x-ray on admission shows some right lower lobe infiltrates with possibly slightly increase compared to his most recent exam. His initial blood work showed white blood cell count is 20.2 which has increased from his discharge white blood cell count of 12.8, hemoglobin is 10.4, platelet count was 232, sodium was 136, potassium is 5.0, CO2 was 39, BUN is 55, creatinine is 1.67. Troponin was 0.013, proBNP was 856, pro calcitonin was 0.63, COVID-19 PCR was negative. Patient is afebrile, did have a single temperature recorded of 95 in the emergency department, currently normothermic, he is sleepy but he is opening eyes to repeated verbal stimulation, he is on BiPAP support currently with pressures of 12/5 and FiO2 of 40%, his pulse ox is 98%. He was started on empiric antibiotic coverage in the form of Zosyn and Levaquin. Lung sounds reveal end expiratory wheezes, patient is on IV steroids and IV Solu-Medrol 60 mg every 6 hours, breathing treatments. Review of Systems All systems: negative Constitutional: Denies chills, Denies fever Eyes: denies blurred vision, denies pain Ears, nose, mouth and throat: Denies headache, Denies sore throat Cardiovascular: Denies chest pain, Denies shortness of breath Respiratory: Reports dyspnea, Reports home oxygen, Reports respiratory infections, Reports wheezing, Denies cough Gastrointestinal: Denies abdominal pain, Denies diarrhea, Denies nausea, Denies vomiting Musculoskeletal: Denies myalgias Integumentary: Denies pruritus, Denies rash Neurological: Denies numbness, Denies weakness Psychiatric: Denies anxiety, Denies depression Endocrine: Denies fatigue, Denies weight change Past Medical History Past Medical History: COPD, Hypertension Additional Past Medical History / Comment(s): emphysema, gout. wears home 02. History of Any Multi-Drug Resistant Organisms: None Reported Past Surgical History: Unable to Obtain Additional Past Surgical History / Comment(s): hernia 2015, carpel tunnel, heart cath in the past (clean) Past Anesthesia/Blood Transfusion Reactions: No Reported Reaction Past Psychological History: No Psychological Hx Reported Smoking Status: Former smoker Past Alcohol Use History: Occasional Past Drug Use History: None Reported - Past Family History Mother Family Medical History: Coronary Artery Disease (CAD), Hyperlipidemia, Hypertension Medications and Allergies Home Medications Medication Instructions Recorded Confirmed Type Aspirin 81 mg PO DAILY@0900 02/05/15 11/15/20 History Ipratropium-Albuterol Nebulize 3 ml INHALATION RT-QID@,,,02/06/15 11/15/20 History [Duoneb 0.5 mg-3 mg/3 ml Soln] Budesonide [Pulmicort] 0.5 mg INHALATION RT-BID@09,209911/06/17 11/15/20 History Montelukast [Singulair] 10 mg PO HS@209911/06/17 11/15/20 History Ubidecarenone [Co Q-10] 100 mg PO DAILY@0900 11/06/17 11/15/20 History Albuterol Sulfate [Ventolin HFA] 2 puff INHALATION RT-Q6H PRN 11/02/20 11/15/20 History Formoterol Fumarate [Perforomist] 20 mcg INHALATION RT-BID@0900,2100 11/02/20 11/15/20 History Baclofen [Lioresal] 10 mg PO TID@0600,1400,2200 11/07/20 11/15/20 History Cholecalciferol [Vitamin D3 (25 25 mcg PO DAILY@0900 11/07/20 11/15/20 History Mcg = 1000 Iu)] Amoxic-Pot Clav 875-125Mg 1 tab PO BID@0900,209911/15/20 11/15/20 History [Augmentin 875-125] Famotidine [Pepcid] 20 mg PO HS@209911/15/20 11/15/20 History Furosemide [Lasix] 40 mg PO BID@0600,1400 11/15/20 11/15/20 History Tamsulosin [Flomax] 0.4 mg PO HS@209911/15/20 11/15/20 History guaiFENesin [Mucinex] 1,200 mg PO DAILY@0911/15/20 11/15/20 History Allergies Allergy/AdvReac Type Severity Reaction Status Date / Time No Known Allergies Allergy Verified 11/15/20 21:09 Physical Exam Vitals: Vital Signs Temp Pulse Pulse Resp BP BP Pulse Ox 11/16/20 11:29 89 11/16/20 11:15 88 11/16/20 08:39 20 11/16/20 08:23 82 11/16/20 08:16 80 11/16/20 08:15 80 11/16/20 08:05 80 11/16/20 08:00 97.8 F 79 20 130/75 91 L 11/16/20 02:13 97.2 F L 77 37 H 120/62 95 11/16/20 00:19 97.5 F L 86 17 124/65 97 11/15/20 20:49 81 25 H 140/82 97 11/15/20 20:46 20 11/15/20 20:05 79 31 H 142/82 97 11/15/20 19:07 81 20 137/80 99 11/15/20 17:59 30 H 11/15/20 17:35 81 16 120/67 97 11/15/20 17:21 86 11/15/20 16:13 95 F L 90 26 H 120/65 98 Intake and Output 11/15/20 11/16/20 11/16/20 22:59 06:59 14:59 Intake Total 200 Output Total 1000 Balance -800 Intake: Intake, IV Titration 200 Amount Levofloxacin 750Mg-D5w 100 Pmx 750 mg In Dextrose/ Water 1 150ml.bag @ 100 mls/hr IVPB ONCE STA Rx#: [id number] Piperacillin-Tazobactam 3 100 .375 gm In Sodium Chloride 0.9% 100 ml @ 25 mls/hr IVPB Q8HR [facility] Rx# :[id number] Output: Urine 1000 Other: Voiding Method Indwelling Catheter # Bowel Movements 0 Weight 127.006 kg GENERAL EXAM: Lethargic, arousable to verbal stimulation, 75-year-old white male, on BiPAP support with pressures of 12/5 and FiO2 of 40%, satting 98%, comfortable in no apparent distress. HEAD: Normocephalic/atraumatic. EYES: Normal reaction of pupils, equal size. Conjunctiva pink, sclera white. NOSE: Clear with pink turbinates. THROAT: No erythema or exudates. NECK: No masses, no JVD, no thyroid enlargement, no adenopathy. CHEST: No chest wall deformity. Symmetrical expansion. LUNGS: Equal air entry with expiratory wheezes. Diminished breath sounds at the bases CVS: Regular rate and rhythm, normal S1 and S2, no gallops, no murmurs, no rubs ABDOMEN: Soft, nontender. No hepatosplenomegaly, normal bowel sounds, no guarding or rigidity. EXTREMITIES: No clubbing, no edema, no cyanosis, 2+ pulses and upper and lower extremities. MUSCULOSKELETAL: Muscle strength and tone normal. SPINE: No scoliosis or deformity SKIN: No rashes CENTRAL NERVOUS SYSTEM: Lethargic but arousable to verbal stimulation. No focal deficits, tone is normal in all 4 extremities. Results - Laboratory Findings CBC and BMP: 11/15/20 20:35 11/15/20 20:35 PT/INR, D-dimer PT 10.4 sec (9.0-12.0) 11/15/20 22:45 INR 1.0 (<1.2) 11/15/20 22:45 Abnormal lab findings: Abnormal Labs 11/15/20 11/15/20 11/15/20 20:35 20:35 22:45 WBC 20.2 H RBC 4.04 L Hgb 10.4 L Hct 36.3 L MCHC 28.6 L RDW 16.0 H Neutrophils # 18.4 H Lymphocytes # 0.4 L APTT 21.5 L Sodium 136 L Chloride 95 L Carbon Dioxide 39 H BUN 55 H Creatinine 1.67 H Glucose 103 H ALT 71 H Total Protein 5.7 L Albumin 3.1 L - Diagnostic Findings Chest x-ray: report reviewed, image reviewed Additional studies: EKG reviewed Assessment and Plan Plan: Assessment: #1. Acute on chronic hypoxic respiratory failure related to acute exacerbation of COPD, and possibility of right lower lobe pneumonia #2. Recent hospitalization from 11/07/2020 through 11/14/2020 for COPD exacerbation and pneumonia, [facility] #3. Advanced COPD on home oxygen at 3 L #4. Acute kidney injury related to ATN #5. History of obstructive sleep apnea noncompliant with CPAP #6. Chronic hypoxic and hypercapnic respiratory failure related to COPD #7. Chronic diastolic CHF #8. Gen. weakness, and medical debility #9. History of gout #10. History of smoking Plan: Discontinue Levaquin Continue Zosyn, IV steroids and breathing treatments Continue DuoNeb, we will add Pulmicort and Perforomist Drop FiO2 down to 35% Patient has had a multiple readmissions related to COPD and pneumonia His baseline lung function is poor, and has multiple chronic medical comorbiditi es Overall he has been declining and palliative care hospice were recommended for consideration during his last admission CODE STATUS is DO NOT RESUSCITATE Continue supportive care for now Recommend hospice consultation I performed a history & physical examination of the patient and discussed their management with my nurse practitioner, Soha Reina. I reviewed the nurse practitioner's note and agree with the documented findings and plan of care. Lung sounds are positive for mild wheezes throughout the lung root. The findings and the impression was discussed with the patient. I attest to the documentation by the nurse practitioner. Time with Patient: Greater than 30
[2020-11-16] MEDS: LORazepam 2 MG/ML INJ IV PRN (15:20)
[2020-11-16] MEDS: HEPARIN SODIUM,PORCINE/PF 5,000 UNIT/0.5 ML SYRINGE SQ SCH ×2 (19:41→23:06)
[2020-11-16] MEDS: BUDESONIDE 1 MG/2 ML NEBU INHALATION SCH (19:46)
[2020-11-16] MEDS ORDERED: MONTELUKAST 10 MG TAB PO SCH (21:00)
[2020-11-16] MEDS ORDERED: LEVOFLOXACIN 750 MG TAB PO SCH (21:00)
[2020-11-16] MEDS ORDERED: TAMSULOSIN 0.4 MG CAP.ER.24H PO SCH (21:00)
[2020-11-17] MEDS: LORazepam 2 MG/ML INJ IV PRN (03:10)
[2020-11-17] MEDS: FUROSEMIDE 40 MG TAB PO SCH ×2 (05:47→13:40)
[2020-11-17] MEDS: BACLOFEN 10 MG TAB PO SCH ×3 (05:47→22:43)
[2020-11-17] MEDS: methylPREDNISolone SOD SUCCI 125 MG/2 ML VIAL IV SCH ×4 (05:47→22:42)
[2020-11-17] MEDS: FAMOTIDINE 20 MG TAB PO SCH (07:47)
[2020-11-17] MEDS: guaiFENesin 600 MG TABLET.ER PO SCH (07:47)
[2020-11-17] MEDS: CHOLECALCIFEROL 25 MCG (1000 IU) TABLET PO SCH (07:47)
[2020-11-17] MEDS: HEPARIN SODIUM,PORCINE/PF 5,000 UNIT/0.5 ML SYRINGE SQ SCH ×3 (07:47→22:43)
[2020-11-17] MEDS: ASPIRIN 81 MG PO SCH (07:47)
[2020-11-17] MEDS: PIPERACILLIN-TAZOBACTAM 3.375 GM in SODIUM CHLORIDE 0.9% 100 ML IVPB SCH ×3 (07:48→22:42)
[2020-11-17] MEDS: FORMOTEROL FUMARATE 20 MCG/2 ML NEBU INHALATION SCH ×2 (07:56→20:12)
[2020-11-17] MEDS: BUDESONIDE 1 MG/2 ML NEBU INHALATION SCH ×2 (07:56→20:12)
[2020-11-17] MEDS: IPRATROPIUM-ALBUTEROL 3 ML NEB INHALATION SCH ×4 (07:57→20:12)
[2020-11-17 08:59] LABS: HCT 31.9 % (39.6-50.0); HGB 8.8 g/dL (13.0-17.0); MCH 24.6 pg (27.0-32.0); MCHC 27.6 g/dL (32.0-37.0); MCV 89.1 fL (80.0-97.0); Mean Platelet Volume 11.6 fL (9.5-12.2); Platelet Count 207 X 10*3/uL (140-440); RBC 3.58 X 10*6/uL (4.40-5.60); RDW 17.2 % (11.5-14.5); WBC 17.89 X 10*3/uL (4.50-10.00)
[2020-11-17 09:42] LABS: African American GFR (CKD) 47.8 (60.0-200.0); Albumin/Globulin Ratio 1.5 (1.60-3.17); Anion Gap 8.2 mmol/L (4.00-12.00); BUN/Creat Ratio 34.38 Ratio (12.00-20.00); Calcium 8.4 mg/dL (8.7-10.3); Carbon Dioxide 39.8 mmol/L (21.6-31.8); Non-African American GFR(CKD) 41.2 (60.0-200.0); Total Bilirubin 0.8 mg/dL (0.3-1.2)
--- NOTE | 2020-11-17 12:54 | P.PN ---
Subjective Progress Note Date: 11/17/20 Principal diagnosis: Shortness of breath This is a 75-year-old white male patient who was recently discharged to the [facility] on the [place] on 11/14/2020 after being hospitalized for acute exacerbation of COPD and right lower lobe pneumonia for 7 days. Prior to that patient had another hospitalization from 11/02/2020 through 11/04/2020 for acute exacerbation of COPD. After most recent hospitalization patient was sent to [facility] for rehabilitation and a plan of possibly enrolling in hospice/palliative care. Patient has known history of advanced COPD, stage IV, on home oxygen, h ypertension, chronic diastolic CHF, previous pseudomonal pneumonia, obstructive sleep apnea noncompliant with CPAP, history of gout, and general medical debility. Patient was having increasing difficulty at home with mobility, and he was having recurrent falls. During his last admission palliative care and hospice was recommended by the medical team in view of multiple medical comorbidities, advanced COPD, general medical debility, chronic CHF. Patient was discharged to [facility] in stable condition with a guarded prognosis. On 11/15/2020 patient was brought back to the emergency department from the [facility] for evaluation of difficulty breathing. Patient is a poor historian. His CODE STATUS is DO NOT RESUSCITATE, he provides no other significant history other than shortness of breath. His chest x-ray on admission shows some right lower lobe infiltrates with possibly slightly increase compared to his most recent exam. His initial blood work showed white blood cell count is 20.2 which has increased from his discharge white blood cell count of 12.8, hemoglobin is 10.4, platelet count was 232, sodium was 136, potassium is 5.0, CO2 was 39, BUN is 55, creatinine is 1.67. Troponin was 0.013, proBNP was 856, pro calcitonin was 0.63, COVID-19 PCR was negative. Patient is afebrile, did have a single temperature recorded of 95 in the emergency department, currently normothermic, he is sleepy but he is opening eyes to repeated verbal stimulation, he is on BiPAP support currently with pressures of 12/5 and FiO2 of 40%, his pulse ox is 98%. He was started on empiric antibiotic coverage in the form of Zosyn and Levaquin. Lung sounds reveal end expiratory wheezes, patient is on IV steroids and IV Solu-Medrol 60 mg every 6 hours, breathing treatments. On 11/17/2020 patient seen in follow-up on selective care unit. Much more awake on today's exam, his eyes are open spontaneously, he is responding appropriately, he is oriented 3, he states his breathing is improving, breathing easier. He was taken on BiPAP support, and was placed on nasal cannula at 4 L and his pulse ox is around 92%. No complaints of chest pain, no cough, lung sounds are quite diminished. No significant wheezing noted on today's exam, no fever or chills. She remains on antibiotics for possibility of right lower lobe pneumonia, in the form of Zosyn, breathing treatments IV steroids, he is on GI and DVT prophylaxis. he is on home dose Lasix 40 mg twice daily, no significant swelling in bilateral lower extremities, no abdominal distention, no wheezing. Pro calcitonin level came back at 0.63. Chest x-ray showed a right lower lobe patchy opacity and bibasilar linear opacities without significant change compared to most recent chest x-ray, this could represent right lower lobe infiltrate/pneumonia and subsegmental atelectasis. he was removed from BiPAP, however patient was again noted to be increasingly lethargic, and desaturating down to 80% on 4 L, he was placed back on BiPAP. Patient has been receiving intermittent doses of IV Ativan. Objective - Vital Signs Vital signs: Vital Signs Temp 98.4 F 11/17/20 08:00 Pulse 76 11/17/20 11:21 Resp 27 H 11/17/20 08:00 BP 135/81 11/17/20 08:00 Pulse Ox 95 11/17/20 10:53 Intake & Output 11/16/20 11/17/20 11/17/20 18:59 06:59 18:59 Output Total 2200 Balance -2200 Output: Urine 2200 Uretheral (Naranjo) 1650 Other: Voiding Method Indwelling Catheter Indwelling Catheter - Exam GENERAL EXAM: Lethargic, arousable to verbal stimulation, 75-year-old white male, on BiPAP support with pressures of 12/5 and FiO2 of 40%, satting 98%, comfortable in no apparent distress. HEAD: Normocephalic/atraumatic. EYES: Normal reaction of pupils, equal size. Conjunctiva pink, sclera white. NOSE: Clear with pink turbinates. THROAT: No erythema or exudates. NECK: No masses, no JVD, no thyroid enlargement, no adenopathy. CHEST: No chest wall deformity. Symmetrical expansion. LUNGS: Equal air entry with expiratory wheezes. Diminished breath sounds at the bases CVS: Regular rate and rhythm, normal S1 and S2, no gallops, no murmurs, no rubs ABDOMEN: Soft, nontender. No hepatosplenomegaly, normal bowel sounds, no guarding or rigidity. EXTREMITIES: No clubbing, no edema, no cyanosis, 2+ pulses and upper and lower extremities. MUSCULOSKELETAL: Muscle strength and tone normal. SPINE: No scoliosis or deformity SKIN: No rashes CENTRAL NERVOUS SYSTEM: Lethargic but arousable to verbal stimulation. No focal deficits, tone is normal in all 4 extremities. - Labs CBC & Chem 7: 11/17/20 05:02 11/17/20 05:02 Labs: Abnormal Lab Results - Last 24 Hours (Table) 11/15/20 11/17/20 11/17/20 Range/Units 20:34 05:02 05:02 WBC 17.89 H (4.50-10.00) X 10*3/uL RBC 3.58 L (4.40-5.60) X 10*6/uL Hgb 8.8 L (13.0-17.0) g/dL Hct 31.9 L (39.6-50.0) % MCH 24.6 L (27.0-32.0) pg MCHC 27.6 L (32.0-37.0) g/dL RDW 17.2 H (11.5-14.5) % Carbon Dioxide 39.8 H (21.6-31.8) mmol/L BUN 55.0 H (9.0-27.0) mg/dL Creatinine 1.6 H (0.6-1.5) mg/dL Est GFR (CKD-EPI)AfAm 47.8 L (60.0-200.0) Est GFR (CKD-EPI)NonAf 41.2 L (60.0-200.0) BUN/Creatinine Ratio 34.38 H (12.00-20.00) Ratio Glucose 141 H (70-110) mg/dL Calcium 8.4 L (8.7-10.3) mg/dL Total Protein 5.0 L (6.2-8.2) g/dL Albumin 3.00 L (3.80-4.90) g/dL Albumin/Globulin Ratio 1.50 L (1.60-3.17) g/dL Procalcitonin 0.63 H (0.02-0.09) ng/mL Microbiology - Last 24 Hours (Table) 11/15/20 21:54 Blood Culture - Preliminary Blood No Growth after 24 hours 11/15/20 20:35 Blood Culture - Preliminary Blood No Growth after 24 hours Assessment and Plan Plan: Assessment: #1. Acute on chronic hypoxic respiratory failure related to acute exacerbation of COPD, and possibility of right lower lobe pneumonia #2. Recent hospitalization from 11/07/2020 through 11/14/2020 for COPD exacerbation and pneumonia, patient was discharged to [facility] on the [place] [facility] #3. Advanced COPD on home oxygen at 3 L #4. Acute kidney injury related to ATN #5. History of obstructive sleep apnea noncompliant with CPAP #6. Chronic hypoxic and hypercapnic respiratory failure related to COPD #7. Chronic diastolic CHF #8. Gen. weakness, and medical debility #9. History of gout #10. History of smoking Plan: Continue Zosyn for antibiotic coverage Continue nebulized bronchodilators and steroids We will discontinue Ativan, patient is quite lethargic BiPAP support as needed We'll continue supportive medical treatment, Maintain safety precautions, aspiration precautions. We'll continue to follow I performed a history & physical examination of the patient and discussed their management with my nurse practitioner, Soha Reina. I reviewed the nurse practitioner's note and agree with the documented findings and plan of care. Lung sounds are positive for mild wheezes throughout the lung root. The findings and the impression was discussed with the patient. I attest to the documentation by the nurse practitioner. Time with Patient: Less than 30
--- NOTE | 2020-11-17 14:50 | P.PN ---
Subjective Progress Note Date: 11/17/20 HISTORY OF PRESENT ILLNESS This is a 75 years old male patient of Dr. Chu present with past medical history of hypertension, COPD, wears 3 L of oxygen with diastolic CHF was recently discharged on 11/04/2020. Due to shortness of breath and extreme right leg pain for the past week. Patient went to [facility]. Previously patient has a history of intubation for 48 hours with presentation of unresponsiveness and hypoxia. Patient was intubated again in 2018 when patient was found to be unresponsive and short of breath. Patient was treated for diastolic CHF, COPD and Pseudomonas pneumonia. Echocardiogram obtained at that time suggested EF of 60-65% with borderline concentric left ventricular hypertrophy mild tricuspid regurgitation and mild pulmonary hypertension. Patient also has sleep apnea but is noncompliant with CPAP. Patient was stabilized and discharged to [facility] for subacute rehab but unfortunately returned to [facility] after less than one day. He was treated for acute hypoxic hypercapnic respiratory failure secondary to COPD exacerbation and interstitial lung disease left lower lobe pneumonia and CO2 retention with metabolic encephalopathy. Patient was discharged back to [facility] on November 14 with palliative care and no code status. Patient developed increasing shortness of breath and was sent back to the hospital yesterday afternoon. Patient now presents to [facility] emergency center due to complaints of difficulty in breathing. Patient was afebrile, heart rate 80s and 90s, respiratory rate 26, blood pressure 120/65, pulse ox 98% on simple mask at 8 L. Pulse ox dropped down to 85% when oxygen was removed and patient was placed on BiPAP. EKG was a sinus rhythm with nonspecific intraventricular block and T- wave abnormality. Chest x-ray reveals right lower lobe pneumonia that is slightly increased compared to recent exam. No heart failure. Patient was started on DuoNeb treatments, one dose of Levaquin and continued on Zosyn, Solu- Medrol and admitted to the [facility] floor, consult with pulmonary medicine. 11/17: Patient is seen today, he is much more alert, however he is been on continuous BiPAP, however when it is held for 30 minutes, patient again started to be hypersomnolent. is at bedside today, we discussed hospice treatments, and return to [facility] once hospice is initiated here, patient also confirms regarding hospice management, when discussed with him today. Most likely the BiPAP regimen cannot be provided while in hospice, or finalizing rena roche from speech today, most likely to be transitioned to hospice and return to [facility] in the next 24 hours. We'll going to modify oral medication regimen, today, discontinue Pepcid, Singulair, vitamin D3, and Mucinex. Discontinue Flomax, and keep the Naranjo catheter, will continue IV antibiotic this time, as well as baclofen. Patient hasn't eaten since admission secondary to aspiration, no plans for feeding tube according to the REVIEW OF SYSTEMS Constitutional: No fever, no chills, no night sweats. No weight change. Reports weakness, reports fatigue, reports lethargy. No daytime sleepiness. EENT: No headache. No blurred vision or double vision, no loss of vision. No loss of Hearing, no ringing in the ears, no dizziness. No nasal drainage or congestion. No epistaxis. No sore throat. Lungs: Reports shortness of breath, reports cough, reports sputum production. Reports wheezing. Cardiovascular: No chest pain, no lower extremity edema. No palpitations. No paroxysmal nocturnal dyspnea. Reports orthopnea. No lightheadedness or dizz iness. No syncopal episodes. Abdominal: No abdominal pain. No nausea, vomiting. No diarrhea. No constipation. No bloody or tarry stools reports loss of appetite. Genitourinary: No dysuria, increased frequency, urgency. No urinary retention. Musculoskeletal: No myalgias. No muscle weakness, no gait dysfunction, no frequent falls. No back pain. No neck pain. Integumentary: No wounds, no lesions. No rash or pruritus. No unusual bruising. No change in hair or nails. Neurologic: No aphasia. No facial droop. Mild change in mentation. No head injury. No headache. No paralysis. No paresthesia. Reports dysphagia. Psychiatric: No depression. No anxiety. No mood swings. Endocrine: No abnormal blood sugars. No weight change. Objective - Vital Signs Vital signs: Vital Signs Temp 98.4 F 11/17/20 08:00 Pulse 76 11/17/20 11:21 Resp 27 H 11/17/20 08:00 BP 135/81 11/17/20 08:00 Pulse Ox 95 11/17/20 10:53 Intake & Output 11/16/20 11/17/20 11/17/20 18:59 06:59 18:59 Output Total 2200 Balance -2200 Output: Urine 2200 Uretheral (Naranjo) 1650 Other: Voiding Method Indwelling Catheter Indwelling Catheter - Labs CBC & Chem 7: 11/17/20 05:02 11/17/20 05:02 Labs: Abnormal Lab Results - Last 24 Hours (Table) 11/17/20 11/17/20 Range/Units 05:02 05:02 WBC 17.89 H (4.50-10.00) X 10*3/uL RBC 3.58 L (4.40-5.60) X 10*6/uL Hgb 8.8 L (13.0-17.0) g/dL Hct 31.9 L (39.6-50.0) % MCH 24.6 L (27.0-32.0) pg MCHC 27.6 L (32.0-37.0) g/dL RDW 17.2 H (11.5-14.5) % Carbon Dioxide 39.8 H (21.6-31.8) mmol/L BUN 55.0 H (9.0-27.0) mg/dL Creatinine 1.6 H (0.6-1.5) mg/dL Est GFR (CKD-EPI)AfAm 47.8 L (60.0-200.0) Est GFR (CKD-EPI)NonAf 41.2 L (60.0-200.0) BUN/Creatinine Ratio 34.38 H (12.00-20.00) Ratio Glucose 141 H (70-110) mg/dL Calcium 8.4 L (8.7-10.3) mg/dL Total Protein 5.0 L (6.2-8.2) g/dL Albumin 3.00 L (3.80-4.90) g/dL Albumin/Globulin Ratio 1.50 L (1.60-3.17) g/dL Microbiology - Last 24 Hours (Table) 11/15/20 21:54 Blood Culture - Preliminary Blood No Growth after 24 hours 11/15/20 20:35 Blood Culture - Preliminary Blood No Growth after 24 hours Assessment and Plan Plan: ASSESSMENT AND PLAN 1. Acute hypoxic hypercapnic respiratory failure secondary to COPD exacerbation with interstitial lung disease, right lower lobe pneumonia. Continue BiPAP to be used during the night and during sleep. DuoNeb 4 times daily and every 2 hours as needed, Pulmicort 1 mg twice daily, Perforomist twice daily, Solu- Medrol 60 mg IV every 6 hours, Zosyn 3.375 g IV piggyback every 8 hours, add Mucinex. Pulmonary medicine consult appreciated. 2. Acute kidney injury. Avoid nephrotoxic agents, hypotension, monitor renal function. 3. Generalized weakness with debility and dysphagia PTOT consult placed. Fall precautions. Speech therapy for modified barium swallow. 4. History of sleep apnea with chronic CO2 retention. Continue BiPAP 5. Chronic Diastolic heart failure continue Lasix 40 mg twice a day. I&O monitoring daily weight. 6. Chronic Gout history, stable 7. Chronic CO2 retention secondary to sleep apnea. Continue BiPAP. 8. Current tobacco dependency and is a current tobacco smoker. Patient counseled about tobacco cessation. 9. Benign prostatic hypertrophy with urinary retention requiring Naranjo catheter placement on last admission. Continue Flomax 0.4 mg daily. 10. VTE prophylaxis: heparin subcu 10. GI prophylaxis: Pepcid 20 mg CODE STATUS: No code will transition to hospice, during this admission, couns eled to hospice was made, patient's agreeable, the is agreeable. Return to [facility] in the [place], with hospice management. O2 supplementation, most likely hospice would not cover BiPAP treatments
[2020-11-18] MEDS: methylPREDNISolone SOD SUCCI 125 MG/2 ML VIAL IV SCH ×4 (05:51→23:35)
[2020-11-18] MEDS: BACLOFEN 10 MG TAB PO SCH ×3 (05:52→21:52)
[2020-11-18] MEDS: FUROSEMIDE 40 MG TAB PO SCH ×2 (05:52→13:48)
[2020-11-18] MEDS: PIPERACILLIN-TAZOBACTAM 3.375 GM in SODIUM CHLORIDE 0.9% 100 ML IVPB SCH ×3 (07:34→23:36)
[2020-11-18] MEDS: ASPIRIN 81 MG PO SCH (07:36)
[2020-11-18] MEDS: HEPARIN SODIUM,PORCINE/PF 5,000 UNIT/0.5 ML SYRINGE SQ SCH ×3 (07:36→23:35)
[2020-11-18] MEDS: IPRATROPIUM-ALBUTEROL 3 ML NEB INHALATION SCH ×4 (08:03→20:28)
[2020-11-18] MEDS: BUDESONIDE 1 MG/2 ML NEBU INHALATION SCH ×2 (08:03→20:28)
[2020-11-18] MEDS: FORMOTEROL FUMARATE 20 MCG/2 ML NEBU INHALATION SCH ×2 (08:03→20:28)
[2020-11-18] MEDS ORDERED: FAMOTIDINE 20 MG TAB PO SCH (09:00)
--- NOTE | 2020-11-18 11:59 | P.PN ---
Subjective Progress Note Date: 11/18/20 Principal diagnosis: Shortness of breath This is a 75-year-old white male patient who was recently discharged to the [facility] on the [place] on 11/14/2020 after being hospitalized for acute exacerbation of COPD and right lower lobe pneumonia for 7 days. Prior to that patient had another hospitalization from 11/02/2020 through 11/04/2020 for acute exacerbation of COPD. After most recent hospitalization patient was sent to [facility] for rehabilitation and a plan of possibly enrolling in hospice/palliative care. Patient has known history of advanced COPD, stage IV, on home oxygen, h ypertension, chronic diastolic CHF, previous pseudomonal pneumonia, obstructive sleep apnea noncompliant with CPAP, history of gout, and general medical debility. Patient was having increasing difficulty at home with mobility, and he was having recurrent falls. During his last admission palliative care and hospice was recommended by the medical team in view of multiple medical comorbidities, advanced COPD, general medical debility, chronic CHF. Patient was discharged to [facility] in stable condition with a guarded prognosis. On 11/15/2020 patient was brought back to the emergency department from the [facility] for evaluation of difficulty breathing. Patient is a poor historian. His CODE STATUS is DO NOT RESUSCITATE, he provides no other significant history other than shortness of breath. His chest x-ray on admission shows some right lower lobe infiltrates with possibly slightly increase compared to his most recent exam. His initial blood work showed white blood cell count is 20.2 which has increased from his discharge white blood cell count of 12.8, hemoglobin is 10.4, platelet count was 232, sodium was 136, potassium is 5.0, CO2 was 39, BUN is 55, creatinine is 1.67. Troponin was 0.013, proBNP was 856, pro calcitonin was 0.63, COVID-19 PCR was negative. Patient is afebrile, did have a single temperature recorded of 95 in the emergency department, currently normothermic, he is sleepy but he is opening eyes to repeated verbal stimulation, he is on BiPAP support currently with pressures of 12/5 and FiO2 of 40%, his pulse ox is 98%. He was started on empiric antibiotic coverage in the form of Zosyn and Levaquin. Lung sounds reveal end expiratory wheezes, patient is on IV steroids and IV Solu-Medrol 60 mg every 6 hours, breathing treatments. On 11/17/2020 patient seen in follow-up on selective care unit. Much more awake on today's exam, his eyes are open spontaneously, he is responding appropriately, he is oriented 3, he states his breathing is improving, breathing easier. He was taken on BiPAP support, and was placed on nasal cannula at 4 L and his pulse ox is around 92%. No complaints of chest pain, no cough, lung sounds are quite diminished. No significant wheezing noted on today's exam, no fever or chills. She remains on antibiotics for possibility of right lower lobe pneumonia, in the form of Zosyn, breathing treatments IV steroids, he is on GI and DVT prophylaxis. he is on home dose Lasix 40 mg twice daily, no significant swelling in bilateral lower extremities, no abdominal distention, no wheezing. Pro calcitonin level came back at 0.63. Chest x-ray showed a right lower lobe patchy opacity and bibasilar linear opacities without significant change compared to most recent chest x-ray, this could represent right lower lobe infiltrate/pneumonia and subsegmental atelectasis. he was removed from BiPAP, however patient was again noted to be increasingly lethargic, and desaturating down to 80% on 4 L, he was placed back on BiPAP. Patient has been receiving intermittent doses of IV Ativan. On 11/18/2020 patient seen in follow-up on medical surgical floor. Today he is awake and alert, oriented 2, person and place, he knew the year, but not to month, he is responding appropriately, he denies any distress, he is currently on 4 L of oxygen pulse ox is 97%, no fever or chills. No wheezing or cough, lung sounds are diminished. Today's labs have been reviewed, white blood cell count is improving, is down to 17.8, hemoglobin is 8.8, sodium is 144, potassium is 5.0, chloride is 96, BUN is 55, creatinine is stable at 1.6. Blood cultures have shown no growth thus far. Remains on Zosyn breathing treatments and IV steroids Objective - Vital Signs Vital signs: Vital Signs Temp 97.7 F 11/18/20 08:00 Pulse 79 11/18/20 11:47 Resp 24 11/18/20 08:00 BP 129/68 11/18/20 08:00 Pulse Ox 97 11/18/20 08:06 Intake & Output 11/17/20 11/18/20 11/18/20 18:59 06:59 18:59 Intake Total 120 100 Output Total 400 2300 Balance -280 -2300 100 Intake: Intake, IV Titration 100 Amount Piperacillin-Tazobactam 3 100 .375 gm In Sodium Chloride 0.9% 100 ml @ 25 mls/hr IVPB Q8HR SONY Rx# :[id number] Oral 120 Output: Urine 400 2300 Other: Voiding Method Indwelling Catheter Indwelling Catheter Indwelling Catheter # Bowel Movements 1 - Exam GENERAL EXAM: Lethargic, arousable to verbal stimulation, 75-year-old white male, 4 L of oxygen a pulse ox of 97% comfortable in no apparent distress. HEAD: Normocephalic/atraumatic. EYES: Normal reaction of pupils, equal size. Conjunctiva pink, sclera white. NOSE: Clear with pink turbinates. THROAT: No erythema or exudates. NECK: No masses, no JVD, no thyroid enlargement, no adenopathy. CHEST: No chest wall deformity. Symmetrical expansion. LUNGS: Equal air entry with expiratory wheezes. Diminished breath sounds at the bases CVS: Regular rate and rhythm, normal S1 and S2, no gallops, no murmurs, no rubs ABDOMEN: Soft, nontender. No hepatosplenomegaly, normal bowel sounds, no guarding or rigidity. EXTREMITIES: No clubbing, no edema, no cyanosis, 2+ pulses and upper and lower extremities. MUSCULOSKELETAL: Muscle strength and tone normal. SPINE: No scoliosis or deformity SKIN: No rashes CENTRAL NERVOUS SYSTEM: Lethargic but arousable to verbal stimulation. No focal deficits, tone is normal in all 4 extremities. - Labs CBC & Chem 7: 11/17/20 05:02 11/17/20 05:02 Labs: Microbiology - Last 24 Hours (Table) 11/15/20 21:54 Blood Culture - Preliminary Blood No Growth after 48 hours 11/15/20 20:35 Blood Culture - Preliminary Blood No Growth after 48 hours Assessment and Plan Plan: Assessment: #1. Acute on chronic hypoxic respiratory failure related to acute exacerbation of COPD, and possibility of right lower lobe pneumonia #2. Recent hospitalization from 11/07/2020 through 11/14/2020 for COPD exacerbation and pneumonia, patient was discharged to [facility] on the [facility] #3. Advanced COPD on home oxygen at 3 L #4. Acute kidney injury related to ATN #5. History of obstructive sleep apnea noncompliant with CPAP #6. Chronic hypoxic and hypercapnic respiratory failure related to COPD #7. Chronic diastolic CHF #8. Gen. weakness, and medical debility #9. History of gout #10. History of smoking Plan: Clinically patient has remained stable, improving Continue current antibiotics BiPAP support as needed No acute events overnight Leukocytosis is improving, his had no fever or chills Discharge planning is in process for discharge back to [facility] possibly on hospice I performed a history & physical examination of the patient and discussed their management with my nurse practitioner, Soha Reina. I reviewed the nurse practitioner's note and agree with the documented findings and plan of care. Lung sounds are positive for mild wheezes throughout the lung root. The findings and the impression was discussed with the patient. I attest to the documentation by the nurse practitioner. Time with Patient: Less than 30
--- NOTE | 2020-11-18 16:03 | P.PN ---
Subjective Progress Note Date: 11/18/20 HISTORY OF PRESENT ILLNESS This is a 75 years old male patient of Dr. Chu present with past medical history of hypertension, COPD, wears 3 L of oxygen with diastolic CHF was recently discharged on 11/04/2020. Due to shortness of breath and extreme right leg pain for the past week. Patient went to [facility]. Previously patient has a history of intubation for 48 hours with presentation of unresponsiveness and hypoxia. Patient was intubated again in 2018 when patient was found to be unresponsive and short of breath. Patient was treated for diastolic CHF, COPD and Pseudomonas pneumonia. Echocardiogram obtained at that time suggested EF of 60-65% with borderline concentric left ventricular hypertrophy mild tricuspid regurgitation and mild pulmonary hypertension. Patient also has sleep apnea but is noncompliant with CPAP. Patient was stabilized and discharged to [facility] for subacute rehab but unfortunately returned to [facility] after less than one day. He was treated for acute hypoxic hypercapnic respiratory failure secondary to COPD exacerbation and interstitial lung disease left lower lobe pneumonia and CO2 retention with metabolic encephalopathy. Patient was discharged back to [facility] on November 14 with palliative care and no code status. Patient developed increasing shortness of breath and was sent back to the hospital yesterday afternoon. Patient now presents to [facility] emergency center due to complaints of difficulty in breathing. Patient was afebrile, heart rate 80s and 90s, respiratory rate 26, blood pressure 120/65, pulse ox 98% on simple mask at 8 L. Pulse ox dropped down to 85% when oxygen was removed and patient was placed on BiPAP. EKG was a sinus rhythm with nonspecific intraventricular block and T- wave abnormality. Chest x-ray reveals right lower lobe pneumonia that is slightly increased compared to recent exam. No heart failure. Patient was started on DuoNeb treatments, one dose of Levaquin and continued on Zosyn, Solu- Medrol and admitted to the MedSur floor, consult with pulmonary medicine. 11/17: Patient is seen today, he is much more alert, however he is been on continuous BiPAP, however when it is held for 30 minutes, patient again started to be hypersomnolent. is at bedside today, we discussed hospice treatments, and return to [facility] once hospice is initiated here, patient also confirms regarding hospice management, when discussed with him today. Most likely the BiPAP regimen cannot be provided while in hospice, or finalizing swal lowing eval from speech today, most likely to be transitioned to hospice and return to [facility] in the next 24 hours. We'll going to modify oral medication regimen, today, discontinue Pepcid, Singulair, vitamin D3, and Mucinex. Discontinue Flomax, and keep the Naranjo catheter, will continue IV antibiotic this time, as well as baclofen. Patient hasn't eaten since admission secondary to aspiration, no plans for feeding tube according to the 11/18: Patient is seen by hospice team, for which recommendation is to go to hospice program, either [facility] or [facility], per social science manager, it is expensive to go back to [facility] under the hospice program, would cost approximately $1100 a month with room and board, patient currently is awake alert, 5 L nasal cannula, eating a full breakfast, chopped diet per recommendations from speech, with a dental his diet. Patient has passed his swallowing eval basically, plan for discharge in the morning under the hospice program, no new pain needs at this time, patient to be discharged with Naranjo catheter, for hospice management of her care measures REVIEW OF SYSTEMS Constitutional: No fever, no chills, no night sweats. No weight change. Reports weakness, reports fatigue, reports lethargy. No daytime sleepiness. EENT: No headache. No blurred vision or double vision, no loss of vision. No loss of Hearing, no ringing in the ears, no dizziness. No nasal drainage or congestion. No epistaxis. No sore throat. Lungs: Reports shortness of breath, reports cough, reports sputum production. Reports wheezing. Cardiovascular: No chest pain, no lower extremity edema. No palpitations. No p aroxysmal nocturnal dyspnea. Reports orthopnea. No lightheadedness or dizziness. No syncopal episodes. Abdominal: No abdominal pain. No nausea, vomiting. No diarrhea. No constipation. No bloody or tarry stools reports loss of appetite. Genitourinary: No dysuria, increased frequency, urgency. No urinary retention. Musculoskeletal: No myalgias. No muscle weakness, no gait dysfunction, no fr equent falls. No back pain. No neck pain. Integumentary: No wounds, no lesions. No rash or pruritus. No unusual bruising. No change in hair or nails. Neurologic: No aphasia. No facial droop. Mild change in mentation. No head injury. No headache. No paralysis. No paresthesia. Reports dysphagia. Psychiatric: No depression. No anxiety. No mood swings. Endocrine: No abnormal blood sugars. No weight change. Objective - Vital Signs Vital signs: Vital Signs Temp 97.8 F 11/18/20 14:00 Pulse 74 11/18/20 15:57 Resp 22 11/18/20 14:00 BP 129/86 11/18/20 14:00 Pulse Ox 95 11/18/20 14:00 Intake & Output 11/17/20 11/18/20 11/18/20 18:59 06:59 18:59 Intake Total 120 100 Output Total 400 2300 Balance -280 -2300 100 Intake: Intake, IV Titration 100 Amount Piperacillin-Tazobactam 3 100 .375 gm In Sodium Chloride 0.9% 100 ml @ 25 mls/hr IVPB Q8HR [facility] Rx# :[id number] Oral 120 Output: Urine 400 2300 Other: Voiding Method Indwelling Catheter Indwelling Catheter Indwelling Catheter # Bowel Movements 1 - Labs CBC & Chem 7: 11/17/20 05:02 11/17/20 05:02 Labs: Abnormal Lab Results - Last 24 Hours (Table) 11/18/20 Range/Units 05:02 Procalcitonin 0.25 H (0.02-0.09) ng/mL Microbiology - Last 24 Hours (Table) 11/15/20 21:54 Blood Culture - Preliminary Blood No Growth after 48 hours 11/15/20 20:35 Blood Culture - Preliminary Blood No Growth after 48 hours Assessment and Plan Plan: ASSESSMENT AND PLAN 1. Acute hypoxic hypercapnic respiratory failure secondary to COPD exacerbation with interstitial lung disease, right lower lobe pneumonia. Continue BiPAP to be used during the night and during sleep. DuoNeb 4 times daily and every 2 hours as needed, Pulmicort 1 mg twice daily, Perforomist twice daily, Solu- Medrol 60 mg IV every 6 hours, Zosyn 3.375 g IV piggyback every 8 hours, add Mucinex. Pulmonary medicine consult appreciated. Plan for hospice on discharge 2. Acute kidney injury. Avoid nephrotoxic agents, hypotension, monitor renal function. 3. Generalized weakness with debility and dysphagia PTOT consult placed. Fall precautions. Speech therapy for modified barium swallow. 4. History of sleep apnea with chronic CO2 retention. Continue BiPAP 5. Chronic Diastolic heart failure continue Lasix 40 mg twice a day. I&O monitoring daily weight. 6. Chronic Gout history, stable 7. Chronic CO2 retention secondary to sleep apnea. Continue BiPAP. 8. Current tobacco dependency and is a current tobacco smoker. Patient counseled about tobacco cessation. 9. Benign prostatic hypertrophy with urinary retention requiring Naranjo catheter placement on last admission. Continue Flomax 0.4 mg daily. 10. VTE prophylaxis: heparin subcu 10. GI prophylaxis: Pepcid 20 mg CODE STATUS: No code will transition to hospice, during this admission, counseled to hospice was made, patient's agreeable, the is agreeable. [facility] home or [facility], with hospice management. O2 supplementation, most likely hospice would not cover BiPAP treatments.
[2020-11-19] MEDS: BACLOFEN 10 MG TAB PO SCH ×2 (05:06→13:11)
[2020-11-19] MEDS: methylPREDNISolone SOD SUCCI 125 MG/2 ML VIAL IV SCH ×2 (05:06→11:51)
[2020-11-19] MEDS: FUROSEMIDE 40 MG TAB PO SCH ×2 (05:06→13:11)
[2020-11-19 06:39] LABS: Glucose,Whole Blood 145 mg/dL (75-99)
[2020-11-19] MEDS: PIPERACILLIN-TAZOBACTAM 3.375 GM in SODIUM CHLORIDE 0.9% 100 ML IVPB SCH (06:56)
[2020-11-19] MEDS: ASPIRIN 81 MG PO SCH (06:56)
[2020-11-19] MEDS: HEPARIN SODIUM,PORCINE/PF 5,000 UNIT/0.5 ML SYRINGE SQ SCH (06:56)
--- NOTE | 2020-11-19 06:58 | XR ---
EXAMINATION TYPE: XR chest 1V portable DATE OF EXAM: 11/19/2020 HISTORY: Shortness of breath. COMPARISON: 11/16/2020 TECHNIQUE: Single view of the chest is submitted. FINDINGS: Demonstrated are scattered senescent parenchymal change. Patchy asymmetric densities persist although may be slightly improved particularly at the right lung base. Correlate clinically and progress studies are advised. The heart is stable. Hilar and mediastinal structures are within normal limits. Degenerative changes are seen of the dorsal spine. IMPRESSION: 1. Patchy asymmetric densities persist although may be slightly improved particularly at the right l dinah base. Correlate clinically and progress studies are advised.
[2020-11-19] MEDS: FORMOTEROL FUMARATE 20 MCG/2 ML NEBU INHALATION SCH (08:02)
[2020-11-19] MEDS: BUDESONIDE 1 MG/2 ML NEBU INHALATION SCH (08:02)
[2020-11-19] MEDS: IPRATROPIUM-ALBUTEROL 3 ML NEB INHALATION SCH ×2 (08:02→11:25)
[2020-11-19 11:40] LABS: Basophils # (A) 0.01 X 10*3/uL (0.00-0.10); Basophils % (A) 0.1 %; Eosinophils # (A) 0 X 10*3/uL (0.04-0.35); Eosinophils % (A) 0 %; HCT 35.8 % (39.6-50.0); HGB 9.8 g/dL (13.0-17.0); Lymphocytes # (A) 0.33 X 10*3/uL (0.90-5.00); Lymphocytes % (A) 2.2 %; MCH 24.7 pg (27.0-32.0); MCHC 27.4 g/dL (32.0-37.0); MCV 90.2 fL (80.0-97.0); Mean Platelet Volume 11.2 fL (9.5-12.2); Monocytes # (A) 0.92 X 10*3/uL (0.20-1.00); Monocytes % (A) 6.1 %; Neutrophils % (A) 90.1 %; Platelet Count 132 X 10*3/uL (140-440); RBC 3.97 X 10*6/uL (4.40-5.60); RDW 18.5 % (11.5-14.5); WBC 15.09 X 10*3/uL (4.50-10.00)
[2020-11-19 12:56] LABS: African American GFR (CKD) 56.2 (60.0-200.0); Albumin 3.3 g/dL (3.80-4.90); Albumin/Globulin Ratio 1.5 (1.60-3.17); Anion Gap 10.5 mmol/L (4.00-12.00); BUN/Creat Ratio 34.29 Ratio (12.00-20.00); Calcium 8.6 mg/dL (8.7-10.3); Carbon Dioxide 34.5 mmol/L (21.6-31.8); Globulin 2.2 g/dL (1.6-3.3); Non-African American GFR(CKD) 48.5 (60.0-200.0); Potassium 4.7 mmol/L (3.5-5.5); Total Bilirubin 0.7 mg/dL (0.3-1.2); Total Protein 5.5 g/dL (6.2-8.2)
[2020-11-19 14:13] VITALS: BP 146/74; PULSE 65; RESP 24; TEMP 97.8
--- NOTE | 2020-11-19 16:30 | P.DS ---
Providers Date of admission: 11/15/20 20:33 Expected date of discharge: 11/19/20 Attending physician: Lee Ann Bean Consults: 11/15/20 20:31 Consult Physician Routine Consulting Provider: Benja Ibarra Consult Reason/Comments: Pneumonia, sepsis, respiratory failure Do you want consulting provider notified?: Yes Primary care physician: Gallito Kimbleflana [facility] Course: HISTORY OF PRESENT ILLNESS This is a 75 years old male patient of Dr. Chu present with past medical history of hypertension, COPD, wears 3 L of oxygen with diastolic CHF was recently discharged on 11/04/2020. Due to shortness of breath and extreme right leg pain for the past week. Patient went to [facility]. Previously patient has a history of intubation for 48 hours with presentation of unresponsiveness and hypoxia. Patient was intubated again in 2017 when patient was found to be unresponsive and short of breath. Patient was treated for diastolic CHF, COPD and Pseudomonas pneumonia. Echocardiogram obtained at that time suggested EF of 60-65% with borderline concentric left ventricular hypertrophy mild tricuspid regurgitation and mild pulmonary hypertension. Patient also has sleep apnea but is noncompliant with CPAP. Patient was stabilized and discharged to [facility] for subacute rehab but unfortunately returned to [facility] after less than one day. He was treated for acute hypoxic hypercapnic respiratory failure secondary to COPD exacerbation and interstitial lung disease left lower lobe pneumonia and CO2 retention with metabolic encephalopathy. Patient was discharged back to [facility] on Tuesday, November 14 with palliative care and no code status. Patient developed increasing shortness of breath and was sent back to the hospital yesterday afternoon. Patient now presents to [facility] emergency center due to complaints of difficulty in breathing. Patient was afebrile, heart rate 80s and 90s, respiratory rate 26, blood pressure 120/65, pulse ox 98% on simple mask at 8 L. Pulse ox dropped down to 85% when oxygen was removed and patient was placed on BiPAP. EKG was a sinus rhythm with nonspecific intraventricular block and T- wave abnormality. Chest x-ray reveals right lower lobe pneumonia that is slightly increased compared to recent exam. No heart failure. Patient was started on DuoNeb treatments, one dose of Levaquin and continued on Zosyn, Solu- Medrol and admitted to the MedSur floor, consult with pulmonary medicine. 11/17: Patient is seen today, he is much more alert, however he is been on continuous BiPAP, however when it is held for 30 minutes, patient again started to be hypersomnolent. is at bedside today, we discussed hospice treatments, and return to [facility] once hospice is initiated here, patient also confirms regarding hospice management, when discussed with him today. Most likely the BiPAP regimen cannot be provided while in hospice, or finalizing swallowing eval from speech today, most likely to be transitioned to hospice and return to [facility] in the next 24 hours. We'll going to modify oral medication regimen, today, discontinue Pepcid, Singulair, vitamin D3, and Mucinex. Discontinue Flomax, and keep the Naranjo catheter, will continue IV antibiotic this time, as well as baclofen. Patient hasn't eaten since admission secondary to aspiration, no plans for feeding tube according to the 11/18: Patient is seen by hospice team, for which recommendation is to go to hospice program, either [facility] or [facility] home, per administrator social welfare, it is expensive to go back to [facility] under the hospice program, would cost approximately $1100 a month with room and board, patient currently is awake alert, 5 L nasal cannula, eating a full breakfast, chopped diet per recommendations from speech, with a dental his diet. Patient has passed his swallowing eval basically, plan for discharge in the morning under the hospice program, no new pain needs at this time, patient to be discharged with Naranjo catheter, for hospice management of her care measures 11/19. Patient is at bedside today, along with the , she is alert, co mfortable, on 4-5 L his cannula, patient is aware that he will be going to hospice today, arrangements have been made to go to [facility], for hospice management. They cannot afford [facility] [place] at this time, patient is to go home with O2, is a cannula, 5 L, and Augmentin, nebulized treatment, Pulmicort, oral taper prednisone REVIEW OF SYSTEMS Constitutional: No fever, no chills, no night sweats. No weight change. Reports weakness, reports fatigue, reports lethargy. No daytime sleepiness. EENT: No headache. No blurred vision or double vision, no loss of vision. No loss of Hearing, no ringing in the ears, no dizziness. No nasal drainage or congestion. No epistaxis. No sore throat. Lungs: Reports shortness of breath, reports cough, reports sputum production. Reports wheezing. Cardiovascular: No chest pain, no lower extremity edema. No palpitations. No paroxysmal nocturnal dyspnea. Reports orthopnea. No lightheadedness or dizziness. No syncopal episodes. Abdominal: No abdominal pain. No nausea, vomiting. No diarrhea. No constipation. No bloody or tarry stools reports loss of appetite. Genitourinary: No dysuria, increased frequency, urgency. No urinary retention. Musculoskeletal: No myalgias. No muscle weakness, no gait dysfunction, no frequent falls. No back pain. No neck pain. Integumentary: No wounds, no lesions. No rash or pruritus. No unusual bruising. No change in hair or nails. Neurologic: No aphasia. No facial droop. Mild change in mentation. No head injury. No headache. No paralysis. No paresthesia. Reports dysphagia. Psychiatric: No depression. No anxiety. No mood swings. Endocrine: No abnormal blood sugars. No weight change. FINAL DIAGNOSIS 1. Acute hypoxic hypercapnic respiratory failure secondary to COPD exacerbation with interstitial lung disease, right lower lobe pneumonia. Continue BiPAP to be used during the night and during sleep. DuoNeb 4 times daily and every 2 hours as needed, Pulmicort 1 mg twice daily, Perforomist twice daily, Solu- Medrol 60 mg IV every 6 hours, Zosyn 3.375 g IV piggyback every 8 hours, add Mucinex. Pulmonary medicine consult appreciated. Plan for hospice on discharge. Augmentin on discharge, 7 more days, 2. Acute kidney injury. Avoid nephrotoxic agents, hypotension, monitor renal function. 3. Generalized weakness with debility and dysphagia PTOT consult placed. Fall precautions. Speech therapy for modified barium swallow. 4. History of sleep apnea with chronic CO2 retention. Continue BiPAP 5. Chronic Diastolic heart failure continue Lasix 40 mg twice a day. I&O monitoring daily weight. 6. Chronic Gout history, stable 7. Chronic CO2 retention secondary to sleep apnea. Continue BiPAP. 8. Current tobacco dependency and is a current tobacco smoker. Patient counseled about tobacco cessation. 9. Benign prostatic hypertrophy with urinary retention requiring Naranjo catheter placement on last admission. Continue Flomax 0.4 mg daily. 10. VTE prophylaxis: heparin subcu 10. GI prophylaxis: Pepcid 20 mg CODE STATUS: No code will transition to hospice, during this admission, counseled to hospice was made, patient's agreeable, the is agreeable. [facility] home or [facility], with hospice management. O2 supplementation, most likely hospice would not cover BiPAP treatments. Naranjo to keep, managed by hospice team, O2 when necessary for comfort, Patient Condition at Discharge: Serious Plan - Discharge Summary Discharge Rx Participant: No New Discharge Prescriptions: New Ipratropium-Albuterol Nebulize [Duoneb 0.5 mg-3 mg/3 ml Soln] 3 ml INHALATION RT-Q4H PRN ml PRN Reason: shortness of breath Budesonide [Pulmicort] 1 mg INHALATION RT-BID ml Continue Aspirin 81 mg PO DAILY@0900 Formoterol Fumarate [Perforomist] 20 mcg INHALATION RT-BID@0900,2099 Baclofen [Lioresal] 10 mg PO TID@0600,1400,2200 Furosemide [Lasix] 40 mg PO BID@0600,1400 Famotidine [Pepcid] 20 mg PO HS@2100 Changed Amoxic-Pot Clav 875-125Mg [Augmentin 875-125] 1 tab PO BID@0900,2100 7 Days #14 tab Discontinued Ipratropium-Albuterol Nebulize [Duoneb 0.5 mg-3 mg/3 ml Soln] 3 ml INHALATION RT-QID@09,,17,21 Budesonide [Pulmicort] 0.5 mg INHALATION RT-BID@0900,2100 Ubidecarenone [Co Q-10] 100 mg PO DAILY@0900 Montelukast [Singulair] 10 mg PO HS@2100 Albuterol Sulfate [Ventolin HFA] 2 puff INHALATION RT-Q6H PRN PRN Reason: Shortness Of Breath Cholecalciferol [Vitamin D3 (25 Mcg = 1000 Iu)] 25 mcg PO DAILY@0900 Tamsulosin [Flomax] 0.4 mg PO HS@2100 guaiFENesin [Mucinex] 1,200 mg PO DAILY@0900 Discharge Medication List Aspirin 81 mg PO DAILY@0900 02/05/15 [History] Formoterol Fumarate [Perforomist] 20 mcg INHALATION RT-BID@0900,2100 11/02/20 [History] Baclofen [Lioresal] 10 mg PO TID@0600,1400,2200 11/07/20 [History] Famotidine [Pepcid] 20 mg PO HS@209911/15/20 [History] Furosemide [Lasix] 40 mg PO BID@0600,1400 11/15/20 [History] Amoxic-Pot Clav 875-125Mg [Augmentin 875-125] 1 tab PO BID@0900,2099 7 Days #14 tab 11/19/20 [Rx] Budesonide [Pulmicort] 1 mg INHALATION RT-BID ml 11/19/20 [Rx] Ipratropium-Albuterol Nebulize [Duoneb 0.5 mg-3 mg/3 ml Soln] 3 ml INHALATION RT-Q4H PRN ml 11/19/20 [Rx] Follow up Appointment(s)/Referral(s): Lee Ann Bean MD [STAFF PHYSICIAN] - 1-2 days [facility], [NON-STAFF] - Activity/Diet/Wound Care/Special Instructions: Hospice - [phone] Discharge Disposition: [facility] TO HOSPICE MED FACILTY
--- NOTE | 2020-11-19 16:52 | P.PN ---
Subjective Progress Note Date: 11/19/20 Principal diagnosis: Shortness of breath This is a 75-year-old white male patient who was recently discharged to the [facility] the [place] on 11/14/2020 after being hospitalized for acute exacerbation of COPD and right lower lobe pneumonia for 7 days. Prior to that patient had another hospitalization from 11/02/2020 through 11/04/2020 for acute exacerbation of COPD. After most recent hospitalization [facility] and a plan of possibly enrolling in hospice/palliative care. Patient has known history of advanced COPD, stage IV, on home oxygen, h ypertension, chronic diastolic CHF, previous pseudomonal pneumonia, obstructive sleep apnea noncompliant with CPAP, history of gout, and general medical debility. Patient was having increasing difficulty at home with mobility, and he was having recurrent falls. During his last admission palliative care and hospice was recommended by the medical team in view of multiple medical comorbidities, advanced COPD, general medical debility, chronic CHF. [facility] was [facility] in stable condition with a guarded prognosis. On 11/15/2020 patient was brought back to the emergency department [facility] the [facility] for evaluation of difficulty breathing. Patient is a poor historian. His CODE STATUS is DO NOT RESUSCITATE, he provides no other significant history other than shortness of breath. His chest x-ray on admission shows some right lower lobe infiltrates with possibly slightly increase compared to his most recent exam. His initial blood work showed white blood cell count is 20.2 which has increased from his discharge white blood cell count of 12.8, hemoglobin is 10.4, platelet count was 232, sodium was 136, potassium is 5.0, CO2 was 39, BUN is 55, creatinine is 1.67. Troponin was 0.013, proBNP was 856, pro calcitonin was 0.63, COVID-19 PCR was negative. Patient is afebrile, did have a single temperature recorded of 95 in the emergency department, currently normothermic, he is sleepy but he is opening eyes to repeated verbal stimulation, he is on BiPAP support currently with pressures of 12/5 and FiO2 of 40%, his pulse ox is 98%. He was started on empiric antibiotic coverage in the form of Zosyn and Levaquin. Lung sounds reveal end expiratory wheezes, patient is on IV steroids and IV Solu-Medrol 60 mg every 6 hours, breathing treatments. On 11/17/2020 patient seen in follow-up on selective care unit. Much more awake on today's exam, his eyes are open spontaneously, he is responding appropriately, he is oriented 3, he states his breathing is improving, breathing easier. He was taken on BiPAP support, and was placed on nasal cannula at 4 L and his pulse ox is around 92%. No complaints of chest pain, no cough, lung sounds are quite diminished. No significant wheezing noted on today's exam, no fever or chills. She remains on antibiotics for possibility of right lower lobe pneumonia, in the form of Zosyn, breathing treatments IV steroids, he is on GI and DVT prophylaxis. he is on home dose Lasix 40 mg twice daily, no significant swelling in bilateral lower extremities, no abdominal distention, no wheezing. Pro calcitonin level came back at 0.63. Chest x-ray showed a right lower lobe patchy opacity and bibasilar linear opacities without significant change compared to most recent chest x-ray, this could represent right lower lobe infiltrate/pneumonia and subsegmental atelectasis. he was removed from BiPAP, however patient was again noted to be increasingly lethargic, and desaturating down to 80% on 4 L, he was placed back on BiPAP. Patient has been receiving intermittent doses of IV Ativan. On 11/18/2020 patient seen in follow-up on medical surgical floor. Today he is awake and alert, oriented 2, person and place, he knew the year, but not to month, he is responding appropriately, he denies any distress, he is currently on 4 L of oxygen pulse ox is 97%, no fever or chills. No wheezing or cough, lung sounds are diminished. Today's labs have been reviewed, white blood cell count is improving, is down to 17.8, hemoglobin is 8.8, sodium is 144, potassium is 5.0, chloride is 96, BUN is 55, creatinine is stable at 1.6. Blood cultures have shown no growth thus far. Remains on Zosyn breathing treatments and IV steroids On 11/19/2020 patient seen in follow-up on medical surgical floor. He is resting comfortably in bed, breathing comfortably, he has been wearing BiPAP on and off and at bedtime, he has been, and off the BiPAP support for meals, he usually wears 4 L of oxygen and his pulse ox has been around 96%, has had no acute events overnight, his been afebrile, vital signs have been stable. Today's chest x-ray showing patchy asymmetric densities that appear to be slightly improved particularly at the right lung base. His white blood cell count is improving on today's labs and is down to 15, hemoglobin is 9.8, sodium is 142, potassium is 4.7, chloride is 97, CO2 is 34, BUN, 48, creatinine is improving and is down to 1.4. Pro-calcitonin level is also improving and is down to 0.25. Cultures have shown no growth. Patient's breathing overall has improved, his had no acute events overnight. Currently discharge planning is in progress for discharge to [facility] living under the hospice care. Objective - Vital Signs Vital signs: Vital Signs Temp 97.8 F 11/19/20 13:29 Pulse 65 11/19/20 13:29 Resp 24 11/19/20 13:29 BP 146/74 11/19/20 13:29 Pulse Ox 94 L 11/19/20 13:29 Intake & Output 11/18/20 11/19/20 11/19/20 18:59 06:59 18:59 Intake Total 100 Output Total 2200 1150 Balance 100 -2200 -1150 Intake: Intake, IV Titration 100 Amount Piperacillin-Tazobactam 3 100 .375 gm In Sodium Chloride 0.9% 100 ml @ 25 mls/hr IVPB Q8HR [facility] Rx# :[id number] Output: Urine 2200 1150 Other: Voiding Method Indwelling Catheter Indwelling Catheter Indwelling Catheter - Exam GENERAL EXAM: Lethargic, arousable to verbal stimulation, 75-year-old white male, 4 L of oxygen a pulse ox of 97% comfortable in no apparent distress. HEAD: Normocephalic/atraumatic. EYES: Normal reaction of pupils, equal size. Conjunctiva pink, sclera white. NOSE: Clear with pink turbinates. THROAT: No erythema or exudates. NECK: No masses, no JVD, no thyroid enlargement, no adenopathy. CHEST: No chest wall deformity. Symmetrical expansion. LUNGS: Equal air entry with expiratory wheezes. Diminished breath sounds at the bases CVS: Regular rate and rhythm, normal S1 and S2, no gallops, no murmurs, no rubs ABDOMEN: Soft, nontender. No hepatosplenomegaly, normal bowel sounds, no guarding or rigidity. EXTREMITIES: No clubbing, no edema, no cyanosis, 2+ pulses and upper and lower extremities. MUSCULOSKELETAL: Muscle strength and tone normal. SPINE: No scoliosis or deformity SKIN: No rashes CENTRAL NERVOUS SYSTEM: Lethargic but arousable to verbal stimulation. No focal deficits, tone is normal in all 4 extremities. - Labs CBC & Chem 7: 11/19/20 07:52 11/19/20 07:52 Labs: Abnormal Lab Results - Last 24 Hours (Table) 11/19/20 11/19/20 11/19/20 Range/Units 06:38 07:52 07:52 WBC 15.09 H (4.50-10.00) X 10*3/uL RBC 3.97 L (4.40-5.60) X 10*6/uL Hgb 9.8 L (13.0-17.0) g/dL Hct 35.8 L (39.6-50.0) % MCH 24.7 L (27.0-32.0) pg MCHC 27.4 L (32.0-37.0) g/dL RDW 18.5 H (11.5-14.5) % Plt Count 132 L (140-440) X 10*3/uL Immature Gran # 0.23 H (0.00-0.04) X 10*3/uL Neutrophils # 13.60 H (1.80-7.70) X 10*3/uL Lymphocytes # 0.33 L (0.90-5.00) X 10*3/uL Eosinophils # 0 L (0.04-0.35) X 10*3/uL Carbon Dioxide 34.5 H (21.6-31.8) mmol/L BUN 48.0 H (9.0-27.0) mg/dL Est GFR (CKD-EPI)AfAm 56.2 L (60.0-200.0) Est GFR (CKD-EPI)NonAf 48.5 L (60.0-200.0) BUN/Creatinine Ratio 34.29 H (12.00-20.00) Ratio Glucose 152 H (70-110) mg/dL POC Glucose (mg/dL) 145 H (75-99) mg/dL Calcium 8.6 L (8.7-10.3) mg/dL AST 42 H (14-35) U/L ALT 62 H (10-49) U/L Total Protein 5.5 L (6.2-8.2) g/dL Albumin 3.30 L (3.80-4.90) g/dL Albumin/Globulin Ratio 1.50 L (1.60-3.17) g/dL Microbiology - Last 24 Hours (Table) 11/15/20 21:54 Blood Culture - Preliminary Blood No Growth after 72 hours 11/15/20 20:35 Blood Culture - Preliminary Blood No Growth after 72 hours Assessment and Plan Plan: Assessment: #1. Acute on chronic hypoxic respiratory failure related to acute exacerbation of COPD, and possibility of right lower lobe pneumonia #2. Recent hospitalization from 11/07/2020 through 11/14/2020 for COPD exacerbation and pneumonia, [facility] #3. Advanced COPD on home oxygen at 3 L #4. Acute kidney injury related to ATN #5. History of obstructive sleep apnea noncompliant with CPAP #6. Chronic hypoxic and hypercapnic respiratory failure related to COPD #7. Chronic diastolic CHF #8. Gen. weakness, and medical debility #9. History of gout #10. History of smoking Plan: Discharge x-ray has been reviewed showing improvement in the appearance of bilateral infiltrates particularly infiltrate at the right base White blood cell count is improving patient has had no fever or chills Renal profile is improving Overall prognosis is guarded Discharge planning is in progress for discharge to the [facility] living [facility] under the hospice care I performed a history & physical examination of the patient and discussed their management with my nurse practitioner, Soha Reina. I reviewed the nurse practitioner's note and agree with the documented findings and plan of care. Lung sounds are positive for mild wheezes throughout the lung root. The findings and the impression was discussed with the patient. I attest to the documentation by the nurse practitioner. Time with Patient: Less than 30
== END 2020-11-19 15:05 | disposition hospice, inpatient (51) | DRG 193 ==
LOC: EC 16:10 → 4SSUR 20:33
PROVIDERS: ADMIT Family Medicine; ATTEND Family Medicine
PROC: 5A09457 Assistance with Respiratory Ventilation, 24-96 Consecutive Hours, Continuous Positive Airway Pressure (ICD-10-PCS; principal; 2020-11-15)
DX: J18.9 Pneumonia, unspecified organism (principal); J96.21 Acute and chronic respiratory failure with hypoxia; J96.22 Acute and chronic respiratory failure with hypercapnia; N17.0 Acute kidney failure with tubular necrosis; J44.0 Chronic obstructive pulmonary disease with (acute) lower respiratory infection; J44.1 Chronic obstructive pulmonary disease with (acute) exacerbation; I50.32 Chronic diastolic (congestive) heart failure; E87.2 Acidosis; M1A.9XX0 Chronic gout, unspecified, without tophus (tophi); N40.1 Benign prostatic hyperplasia with lower urinary tract symptoms; I07.1 Rheumatic tricuspid insufficiency; R13.10 Dysphagia, unspecified; Z20.822 Contact with and (suspected) exposure to COVID-19; I45.4 Nonspecific intraventricular block; Z66 Do not resuscitate; I11.0 Hypertensive heart disease with heart failure; Z51.5 Encounter for palliative care; F17.210 Nicotine dependence, cigarettes, uncomplicated; G47.10 Hypersomnia, unspecified; G47.30 Sleep apnea, unspecified; Z91.19 Patient's noncompliance with other medical treatment and regimen; Z79.82 Long term (current) use of aspirin; Z79.899 Other long term (current) drug therapy; Z82.49 Family history of ischemic heart disease and other diseases of the circulatory system; Z83.438 Family history of other disorder of lipoprotein metabolism and other lipidemia; Z99.81 Dependence on supplemental oxygen; Z71.6 Tobacco abuse counseling; Z79.51 Long term (current) use of inhaled steroids
CPT/HCPCS: 71045; 80053; 83605; 83880; 84145; 84484; 85025; 85027; 85610; 85730; 87040; 87635; 93005; 94640; 94660; 94760; 99291